=== PATIENT | male | born 1960 | race Caucasian/White ===

== ENCOUNTER 2023-04-21 07:00 | Day surgery (SDC) | payer BC, OTHER ==
[~2023-04-21 07:00] MED LIST: ALPRAZolam 0.25 MG TAB PO PRN; ALPRAZolam 0.5 MG TAB PO PRN; ASPIRIN 325 MG TAB PO ONE; ATORVASTATIN 80 MG TAB PO ONE; HEPARIN SODIUM,PORCINE (1 ML) 2,500 UNIT in SODIUM CHLORIDE 0.9% 250 ML IRRIGATION PRN; HEPARIN SODIUM,PORCINE 10,000 UNIT in SODIUM CHLORIDE 0.9% 1,000 ML IRRIGATION PRN; NITROGLYCERIN SL TABS 0.4 MG TAB SUBLINGUAL PRN; SODIUM CHLORIDE 0.9% 1,000 ML in EMPTY BAG 1 BAG IV SCH
[2023-04-21 07:20] VITALS: RESP 18
[2023-04-21 07:31] LABS: Anisocytosis Slight; Basophils # (A) 0.1 k/uL (0-0.2); Basophils % (A) 1 %; Eosinophils # (A) 0.3 k/uL (0-0.7); Eosinophils % (A) 3 %; HCT 40.3 % (39.0-53.0); HGB 13.5 gm/dL (13.0-17.5); Lymphocytes % (A) 11 %; MCH 26.8 pg (25.0-35.0); MCHC 33.5 g/dL (31.0-37.0); MCV 79.8 fL (80.0-100.0); Mean Platelet Volume 8.8; Microcytosis Slight; Monocytes # (A) 0.6 k/uL (0-1.0); Monocytes % (A) 6 %; Neutrophils # (A) 6.9 k/uL (1.3-7.7); Neutrophils % (A) 78 %; Platelet Count 224 k/uL (150-450); RBC 5.05 m/uL (4.30-5.90); RDW 16.5 % (11.5-15.5); WBC 8.9 k/uL (3.8-10.6)
[2023-04-21 07:43] LABS: African American GFR (CKD) 47 (>60 ml/min/1.73 sqM); Anion Gap 5 mmol/L; Blood Urea Nitrogen 22 mg/dL (9-20); Calcium 8.3 mg/dL (8.4-10.2); Carbon Dioxide 27 mmol/L (22-30); Chloride 105 mmol/L (98-107); Glucose 146 mg/dL (74-99); Non-African American GFR(CKD) 40 (>60 ml/min/1.73 sqM); Potassium 3.6 mmol/L (3.5-5.1); Sodium 137 mmol/L (137-145)
[2023-04-21 07:46] LABS: INR 1.1 (<1.2); Prothrombin Time 11.3 sec (9.0-12.0)
[2023-04-21] MEDS ORDERED: LIDOCAINE 1% INJ 10MG/ML (20 ML MDV) ONE (10:12)
[2023-04-21] MEDS ORDERED: fentaNYL (PF) 50 MCG/ML 2 ML AMP ONE (10:13)
[2023-04-21] MEDS ORDERED: VERAPAMIL 2.5 MG/ML 2 ML AMP ONE (10:13)
[2023-04-21] MEDS ORDERED: HEPARIN SODIUM 1,000 UN/ML (10ML VL) ONE (10:13)
[2023-04-21] MEDS ORDERED: MIDAZOLAM 2 MG/2 ML VIAL IVP ONE (10:19)
[2023-04-21] MEDS: fentaNYL (PF) 50 MCG/ML 2 ML AMP IVP ONE ×2 (10:19→10:24)
[2023-04-21] MEDS ORDERED: LIDOCAINE 1% INJ 10MG/ML (20 ML MDV) SQ ONE (10:21)
[2023-04-21] MEDS ORDERED: VERAPAMIL SYRINGE (5 MG/10 ML) INTRAARTER ONE (10:27)
[2023-04-21] MEDS ORDERED: HEPARIN SODIUM 1,000 UN/ML (10ML VL) IV ONE (10:30)
[2023-04-21] MEDS ORDERED: IOPAMIDOL-370 100ML BTL INJ ONE (10:40)
[2023-04-21] MEDS ORDERED: RX INFO: IV CONTRAST WAS GIVEN 1 EACH MISC MISCELLANE PRN (10:56)
--- NOTE | 2023-04-21 11:16 | CC ---
CARDIAC CATHETERIZATION REPORT INDICATION: Unstable angina in a patient with known aortic valve replacement, who presented to us with symptoms of progressively worsening shortness of breath, and a nuclear scan showed a fixed inferior wall defect and LV systolic dysfunction with an ejection fraction of 40%. The patient's Coumadin was stopped and he had taken Lovenox. PROCEDURE NOTE: After obtaining informed consent, left heart catheterization and coronary angiogram were performed via the right radial artery using standard Maya catheters. The patient's creatinine is elevated. He was hydrated and will be hydrated rest of today. We tried to use little dye as we can and certainly use less than the contrast threshold. The patient tolerated the procedure well without any obvious immediate complications. A TR band will be used for hemostasis. Total sedation time was 20 minutes. Right radial artery access was obtained using Seldinger technique. A 6-Yemeni sheath was placed. Catheters and wires were floated into the ascending aorta under fluoroscopic guidance. The patient tolerated the procedure well without any obvious immediate complications. FINDINGS: 1. Hemodynamics: Left ventricular end-diastolic pressure is 28 mm. There is no significant gradient across the aortic valve. 2. Left ventriculogram: Left ventriculogram was not performed. 3. Angiographic data: a.Right coronary artery: The right coronary artery appears small, nondominant vessel, and is free of significant stenosis. b.Left main coronary artery is a normal-sized vessel and is free of stenosis, appears mildly calcified. LAD and its branches and a nondominant circumflex coronary artery are free of significant stenosis. CONCLUSIONS: Mild nonobstructive disease involving right coronary artery. PLAN: The patient's symptoms does not relate to ischemic heart disease. We will treat the patient with diuretics, adequate control of blood pressure, and risk factor modification. He will continue Coumadin and will be transitioned with Lovenox. MMODL / IJN: [id number] /
[2023-04-21] MEDS ORDERED: SODIUM CHLORIDE 0.9% 500 ML 500 ML IV ONE (13:00)
[2023-04-21 14:15] VITALS: BP 126/65; PULSE 62
== END 2023-04-21 14:55 | disposition home or self-care (01) ==
LOC: CATHCVL 07:00
PROVIDERS: ATTEND Internal Medicine Cardiovascular Disease
DX: I25.10 Atherosclerotic heart disease of native coronary artery without angina pectoris (principal); I10 Essential (primary) hypertension; E78.5 Hyperlipidemia, unspecified; F17.210 Nicotine dependence, cigarettes, uncomplicated; Z79.899 Other long term (current) drug therapy
CPT/HCPCS: 93458; 80048; 85025; 85610; C1769; J2250; J2001; J3010; J1644; Q9967

== ENCOUNTER 2023-06-17 12:08 | Observation (INO) | payer BC, OTHER ==
[2023-06-17 14:20] LABS: INR 0.9 (<1.2); Partial Thromboplastin Time 24.9 sec (22.0-30.0); Prothrombin Time 9.7 sec (9.0-12.0)
[2023-06-17 14:24] LABS: Anisocytosis Slight; Basophils # (A) 0.1 k/uL (0-0.2); Basophils % (A) 1 %; Eosinophils # (A) 0.3 k/uL (0-0.7); Eosinophils % (A) 2 %; HCT 43.6 % (39.0-53.0); HGB 14.3 gm/dL (13.0-17.5); Lymphocytes # (A) 0.9 k/uL (1.0-4.8); Lymphocytes % (A) 8 %; MCHC 32.8 g/dL (31.0-37.0); MCV 82.2 fL (80.0-100.0); Mean Platelet Volume 9.5; Monocytes # (A) 0.5 k/uL (0-1.0); Monocytes % (A) 4 %; Neutrophils # (A) 9.6 k/uL (1.3-7.7); Neutrophils % (A) 85 %; Platelet Count 199 k/uL (150-450); RBC 5.31 m/uL (4.30-5.90); RDW 16.5 % (11.5-15.5); WBC 11.3 k/uL (3.8-10.6)
--- NOTE | 2023-06-17 14:42 | XR ---
EXAMINATION TYPE: XR chest 2V DATE OF EXAM: 06/17/2023 COMPARISON: None HISTORY: 62-year-old male with chest pain and dizziness TECHNIQUE: AP and lateral views FINDINGS: Median sternotomy wires are present. Prosthetic aortic valve. Heart upper limits of normal in size. M ild tortuosity/ectasia of the thoracic aorta. Hazy density is likely related to patient body habitus. No josefina consolidation or pleural effusion. IMPRESSION: Borderline heart size. No definite acute process.
[2023-06-17 14:44] LABS: ALT 15 U/L (4-49); AST 26 U/L (17-59); African American GFR (CKD) 37 (>60 ml/min/1.73 sqM); Albumin 4.2 g/dL (3.5-5.0); Alkaline Phosphatase 85 U/L (38-126); Anion Gap 7 mmol/L; Blood Urea Nitrogen 38 mg/dL (9-20); Carbon Dioxide 32 mmol/L (22-30); Chloride 99 mmol/L (98-107); Glucose 179 mg/dL (74-99); Magnesium 2.2 mg/dL (1.6-2.3); Non-African American GFR(CKD) 32 (>60 ml/min/1.73 sqM); Potassium 3.7 mmol/L (3.5-5.1); Sodium 138 mmol/L (137-145); Total Protein 7.5 g/dL (6.3-8.2)
[2023-06-17] MEDS ORDERED: HEPARIN SODIUM 1,000 UN/ML (10ML VL) IV ONE (15:20)
[2023-06-17] MEDS ORDERED: NALOXONE 0.4 MG/ML 1 ML VIAL IV PRN (15:21)
--- NOTE | 2023-06-17 15:21 | ED ---
General Adult HPI - General Chief complaint: Syncope Stated complaint: dizziness Time Seen by Provider: 06/17/23 12:20 Source: patient Mode of arrival: ambulatory Limitations: no limitations - History of Present Illness Initial comments: 62-year-old male with past medical history of aortic valve replacement who presents to the emergency department from his primary care office. States that for the past month he has had episodes of near-syncope upon standing. Patient took himself off of all of his medications because he is out of his medication induced. He was on Coumadin for his mechanical valve. States that the valve was put in in 2003 and this is the first time he has ever not taking his medications. His symptoms continued and therefore he saw his primary care today. They sent him over to the cardiology office who recommended that he come into the hospital as he would require heparinization. Patient denies any chest pain or shortness of breath. No headaches or visual changes. No nausea or vomiting. Denies fevers. No other alleviating, precipitating or modifying factors - Related Data Home Medications Medication Instructions Recorded Confirmed Esomeprazole Magnesium 40 mg PO DIRECTED 06/17/23 06/17/23 Furosemide [Lasix] 40 mg PO DIRECTED 06/17/23 06/17/23 Potassium Chloride [Klor-Con M10] 10 meq PO DIRECTED 06/17/23 06/17/23 Warfarin [Coumadin] 2 mg PO DIRECTED 06/17/23 06/17/23 hydrALAZINE HCL [Apresoline] 50 mg PO DIRECTED 06/17/23 06/17/23 lisinopriL [Prinivil] 20 mg PO DIRECTED 06/17/23 06/17/23 tadalafiL [Cialis] 10 mg PO DIRECTED 06/17/23 06/17/23 Allergies Allergy/AdvReac Type Severity Reaction Status Date / Time No Known Allergies Allergy Verified 06/17/23 15:40 Review of Systems ROS Statement: Those systems with pertinent positive or pertinent negative responses have been documented in the HPI. ROS Other: All systems not noted in ROS Statement are negative. Past Medical History Past Medical History: CVA/TIA, GERD/Reflux, Hyperlipidemia, Hypertension, Sleep Apnea/CPAP/BIPAP Additional Past Medical History / Comment(s): stress test abnormal, cva 2 yrs ago lft arm tires quickly, questioning possible DC,no cpap used See Dr Ibarra's H & P History of Any Multi-Drug Resistant Organisms: None Reported Past Surgical History: Cardiac Valve Replacement Additional Past Surgical History / Comment(s): 2003 aortic valve replaced, cerebral aneurysm repaired 2021 Additional Past Anesthesia/Blood Transfusion Reaction / Comment(s): no blood tx fx known Past Psychological History: No Psychological Hx Reported Smoking Status: Current every day smoker General Exam Limitations: no limitations General appearance: alert, in no apparent distress Head exam: Present: atraumatic, normocephalic, normal inspection Eye exam: Present: normal appearance, PERRL, EOMI. Absent: scleral icterus, conjunctival injection, periorbital swelling ENT exam: Present: normal exam, mucous membranes moist Neck exam: Present: normal inspection. Absent: tenderness, meningismus, lymphadenopathy Respiratory exam: Present: normal lung sounds bilaterally. Absent: respiratory distress, wheezes, rales, rhonchi, stridor Cardiovascular Exam: Present: regular rate, normal rhythm, normal heart sounds, clicks (Audible click). Absent: systolic murmur, diastolic murmur, rubs, gallop GI/Abdominal exam: Present: soft, normal bowel sounds. Absent: distended, tenderness, guarding, rebound, rigid Extremities exam: Present: normal inspection, full ROM, normal capillary refill. Absent: tenderness, pedal edema, joint swelling, calf tenderness Back exam: Present: normal inspection Neurological exam: Present: alert, oriented X3, CN II-XII intact Psychiatric exam: Present: normal affect, normal mood Skin exam: Present: warm, dry, intact, normal color. Absent: rash Course Vital Signs 06/17/23 06/17/23 06/17/23 12:19 14:43 16:28 Temperature 98.3 F Pulse Rate 93 Pulse Rate [ Bilateral Radial] Pulse Rate [ Ladle Builder ] Pulse Rate [ 85 72 Sitting] Pulse Rate [ 88 Standing] Pulse Rate [ 80 Supine] Respiratory 16 16 Rate Blood Pressure 159/98 Blood Pressure 137/88 171/91 [Sitting] Blood Pressure 154/100 [Standing] Blood Pressure 152/91 [Supine] O2 Sat by Pulse 99 Oximetry 06/17/23 06/18/23 06/18/23 20:00 00:00 04:00 Temperature 98.2 F 97.9 F 97.7 F Pulse Rate Pulse Rate [ 89 76 78 Bilateral Radial] Pulse Rate [ Ladle Builder ] Pulse Rate [ Sitting] Pulse Rate [ Standing] Pulse Rate [ Supine] Respiratory 19 16 Rate Blood Pressure Blood Pressure 162/90 149/97 155/92 [Sitting] Blood Pressure [Standing] Blood Pressure [Supine] O2 Sat by Pulse 97 97 Oximetry 06/18/23 06/18/23 06/18/23 09:00 11:32 11:55 Temperature 98 F Pulse Rate Pulse Rate [ Bilateral Radial] Pulse Rate [ 72 75 Ladle Builder ] Pulse Rate [ 87 Sitting] Pulse Rate [ 78 Standing] Pulse Rate [ 75 Supine] Respiratory 18 16 Rate Blood Pressure Blood Pressure 162/94 150/97 [Sitting] Blood Pressure 157/96 159/100 [Standing] Blood Pressure 157/96 [Supine] O2 Sat by Pulse 98 97 Oximetry 06/18/23 06/18/23 06/18/23 15:24 16:34 20:00 Temperature 97.7 F Pulse Rate Pulse Rate [ Bilateral Radial] Pulse Rate [ 78 79 Ladle Builder ] Pulse Rate [ Sitting] Pulse Rate [ Standing] Pulse Rate [ Supine] Respiratory 16 14 Rate Blood Pressure Blood Pressure 160/90 175/116 [Sitting] Blood Pressure [Standing] Blood Pressure [Supine] O2 Sat by Pulse 99 97 Oximetry 06/18/23 21:00 Temperature Pulse Rate Pulse Rate [ Bilateral Radial] Pulse Rate [ Ladle Builder ] Pulse Rate [ Sitting] Pulse Rate [ Standing] Pulse Rate [ Supine] Respiratory Rate Blood Pressure Blood Pressure [Sitting] Blood Pressure [Standing] Blood Pressure 148/87 [Supine] O2 Sat by Pulse Oximetry Medical Decision Making - Medical Decision Making Was pt. sent in by a medical professional or institution (, PA, RESTAURANT ASSISTANT MANAGER, urgent care, hospital, or group home...) When possible be specific @ -Patient was sent in by PCP and cardiology office Did you speak to anyone other than the patient for history (EMS, parent, family, police, friend...)? What history was obtained from this source @ -No Did you review nursing and triage notes (agree or disagree)? Why? @ -I reviewed and agree with nursing and triage notes Were old charts reviewed (outside hosp., previous admission, EMS record, old EKG, old radiological studies, urgent care reports/EKG's, group home records)? Report findings @ -No old charts were reviewed Differential Diagnosis (chest pain, altered mental status, abdominal pain women, abdominal pain men, vaginal bleeding, weakness, fever, dyspnea, syncope, headache, dizziness, GI bleed, back pain, seizure, CVA, palpatations, mental health, musculoskeletal)? @ -Differential Chest Pain: Stable Angina, Unstable Angina, STEMI, NSTEMI Aortic Dissection, Pneumothorax, Musculoskeletal, Esophageal Spasm GERD, Cholecystitis, Pancreatitis, Zoster, this is not meant to be an all-inclusive list. EKG interpreted by me (3pts min.). @ -Yes and demonstrates sinus rhythm with a rate of 90. IL interval 156. QRS 106. QTC of 451. No acute ST segment elevations. ST depression V4 through V6 X-rays interpreted by me (1pt min.). @ -Yes and demonstrates no acute process CT interpreted by me (1pt min.). @ -None done U/S interpreted by me (1pt. min.). @ -None done What testing was considered but not performed or refused? (CT, X-rays, U/S, labs)? Why? @ -None What meds were considered but not given or refused? Why? @ -None Did you discuss the management of the patient with other professionals (professionals i.e. , PA, RESTAURANT ASSISTANT MANAGER, lab, RT, psych nurse, social research assistant, business data analyst, teacher, disabilities services officer, case planner)? Give summary @ I spoke with Dr. Roth who will admit the patient Was smoking cessation discussed for >3mins.? @ -No Was critical care preformed (if so, how long)? @ -yes, 35 minutes Were there social determinants of health that impacted care today? How? (Homelessness, low income, unemployed, alcoholism, drug addiction, transportation, low edu. Level, literacy, decrease access to med. care, usp, rehab)? @ -No Was there de-escalation of care discussed even if they declined (Discuss DNR or withdrawal of care, Hospice)? DNR status @ -No What co-morbidities impacted this encounter? (DM, HTN, Smoking, COPD, CAD, Cancer, CVA, ARF, Chemo, Hep., AIDS, mental health diagnosis, sleep apnea, morbid obesity)? @ -mechanical heart valve Was patient admitted / discharged? Hospital course, mention meds given and route, prescriptions, significant lab abnormalities, going to OR and other pertinent info. @ -Upon arrival patient was placed into the hallway. Thorough history and physical exam was performed. Laboratory studies are conducted. Troponin is elevated. Patient will require heparin with transition to Coumadin. Patient agreeable to admission. Spoke with Dr. Roth Undiagnosed new problem with uncertain prognosis? @ -Yes Drug Therapy requiring intensive monitoring for toxicity (Heparin, Nitro, Insulin, Cardizem)? @ -Heparin Were any procedures done? @ -No Diagnosis/symptom? @ -Acute respiratory insufficiency, subtherapeutic INR, medical noncompliance, history of mechanical aortic valve Acute, or Chronic, or Acute on Chronic? @ -acute Uncomplicated (without systemic symptoms) or Complicated (systemic symptoms)? @ -complicated Side effects of treatment? @ -No Exacerbation, Progression, or Severe Exacerbation? @ -No Poses a threat to life or bodily function? How? (Chest pain, USA, DC, pneumonia, PE, COPD, DKA, ARF, appy, cholecystitis, CVA, Diverticulitis, Homicidal, Suicidal, threat to staff... and all critical care pts) @ -yes patient has not been anticoagulated with his valve - Lab Data Result diagrams: 06/18/23 04:59 06/18/23 04:59 Lab Results 06/17/23 06/17/23 06/17/23 Range/Units 13:18 13:18 13:18 WBC 11.3 H (3.8-10.6) k/uL RBC 5.31 (4.30-5.90) m/uL Hgb 14.3 (13.0-17.5) gm/dL Hct 43.6 (39.0-53.0) % MCV 82.2 (80.0-100.0) fL MCH 27.0 (25.0-35.0) pg MCHC 32.8 (31.0-37.0) g/dL RDW 16.5 H (11.5-15.5) % Plt Count 199 (150-450) k/uL MPV 9.5 Neutrophils % 85 % Lymphocytes % 8 % Monocytes % 4 % Eosinophils % 2 % Basophils % 1 % Neutrophils # 9.6 H (1.3-7.7) k/uL Lymphocytes # 0.9 L (1.0-4.8) k/uL Monocytes # 0.5 (0-1.0) k/uL Eosinophils # 0.3 (0-0.7) k/uL Basophils # 0.1 (0-0.2) k/uL Anisocytosis Slight PT 9.7 (9.0-12.0) sec INR 0.9 (<1.2) APTT 24.9 (22.0-30.0) sec Sodium 138 (137-145) mmol/L Potassium 3.7 (3.5-5.1) mmol/L Chloride 99 (98-107) mmol/L Carbon Dioxide 32 H (22-30) mmol/L Anion Gap 7 mmol/L BUN 38 H (9-20) mg/dL Creatinine 2.16 H (0.66-1.25) mg/dL Est GFR (CKD-EPI)AfAm 37 (>60 ml/min/1.73 sqM) Est GFR (CKD-EPI)NonAf 32 (>60 ml/min/1.73 sqM) Glucose 179 H (74-99) mg/dL Calcium 9.0 (8.4-10.2) mg/dL Magnesium 2.2 (1.6-2.3) mg/dL Total Bilirubin 1.0 (0.2-1.3) mg/dL AST 26 (17-59) U/L ALT 15 (4-49) U/L Alkaline Phosphatase 85 (38-126) U/L Troponin I (0.000-0.034) ng/mL Total Protein 7.5 (6.3-8.2) g/dL Albumin 4.2 (3.5-5.0) g/dL 06/17/23 Range/Units 13:18 WBC (3.8-10.6) k/uL RBC (4.30-5.90) m/uL Hgb (13.0-17.5) gm/dL Hct (39.0-53.0) % MCV (80.0-100.0) fL MCH (25.0-35.0) pg MCHC (31.0-37.0) g/dL RDW (11.5-15.5) % Plt Count (150-450) k/uL MPV Neutrophils % % Lymphocytes % % Monocytes % % Eosinophils % % Basophils % % Neutrophils # (1.3-7.7) k/uL Lymphocytes # (1.0-4.8) k/uL Monocytes # (0-1.0) k/uL Eosinophils # (0-0.7) k/uL Basophils # (0-0.2) k/uL Anisocytosis PT (9.0-12.0) sec INR (<1.2) APTT (22.0-30.0) sec Sodium (137-145) mmol/L Potassium (3.5-5.1) mmol/L Chloride (98-107) mmol/L Carbon Dioxide (22-30) mmol/L Anion Gap mmol/L BUN (9-20) mg/dL Creatinine (0.66-1.25) mg/dL Est GFR (CKD-EPI)AfAm (>60 ml/min/1.73 sqM) Est GFR (CKD-EPI)NonAf (>60 ml/min/1.73 sqM) Glucose (74-99) mg/dL Calcium (8.4-10.2) mg/dL Magnesium (1.6-2.3) mg/dL Total Bilirubin (0.2-1.3) mg/dL AST (17-59) U/L ALT (4-49) U/L Alkaline Phosphatase (38-126) U/L Troponin I 0.068 H* (0.000-0.034) ng/mL Total Protein (6.3-8.2) g/dL Albumin (3.5-5.0) g/dL Disposition Clinical Impression: Mechanical heart valve present, Medical non-compliance, Pre-syncope Disposition: ADMITTED IP TO THIS HOSP Condition: Stable Is patient prescribed a controlled substance at d/c from ED?: No Time of Disposition: 15:21 Decision to Admit Reason: Admit from EC Decision Date: 06/17/23 Decision Time: 15:21
[2023-06-17] MEDS: HEPARIN SOD,PORK IN 0.45% NACL 25,000 UNIT in 0.45% NACL 1 250ML.BAG IV SCH (15:53)
[2023-06-17] MEDS: HEPARIN SODIUM 1,000 UN/ML (10ML VL) IV PRN (22:11)
[2023-06-18 05:32] LABS: Anisocytosis Slight; Basophils # (A) 0.1 k/uL (0-0.2); Basophils % (A) 1 %; Eosinophils # (A) 0.4 k/uL (0-0.7); Eosinophils % (A) 4 %; HCT 40.6 % (39.0-53.0); HGB 13.1 gm/dL (13.0-17.5); Lymphocytes # (A) 1.4 k/uL (1.0-4.8); Lymphocytes % (A) 13 %; MCH 26.7 pg (25.0-35.0); MCHC 32.2 g/dL (31.0-37.0); MCV 82.8 fL (80.0-100.0); Mean Platelet Volume 8.8; Monocytes # (A) 0.6 k/uL (0-1.0); Monocytes % (A) 6 %; Neutrophils # (A) 7.9 k/uL (1.3-7.7); Neutrophils % (A) 75 %; Platelet Count 181 k/uL (150-450); RDW 16.5 % (11.5-15.5); WBC 10.4 k/uL (3.8-10.6)
[2023-06-18 05:34] LABS: INR 0.9 (<1.2); Partial Thromboplastin Time 32.8 sec (22.0-30.0); Prothrombin Time 9.9 sec (9.0-12.0)
[2023-06-18 05:48] LABS: African American GFR (CKD) 29 (>60 ml/min/1.73 sqM); Anion Gap 5 mmol/L; Blood Urea Nitrogen 35 mg/dL (9-20); Calcium 8.6 mg/dL (8.4-10.2); Carbon Dioxide 31 mmol/L (22-30); Chloride 102 mmol/L (98-107); Glucose 111 mg/dL (74-99); Non-African American GFR(CKD) 25 (>60 ml/min/1.73 sqM); Potassium 3.8 mmol/L (3.5-5.1); Sodium 138 mmol/L (137-145)
[2023-06-18] MEDS: HEPARIN SODIUM 1,000 UN/ML (10ML VL) IV PRN (06:08)
--- NOTE | 2023-06-18 08:28 | P.CRDCN ---
History of Present Illness Consult date: 06/18/23 Reason for Consult (text): Presyncope, mechanical valve with noncompliance, non-ST elevated myocardial infarction History of present illness: History of present illness: This is a 62 year old male patient of Dr. Joan Ibarra with past medical history of mechanical aortic valve, hypertension, dyslipidemia, tobacco use. Patient states that he had a syncopal episode related to lisinopril 80 mg daily but had stopped all his medications for 1 month trying to figure out which medication caused his problem. He was seen by his primary care and sent to cardiology. He was at the office with Dr. Joan Ibarra yesterday and sent directly into [facility] to s adriánt him on Coumadin and heparin drip as bridge. Patient denies having any chest pain. No orthopnea, PND, dyspnea on exertion or edema. He has had no further episodes of syncope or vertigo. Patient is seen today in the emergency center waiting for a bed on the cardiac unit. EKG sinus rhythmh left ventricular hypertrophy Chest x-ray: Chest x-ray borderline heart size. No definite acute process. WBC and initial 11.3-10.4, hemoglobin 13.1, platelet count 181. INR 0.9. Sodium 138, potassium 3.8, BUN 35 creatinine 2.65. Troponin 0.068, 0.058, 0.064. Glucose initially 179 now 111. Liver function tests are normal. Magnesium 2.2 Home cardiac medications: Carvedilol 25 mg twice daily, hydralazine 50 mg 3 times daily, Lasix 40 mg daily, lisinopril 20 mg daily, potassium chloride 10 mEq daily, warfarin 2 mg daily Echocardiogram 03/25/0602/23/2023 revealed normal LV size EF 50%, grade 2 diastolic dysfunction, moderate left nuclear hypertrophy. Mechanical AV prosthesis. Descending aorta is enlarged. Mild to moderate mitral regurgitation, mild mitral stenosis, mild tricuspid regurgitation. PAS P 50 mmHg. Review Of Systems: At the time of my evaluation: Constitutional: No fever, no chills. No weakness, fatigue or lethargy. EENT: No headache. No dizziness. Lungs: No shortness of breath, cough, no sputum production. No wheezing. Cardiovascular: No chest pain, no lower extremity edema. No palpitations. No paroxysmal nocturnal dyspnea. No orthopnea. No lightheadedness or dizziness. No syncopal episodes. Abdominal: No abdominal pain. No nausea, vomiting. No diarrhea. No constipation. No bloody or tarry stools. Genitourinary: No dysuria.. No urinary retention. Musculoskeletal: No myalgias. No muscle weakness, no frequent falls. No back pain. No neck pain. Integumentary: No wounds. No rash. No unusual bruising. Neurologic: No aphasia. No facial droop. No change in mentation. No head injury. No headache. Physical examination: Gen: This is a 62-year-old male. He is sitting on the edge of the stretcher and appears to be comfortable and in no acute distress. VS: reviewed 155/92, heart rate in the 70s, pulse ox 97% on room air, afebrile HEENT: Head is atraumatic, normocephalic. Pupils equal, round. Sclerae is anicteric. NECK: Supple. No JVD. . LUNGS: Clear to auscultation. No wheezes or rhonchi. No intercostal retractions. HEART: Regular rate and rhythm. Prosthetic valve sounds crisp. ABDOMEN: Soft No tenderness. EXTREMITIES: No pedal edema. No calf tenderness. NEUROLOGICAL: Patient is awake, alert and oriented x3. Assessment: Noncompliance with medications Mechanical aortic valve Troponin elevation flat, acute cardiac syndrome ruled out, no non-ST elevated [place] Acute kidney injury Hypertension with hypertensive cardiovascular disease Dyslipidemia Tobacco use Plan: Patient started on the following medications: Amlodipine 5 mg daily, Coreg 3.125 mg twice daily Continue heparin drip until INR is therapeutic Patient started on Coumadin 2.5 mg daily. PHARMACY NOT TO DOSE COUMADIN. Obtain orthostatic vital signs Obtain 2-D echocardiogram and Doppler study to assess mitral valve Monitor BNP daily Patient may require further workup to determine cause of vertigo/syncope. Further recommendations to follow based upon clinical course Thank you kindly for this consultation. Nurse practitioner note has been reviewed, I agree with documented findings and plan of care. Patient was seen and examined. Past Medical History Past Medical History: CVA/TIA, GERD/Reflux, Hyperlipidemia, Hypertension, Sleep Apnea/CPAP/BIPAP Additional Past Medical History / Comment(s): stress test abnormal, cva 2 yrs ago lft arm tires quickly, questioning possible [place],no cpap used See Dr Ibarra's H & P History of Any Multi-Drug Resistant Organisms: None Reported Past Surgical History: Cardiac Valve Replacement Additional Past Surgical History / Comment(s): 2003 aortic valve replaced, cerebral aneurysm repaired 2021 Additional Past Anesthesia/Blood Transfusion Reaction / Comment(s): no blood tx fx known Past Psychological History: No Psychological Hx Reported Smoking Status: Current every day smoker Medications and Allergies Home Medications Medication Instructions Recorded Confirmed Type Esomeprazole Magnesium 40 mg PO DIRECTED 06/17/23 06/17/23 History Furosemide [Lasix] 40 mg PO DIRECTED 06/17/23 06/17/23 History Potassium Chloride [Klor-Con M10] 10 meq PO DIRECTED 06/17/23 06/17/23 History Warfarin [Coumadin] 2 mg PO DIRECTED 06/17/23 06/17/23 History hydrALAZINE HCL [Apresoline] 50 mg PO DIRECTED 06/17/23 06/17/23 History lisinopriL [Prinivil] 20 mg PO DIRECTED 06/17/23 06/17/23 History tadalafiL [Cialis] 10 mg PO DIRECTED 06/17/23 06/17/23 History Allergies Allergy/AdvReac Type Severity Reaction Status Date / Time No Known Allergies Allergy Verified 06/17/23 15:40 Physical Exam Vitals: Vital Signs Temp Pulse Pulse Pulse Pulse Pulse Resp 06/18/23 04:00 97.7 F 78 06/18/23 00:00 97.9 F 76 16 06/17/23 20:00 98.2 F 89 19 06/17/23 16:28 72 16 06/17/23 14:43 85 88 80 06/17/23 12:19 98.3 F 93 16 BP BP BP BP Pulse Ox 06/18/23 04:00 155/92 06/18/23 00:00 149/97 97 06/17/23 20:00 162/90 97 06/17/23 16:28 171/91 06/17/23 14:43 137/88 154/100 152/91 06/17/23 12:19 159/98 99 Intake and Output 06/17/23 06/18/23 06/18/23 22:59 06:59 14:59 Intake Total 62.833 102.054 Balance 62.833 102.054 Intake: Intake, IV Titration 62.833 102.054 Amount Heparin Sod,Pork in 0.45% 62.833 102.054 NaCl 25,000 unit In 0.45 % NaCl 1 250ml.bag @ 10. 021 UNITS/KG/HR 10 mls/hr IV .Q24H [facility] Rx#: [id number] Other: Voiding Method Toilet Toilet Results 06/18/23 04:59 06/18/23 04:59 Cardiac Enzymes 06/17/23 06/17/23 06/17/23 Range/Units 13:18 13:18 17:30 AST 26 (17-59) U/L Troponin I 0.068 H* 0.058 H* (0.000-0.034) ng/mL 06/17/23 Range/Units 20:42 AST (17-59) U/L Troponin I 0.064 H* (0.000-0.034) ng/mL Coagulation 06/17/23 06/17/23 06/18/23 Range/Units 13:18 20:42 04:59 PT 9.7 9.9 (9.0-12.0) sec APTT 24.9 25.7 32.8 H (22.0-30.0) sec CBC 06/17/23 06/18/23 Range/Units 13:18 04:59 WBC 11.3 H 10.4 (3.8-10.6) k/uL RBC 5.31 4.90 (4.30-5.90) m/uL Hgb 14.3 13.1 (13.0-17.5) gm/dL Hct 43.6 40.6 (39.0-53.0) % Plt Count 199 181 (150-450) k/uL Comprehensive Metabolic Panel 06/17/23 06/18/23 Range/Units 13:18 04:59 Sodium 138 138 (137-145) mmol/L Potassium 3.7 3.8 (3.5-5.1) mmol/L Chloride 99 102 (98-107) mmol/L Carbon Dioxide 32 H 31 H (22-30) mmol/L BUN 38 H 35 H (9-20) mg/dL Creatinine 2.16 H 2.65 H (0.66-1.25) mg/dL Glucose 179 H 111 H (74-99) mg/dL Calcium 9.0 8.6 (8.4-10.2) mg/dL AST 26 (17-59) U/L ALT 15 (4-49) U/L Alkaline Phosphatase 85 (38-126) U/L Total Protein 7.5 (6.3-8.2) g/dL Albumin 4.2 (3.5-5.0) g/dL Current Medications Generic Name Dose Route Start Last Admin Trade Name Freq PRN Reason Stop Dose Admin Amlodipine Besylate 5 mg 06/18/23 09:00 Amlodipine 5 Mg Tab PO DAILY [facility] Carvedilol 3.125 mg 06/18/23 08:00 Carvedilol 3.125 Mg Tab PO BID-W/MEALS [facility] Heparin Sodium (Porcine) 0 unit 06/17/23 15:20 06/18/23 06:08 Heparin Sodium 1,000 Un/Ml (10ml Vl) IV 4,000 unit PER PROTOCOL PRN Administration Low PTT Protocol Heparin Sodium/Sodium Chloride 250 mls @ 10 mls/hr 06/17/23 15:30 06/18/23 06:02 25,000 unit/ Sodium Chloride IV 16 units/kg/hr .Q24H [facility] 15.966 mls/hr Titration Protocol 10.021 UNITS/KG/HR Naloxone HCl 0.2 mg 06/17/23 15:21 Naloxone 0.4 Mg/Ml 1 Ml Vial IV Q2M PRN Opioid Reversal Warfarin Sodium 2.5 mg 06/18/23 18:00 Warfarin 2.5 Mg Tab PO DAILY@1800 [facility] Protocol Intake and Output 06/17/23 06/18/23 06/18/23 22:59 06:59 14:59 Intake Total 62.833 102.054 Balance 62.833 102.054 Intake: Intake, IV Titration 62.833 102.054 Amount Heparin Sod,Pork in 0.45% 62.833 102.054 NaCl 25,000 unit In 0.45 % NaCl 1 250ml.bag @ 10. 021 UNITS/KG/HR 10 mls/hr IV .Q24H [facility] Rx#: [id number] Other: Voiding Method Toilet Toilet 06/18/23 04:59 06/18/23 04:59
[2023-06-18] MEDS: carvediloL 3.125 MG TAB PO SCH ×2 (08:35→17:02)
[2023-06-18] MEDS: HEPARIN SOD,PORK IN 0.45% NACL 25,000 UNIT in 0.45% NACL 1 250ML.BAG IV SCH (08:35)
[2023-06-18] MEDS ORDERED: amLODIPine 5 MG TAB PO SCH (09:00)
[2023-06-18] MEDS ORDERED: hydrALAZINE HCL 50 MG TAB PO SCH ×2 (09:30)
[2023-06-18] MEDS: PANTOPRAZOLE 40 MG/10 ML VIAL IVP SCH (11:24)
--- NOTE | 2023-06-18 11:25 | P.HPIM ---
History of Present Illness H&P Date: 06/18/23 Chief Complaint: Dizziness, hypertension This is 62-year-old gentleman who recently relocated to [place] in December [address] Ibarra, Cardiology, past medical history significant for AVR-2003 with a prosthetic valve, recent cardiac catheterization 04/2023 re porting mild nonobstructive disease involving RCA ,hypertension, hyperlipidemia, CKD III, obstructive sleep apnea-does not use CPAP and BiPAP, morbid obesity, CVA 2 years ago, current nicotine dependence and multiple other medical issues, reporting worsening dizziness and took himself off of all his medications including his antihypertensives and his Coumadin. Reports his last dose of Coumadin was 30 days ago. Symptoms persisted, and proceeded to his primary care physician, reporting his blood pressures significantly elevated greater than 200s. Patient was directed to cardiology's office who sent him to the ER for heparinization. Patient currently maintained on heparin drip, INR remains at 0.9.Troponin 0.068, 0.053, 0.064. EKG reporting sinus rhythm, left ventricular hypertrophy, ST-T changes. Denies chest pain, palpitations or shortness of breath. Chest x-ray reported borderline heart size, no definite acute process. Afebrile, WBC 10.4, hemoglobin 13.1, platelets 181, INR 0.9, s odium 3.8 bicarb 31 BUN 35, creatinine 2.65 magnesium 2.2. Glucose 179. Review of Systems ROS Statement: Those systems with pertinent positive or pertinent negative responses have been documented in the HPI. ROS Other: All systems not noted in ROS Statement are negative. Past Medical History Past Medical History: CVA/TIA, GERD/Reflux, Hyperlipidemia, Hypertension, Sleep Apnea/CPAP/BIPAP Additional Past Medical History / Comment(s): stress test abnormal, cva 2 yrs ago lft arm tires quickly, questioning possible [place],no cpap used See Dr Ibarra's H & P History of Any Multi-Drug Resistant Organisms: None Reported Past Surgical History: Cardiac Valve Replacement Additional Past Surgical History / Comment(s): 2003 aortic valve replaced, cerebral aneurysm repaired 2021 Additional Past Anesthesia/Blood Transfusion Reaction / Comment(s): no blood tx fx known Past Psychological History: No Psychological Hx Reported Smoking Status: Current every day smoker Medications and Allergies Home Medications Medication Instructions Recorded Confirmed Type Esomeprazole Magnesium 40 mg PO DIRECTED 06/17/23 06/17/23 History Furosemide [Lasix] 40 mg PO DIRECTED 06/17/23 06/17/23 History Potassium Chloride [Klor-Con M10] 10 meq PO DIRECTED 06/17/23 06/17/23 History Warfarin [Coumadin] 2 mg PO DIRECTED 06/17/23 06/17/23 History hydrALAZINE HCL [Apresoline] 50 mg PO DIRECTED 06/17/23 06/17/23 History lisinopriL [Prinivil] 20 mg PO DIRECTED 06/17/23 06/17/23 History tadalafiL [Cialis] 10 mg PO DIRECTED 06/17/23 06/17/23 History Allergies Allergy/AdvReac Type Severity Reaction Status Date / Time No Known Allergies Allergy Verified 06/17/23 15:40 Physical Exam Vitals: Vital Signs Temp Pulse Pulse Pulse Pulse Pulse Resp 06/18/23 04:00 97.7 F 78 06/18/23 00:00 97.9 F 76 16 06/17/23 20:00 98.2 F 89 19 06/17/23 16:28 72 16 06/17/23 14:43 85 88 80 06/17/23 12:19 98.3 F 93 16 BP BP BP BP Pulse Ox 06/18/23 04:00 155/92 06/18/23 00:00 149/97 97 06/17/23 20:00 162/90 97 06/17/23 16:28 171/91 06/17/23 14:43 137/88 154/100 152/91 06/17/23 12:19 159/98 99 Intake and Output 06/17/23 06/18/23 06/18/23 22:59 06:59 14:59 Intake Total 62.833 102.054 40.713 Balance 62.833 102.054 40.713 Intake: Intake, IV Titration 62.833 102.054 40.713 Amount Heparin Sod,Pork in 0.45% 62.833 102.054 40.713 NaCl 25,000 unit In 0.45 % NaCl 1 250ml.bag @ 10. 021 UNITS/KG/HR 10 mls/hr IV .Q24H [facility] Rx#: [id number] Other: Voiding Method Toilet Toilet PHYSICAL EXAM: VITAL SIGNS: [As above] GENERAL: Well-nourished, Sitting up on edge a stretcher, no acute distress HEENT: Normocephalic, Conjunctivae normal. eyes normal. NECK: Supple, No JVD. No thyroid enlargement. No LNs CARDIOVASCULAR: S1, S2 regular. No murmur, prosthetic valve click RESPIRATION: Unlabored, equal air entry, Breath sounds diminished in the bases. No rhonchi or crackles. No bronchial breathing. ABDOMEN: Soft, nondistended, nontender . No guarding. no masses palpable. No ascites, No hepatosplenomegaly.Bowel sounds heard. LEGS: No edema. no swelling PSYCHIATRY: Alert and oriented X3, mood and affect normal. NERVOUS SYSTEM: Cranial N 2-12 grossly normal. No focal deficits. Strength and sensation grossly intact. Skin: Warm and dry, no rash Results CBC & Chem 7: 06/18/23 04:59 06/18/23 04:59 Labs: Abnormal Lab Results - Last 24 Hours (Table) 06/17/23 06/17/23 06/17/23 Range/Units 13:18 13:18 13:18 WBC 11.3 H (3.8-10.6) k/uL RDW 16.5 H (11.5-15.5) % Neutrophils # 9.6 H (1.3-7.7) k/uL Lymphocytes # 0.9 L (1.0-4.8) k/uL APTT (22.0-30.0) sec Carbon Dioxide 32 H (22-30) mmol/L BUN 38 H (9-20) mg/dL Creatinine 2.16 H (0.66-1.25) mg/dL Glucose 179 H (74-99) mg/dL Troponin I 0.068 H* (0.000-0.034) ng/mL 06/17/23 06/17/23 06/18/23 Range/Units 17:30 20:42 04:59 WBC (3.8-10.6) k/uL RDW (11.5-15.5) % Neutrophils # (1.3-7.7) k/uL Lymphocytes # (1.0-4.8) k/uL APTT (22.0-30.0) sec Carbon Dioxide 31 H (22-30) mmol/L BUN 35 H (9-20) mg/dL Creatinine 2.65 H (0.66-1.25) mg/dL Glucose 111 H (74-99) mg/dL Troponin I 0.058 H* 0.064 H* (0.000-0.034) ng/mL 06/18/23 06/18/23 Range/Units 04:59 04:59 WBC (3.8-10.6) k/uL RDW 16.5 H (11.5-15.5) % Neutrophils # 7.9 H (1.3-7.7) k/uL Lymphocytes # (1.0-4.8) k/uL APTT 32.8 H (22.0-30.0) sec Carbon Dioxide (22-30) mmol/L BUN (9-20) mg/dL Creatinine (0.66-1.25) mg/dL Glucose (74-99) mg/dL Troponin I (0.000-0.034) ng/mL Assessment and Plan Assessment: Dizziness, near syncope in a patient with Mechanical aortic valve, medication noncompliance including anticoagulation AVR 2003 History of CVA 2 years ago Hypertension Hyperlipidemia CKD, stage III, baseline creatinine 1.4 Gastroesophageal reflux disease Obstructive sleep apnea and does not use BiPAP or CPAP Morbid obesity, BMI 38 Ongoing nicotine dependence Plan: Continue on current medication regime ,monitoring and symptomatic t reatment. Maintained on heparin drip, Coumadin initiated. Evaluated by cardiology with recommendations noted and appreciated. Orthostatic vital signs/Echo pending. Medical compliance reinforced. The impression and plan of care has been dictated as directed. : I performed a history and examination of this patient, discussed the same with the dictator. I agree with the dictator's note ,documented as a scribe. Any additional findings or plans will be noted.
--- NOTE | 2023-06-18 12:05 | CA ---
Transthoracic Echo Report Name: Catalino Vasquez Age: 62 Gender: M : 1960 Exam Date: 06/18/2023 10:35 Exam Location: [facility] [place] [facility] Ht (in): 64 Wt (lb): 220 Ordering Physician: Violet Miranda Attending/Referring Phys: [id number], Ruben [employer] Gene Blank Procedure CPT: Indications: eval mechanical valve, LVF Cardiac Hx: Technical Quality: Fair Contrast 1: Total Dose (mL): Contrast 2: Total Dose (mL): MEASUREMENTS (Male / Female) Normal Values 2D ECHO LV Diastolic Diameter PLAX 4.8 cm 4.2 - 5.9 / 3.9 - 5.3 cm LV Systolic Diameter PLAX 3.5 cm IVS Diastolic Thickness 2.1 cm 0.6 - 1.0 / 0.6 - 0.9 cm LVPW Diastolic Thickness 1.8 cm 0.6 - 1.0 / 0.6 - 0.9 cm LV Relative Wall Thickness 0.8 RV Internal Dim ED PLAX 2.4 cm LVOT Diameter 2.4 cm Aortic Root Diameter 3.3 cm LA Systolic Diameter LX 2.5 cm 3.0 - 4.0 / 2.7 - 3.8 cm LV Diastolic Volume MOD BP 88.2 cm??? 67 - 155 / 56 - 104 cm??? LV Systolic Volume MOD BP 50.1 cm??? 22 - 58 / 19 - 49 cm??? LV Ejection Fraction MOD BP 43.2 % >= 55 % LV Cardiac Index MOD BP 1210.3 cm???/min???m??? LV Diastolic Volume MOD 4C 89.2 cm??? LV Systolic Volume MOD 4C 48.3 cm??? LV Ejection Fraction MOD 4C 45.8 % LV Cardiac Index MOD 4C 1298.1 cm???/min???m??? LV Diastolic Length 4C 8.5 cm LV Systolic Length 4C 7.6 cm LV Diastolic Volume MOD 2C 84.8 cm??? LV Systolic Volume MOD 2C 51.0 cm??? LV Ejection Fraction MOD 2C 39.9 % LV Cardiac Index MOD 2C 1076.3 cm???/min???m??? LV Diastolic Length 2C 8.2 cm LV Systolic Length 2C 7.5 cm LA Volume 62.8 cm??? 18 - 58 / 22 - 52 cm??? DOPPLER AV Peak Velocity 275.8 cm/s AV Peak Gradient 30.4 mmHg AV Mean Velocity 197.7 cm/s AV Mean Gradient 17.9 mmHg AV Velocity Time Integral 56.8 cm LVOT Peak Velocity 98.0 cm/s LVOT Peak Gradient 3.8 mmHg LVOT Velocity Time Integral 18.2 cm LVOT Stroke Volume 84.1 cm??? LVOT Stroke Volume Index 41.3 ml/m??? LVOT Cardiac Index 2674.9 cm???/min???m??? AV Area Cont Eq vti 1.5 cm??? AV Area Cont Eq pk 1.6 cm??? MV Peak Velocity 141.7 cm/s MV Peak Gradient 8.0 mmHg MV Mean Velocity 65.0 cm/s MV Mean Gradient 2.2 mmHg MV Velocity Time Integral 39.8 cm MR Peak Velocity 238.2 cm/s MR Peak Gradient 22.7 mmHg Mitral E Point Velocity 118.7 cm/s Mitral A Point Velocity 92.2 cm/s Mitral E to A Ratio 1.3 MV Deceleration Time 233.3 ms TR Peak Velocity 246.3 cm/s TR Peak Gradient 24.3 mmHg Right Ventricular Systolic Press 29.3 mmHg PV Peak Velocity 108.5 cm/s PV Peak Gradient 4.7 mmHg FINDINGS Left Ventricle Normal LV sixe. Mild to moderate concentric LVH. Left ventricular ejection fraction is estimated at 40%. Right Ventricle Normal right ventricular size. RVSP= 29mmHg. Right Atrium Normal right atrial size. Left Atrium Mild left atrial dilatation. LA volume index= 31ml/m2. Mitral Valve Structurally normal mitral valve. Trace MR. Aortic Valve Mechanical AV prosthesis. Aortic valve not well visualized. Trace AI. Increased velocity noted of nearly 2.7 m send a peak gradient of 30 mmHg Tricuspid Valve Structurally normal tricuspid valve. Mild TR. Pulmonic Valve Pulmonic valve not well visualized. No pulmonic regurgitation. Pericardium Normal pericardium. Aorta Normal size aortic root. CONCLUSIONS Global decrease in contractility estimated ejection fraction of 40%. Mechanical aortic valve seen but not well visualized. Increased velocity noted no significant regurgitation no pericardial effusion. No pulmonary hypertension Previewed by: Dr. Ana Harvey MD (Electronically Signed) Final Date: 18 June 2023 12:04
[2023-06-18] MEDS: NICOTINE 21MG/24HR PATCH TRANSDERM SCH (15:31)
[2023-06-18] MEDS ORDERED: WARFARIN 2.5 MG TAB PO SCH (18:00)
[2023-06-18] MEDS: amLODIPine 5 MG TAB PO SCH (23:32)
[2023-06-19] MEDS: carvediloL 3.125 MG TAB PO SCH (06:10)
[2023-06-19 07:16] LABS: INR 0.9 (<1.2)
[2023-06-19 07:24] LABS: African American GFR (CKD) 35 (>60 ml/min/1.73 sqM); Anion Gap 4 mmol/L; Blood Urea Nitrogen 34 mg/dL (9-20); Calcium 8.5 mg/dL (8.4-10.2); Carbon Dioxide 31 mmol/L (22-30); Chloride 103 mmol/L (98-107); Glucose 113 mg/dL (74-99); Non-African American GFR(CKD) 30 (>60 ml/min/1.73 sqM); Potassium 3.6 mmol/L (3.5-5.1); Sodium 138 mmol/L (137-145)
[2023-06-19] MEDS: NICOTINE 21MG/24HR PATCH TRANSDERM SCH (08:38)
[2023-06-19] MEDS: PANTOPRAZOLE 40 MG/10 ML VIAL IVP SCH (08:38)
[2023-06-19] MEDS: amLODIPine 5 MG TAB PO SCH ×2 (08:38→20:09)
[2023-06-19] MEDS ORDERED: carvediloL 3.125 MG TAB PO STA (11:13)
[2023-06-19] MEDS: WARFARIN 5 MG TAB PO SCH (12:24)
--- NOTE | 2023-06-19 13:22 | P.PN ---
Subjective Progress Note Date: 06/19/23 This is 62-year-old gentleman who recently relocated to [place] in December [address] Ibarra, Cardiology, past medical history significant for AVR-2003 with a prosthetic valve, recent cardiac catheterization 04/2023 reporting mild nonobstructive disease involving RCA ,hypertension, hyperlip idemia, CKD III, obstructive sleep apnea-does not use CPAP and BiPAP, morbid obesity, CVA 2 years ago, current nicotine dependence and multiple other medical issues, reporting worsening dizziness and took himself off of all his medications including his antihypertensives and his Coumadin. Reports his last dose of Coumadin was 30 days ago. Symptoms persisted, and proceeded to his primary care physician, reporting his blood pressures significantly elevated greater than 200s. Patient was directed to cardiology's office who sent him to the ER for heparinization. Patient currently maintained on heparin drip, INR remains at 0.9.Troponin 0.068, 0.053, 0.064. EKG reporting sinus rhythm, left ventricular hypertrophy, ST-T changes. Denies chest pain, palpitations or shortness of breath. Chest x-ray reported borderline heart size, no definite acute process. Afebrile, WBC 10.4, hemoglobin 13.1, platelets 181, INR 0.9, sodium 3.8 bicarb 31 BUN 35, creatinine 2.65 magnesium 2.2. Glucose 179. 9/30. Patient seen and examined. Denies any chest pain this time. Denies any dizziness. Vital signs stable INR is still subtherapeutic REVIEW OF SYSTEMS: CONSTITUTIONAL: No fever, no malaise,. CARDIOVASCULAR: No chest pain, no palpitations, no syncope. PULMONARY: No shortness of breath, no cough, GASTROINTESTINAL: No diarrhea, no nausea, no vomiting, no abdominal pain. NEUROLOGICAL: No headaches, no weakness, PHYSICAL EXAMINATION: GENERAL: The patient is alert and oriented x3, not in any acute distress. Well developed, well nourished. HEENT: Pupils are round and equally reacting to light. EOMI. No scleral icterus. No conjunctival pallor. Normocephalic, atraumatic. No pharyngeal erythema. No thyromegaly. CARDIOVASCULAR: S1 and S2 present. No murmurs, rubs, or gallops. PULMONARY: Chest is clear to auscultation, no wheezing or crackles. ABDOMEN: Soft, nontender, nondistended, normoactive bowel sounds. No palpable organomegaly. MUSCULOSKELETAL: No joint swelling or deformity. EXTREMITIES: No cyanosis, clubbing, or pedal edema. NEUROLOGICAL: Gross neurological examination did not reveal any focal deficits. SKIN: No rashes. Assessment and plan Dizziness, near syncope in a patient with Mechanical aortic valve, medication noncompliance including anticoagulation AVR 2004 History of CVA 2 years ago Hypertension Hyperlipidemia CKD, stage III, baseline creatinine 1.4 Gastroesophageal reflux disease Obstructive sleep apnea and does not use BiPAP or CPAP Morbid obesity, BMI 38 Ongoing nicotine dependence Monitor vital signs Monitor CBC Monitor CMP Continue telemetry monitoring Continue pharmacy dose heparin Continue Coumadin Continue Norvasc and Coreg Cardiology following Labs and medication were reviewed.. Continue same treatment. Continue with symptomatic treatment. Resume home medication. Monitor labs and vitals. DVT and GI prophylaxis. Further recommendations as per clinical course of the pa simon Dictation was produced using [employer] dictation software. please excuse any grammatical, word or spelling errors. Objective - Vital Signs Vital signs: Vital Signs Temp 97.9 F 06/19/23 11:56 Pulse 68 06/19/23 11:56 Resp 20 06/19/23 11:56 BP 168/96 06/19/23 11:56 Pulse Ox 99 06/19/23 11:56 FiO2 Intake & Output 06/18/23 06/19/23 06/19/23 18:59 06:59 18:59 Intake Total 720.713 570 Output Total 600 Balance 120.713 570 Weight 99.79 kg Intake: Intake, IV Titration 40.713 250 Amount Heparin Sod,Pork in 0.45% 40.713 250 NaCl 25,000 unit In 0.45 % NaCl 1 250ml.bag @ 10. 021 UNITS/KG/HR 10 mls/hr IV .Q24H [facility] Rx#: [id number] Oral 680 320 Output: Urine 600 Other: Voiding Method Toilet Toilet # Voids 1 1 # Bowel Movements 2 - Labs CBC & Chem 7: 06/18/23 04:59 06/19/23 06:41 Labs: Abnormal Lab Results - Last 24 Hours (Table) 06/19/23 06/19/23 Range/Units 06:41 06:41 APTT 43.4 H (22.0-30.0) sec Carbon Dioxide 31 H (22-30) mmol/L BUN 34 H (9-20) mg/dL Creatinine 2.25 H (0.66-1.25) mg/dL Glucose 113 H (74-99) mg/dL
--- NOTE | 2023-06-19 13:24 | P.PN ---
Subjective Progress Note Date: 06/19/23 The patient is a 60-year-old male with follows in the office with Dr. Urbano. He has a history of mechanical aortic valve and cardiomyopathy. His INR was checked in the office and was found to be significantly low, therefore he was sent to the hospital for heparin drip. The patient has a history of medication noncompliance. Echocardiogram reveals reduced LV function of 40% with mechanical aortic valve. Patient was interviewed and examined resting comfortably in bed. He states he overall feels well. He has been able to ambulate around the room with no complaints. GENERAL: Well-appearing, well-nourished and in no acute distress. NECK: Supple without JVD or thyromegaly. LUNGS: Breath sounds clear to auscultation bilaterally. Respiration equal and unlabored. No wheezes, rales or rhonchi. HEART: Regular rate and rhythm without murmurs, rubs or gallops. S1 and S2 heard. Prosthetic sounds crisp EXTREMITIES: Normal range of motion, no edema. No clubbing or cyanosis. Peripheral pulses intact and strong. TELEMETRY: Sinus rhythm LABS: INR 0.9 IMPRESSION: Noncompliance with medications Mechanical aortic valve Troponin elevation flat, acute cardiac syndrome ruled out, no non-ST elevated LA Acute kidney injury Hypertension with hypertensive cardiovascular disease Dyslipidemia Tobacco use PLAN: Increase warfarin to 5 mg daily (patient was taking 4 mg at home) Increase carvedilol for blood pressure control Further recommendations to be based on clinical course I am dictating on behalf of Dr Matthias Miller's history/physical and assessment/plan. Objective - Vital Signs Vital signs: Vital Signs Temp 97.9 F 06/19/23 11:56 Pulse 68 06/19/23 11:56 Resp 20 06/19/23 11:56 BP 168/96 06/19/23 11:56 Pulse Ox 99 06/19/23 11:56 FiO2 Intake & Output 06/18/23 06/19/23 06/19/23 18:59 06:59 18:59 Intake Total 720.713 570 Output Total 600 Balance 120.713 570 Weight 99.79 kg Intake: Intake, IV Titration 40.713 250 Amount Heparin Sod,Pork in 0.45% 40.713 250 NaCl 25,000 unit In 0.45 % NaCl 1 250ml.bag @ 10. 021 UNITS/KG/HR 10 mls/hr IV .Q24H [facility] Rx#: [id number] Oral 680 320 Output: Urine 600 Other: Voiding Method Toilet Toilet # Voids 1 1 # Bowel Movements 2 - Labs CBC & Chem 7: 06/18/23 04:59 06/19/23 06:41 Labs: Abnormal Lab Results - Last 24 Hours (Table) 06/19/23 06/19/23 Range/Units 06:41 06:41 APTT 43.4 H (22.0-30.0) sec Carbon Dioxide 31 H (22-30) mmol/L BUN 34 H (9-20) mg/dL Creatinine 2.25 H (0.66-1.25) mg/dL Glucose 113 H (74-99) mg/dL
[2023-06-19] MEDS: HEPARIN SOD,PORK IN 0.45% NACL 25,000 UNIT in 0.45% NACL 1 250ML.BAG IV SCH (14:12)
[2023-06-19] MEDS: carvediloL 6.25 MG TAB PO SCH (17:08)
[2023-06-19] MEDS: HEPARIN SODIUM 1,000 UN/ML (10ML VL) IV PRN (17:12)
[2023-06-19] MEDS ORDERED: WARFARIN 2.5 MG TAB PO SCH (18:00)
[2023-06-20] MEDS: carvediloL 6.25 MG TAB PO SCH ×2 (06:38→17:11)
[2023-06-20] MEDS: amLODIPine 5 MG TAB PO SCH ×2 (08:41→20:37)
[2023-06-20] MEDS: PANTOPRAZOLE 40 MG/10 ML VIAL IVP SCH (08:41)
[2023-06-20] MEDS: NICOTINE 21MG/24HR PATCH TRANSDERM SCH (08:41)
[2023-06-20 08:53] LABS: Anisocytosis Slight; HCT 42.2 % (39.0-53.0); HGB 13.4 gm/dL (13.0-17.5); MCH 26.2 pg (25.0-35.0); MCHC 31.7 g/dL (31.0-37.0); MCV 82.6 fL (80.0-100.0); Mean Platelet Volume 9.2; Platelet Count 192 k/uL (150-450); RBC 5.11 m/uL (4.30-5.90); RDW 16.5 % (11.5-15.5)
[2023-06-20 09:04] LABS: INR 1.1 (<1.2); Partial Thromboplastin Time 52.1 sec (22.0-30.0); Prothrombin Time 11.3 sec (9.0-12.0)
[2023-06-20 09:44] LABS: ALT 14 U/L (4-49); AST 17 U/L (17-59); African American GFR (CKD) 35 (>60 ml/min/1.73 sqM); Albumin 3.7 g/dL (3.5-5.0); Alkaline Phosphatase 84 U/L (38-126); Anion Gap 9 mmol/L; Blood Urea Nitrogen 31 mg/dL (9-20); Calcium 8.9 mg/dL (8.4-10.2); Carbon Dioxide 25 mmol/L (22-30); Chloride 103 mmol/L (98-107); Glucose 162 mg/dL (74-99); Non-African American GFR(CKD) 30 (>60 ml/min/1.73 sqM); Potassium 4.3 mmol/L (3.5-5.1); Sodium 137 mmol/L (137-145); Total Bilirubin 0.8 mg/dL (0.2-1.3); Total Protein 6.7 g/dL (6.3-8.2)
[2023-06-20] MEDS ORDERED: carvediloL 6.25 MG TAB PO STA (11:09)
--- NOTE | 2023-06-20 12:12 | P.PN ---
Subjective Progress Note Date: 06/20/23 This is 62-year-old gentleman who recently relocated to [place] in December [address] Ibarra, Cardiology, past medical history significant for AVR-2003 with a prosthetic valve, recent cardiac catheterization 04/2023 reporting mild nonobstructive disease involving RCA ,hypertension, hyperlip idemia, CKD III, obstructive sleep apnea-does not use CPAP and BiPAP, morbid obesity, CVA 2 years ago, current nicotine dependence and multiple other medical issues, reporting worsening dizziness and took himself off of all his medications including his antihypertensives and his Coumadin. Reports his last dose of Coumadin was 30 days ago. Symptoms persisted, and proceeded to his primary care physician, reporting his blood pressures significantly elevated greater than 200s. Patient was directed to cardiology's office who sent him to the ER for heparinization. Patient currently maintained on heparin drip, INR remains at 0.9.Troponin 0.068, 0.053, 0.064. EKG reporting sinus rhythm, left ventricular hypertrophy, ST-T changes. Denies chest pain, palpitations or shortness of breath. Chest x-ray reported borderline heart size, no definite acute process. Afebrile, WBC 10.4, hemoglobin 13.1, platelets 181, INR 0.9, sodium 3.8 bicarb 31 BUN 35, creatinine 2.65 magnesium 2.2. Glucose 179. 9/30. Patient seen and examined. Denies any chest pain this time. Denies any dizziness. Vital signs stable INR is still subtherapeutic 06/20. Patient seen and examined. Labs done this morning showed WBC 9, hemoglobin 13.4, INR is 1.1, sodium is 137, potassium was 4.3, BUN is 31, creatinine is 2.25 REVIEW OF SYSTEMS: CONSTITUTIONAL: No fever, no malaise,. CARDIOVASCULAR: No chest pain, no palpitations, no syncope. PULMONARY: No shortness of breath, no cough, GASTROINTESTINAL: No diarrhea, no nausea, no vomiting, no abdominal pain. NEUROLOGICAL: No headaches, no weakness, PHYSICAL EXAMINATION: GENERAL: The patient is alert and oriented x3, not in any acute distress. Well developed, well nourished. HEENT: Pupils are round and equally reacting to light. EOMI. No scleral icterus. No conjunctival pallor. Normocephalic, atraumatic. No pharyngeal erythema. No thyromegaly. CARDIOVASCULAR: S1 and S2 present. No murmurs, rubs, or gallops. PULMONARY: Chest is clear to auscultation, no wheezing or crackles. ABDOMEN: Soft, nontender, nondistended, normoactive bowel sounds. No palpable organomegaly. MUSCULOSKELETAL: No joint swelling or deformity. EXTREMITIES: No cyanosis, clubbing, or pedal edema. NEUROLOGICAL: Gross neurological examination did not reveal any focal deficits. SKIN: No rashes. Assessment and plan Dizziness, near syncope in a patient with Mechanical aortic valve, medication noncompliance including anticoagulation AVR 2004 History of CVA 2 years ago Hypertension Hyperlipidemia CKD, stage III, baseline creatinine 1.4 Gastroesophageal reflux disease Obstructive sleep apnea and does not use BiPAP or CPAP Morbid obesity, BMI 38 Ongoing nicotine dependence Monitor vital signs Monitor CBC Monitor CMP Continue telemetry monitoring Continue pharmacy dose heparin Continue Coumadin Continue Norvasc and Coreg Cardiology following Labs and medication were reviewed.. Continue same treatment. Continue with symptomatic treatment. Resume home medication. Monitor labs and vitals. DVT and GI prophylaxis. Further recommendations as per clinical course of the patient Dictation was produced using [employer] dictation software. please excuse any grammatical, word or spelling errors. Objective - Vital Signs Vital signs: Vital Signs Temp 97.8 F 06/20/23 07:50 Pulse 74 06/20/23 08:00 Resp 17 06/20/23 08:00 BP 149/98 06/20/23 07:50 Pulse Ox 98 06/20/23 07:50 FiO2 Intake & Output 06/19/23 06/20/23 06/20/23 18:59 06:59 18:59 Intake Total 1566.468 Balance 1566.468 Intake: IV 223.48 Heparin Sod,Pork in 0.45% 223.48 NaCl 25,000 unit In 0.45 % NaCl 1 250ml.bag @ 10. 021 UNITS/KG/HR 10 mls/hr IV .Q24H [facility] Rx#: [id number] Intake, IV Titration 302.988 Amount Heparin Sod,Pork in 0.45% 302.988 NaCl 25,000 unit In 0.45 % NaCl 1 250ml.bag @ 10. 021 UNITS/KG/HR 10 mls/hr IV .Q24H [facility] Rx#: [id number] Oral 1040 Other: Voiding Method Toilet Toilet # Voids 2 - Labs CBC & Chem 7: 06/20/23 08:15 06/20/23 08:15 Labs: Abnormal Lab Results - Last 24 Hours (Table) 06/19/23 06/19/23 06/20/23 Range/Units 15:38 23:22 08:15 RDW (11.5-15.5) % APTT 38.3 H 54.9 H 52.1 H (22.0-30.0) sec BUN (9-20) mg/dL Creatinine (0.66-1.25) mg/dL Glucose (74-99) mg/dL 06/20/23 06/20/23 Range/Units 08:15 08:15 RDW 16.5 H (11.5-15.5) % APTT (22.0-30.0) sec BUN 31 H (9-20) mg/dL Creatinine 2.25 H (0.66-1.25) mg/dL Glucose 162 H (74-99) mg/dL
--- NOTE | 2023-06-20 14:58 | P.PN ---
Subjective Progress Note Date: 06/20/23 The patient is a 60-year-old male with follows in the office with Dr. Urbano. He has a history of mechanical aortic valve and cardiomyopathy. His INR was checked in the office and was found to be significantly low, therefore he was sent to the hospital for heparin drip. The patient has a history of medication noncompliance. Echocardiogram reveals reduced LV function of 40% with mechanical aortic valve. The patient remains on heparin drip until he becomes therapeutic as he was noncompliant with his medication regimen and unknown amount of time that he was subtherapeutic with his INR. Patient was interviewed and examined resting comfortably in bed. He states he overall feels well. He has been able to ambulate around the room with no complaints. GENERAL: Well-appearing, well-nourished and in no acute distress. NECK: Supple without JVD or thyromegaly. LUNGS: Breath sounds clear to auscultation bilaterally. Respiration equal and unlabored. No wheezes, rales or rhonchi. HEART: Regular rate and rhythm without murmurs, rubs or gallops. S1 and S2 heard. Prosthetic sounds crisp EXTREMITIES: Normal range of motion, no edema. No clubbing or cyanosis. Peripheral pulses intact and strong. TELEMETRY: Sinus rhythm LABS: WBC 9.0, hemoglobin 13.4, hematocrit 42.2, platelet 192, INR 1.1, sodium 137, potassium 4.3, BUN 31, creatinine 2.25, AST 17, ALT 14 IMPRESSION: Noncompliance with medications Mechanical aortic valve Troponin elevation flat, acute cardiac syndrome ruled out, no non-ST elevated VT Acute kidney injury Hypertension with hypertensive cardiovascular disease Dyslipidemia Tobacco use PLAN: Continue current dose of warfarin Increase carvedilol for blood pressure control Continue IV heparin until therapeutic Further recommendations to be based on clinical course I am dictating on behalf of Dr Matthias Miller's history/physical and assessment/plan. Objective - Vital Signs Vital signs: Vital Signs Temp 98.4 F 06/20/23 11:31 Pulse 70 06/20/23 13:55 Resp 17 06/20/23 13:55 BP 167/101 06/20/23 11:31 Pulse Ox 98 06/20/23 11:31 FiO2 Intake & Output 06/19/23 06/20/23 06/20/23 18:59 06:59 18:59 Intake Total 1566.468 Balance 1566.468 Intake: IV 223.48 Heparin Sod,Pork in 0.45% 223.48 NaCl 25,000 unit In 0.45 % NaCl 1 250ml.bag @ 10. 021 UNITS/KG/HR 10 mls/hr IV .Q24H [facility] Rx#: [id number] Intake, IV Titration 302.988 Amount Heparin Sod,Pork in 0.45% 302.988 NaCl 25,000 unit In 0.45 % NaCl 1 250ml.bag @ 10. 021 UNITS/KG/HR 10 mls/hr IV .Q24H [facility] Rx#: [id number] Oral 1040 Other: Voiding Method Toilet Toilet # Voids 2 - Labs CBC & Chem 7: 06/20/23 08:15 06/20/23 08:15 Labs: Abnormal Lab Results - Last 24 Hours (Table) 06/19/23 06/19/23 06/20/23 Range/Units 15:38 23:22 08:15 RDW (11.5-15.5) % APTT 38.3 H 54.9 H 52.1 H (22.0-30.0) sec BUN (9-20) mg/dL Creatinine (0.66-1.25) mg/dL Glucose (74-99) mg/dL 06/20/23 06/20/23 Range/Units 08:15 08:15 RDW 16.5 H (11.5-15.5) % APTT (22.0-30.0) sec BUN 31 H (9-20) mg/dL Creatinine 2.25 H (0.66-1.25) mg/dL Glucose 162 H (74-99) mg/dL
[2023-06-20] MEDS: HEPARIN SOD,PORK IN 0.45% NACL 25,000 UNIT in 0.45% NACL 1 250ML.BAG IV SCH (15:50)
[2023-06-20] MEDS: WARFARIN 5 MG TAB PO SCH (17:11)
[2023-06-21] MEDS: HEPARIN SOD,PORK IN 0.45% NACL 25,000 UNIT in 0.45% NACL 1 250ML.BAG IV SCH (04:58)
[2023-06-21] MEDS: carvediloL 6.25 MG TAB PO SCH (06:49)
[2023-06-21] MEDS: PANTOPRAZOLE 40 MG/10 ML VIAL IVP SCH (08:34)
[2023-06-21] MEDS: amLODIPine 5 MG TAB PO SCH (08:34)
[2023-06-21] MEDS: NICOTINE 21MG/24HR PATCH TRANSDERM SCH (08:35)
[2023-06-21 09:09] LABS: Anisocytosis Slight; HCT 41.6 % (39.0-53.0); HGB 13.3 gm/dL (13.0-17.5); MCH 26.8 pg (25.0-35.0); MCHC 32.1 g/dL (31.0-37.0); MCV 83.6 fL (80.0-100.0); Mean Platelet Volume 8.3; Platelet Count 165 k/uL (150-450); RBC 4.98 m/uL (4.30-5.90); RDW 16.5 % (11.5-15.5); WBC 8.3 k/uL (3.8-10.6)
[2023-06-21 09:51] LABS: INR 1.5 (<1.2); Prothrombin Time 14.8 sec (9.0-12.0)
[2023-06-21 10:05] LABS: ALT 15 U/L (4-49); AST 18 U/L (17-59); African American GFR (CKD) 35 (>60 ml/min/1.73 sqM); Albumin 3.4 g/dL (3.5-5.0); Alkaline Phosphatase 78 U/L (38-126); Anion Gap 8 mmol/L; Blood Urea Nitrogen 35 mg/dL (9-20); Calcium 8.7 mg/dL (8.4-10.2); Carbon Dioxide 23 mmol/L (22-30); Chloride 105 mmol/L (98-107); Glucose 189 mg/dL (74-99); Non-African American GFR(CKD) 31 (>60 ml/min/1.73 sqM); Sodium 136 mmol/L (137-145); Total Bilirubin 0.7 mg/dL (0.2-1.3); Total Protein 6.3 g/dL (6.3-8.2)
[2023-06-21 11:22] VITALS: BP 159/93; PULSE 62; RESP 18; TEMP 98
--- NOTE | 2023-06-21 12:20 | P.PN ---
Subjective HISTORY OF PRESENT ILLNESS: 06/20/23 The patient is a 60-year-old male with follows in the office with Dr. Urbano. He has a history of mechanical aortic valve and cardiomyopathy. His INR was checked in the office and was found to be significantly low, therefore he was sent to the hospital for heparin drip. The patient has a history of medication noncompliance. Echocardiogram reveals reduced LV function of 40% with m echanical aortic valve. The patient remains on heparin drip until he becomes therapeutic as he was noncompliant with his medication regimen and unknown amount of time that he was subtherapeutic with his INR. Patient was interviewed and examined resting comfortably in bed. He states he overall feels well. He has been able to ambulate around the room with no complaints. 06/21/2023 Patient examined this morning at the bedside. Patient denies chest pain or pressure. He denies shortness of breath. He remains on IV heparin. INR today 1.5. Vital signs are stable. PHYSICAL EXAM: VITAL SIGNS: Reviewed. GENERAL: Well-developed in no acute distress. NECK: Supple. No JVD or thyromegaly LUNGS: Respirations even and unlabored. Lungs essentially clear to auscultation bilaterally. HEART: Regular rate and rhythm. S1 and S2 heard. EXTREMITIES: Normal range of motion. No clubbing or cyanosis. Peripheral pulses intact. No lower extremity edema ASSESSMENT: Noncompliance with medications Subtherapeutic INR Mechanical aortic valve, [address] in [place], [facility] valve Troponin elevation, flat, acute cardiac syndrome ruled out Acute kidney injury Hypertension with hypertensive cardiovascular disease Dyslipidemia Tobacco use PLAN: Continue current cardiac medications Continue warfarin. Monitor INR. Continue heparin drip until INR is therapeutic. Patient very anxious to be discharged home. Dr. Marino cleared patient for discharge ONLY if he is prescribed Lovenox outpatient and is agreeable to taking it. Will defer discharge planning to internal medicine. Further recommendations pending patient course Nurse practitioner note has been reviewed by physician. Signing provider agrees with the documented findings, assessment, and plan of care. Objective - Vital Signs Vital signs: Vital Signs Temp 98.0 F 06/21/23 11:15 Pulse 62 06/21/23 11:15 Resp 18 06/21/23 11:15 BP 159/93 06/21/23 11:15 Pulse Ox 97 10/02/23 11:15 FiO2 Intake & Output 06/20/23 06/21/23 06/21/23 18:59 06:59 18:59 Intake Total 598 250 180 Balance 598 250 180 Intake: Intake, IV Titration 250 Amount Heparin Sod,Pork in 0.45% 250 NaCl 25,000 unit In 0.45 % NaCl 1 250ml.bag @ 10. 021 UNITS/KG/HR 10 mls/hr IV .Q24H [facility] Rx#: [id number] Oral 598 180 Other: Voiding Method Toilet Toilet Toilet # Voids 3 1 - Labs CBC & Chem 7: 06/21/23 08:24 06/21/23 08:24 Labs: Abnormal Lab Results - Last 24 Hours (Table) 06/21/23 06/21/23 06/21/23 Range/Units 08:24 08:24 08:58 RDW 16.5 H (11.5-15.5) % PT 14.8 H (9.0-12.0) sec INR 1.5 H (<1.2) APTT (22.0-30.0) sec Sodium 136 L (137-145) mmol/L BUN 35 H (9-20) mg/dL Creatinine 2.23 H (0.66-1.25) mg/dL Glucose 189 H (74-99) mg/dL Albumin 3.4 L (3.5-5.0) g/dL 06/21/23 Range/Units 10:59 RDW (11.5-15.5) % PT (9.0-12.0) sec INR (<1.2) APTT 88.0 H (22.0-30.0) sec Sodium (137-145) mmol/L BUN (9-20) mg/dL Creatinine (0.66-1.25) mg/dL Glucose (74-99) mg/dL Albumin (3.5-5.0) g/dL
--- NOTE | 2023-06-21 14:32 | P.DS ---
Providers Date of admission: 06/21/23 09:16 Expected date of discharge: 06/22/23 Attending physician: Terence Sutton MD Consults: 06/17/23 15:21 Consult Physician Urgent Consulting Provider: [facility] Consult Reason/Comments: Near syncope, mechanical valve with noncompliance, NSTEMI Do you want consulting provider notified?: Yes Primary care physician: Emma Mobley Hospital Course: Final Diagnoses: Dizziness, near syncope in a patient with Mechanical aortic valve-[facility], medication noncompliance including anticoagulation. Subtherapeutic INR. AVR 2003 History of CVA 2 years ago Hypertension Hyperlipidemia CKD, stage III, baseline creatinine 1.4 Gastroesophageal reflux disease Obstructive sleep apnea and does not use BiPAP or CPAP Morbid obesity, BMI 38 Ongoing nicotine dependence Hospital course: This is 62-year-old gentleman who recently relocated to [place] in December [address] Ibarra, Cardiology, past medical history significant for AVR-2003 with a prosthetic valve, recent cardiac catheterization 04/2023 reporting mild nonobstructive disease involving RCA ,hypertension, hyperlipidemia, CKD III, obstructive sleep apnea-does not use CPAP and BiPAP, morbid obesity, CVA 2 years ago, current nicotine dependence and multiple other medical issues, reporting worsening dizziness and took himself off of all his medications including his antihypertensives and his Coumadin. Reports his last dose of Coumadin was 30 days ago. Symptoms persisted, and proceeded to his primary care physician, reporting his blood pressures significantly elevated greater than 200s. Patient was directed to cardiology's office who sent him to the ER for heparinization. Patient currently maintained on heparin drip, INR remains at 0.9.Troponin 0.068, 0.053, 0.064. EKG reporting sinus rhythm, left ventricular hypertrophy, ST-T changes. Denies chest pain, palpitations or shortness of breath. Chest x-ray reported borderline heart size, no definite acute process. Afebrile, WBC 10.4, hemoglobin 13.1, platelets 181, INR 0.9, sodium 3.8 bicarb 31 BUN 35, creatinine 2.65 magnesium 2.2. Glucose 179. Evaluated by cardiology. Maintained on Coumadin and heparin drip. INR increased to 1.5. Hemoglobin 13.3, platelets 165. BUN 35, creatinine 2.23, Lotrel is within normal limits. Ambulating, tolerated exertion well.denies chest pain, palpitations or shortness of breath. Maintaining O2 sats in the high 90s on room air. Patient is anxious/eager and nearly insistent on discharge. Recommendations of maintaining on heparin drip until he becomes therapeutic re- discussed. Patient is willing to take Lovenox subcu and promises compliancy with his med regime including close monitoring of his INR and follow ups with PCP and cardiology this week. Cleared by cardiology for discharge as patient agreeable to taking Lovenox along with his Coumadin. Lovenox dosing discussed with cardiology in PE, 1 mg/kg subcu bid. Patient will be discharged home today in a stable condition with guarded prognosis. Medical compliance and Smoking cessation enforced. The impression and plan of care has been dictated as directed. : I performed a history and examination of this patient, discussed the same with the dictator. I agree with the dictator's note ,documented as a scribe. Any additional findings or plans will be noted. Patient Condition at Discharge: Stable Plan - Discharge Summary Discharge Rx Participant: Yes New Discharge Prescriptions: New carvediloL [Coreg] 12.5 mg PO BID-W/MEALS #60 tab Nicotine 21Mg/24Hr Patch [Habitrol] 1 patch TRANSDERM DAILY #30 patch Enoxaparin [Lovenox] 100 mg SQ BID #10 each Warfarin [Coumadin] 5 mg PO DAILY@1800 #5 tab amLODIPine [Norvasc] 5 mg PO BID #60 tab Continue Esomeprazole Magnesium 40 mg PO DIRECTED Discontinued Warfarin [Coumadin] 2 mg PO DIRECTED lisinopriL [Prinivil] 20 mg PO DIRECTED hydrALAZINE HCL [Apresoline] 50 mg PO DIRECTED Potassium Chloride [Klor-Con M10] 10 meq PO DIRECTED Furosemide [Lasix] 40 mg PO DIRECTED No Action tadalafiL [Cialis] 10 mg PO DIRECTED Discharge Medication List Esomeprazole Magnesium 40 mg PO DIRECTED 06/17/23 [History] tadalafiL [Cialis] 10 mg PO DIRECTED 06/17/23 [History] Enoxaparin [Lovenox] 100 mg SQ BID #10 each 06/21/23 [Rx] Nicotine 21Mg/24Hr Patch [Habitrol] 1 patch TRANSDERM DAILY #30 patch 06/21/23 [Rx] Warfarin [Coumadin] 5 mg PO DAILY@1800 #5 tab 06/21/23 [Rx] amLODIPine [Norvasc] 5 mg PO BID #60 tab 06/21/23 [Rx] carvediloL [Coreg] 12.5 mg PO BID-W/MEALS #60 tab 06/21/23 [Rx] Follow up Appointment(s)/Referral(s): Terence Sutton MD [STAFF PHYSICIAN] - 06/23/23 Nathaniel Ibarra MD [STAFF PHYSICIAN] - 1 Week Ambulatory/Diagnostic Orders: Basic Metabolic Panel [LAB.AMB] Time Frame: 06/23/23, Location: None Selected
== END 2023-06-21 15:03 | disposition home or self-care (01) ==
LOC: EC 12:08 → OBSVTOIN 15:21 → INTOOBSV 15:21 → 3SCARD 15:21 → OBSVTOIN 06-21 09:16 → INTOOBSV 06-21 09:16
PROVIDERS: ADMIT Family Medicine; ATTEND Family Medicine
DX: R55 Syncope and collapse (principal); R42 Dizziness and giddiness; R77.8 Other specified abnormalities of plasma proteins; N17.9 Acute kidney failure, unspecified; K21.9 Gastro-esophageal reflux disease without esophagitis; E78.5 Hyperlipidemia, unspecified; G47.30 Sleep apnea, unspecified; I13.10 Hypertensive heart and chronic kidney disease without heart failure, with stage 1 through stage 4 chronic kidney disease, or unspecified chronic kidney disease; N18.30 Chronic kidney disease, stage 3 unspecified; G47.33 Obstructive sleep apnea (adult) (pediatric); E66.01 Morbid (severe) obesity due to excess calories; F17.200 Nicotine dependence, unspecified, uncomplicated; Z68.38 Body mass index [BMI] 38.0-38.9, adult; Z91.199 Patient's noncompliance with other medical treatment and regimen due to unspecified reason; Z86.73 Personal history of transient ischemic attack (TIA), and cerebral infarction without residual deficits; Z95.2 Presence of prosthetic heart valve; Z79.01 Long term (current) use of anticoagulants; Z79.899 Other long term (current) drug therapy
CPT/HCPCS: 96376 ×5; 96366 ×4; 96365; 96375; 99285; 36415; 93005; 93306; 80053 ×3; 80048 ×2; 83735; 84484; 85025 ×2; 85027 ×2; 85610 ×5; 85730 ×5; 83036; 71046; G0378 ×5; S4990 ×4; J1644 ×8; C9113 ×4; 99291

== ENCOUNTER 2023-07-04 18:43 | Inpatient (IN) | payer BC, OTHER ==
--- NOTE | 2023-07-04 19:02 | ED ---
General Adult HPI - General Chief complaint: Chest Pain Stated complaint: Chest Pain Time Seen by Provider: 07/04/23 18:47 Source: patient, EMS Mode of arrival: EMS Limitations: no limitations - History of Present Illness Initial comments: Patient brought to the ED by ambulance for evaluation. Patient states that he has had constant substernal chest heaviness with associated dyspnea and dizziness since about 8:30 AM this morning. Patient states that his symptoms were relieved by the 2 sublingual nitroglycerins and IV morphine that he was given by EMS. He states that his pain is currently 23/10 in severity. He denies radiation of his pain, trauma or injury, fever or chills, headache, focal numbness/weakness/neuro deficit, neck/arm/jaw/back pain, pleuritic pain, cough or cold symptoms, palpitations, syncope, nausea/vomiting/diaphoresis, abdominal pain, diarrhea, bloody or melanotic stool, dysuria or urinary symptoms, decreased urine output, leg or calf swelling or pain, or any other symptoms or complaints. Patient was given 4 baby aspirin, 2 sublingual nitroglycerin and IV morphine by EMS. - Related Data Home Medications Medication Instructions Recorded Confirmed Esomeprazole Magnesium 40 mg PO DAILY@1800 06/17/23 07/04/23 Ipratropium/Albuter 20-100Mcg 2 puff INHALATION DIRECTED 07/04/23 07/04/23 [Combivent Respimat 20-100Mcg Inhaler] Tiotropium Br/Olodaterol HCl 2 puff INHALATION DIRECTED 07/04/23 07/04/23 [Stiolto Respimat Inhal [place]] Previous Rx's Medication Instructions Recorded Warfarin [Coumadin] 5 mg PO DAILY@1800 #5 tab 06/21/23 amLODIPine [Norvasc] 5 mg PO BID #60 tab 06/21/23 carvediloL [Coreg] 12.5 mg PO BID-W/MEALS #60 tab 06/21/23 Allergies Allergy/AdvReac Type Severity Reaction Status Date / Time No Known Allergies Allergy Verified 07/04/23 20:11 Review of Systems ROS Statement: Those systems with pertinent positive or pertinent negative responses have been documented in the HPI. ROS Other: All systems not noted in ROS Statement are negative. Past Medical History Past Medical History: CVA/TIA, GERD/Reflux, Hyperlipidemia, Hypertension, Sleep Apnea/CPAP/BIPAP Additional Past Medical History / Comment(s): stress test abnormal, cva 2 yrs ago lft arm tires quickly, questioning possible NV,no cpap used See Dr Ibarra's H & P History of Any Multi-Drug Resistant Organisms: None Reported Past Surgical History: Cardiac Valve Replacement Additional Past Surgical History / Comment(s): 2003 aortic valve replaced, cerebral aneurysm repaired 2021 Additional Past Anesthesia/Blood Transfusion Reaction / Comment(s): no blood tx fx known Past Psychological History: No Psychological Hx Reported Smoking Status: Current every day smoker Past Alcohol Use History: Occasional Past Drug Use History: None Reported General Exam Limitations: no limitations General appearance: alert, in no apparent distress Head exam: Present: normocephalic Eye exam: Present: normal appearance ENT exam: Present: mucous membranes moist Neck exam: Present: other (Trachea is in midline) Respiratory exam: Present: normal lung sounds bilaterally. Absent: respiratory distress, wheezes, rales, rhonchi, stridor, chest wall tenderness Cardiovascular Exam: Present: regular rate, normal rhythm, normal heart sounds, other (Normal radial pulses bilaterally) GI/Abdominal exam: Present: soft. Absent: distended, tenderness, guarding Extremities exam: Present: other (Negative Homans sign bilaterally). Absent: tenderness, pedal edema, calf tenderness Neurological exam: Present: alert, oriented X3 Psychiatric exam: Present: normal affect Skin exam: Present: warm, dry, intact, normal color Course Vital Signs 07/04/23 07/04/23 18:47 20:06 Temperature 98.7 F Pulse Rate 98 79 Respiratory 18 17 Rate Blood Pressure 161/107 169/102 O2 Sat by Pulse 96 96 Oximetry - Reevaluation(s) Reevaluation #1: 07/04/23 21:08 Case, H&P, test results and ED management thus far were discussed with Dr. Grover. She accepts hospital admission. She agrees with cardiology consultation. She has no further recommendations at this time. 07/04/23 21:20 Patient states that his chest pain has improved even more now, and he denies development of any new symptoms while in the ED. Patient remains alert and breathing comfortably with a normal room air oxygen saturation. Patient is aware of his test results, and he agrees with hospital admission at this time. EKG Findings - EKG Comments: EKG Findings:: ED physician interpretation (interpreted by me): Normal sinus rhythm, ventricular rate of 91 bpm, no ectopy, normal NV and QRS intervals, normal QT interval, lateral ST and T-wave abnormality, normal axis, no significant change when compared to 06/17/2023 EKG Medical Decision Making - Medical Decision Making Was pt. sent in by a medical professional or institution (, [facility], [facility], urgent care, hospital, or fdc...) When possible be specific @ -No Did you speak to anyone other than the patient for history (EMS, parent, family, police, friend...)? What history was obtained from this source @ -No Did you review nursing and triage notes (agree or disagree)? Why? @ -I reviewed and agree with nursing and triage notes Were old charts reviewed (outside hosp., previous admission, EMS record, old EKG, old radiological studies, urgent care reports/EKG's, fdc records)? Report findings @ -No old charts were reviewed Differential Diagnosis (chest pain, altered mental status, abdominal pain women, abdominal pain men, vaginal bleeding, weakness, fever, dyspnea, syncope, headache, dizziness, GI bleed, back pain, seizure, CVA, palpatations, mental health, musculoskeletal)? @ -Differential Chest Pain: Stable Angina, Unstable Angina, STEMI, NSTEMI, Pneumothorax, Musculoskeletal, Esophageal Spasm, GERD, pleural effusion, pulmonary edema, dysrhythmia, this is not meant to be an all-inclusive list. EKG interpreted by me (3pts min.). @ -As above X-rays interpreted by me (1pt min.). @ -Chest x-ray shows no acute abnormality. I agree with the radiologist's interpretation as above. CT interpreted by me (1pt min.). @ -None done U/S interpreted by me (1pt. min.). @ -None done What testing was considered but not performed or refused? (CT, X-rays, U/S, labs)? Why? @ -None What meds were considered but not given or refused? Why? @ -None Did you discuss the management of the patient with other professionals (professionals i.e. , [facility], [facility] GR[facility]ER, lab, RT, psych nurse, marriage and family social worker, conveyor tender, teacher, community service officer coordinator, case worker)? Give summary @ -As above. Was smoking cessation discussed for >3mins.? @ -No Was critical care preformed (if so, how long)? @ -Yes, for 30 minutes. Were there social determinants of health that impacted care today? How? (Homelessness, low income, unemployed, alcoholism, drug addiction, transportation, low edu. Level, literacy, decrease access to med. care, assisted, rehab)? @ -No Was there de-escalation of care discussed even if they declined (Discuss DNR or withdrawal of care, Hospice)? DNR status @ -No What co-morbidities impacted this encounter? (DM, HTN, Smoking, COPD, CAD, Cancer, CVA, ARF, Chemo, Hep., AIDS, mental health diagnosis, sleep apnea, morbid obesity)? @ -Hypertension, hyperlipidemia Was patient admitted / discharged? Hospital course, mention meds given and route, prescriptions, significant lab abnormalities, going to OR and other pertinent info. @ -Patient reports improvement in his chest pain with the sublingual nitroglycerin and IV morphine that he was given by EMS. Patient's EKG shows no ST elevations. Patient's initial troponin is slightly elevated at 0.054. Patient has chronic renal disease. Patient was given aspirin by EMS. Patient is on warfarin anticoagulation therapy and his INR is supratherapeutic (coags were repeated for confirmation). Will admit the patient to the hospital for cardiac monitoring, serial troponins and cardiology consultation. Dr. Grover has accepted hospital admission. Undiagnosed new problem with uncertain prognosis? @ -No Drug Therapy requiring intensive monitoring for toxicity (Heparin, Nitro, Insulin, Cardizem)? @ -No Were any procedures done? @ -No Diagnosis/symptom? @ -Chest pain with elevated troponin Acute, or Chronic, or Acute on Chronic? @ -Acute Uncomplicated (without systemic symptoms) or Complicated (systemic symptoms)? @ -default Side effects of treatment? @ -No Exacerbation, Progression, or Severe Exacerbation? @ -No Poses a threat to life or bodily function? How? (Chest pain, USA, NV, pneumonia, PE, COPD, DKA, ARF, appy, cholecystitis, CVA, Diverticulitis, Homicidal, Suicidal, threat to staff... and all critical care pts) @ -Yes. Progressive myocardial infarction could pose a threat to life due to myocardial injury and potential for dysrhythmia. Diagnosis/symptom? @ -Warfarin coagulopathy with supratherapeutic INR Acute, or Chronic, or Acute on Chronic? @ -default Uncomplicated (without systemic symptoms) or Complicated (systemic symptoms)? @ -default Side effects of treatment? @ -none Exacerbation, Progression, or Severe Exacerbation] @ -no Poses a threat to life or bodily function? @ -no - Lab Data Result diagrams: 07/04/23 19:16 07/04/23 19:16 Lab Results 07/04/23 07/04/23 07/04/23 Range/Units 19:16 19:16 19:16 WBC 16.7 H (3.8-10.6) k/uL RBC 5.45 (4.30-5.90) m/uL Hgb 14.2 (13.0-17.5) gm/dL Hct 43.6 (39.0-53.0) % MCV 80.0 (80.0-100.0) fL MCH 26.1 (25.0-35.0) pg MCHC 32.6 (31.0-37.0) g/dL RDW 16.0 H (11.5-15.5) % Plt Count 273 (150-450) k/uL MPV 8.3 Neutrophils % 85 % Lymphocytes % 7 % Monocytes % 5 % Eosinophils % 2 % Basophils % 1 % Neutrophils # 14.2 H (1.3-7.7) k/uL Lymphocytes # 1.2 (1.0-4.8) k/uL Monocytes # 0.8 (0-1.0) k/uL Eosinophils # 0.3 (0-0.7) k/uL Basophils # 0.1 (0-0.2) k/uL PT >130.0 H (10.0-12.5) sec INR >10.0 H* (<1.2) APTT 117.6 H* (22.0-30.0) sec Sodium 138 (137-145) mmol/L Potassium 3.2 L (3.5-5.1) mmol/L Chloride 101 (98-107) mmol/L Carbon Dioxide 23 (22-30) mmol/L Anion Gap 14 mmol/L BUN 31 H (9-20) mg/dL Creatinine 2.21 H (0.66-1.25) mg/dL Est GFR (CKD-EPI)AfAm 36 (>60 ml/min/1.73 sqM) Est GFR (CKD-EPI)NonAf 31 (>60 ml/min/1.73 sqM) Glucose 103 H (74-99) mg/dL Calcium 8.6 (8.4-10.2) mg/dL Magnesium 2.0 (1.6-2.3) mg/dL Total Bilirubin 0.8 (0.2-1.3) mg/dL AST 21 (17-59) U/L ALT 14 (4-49) U/L Alkaline Phosphatase 91 (38-126) U/L Troponin I (0.000-0.034) ng/mL NT-Pro-B Natriuret Pep 4940 pg/mL Total Protein 7.4 (6.3-8.2) g/dL Albumin 4.1 (3.5-5.0) g/dL 07/04/23 Range/Units 19:16 WBC (3.8-10.6) k/uL RBC (4.30-5.90) m/uL Hgb (13.0-17.5) gm/dL Hct (39.0-53.0) % MCV (80.0-100.0) fL MCH (25.0-35.0) pg MCHC (31.0-37.0) g/dL RDW (11.5-15.5) % Plt Count (150-450) k/uL MPV Neutrophils % % Lymphocytes % % Monocytes % % Eosinophils % % Basophils % % Neutrophils # (1.3-7.7) k/uL Lymphocytes # (1.0-4.8) k/uL Monocytes # (0-1.0) k/uL Eosinophils # (0-0.7) k/uL Basophils # (0-0.2) k/uL PT (10.0-12.5) sec INR (<1.2) APTT (22.0-30.0) sec Sodium (137-145) mmol/L Potassium (3.5-5.1) mmol/L Chloride (98-107) mmol/L Carbon Dioxide (22-30) mmol/L Anion Gap mmol/L BUN (9-20) mg/dL Creatinine (0.66-1.25) mg/dL Est GFR (CKD-EPI)AfAm (>60 ml/min/1.73 sqM) Est GFR (CKD-EPI)NonAf (>60 ml/min/1.73 sqM) Glucose (74-99) mg/dL Calcium (8.4-10.2) mg/dL Magnesium (1.6-2.3) mg/dL Total Bilirubin (0.2-1.3) mg/dL AST (17-59) U/L ALT (4-49) U/L Alkaline Phosphatase (38-126) U/L Troponin I 0.054 H* (0.000-0.034) ng/mL NT-Pro-B Natriuret Pep pg/mL Total Protein (6.3-8.2) g/dL Albumin (3.5-5.0) g/dL - Radiology Data Chest x-ray: No acute cardiopulmonary disease/process. Critical Care Time Critical Care Time: Yes Total Critical Care Time: 30 Disposition Clinical Impression: Chest pain, Elevated troponin, Chronic renal insufficiency, Warfarin-induced coagulopathy, Supratherapeutic INR Disposition: ADMITTED IP TO THIS [facility] Condition: Stable Is patient prescribed a controlled substance at d/c from ED?: No Time of Disposition: 21:08
[2023-07-04] MEDS ORDERED: NITROGLYCERIN OINT 1 INCH/GM PACKET TOPICAL STA (19:12)
--- NOTE | 2023-07-04 19:34 | XR ---
EXAMINATION TYPE: XR chest 2V DATE OF EXAM: 07/04/2023 7:27 PM CLINICAL INDICATION:Male, 62 years old with history of Chest Pain; [facility] COMPARISON: Chest radiographs from 06/09/2023 TECHNIQUE: XR chest 2V Frontal and lateral views of the chest. FINDINGS: Lungs/Pleura: There is no evidence of pleural effusion, focal consolidation, or pneumothorax. Pulmonary vascularity: Unremarkable. Heart/mediastinum: Cardiomediastinal silhouette is unremarkable. Post valve repair changes. Musculoskeletal: Degenerative changes of the shoulder joints. Midline sternotomy wires are noted. Other findings: None IMPRESSION: No acute cardiopulmonary disease/process.
[2023-07-04 20:00] LABS: Basophils # (A) 0.1 k/uL (0-0.2); Basophils % (A) 1 %; Eosinophils # (A) 0.3 k/uL (0-0.7); Eosinophils % (A) 2 %; HCT 43.6 % (39.0-53.0); HGB 14.2 gm/dL (13.0-17.5); Lymphocytes # (A) 1.2 k/uL (1.0-4.8); Lymphocytes % (A) 7 %; MCH 26.1 pg (25.0-35.0); MCHC 32.6 g/dL (31.0-37.0); Mean Platelet Volume 8.3; Monocytes # (A) 0.8 k/uL (0-1.0); Monocytes % (A) 5 %; Neutrophils # (A) 14.2 k/uL (1.3-7.7); Neutrophils % (A) 85 %; Platelet Count 273 k/uL (150-450); RBC 5.45 m/uL (4.30-5.90); WBC 16.7 k/uL (3.8-10.6)
[2023-07-04 20:31] LABS: INR >10.0 (<1.2); Prothrombin Time >130.0 sec (10.0-12.5)
[2023-07-04 20:32] LABS: Partial Thromboplastin Time 117.6 sec (22.0-30.0)
[2023-07-04 20:33] LABS: ALT 14 U/L (4-49); AST 21 U/L (17-59); African American GFR (CKD) 36 (>60 ml/min/1.73 sqM); Albumin 4.1 g/dL (3.5-5.0); Alkaline Phosphatase 91 U/L (38-126); Anion Gap 14 mmol/L; Blood Urea Nitrogen 31 mg/dL (9-20); Calcium 8.6 mg/dL (8.4-10.2); Carbon Dioxide 23 mmol/L (22-30); Chloride 101 mmol/L (98-107); Glucose 103 mg/dL (74-99); Non-African American GFR(CKD) 31 (>60 ml/min/1.73 sqM); Potassium 3.2 mmol/L (3.5-5.1); Sodium 138 mmol/L (137-145); Total Bilirubin 0.8 mg/dL (0.2-1.3); Total Protein 7.4 g/dL (6.3-8.2)
[2023-07-04 20:42] LABS: NT-Pro-B-Type Natriuretic Pept 4940 pg/mL
[2023-07-04] MEDS ORDERED: NALOXONE 0.4 MG/ML 1 ML VIAL IV PRN (21:09)
[2023-07-04 21:23] LABS: INR >10.0 (<1.2); Prothrombin Time >130.0 sec (10.0-12.5)
[2023-07-04 21:24] LABS: Partial Thromboplastin Time 123.9 sec (22.0-30.0)
[2023-07-04] MEDS: amLODIPine 5 MG TAB PO SCH (22:52)
[2023-07-04] MEDS: carvediloL 6.25 MG TAB PO SCH (22:52)
[2023-07-05 03:54] LABS: Basophils # (A) 0.1 k/uL (0-0.2); Basophils % (A) 1 %; Eosinophils # (A) 0.3 k/uL (0-0.7); Eosinophils % (A) 3 %; HCT 41.4 % (39.0-53.0); HGB 13.6 gm/dL (13.0-17.5); Lymphocytes % (A) 9 %; MCH 26.4 pg (25.0-35.0); MCHC 32.8 g/dL (31.0-37.0); MCV 80.3 fL (80.0-100.0); Mean Platelet Volume 8.1; Monocytes # (A) 0.6 k/uL (0-1.0); Monocytes % (A) 6 %; Neutrophils # (A) 9.2 k/uL (1.3-7.7); Neutrophils % (A) 82 %; Platelet Count 227 k/uL (150-450); RBC 5.15 m/uL (4.30-5.90); RDW 15.9 % (11.5-15.5); WBC 11.3 k/uL (3.8-10.6)
[2023-07-05 04:22] LABS: Prothrombin Time >130.0 sec (10.0-12.5)
[2023-07-05 04:23] LABS: INR >10.0 (<1.2); Partial Thromboplastin Time 128.8 sec (22.0-30.0)
[2023-07-05 04:33] LABS: ALT 13 U/L (4-49); AST 19 U/L (17-59); African American GFR (CKD) 36 (>60 ml/min/1.73 sqM); Albumin 3.5 g/dL (3.5-5.0); Alkaline Phosphatase 83 U/L (38-126); Anion Gap 9 mmol/L; Blood Urea Nitrogen 31 mg/dL (9-20); Calcium 8.6 mg/dL (8.4-10.2); Carbon Dioxide 26 mmol/L (22-30); Chloride 102 mmol/L (98-107); Glucose 101 mg/dL (74-99); Non-African American GFR(CKD) 31 (>60 ml/min/1.73 sqM); Potassium 3.1 mmol/L (3.5-5.1); Sodium 137 mmol/L (137-145); Total Bilirubin 0.6 mg/dL (0.2-1.3); Total Protein 6.4 g/dL (6.3-8.2)
[2023-07-05] MEDS: carvediloL 6.25 MG TAB PO SCH ×2 (08:24→17:06)
[2023-07-05] MEDS: amLODIPine 5 MG TAB PO SCH (08:24)
[2023-07-05] MEDS ORDERED: PHYTONADIONE ORAL 5 MG/5 ML ORAL.SYRG PO STA (08:27)
[2023-07-05] MEDS ORDERED: hydrALAZINE HCL 20 MG/ML 1 ML VIAL IVP PRN (08:51)
[2023-07-05] MEDS ORDERED: POTASSIUM CHLORIDE ER 20 MEQ TAB.ER PO STA (09:07)
[2023-07-05] MEDS ORDERED: FUROSEMIDE 40 MG TAB PO SCH (09:15)
[2023-07-05] MEDS: hydrALAZINE HCL 50 MG TAB PO SCH ×3 (09:32→22:12)
[2023-07-05] MEDS: lisinopriL 20 MG TAB PO SCH (09:32)
--- NOTE | 2023-07-05 10:08 | P.CRDCN ---
History of Present Illness History of present illness: HISTORY OF PRESENT ILLNESS: This is a 62-year-old male with a past medical history significant for mechanical aortic valve, nonischemic cardiomyopathy, and hypertension. Patient follows in the office with Dr. Ibarra. We have been asked to see the patient in consultation for chest pain with elevated troponin. Patient examined at the bedside. Patient states yesterday he was in his bathroom when he began to feel dizzy. He states his sister helped him get back into the living room and he sat down. He denies having any syncopal episodes. He also reports having some chest pain yesterday which he describes as a stabbing sensation. He denied any shortness of breath. He denied any radiation of the pain. At the time of examination this morning, he denies chest pain or pressure. Patient's blood pressure is elevated this morning with a blood pressure 170/109. Patient's INR was also found to be greater than 10. It is noted that the patient was recently hospitalized earlier this month as he had stopped taking all of his medications including his Coumadin. * EKG reveals sinus mechanism with T-wave inversions in V5 to V6 * Chest xray negative for acute process * Laboratory data: WC 11.3. Hemoglobin 13.6. Platelet count 227. INR greater than 10. Sodium 137. Potassium 3.1. BUN 31. Creatinine 2.18. Troponin 0.054. 0.051. 0.053. ProBNP 4940. * Current home cardiac medications include warfarin 5 mg daily, Norvasc 5 mg twice a day, carvedilol 12.5 mm times twice a * Most recent echocardiogram obtained in May 2023 revealed ejection fraction 40%, mechanical aortic valve noted, mild TR, trace MR * Cardiac catheterization history: April 2023 revealing mild nonobstructive disease involving the right coronary artery REVIEW OF SYSTEMS: At the time of my exam: CONSTITUTIONAL: Denies fever or chills. HEENT: Denies blurred vision, vision changes, or eye pain. Denies hemoptysis CARDIOVASCULAR: Denies chest pain. Denies orthopnea. Denies PND. Denies palpitations RESPIRATORY: Denies shortness of breath. GASTROINTESTINAL: Denies abdominal pain. Denies nausea or vomiting. HEMATOLOGIC: Denies bleeding disorders. GENITOURINARY: Denies any blood in urine. SKIN: Denies pruitis. Denies rash. PHYSICAL EXAM: VITAL SIGNS: Reviewed. GENERAL: Well-developed in no acute distress. HEENT: Head is normocephalic. Pupils are equal, round. Sclerae anicteric. Mucous membranes of the mouth are moist. Neck supple. No JVD or thyromegaly LUNGS: Respirations even and unlabored. Lungs essentially clear to auscultation bilaterally. HEART: Regular rate and rhythm. S1 and S2 heard. Mechanical click noted. ABDOMEN: Soft. Nondistended. Nontender. EXTREMITIES: Normal range of motion. No clubbing or cyanosis. Peripheral pulses intact. No lower extremity edema. NEUROLOGIC: Awake and alert. Oriented x 3. ASSESSMENT: Dizziness Hypertension, uncontrolled Supratherapeutic INR, INR greater than 10 on admission Hypokalemia Chest pain, atypical, acute coronary syndrome ruled out Chronic kidney disease Abnormal troponins, flat, likely secondary to above History of mechanical aortic valve replacement, 2003, in [place] Nonischemic cardiomyopathy, ejection fraction 40% Mild nonobstructive CAD, per catheterization in April 2023 History of medication noncompliance PLAN: No need to repeat echocardiogram as this was performed in May 2023 Continue home dose of carvedilol Add lisinopril 20 mg daily and hydralazine 50 mg 3 times a day for optimal blood pressure control Discontinue home dose of amlodipine secondary to cardiomyopathy Continue to monitor blood pressure Coumadin currently on hold secondary to INR greater than 10. Continue to mon itor INR. Replace potassium Further recommendations pending patient's course Nurse practitioner note has been reviewed by physician. Signing provider agrees with the documented findings, assessment, and plan of care. Past Medical History Past Medical History: CVA/TIA, GERD/Reflux, Hyperlipidemia, Hypertension, Sleep Apnea/CPAP/BIPAP Additional Past Medical History / Comment(s): stress test abnormal, cva 2 yrs ago lft arm tires quickly, questioning possible [place],no cpap used See Dr Ibarra's H & P History of Any Multi-Drug Resistant Organisms: None Reported Past Surgical History: Cardiac Valve Replacement Additional Past Surgical History / Comment(s): 2003 aortic valve replaced, cerebral aneurysm repaired 2021 Additional Past Anesthesia/Blood Transfusion Reaction / Comment(s): no blood tx fx known Past Psychological History: No Psychological Hx Reported Smoking Status: Current every day smoker Past Alcohol Use History: Occasional Past Drug Use History: None Reported Medications and Allergies Home Medications Medication Instructions Recorded Confirmed Type Esomeprazole Magnesium 40 mg PO DAILY@1800 06/17/23 07/04/23 History Warfarin [Coumadin] 5 mg PO DAILY@1800 #5 tab 06/21/23 07/04/23 Rx amLODIPine [Norvasc] 5 mg PO BID #60 tab 06/21/23 07/04/23 Rx carvediloL [Coreg] 12.5 mg PO BID-W/MEALS #60 tab 06/21/23 07/04/23 Rx Ipratropium/Albuter 20-100Mcg 2 puff INHALATION DIRECTED 07/04/23 07/04/23 History [Combivent Respimat 20-100Mcg Inhaler] Tiotropium Br/Olodaterol HCl 2 puff INHALATION DIRECTED 07/04/23 07/04/23 History [Stiolto Respimat Inhal [place]] Allergies Allergy/AdvReac Type Severity Reaction Status Date / Time No Known Allergies Allergy Verified 07/04/23 20:11 Physical Exam Vitals: Vital Signs Temp Pulse Resp BP Pulse Ox 07/05/23 08:56 72 20 154/99 95 07/05/23 08:26 98.4 F 76 20 170/109 96 07/05/23 07:42 98.0 F 86 18 158/99 97 07/05/23 06:18 81 13 139/97 96 07/05/23 04:34 75 17 96 07/05/23 03:20 75 16 151/91 96 07/05/23 01:34 78 16 133/82 95 07/05/23 00:17 69 14 137/80 95 07/04/23 22:13 83 17 162/106 94 L 07/04/23 21:43 76 16 159/106 95 07/04/23 20:06 79 17 169/102 96 07/04/23 18:47 98.7 F 98 18 161/107 96 Intake and Output 07/04/23 07/05/23 07/05/23 22:59 06:59 14:59 Other: Weight 102.512 kg Results 07/05/23 03:32 07/05/23 03:32 Cardiac Enzymes 07/04/23 07/04/23 07/04/23 Range/Units 19:16 19:16 23:54 AST 21 (17-59) U/L Troponin I 0.054 H* 0.051 H* (0.000-0.034) ng/mL 07/05/23 07/05/23 Range/Units 03:32 03:32 AST 19 (17-59) U/L Troponin I 0.053 H* (0.000-0.034) ng/mL Coagulation 07/04/23 07/04/23 07/05/23 Range/Units 19:16 20:39 03:32 PT >130.0 H >130.0 H >130.0 H (10.0-12.5) sec APTT 117.6 H* 123.9 H* 128.8 H* (22.0-30.0) sec CBC 07/04/23 07/05/23 Range/Units 19:16 03:32 WBC 16.7 H 11.3 H (3.8-10.6) k/uL RBC 5.45 5.15 (4.30-5.90) m/uL Hgb 14.2 13.6 (13.0-17.5) gm/dL Hct 43.6 41.4 (39.0-53.0) % Plt Count 273 227 (150-450) k/uL Comprehensive Metabolic Panel 07/04/23 07/05/23 Range/Units 19:16 03:32 Sodium 138 137 (137-145) mmol/L Potassium 3.2 L 3.1 L (3.5-5.1) mmol/L Chloride 101 102 (98-107) mmol/L Carbon Dioxide 23 26 (22-30) mmol/L BUN 31 H 31 H (9-20) mg/dL Creatinine 2.21 H 2.18 H (0.66-1.25) mg/dL Glucose 103 H 101 H (74-99) mg/dL Calcium 8.6 8.6 (8.4-10.2) mg/dL AST 21 19 (17-59) U/L ALT 14 13 (4-49) U/L Alkaline Phosphatase 91 83 (38-126) U/L Total Protein 7.4 6.4 (6.3-8.2) g/dL Albumin 4.1 3.5 (3.5-5.0) g/dL Current Medications Generic Name Dose Route Start Last Admin Trade Name Freq PRN Reason Stop Dose Admin Carvedilol 12.5 mg 07/04/23 22:45 07/05/23 08:24 Carvedilol 6.25 Mg Tab PO 12.5 mg BID-W/MEALS PETER Administration Hydralazine HCl 50 mg 07/05/23 09:30 07/05/23 09:32 Hydralazine Hcl 50 Mg Tab PO 50 mg TID PETER Administration Lisinopril 20 mg 07/05/23 09:00 07/05/23 09:32 Lisinopril 20 Mg Tab PO 20 mg DAILY PETER Administration Naloxone HCl 0.2 mg 07/04/23 21:09 Naloxone 0.4 Mg/Ml 1 Ml Vial IV Q2M PRN Opioid Reversal Intake and Output 07/04/23 07/05/23 07/05/23 22:59 06:59 14:59 Other: Weight 102.512 kg 07/05/23 03:32 07/05/23 03:32
[2023-07-05 13:02] LABS: INR >10.0 (<1.2)
[2023-07-05 13:03] LABS: Prothrombin Time >130.0 sec (10.0-12.5)
[2023-07-05] MEDS ORDERED: WARFARIN 5 MG TAB PO SCH (18:00)
--- NOTE | 2023-07-05 21:58 | P.HPIM ---
History of Present Illness H&P Date: 07/05/23 Chief Complaint: Dizziness Catalino Vasquez is a 62 yo M with PMH or mechanical aortic valve, cardiomyopathy, hypertension who presented to the ED complaining of chest pain and dizzness yesterday. He states he was in the bathroom and became dizzy and subsequently noticed chest pains. He describes this pain and sharp and stabbing, no radiation. He denies shortness of breath. On presentation pt hypertensive 160/110, WBC 17k, INR >10, BNP 4000, trop 0.056. CXR no acute process. 5 Review of Systems All systems: negative Constitutional: Reports weakness, Denies chills, Denies fever Eyes: denies blurred vision, denies pain Ears, nose, mouth and throat: Denies headache, Denies sore throat Cardiovascular: Reports chest pain, Reports syncope, Denies shortness of breath Respiratory: Denies cough Gastrointestinal: Denies abdominal pain, Denies diarrhea, Denies nausea, Denies vomiting Musculoskeletal: Denies myalgias Integumentary: Denies pruritus, Denies rash Neurological: Denies numbness, Denies weakness Psychiatric: Denies anxiety, Denies depression Endocrine: Denies fatigue, Denies weight change Past Medical History Past Medical History: CVA/TIA, GERD/Reflux, Hyperlipidemia, Hypertension, Sleep Apnea/CPAP/BIPAP Additional Past Medical History / Comment(s): stress test abnormal, cva 2 yrs ago lft arm tires quickly, questioning possible [place],no cpap used See Dr Ibarra's H & P History of Any Multi-Drug Resistant Organisms: None Reported Past Surgical History: Cardiac Valve Replacement Additional Past Surgical History / Comment(s): 2003 aortic valve replaced, cerebral aneurysm repaired 2021 Additional Past Anesthesia/Blood Transfusion Reaction / Comment(s): no blood tx fx known Past Psychological History: No Psychological Hx Reported Smoking Status: Current every day smoker Past Alcohol Use History: Occasional Past Drug Use History: None Reported Medications and Allergies Home Medications Medication Instructions Recorded Confirmed Type Esomeprazole Magnesium 40 mg PO DAILY@1800 06/17/23 07/04/23 History Warfarin [Coumadin] 5 mg PO DAILY@1800 #5 tab 06/21/23 07/04/23 Rx amLODIPine [Norvasc] 5 mg PO BID #60 tab 06/21/23 07/04/23 Rx carvediloL [Coreg] 12.5 mg PO BID-W/MEALS #60 tab 06/21/23 07/04/23 Rx Ipratropium/Albuter 20-100Mcg 2 puff INHALATION DIRECTED 07/04/23 07/04/23 History [Combivent Respimat 20-100Mcg Inhaler] Tiotropium Br/Olodaterol HCl 2 puff INHALATION DIRECTED 07/04/23 07/04/23 History [Stiolto Respimat Inhal [place]] Allergies Allergy/AdvReac Type Severity Reaction Status Date / Time No Known Allergies Allergy Verified 07/04/23 20:11 Physical Exam Vitals: Vital Signs Temp Pulse Pulse Resp BP BP Pulse Ox 07/05/23 20:00 98.2 F 72 16 137/70 97 07/05/23 18:28 98.3 F 69 18 116/68 96 07/05/23 17:05 81 20 124/81 95 07/05/23 14:24 77 22 144/84 97 07/05/23 11:10 97.5 F L 70 18 121/91 95 07/05/23 08:56 72 20 154/99 95 07/05/23 08:26 98.4 F 76 20 170/109 96 07/05/23 07:42 98.0 F 86 18 158/99 97 07/05/23 06:18 81 13 139/97 96 07/05/23 04:34 75 17 96 07/05/23 03:20 75 16 151/91 96 07/05/23 01:34 78 16 133/82 95 07/05/23 00:17 69 14 137/80 95 07/04/23 22:13 83 17 162/106 94 L Vitals reviewed General: well developed, well nourished NAD HEENT: Normocephalic, atraumatic, mucus membranes moist Neck: supple, no JVD, no thyromegaly CV: Regular rate and rhythm, pulses 2+ Lungs: Normal effort. No wheezes or rales Abd: soft, nontender, bowel sounds present Neuro: Alert and oriented x3, no focal deficit Skin: warm and dry Results CBC & Chem 7: 07/05/23 03:32 07/05/23 03:32 Labs: Abnormal Lab Results - Last 24 Hours (Table) 07/04/23 07/05/23 07/05/23 Range/Units 23:54 03:32 03:32 WBC 11.3 H (3.8-10.6) k/uL RDW 15.9 H (11.5-15.5) % Neutrophils # 9.2 H (1.3-7.7) k/uL PT (10.0-12.5) sec INR (<1.2) APTT (22.0-30.0) sec Potassium (3.5-5.1) mmol/L BUN (9-20) mg/dL Creatinine (0.66-1.25) mg/dL Glucose (74-99) mg/dL Troponin I 0.051 H* 0.053 H* (0.000-0.034) ng/mL 07/05/23 07/05/23 07/05/23 Range/Units 03:32 03:32 12:06 WBC (3.8-10.6) k/uL RDW (11.5-15.5) % Neutrophils # (1.3-7.7) k/uL PT >130.0 H >130.0 H (10.0-12.5) sec INR >10.0 H* >10.0 H* (<1.2) APTT 128.8 H* (22.0-30.0) sec Potassium 3.1 L (3.5-5.1) mmol/L BUN 31 H (9-20) mg/dL Creatinine 2.18 H (0.66-1.25) mg/dL Glucose 101 H (74-99) mg/dL Troponin I (0.000-0.034) ng/mL Assessment and Plan Plan: 1. Chest pain. ACS ruled out. Cardiology consulted for further evaluation 2. Supratherapeutic INR. Vit K. Hold coumadin. Check INR 3. Accelerated hypertension. Add hydralazine and lisinopril per Cardiology 4. Hx mechanical aortic valve 5. Nonischemic cardiomyopathy
[2023-07-05] MEDS ORDERED: NITROGLYCERIN OINT 1 INCH/GM PACKET TOPICAL PRN (23:40)
[2023-07-06] MEDS: HYDROcodone/APAP 5-325MG 1 EACH TAB PO PRN ×3 (02:31→23:37)
[2023-07-06] MEDS: carvediloL 6.25 MG TAB PO SCH ×2 (06:34→17:05)
[2023-07-06 08:10] LABS: Prothrombin Time 76.5 sec (10.0-12.5)
[2023-07-06 08:23] LABS: African American GFR (CKD) 36 (>60 ml/min/1.73 sqM); Anion Gap 9 mmol/L; Blood Urea Nitrogen 32 mg/dL (9-20); Calcium 8.6 mg/dL (8.4-10.2); Carbon Dioxide 24 mmol/L (22-30); Chloride 104 mmol/L (98-107); Glucose 108 mg/dL (74-99); Non-African American GFR(CKD) 31 (>60 ml/min/1.73 sqM); Potassium 3.4 mmol/L (3.5-5.1); Sodium 137 mmol/L (137-145)
[2023-07-06 08:36] LABS: INR 7.8 (<1.2)
[2023-07-06] MEDS: hydrALAZINE HCL 50 MG TAB PO SCH ×3 (08:59→21:00)
[2023-07-06] MEDS: lisinopriL 20 MG TAB PO SCH (08:59)
--- NOTE | 2023-07-06 11:37 | CDI ---
Documentation Clarification Form Date: 07/06/2023 11:10:21 AM From: Lupe Kennedy RN, CCDS Admit Date: 07/04/2023 09:09:00 PM Patient Name: Catalino Vasquez Visit Number: [id number] Discharge Date: ATTENTION: The Clinical Documentation Specialists (CDI) and [facility] Coding Staff appreciate your assistance in clarifying documentation. Please respond to the clarification below the line at the bottom and electronically sign. The CDI & [facility] Coding staff will review the response and follow-up if needed. Please note: Queries are made part of the Legal Health Record. If you have any questions, please contact the author of this message via ITS. Dr. Terence Sutton Your patient has accelerated hypertension documented in the H/P. Based on this information and the findings below, is there an additional diagnosis that is clinically appropriate for this patient? Patient history/risk factors: CVA/TIA, GERD/Reflux, Hyperlipidemia, Hypertension, Sleep Apnea/CPAP/BIPAP Clinical Indicators: 62 year-old male with PMH or mechanical aortic valve, cardiomyopathy, hypertension who presented to the ED complaining of chest pain and dizziness. 07/04 VS: 161/107 98 18 96% RA, 169/102 79 17, 159/106 76 16, 162/106 83 17 Lab: WC 11.3. Hemoglobin 13.6. Platelet count 227. INR greater than 10. Sodium 137. Potassium 3.1. BUN 31. Creatinine 2.18. Troponin 0.054. 0.051. 0.053. ProBNP 4940. 07/05 Cardiology consult: Most recent echocardiogram obtained in May 2023 revealed ejection fraction 40%, mechanical aortic valve noted, mild TR, trace MR EKG reveals sinus mechanism with T-wave inversions in V5 to V6 Hypertension, uncontrolled, Chest pain, atypical, acute coronary syndrome ruled out Abnormal troponins, flat, likely secondary Chronic kidney disease Treatment: Cardiac/Telemetry monitoring Norvasc 5 MG PO BID, Coreg 12.5 MG PO BID, Apresoline 10MG IVP Q 4 HRS PRN 07/05 DC Apresoline 50 MG PO TID 07/05-07/06 Nitro-BID Oint 1 inch topical once 07/04 Is there an additional diagnosis that is clinically appropriate for this patient? [X ] Hypertensive Emergency [ ] Hypertensive Urgency [ ] No additional diagnosis/Not clinically significant [ ] Unable to determine [ ] Other, please specify (Template Last Reviewed: October 2022) MTD
--- NOTE | 2023-07-06 14:29 | P.PN ---
Subjective HISTORY OF PRESENT ILLNESS: This is a 62-year-old male with a past medical history significant for mechanical aortic valve, nonischemic cardiomyopathy, and hypertension. Patient follows in the office with Dr. Ibarra. We have been asked to see the patient in consultation for chest pain with elevated troponin. Patient examined at the bedside. Patient states yesterday he was in his bathroom when he began to feel dizzy. He states his sister helped him get back into the living room and he sat down. He denies having any syncopal episodes. He also reports having some chest pain yesterday which he describes as a stabbing sensation. He denied any shortness of breath. He denied any radiation of the pain. At the time of examination this morning, he denies chest pain or pressure. Patient's blood pressure is elevated this morning with a blood pressure 170/109. Patient's INR was also found to be greater than 10. It is noted that the patient was recently hospitalized earlier this month as he had stopped taking all of his medications including his Coumadin. * EKG reveals sinus mechanism with T-wave inversions in V5 to V6 * Chest xray negative for acute process * Laboratory data: WC 11.3. Hemoglobin 13.6. Platelet count 227. INR greater than 10. Sodium 137. Potassium 3.1. BUN 31. Creatinine 2.18. Troponin 0.054. 0.051. 0.053. ProBNP 4940. * Current home cardiac medications include warfarin 5 mg daily, Norvasc 5 mg twice a day, carvedilol 12.5 mm times twice a * Most recent echocardiogram obtained in May 2023 revealed ejection fraction 40%, mechanical aortic valve noted, mild TR, trace MR * Cardiac catheterization history: April 2023 revealing mild nonobstructive disease involving the right coronary artery 07/06/2023 Patient examined this morning at the bedside. Patient reports having an episode of right-sided chest pain overnight. At the time of examination he denies chest pain or pressure. He denies shortness of breath. Blood pressure stable with a recent reading of 149/96. Patient's INR today is 7.8. PHYSICAL EXAM: VITAL SIGNS: Reviewed. GENERAL: Well-developed in no acute distress. HEENT: Head is normocephalic. Pupils are equal, round. Sclerae anicteric. Mucous membranes of the mouth are moist. Neck supple. No JVD or thyromegaly LUNGS: Respirations even and unlabored. Lungs essentially clear to auscultation bilaterally. HEART: Regular rate and rhythm. S1 and S2 heard. Mechanical click noted. ABDOMEN: Soft. Nondistended. Nontender. EXTREMITIES: Normal range of motion. No clubbing or cyanosis. Peripheral pulses intact. No lower extremity edema. NEUROLOGIC: Awake and alert. Oriented x 3. ASSESSMENT: Dizziness Hypertension, uncontrolled Supratherapeutic INR, INR greater than 10 on admission Hypokalemia Chest pain, atypical, acute coronary syndrome ruled out Chronic kidney disease Abnormal troponins, flat, likely secondary to above History of mechanical aortic valve replacement, 2003, in [place] Nonischemic cardiomyopathy, ejection fraction 40% Mild nonobstructive CAD, per catheterization in April 2023 History of medication noncompliance PLAN: No need to repeat echocardiogram as this was performed in May 2023 Continue current cardiac medications Amlodipine discontinued yesterday secondary to cardiomyopathy Coumadin remains on hold. Monitor INR. No further vitamin K to be given unless patient develops bleeding Continue to monitor blood pressure Further recommendations pending patient's course Nurse practitioner note has been reviewed by physician. Signing provider agrees with the documented findings, assessment, and plan of care. Objective - Vital Signs Vital signs: Vital Signs Temp 98.2 F 07/06/23 12:04 Pulse 72 07/06/23 12:04 Resp 18 07/06/23 12:04 BP 149/96 07/06/23 12:04 Pulse Ox 96 07/06/23 12:04 FiO2 21 07/06/23 08:53 Intake & Output 07/05/23 07/06/23 07/06/23 18:59 06:59 18:59 Intake Total 480 356 Balance 480 356 Intake: Oral 480 356 Other: Voiding Method Toilet Toilet # Voids 1 1 # Bowel Movements 0 - Labs CBC & Chem 7: 07/05/23 03:32 07/06/23 06:26 Labs: Abnormal Lab Results - Last 24 Hours (Table) 07/06/23 07/06/23 Range/Units 06:26 06:26 PT 76.5 H (10.0-12.5) sec INR 7.8 H* (<1.2) Potassium 3.4 L (3.5-5.1) mmol/L BUN 32 H (9-20) mg/dL Creatinine 2.21 H (0.66-1.25) mg/dL Glucose 108 H (74-99) mg/dL
--- NOTE | 2023-07-06 22:30 | P.PN ---
Subjective Progress Note Date: 07/06/23 His INR is down to 7.8 today, he denies chest pain, shortness of breath, bleeding. Objective - Vital Signs Vital signs: Vital Signs Temp 98.1 F 07/06/23 20:00 Pulse 67 07/06/23 20:00 Resp 18 07/06/23 20:00 BP 113/61 07/06/23 20:00 Pulse Ox 97 07/06/23 20:00 FiO2 21 07/06/23 08:53 Intake & Output 07/06/23 07/06/23 07/07/23 06:59 18:59 06:59 Intake Total 480 606 Balance 480 606 Intake: IV 10 Invasive Line 3 10 Oral 480 596 Other: Voiding Method Toilet Toilet # Voids 1 2 # Bowel Movements 0 - Exam Gen: well developed, well nourished, NAD CV: RRR Lungs: CTAB - Labs CBC & Chem 7: 07/05/23 03:32 07/06/23 06:26 Labs: Abnormal Lab Results - Last 24 Hours (Table) 07/06/23 07/06/23 Range/Units 06:26 06:26 PT 76.5 H (10.0-12.5) sec INR 7.8 H* (<1.2) Potassium 3.4 L (3.5-5.1) mmol/L BUN 32 H (9-20) mg/dL Creatinine 2.21 H (0.66-1.25) mg/dL Glucose 108 H (74-99) mg/dL Assessment and Plan Plan: Hold coumadin. Repeat INR tomorrow. Continue lisinopril, coreg, hydralazine per Cardiology
[2023-07-07] MEDS: carvediloL 6.25 MG TAB PO SCH ×2 (05:11→17:36)
[2023-07-07 08:57] LABS: Basophils # (A) 0.1 k/uL (0-0.2); Basophils % (A) 1 %; Eosinophils # (A) 0.3 k/uL (0-0.7); Eosinophils % (A) 3 %; HCT 38.2 % (39.0-53.0); HGB 12.1 gm/dL (13.0-17.5); Lymphocytes # (A) 0.9 k/uL (1.0-4.8); Lymphocytes % (A) 9 %; MCH 26.1 pg (25.0-35.0); MCHC 31.7 g/dL (31.0-37.0); MCV 82.3 fL (80.0-100.0); Mean Platelet Volume 8.5; Monocytes # (A) 0.5 k/uL (0-1.0); Monocytes % (A) 5 %; Neutrophils # (A) 8.7 k/uL (1.3-7.7); Neutrophils % (A) 82 %; Platelet Count 226 k/uL (150-450); RBC 4.64 m/uL (4.30-5.90); RDW 15.9 % (11.5-15.5); WBC 10.6 k/uL (3.8-10.6)
[2023-07-07 09:06] LABS: African American GFR (CKD) 33 (>60 ml/min/1.73 sqM); Anion Gap 8 mmol/L; Blood Urea Nitrogen 35 mg/dL (9-20); Calcium 8.4 mg/dL (8.4-10.2); Carbon Dioxide 23 mmol/L (22-30); Chloride 103 mmol/L (98-107); Glucose 195 mg/dL (74-99); Non-African American GFR(CKD) 28 (>60 ml/min/1.73 sqM); Potassium 3.4 mmol/L (3.5-5.1); Sodium 134 mmol/L (137-145)
[2023-07-07 09:38] LABS: Prothrombin Time 126.6 sec (10.0-12.5)
[2023-07-07 09:48] LABS: INR >10.0 (<1.2)
[2023-07-07] MEDS: PANTOPRAZOLE 40 MG TABLET PO SCH (10:10)
[2023-07-07] MEDS: hydrALAZINE HCL 50 MG TAB PO SCH ×3 (10:10→21:23)
[2023-07-07] MEDS ORDERED: PHYTONADIONE ORAL 5 MG/5 ML ORAL.SYRG PO ONE (12:00)
[2023-07-07] MEDS: DICLOFENAC SODIUM GEL 100 GM TUBE TOPICAL SCH ×3 (12:13→21:23)
[2023-07-07] MEDS: lisinopriL 20 MG TAB PO SCH (12:13)
--- NOTE | 2023-07-07 13:40 | P.PN ---
Subjective HISTORY OF PRESENT ILLNESS: This is a 62-year-old male with a past medical history significant for mechanical aortic valve, nonischemic cardiomyopathy, and hypertension. Patient follows in the office with Dr. Ibarra. We have been asked to see the patient in consultation for chest pain with elevated troponin. Patient examined at the bedside. Patient states yesterday he was in his bathroom when he began to feel dizzy. He states his sister helped him get back into the living room and he sat down. He denies having any syncopal episodes. He also reports having some chest pain yesterday which he describes as a stabbing sensation. He denied any shortness of breath. He denied any radiation of the pain. At the time of examination this morning, he denies chest pain or pressure. Patient's blood pressure is elevated this morning with a blood pressure 170/109. Patient's INR was also found to be greater than 10. It is noted that the patient was recently hospitalized earlier this month as he had stopped taking all of his medications including his Coumadin. * EKG reveals sinus mechanism with T-wave inversions in V5 to V6 * Chest xray negative for acute process * Laboratory data: WC 11.3. Hemoglobin 13.6. Platelet count 227. INR greater than 10. Sodium 137. Potassium 3.1. BUN 31. Creatinine 2.18. Troponin 0.054. 0.051. 0.053. ProBNP 4940. * Current home cardiac medications include warfarin 5 mg daily, Norvasc 5 mg twice a day, carvedilol 12.5 mm times twice a * Most recent echocardiogram obtained in May 2023 revealed ejection fraction 40%, mechanical aortic valve noted, mild TR, trace MR * Cardiac catheterization history: April 2023 revealing mild nonobstructive disease involving the right coronary artery 07/06/2023 Patient examined this morning at the bedside. Patient reports having an episode of right-sided chest pain overnight. At the time of examination he denies chest pain or pressure. He denies shortness of breath. Blood pressure stable with a recent reading of 149/96. Patient's INR today is 7.8. 07/07/2023 Patient examined this morning at the bedside. Patient denies chest pain or pressure. He denies shortness of breath. Patient's Coumadin remains on hold. INR today greater than 10. Vital signs are stable. PHYSICAL EXAM: VITAL SIGNS: Reviewed. GENERAL: Well-developed in no acute distress. HEENT: Head is normocephalic. Pupils are equal, round. Sclerae anicteric. Mucous membranes of the mouth are moist. Neck supple. No JVD or thyromegaly LUNGS: Respirations even and unlabored. Lungs essentially clear to auscultation bilaterally. HEART: Regular rate and rhythm. S1 and S2 heard. Mechanical click noted. ABDOMEN: Soft. Nondistended. Nontender. EXTREMITIES: Normal range of motion. No clubbing or cyanosis. Peripheral pulses intact. No lower extremity edema. NEUROLOGIC: Awake and alert. Oriented x 3. ASSESSMENT: Dizziness Hypertension, uncontrolled Supratherapeutic INR, INR greater than 10 on admission Hypokalemia Chest pain, atypical, acute coronary syndrome ruled out Chronic kidney disease Abnormal troponins, flat, likely secondary to above History of mechanical aortic valve replacement, 2003, in [place] Nonischemic cardiomyopathy, ejection fraction 40% Mild nonobstructive CAD, per catheterization in April 2023 History of medication noncompliance PLAN: Continue current cardiac medications Amlodipine has been discontinued secondary to cardiomyopathy Coumadin remains on hold. Monitor INR. Will give 2.5 mg of vitamin K today as patient's INR increased today compared to yesterday Repeat INR in a.m. Continue to monitor blood pressure Further recommendations pending patient's course Nurse practitioner note has been reviewed by physician. Signing provider agrees with the documented findings, assessment, and plan of care. Objective - Vital Signs Vital signs: Vital Signs Temp 98.1 F 07/07/23 12:00 Pulse 65 07/07/23 12:00 Resp 18 07/07/23 12:00 BP 112/74 07/07/23 12:00 Pulse Ox 98 07/07/23 12:00 FiO2 21 07/06/23 08:53 Intake & Output 07/06/23 07/07/23 07/07/23 18:59 06:59 18:59 Intake Total 606 Balance 606 Intake: IV 10 Invasive Line 3 10 Oral 596 Other: Voiding Method Toilet Toilet Toilet # Voids 2 1 1 # Bowel Movements 0 - Labs CBC & Chem 7: 07/07/23 08:41 07/07/23 08:27 Labs: Abnormal Lab Results - Last 24 Hours (Table) 07/07/23 07/07/23 07/07/23 Range/Units 08:27 08:41 08:41 Hgb 12.1 L (13.0-17.5) gm/dL Hct 38.2 L (39.0-53.0) % RDW 15.9 H (11.5-15.5) % Neutrophils # 8.7 H (1.3-7.7) k/uL Lymphocytes # 0.9 L (1.0-4.8) k/uL PT 126.6 H (10.0-12.5) sec INR >10.0 H* (<1.2) Sodium 134 L (137-145) mmol/L Potassium 3.4 L (3.5-5.1) mmol/L BUN 35 H (9-20) mg/dL Creatinine 2.37 H (0.66-1.25) mg/dL Glucose 195 H (74-99) mg/dL
[2023-07-07] MEDS: HYDROcodone/APAP 5-325MG 1 EACH TAB PO PRN (21:24)
--- NOTE | 2023-07-07 22:46 | P.PN ---
Subjective Progress Note Date: 07/07/23 His INR is increased today to >10 from 7 yesterday. He does note some R sided chest wall pain last night while. No shortness of breath, bleeding. Objective - Vital Signs Vital signs: Vital Signs Temp 98.1 F 07/07/23 19:35 Pulse 74 07/07/23 21:33 Resp 16 07/07/23 19:35 BP 127/78 07/07/23 19:35 Pulse Ox 97 07/07/23 19:35 FiO2 21 07/06/23 08:53 Intake & Output 07/07/23 07/07/23 07/08/23 06:59 18:59 06:59 Other: Voiding Method Toilet Toilet Toilet # Voids 1 4 # Bowel Movements 1 - Exam Gen: well developed, well nourished, NAD CV: RRR Lungs: CTAB - Labs CBC & Chem 7: 07/07/23 08:41 07/07/23 08:27 Labs: Abnormal Lab Results - Last 24 Hours (Table) 07/07/23 07/07/23 07/07/23 Range/Units 08:27 08:41 08:41 Hgb 12.1 L (13.0-17.5) gm/dL Hct 38.2 L (39.0-53.0) % RDW 15.9 H (11.5-15.5) % Neutrophils # 8.7 H (1.3-7.7) k/uL Lymphocytes # 0.9 L (1.0-4.8) k/uL PT 126.6 H (10.0-12.5) sec INR >10.0 H* (<1.2) Sodium 134 L (137-145) mmol/L Potassium 3.4 L (3.5-5.1) mmol/L BUN 35 H (9-20) mg/dL Creatinine 2.37 H (0.66-1.25) mg/dL Glucose 195 H (74-99) mg/dL Assessment and Plan Plan: Hold coumadin. Vit K per Cardiology. Repeat INR tomorrow. Continue lisinopril, coreg, hydralazine per Cardiology
[2023-07-08] MEDS: PANTOPRAZOLE 40 MG TABLET PO SCH (07:07)
[2023-07-08] MEDS: carvediloL 6.25 MG TAB PO SCH (07:07)
[2023-07-08] MEDS ORDERED: ALPRAZolam 0.25 MG TAB PO PRN (07:48)
[2023-07-08] MEDS: lisinopriL 20 MG TAB PO SCH (08:13)
[2023-07-08] MEDS: DICLOFENAC SODIUM GEL 100 GM TUBE TOPICAL SCH ×2 (08:13→11:41)
[2023-07-08] MEDS: hydrALAZINE HCL 50 MG TAB PO SCH (08:13)
[2023-07-08 08:43] LABS: African American GFR (CKD) 31 (>60 ml/min/1.73 sqM); Anion Gap 9 mmol/L; Blood Urea Nitrogen 34 mg/dL (9-20); Calcium 8.4 mg/dL (8.4-10.2); Carbon Dioxide 26 mmol/L (22-30); Chloride 102 mmol/L (98-107); Glucose 110 mg/dL (74-99); Non-African American GFR(CKD) 27 (>60 ml/min/1.73 sqM); Potassium 3.4 mmol/L (3.5-5.1); Sodium 137 mmol/L (137-145)
[2023-07-08] MEDS ORDERED: NICOTINE 7MG/24HR PATCH TRANSDERM SCH (09:00)
[2023-07-08 09:07] LABS: Prothrombin Time 61.6 sec (10.0-12.5)
[2023-07-08 09:11] LABS: INR 6.3 (<1.2)
[2023-07-08 12:00] VITALS: PULSE 61
--- NOTE | 2023-07-08 12:04 | P.PN ---
Subjective HISTORY OF PRESENT ILLNESS: This is a 62-year-old male with a past medical history significant for mechanical aortic valve, nonischemic cardiomyopathy, and hypertension. Patient follows in the office with Dr. Ibarra. We have been asked to see the patient in consultation for chest pain with elevated troponin. Patient examined at the bedside. Patient states yesterday he was in his bathroom when he began to feel dizzy. He states his sister helped him get back into the living room and he sat down. He denies having any syncopal episodes. He also reports having some chest pain yesterday which he describes as a stabbing sensation. He denied any shortness of breath. He denied any radiation of the pain. At the time of examination this morning, he denies chest pain or pressure. Patient's blood pressure is elevated this morning with a blood pressure 170/109. Patient's INR was also found to be greater than 10. It is noted that the patient was recently hospitalized earlier this month as he had stopped taking all of his medications including his Coumadin. * EKG reveals sinus mechanism with T-wave inversions in V5 to V6 * Chest xray negative for acute process * Laboratory data: WC 11.3. Hemoglobin 13.6. Platelet count 227. INR greater than 10. Sodium 137. Potassium 3.1. BUN 31. Creatinine 2.18. Troponin 0.054. 0.051. 0.053. ProBNP 4940. * Current home cardiac medications include warfarin 5 mg daily, Norvasc 5 mg twice a day, carvedilol 12.5 mm times twice a * Most recent echocardiogram obtained in May 2023 revealed ejection fraction 40%, mechanical aortic valve noted, mild TR, trace MR * Cardiac catheterization history: April 2023 revealing mild nonobstructive disease involving the right coronary artery 07/06/2023 Patient examined this morning at the bedside. Patient reports having an episode of right-sided chest pain overnight. At the time of examination he denies chest pain or pressure. He denies shortness of breath. Blood pressure stable with a recent reading of 149/96. Patient's INR today is 7.8. 07/07/2023 Patient examined this morning at the bedside. Patient denies chest pain or pressure. He denies shortness of breath. Patient's Coumadin remains on hold. INR today greater than 10. Vital signs are stable. 07/08/2023 Patient examined this morning at the bedside. Patient denies chest pain or pressure. He denies shortness of breath. Patient's INR today is 6.3. Patient is very adamant about being discharged home today. PHYSICAL EXAM: VITAL SIGNS: Reviewed. GENERAL: Well-developed in no acute distress. HEENT: Head is normocephalic. Pupils are equal, round. Sclerae anicteric. Mucous membranes of the mouth are moist. Neck supple. No JVD or thyromegaly LUNGS: Respirations even and unlabored. Lungs essentially clear to auscultation bilaterally. HEART: Regular rate and rhythm. S1 and S2 heard. Mechanical click noted. ABDOMEN: Soft. Nondistended. Nontender. EXTREMITIES: Normal range of motion. No clubbing or cyanosis. Peripheral pulses intact. No lower extremity edema. NEUROLOGIC: Awake and alert. Oriented x 3. ASSESSMENT: Dizziness Hypertension, uncontrolled Supratherapeutic INR, INR greater than 10 on admission Hypokalemia Chest pain, atypical, acute coronary syndrome ruled out Chronic kidney disease Abnormal troponins, flat, likely secondary to above History of mechanical aortic valve replacement, 2003, in [place] Nonischemic cardiomyopathy, ejection fraction 40% Mild nonobstructive CAD, per catheterization in April 2023 History of medication noncompliance PLAN: Continue current cardiac medications Amlodipine has been discontinued secondary to cardiomyopathy Patient to continue to hold Coumadin Patient may be discharged home today from a cardiac standpoint Patient was instructed to follow up at [facility] tomorrow to have hi s INR checked. Patient verbalized understanding. Nurse practitioner note has been reviewed by physician. Signing provider agrees with the documented findings, assessment, and plan of care. Objective - Vital Signs Vital signs: Vital Signs Temp 98.2 F 07/08/23 11:52 Pulse 61 07/08/23 11:52 Resp 16 07/08/23 11:52 BP 126/78 07/08/23 11:52 Pulse Ox 98 07/08/23 11:52 FiO2 21 07/06/23 08:53 Intake & Output 07/07/23 07/08/23 07/08/23 18:59 06:59 18:59 Intake Total 300 240 Balance 300 240 Intake: Oral 300 240 Other: Voiding Method Toilet Toilet # Voids 4 1 1 # Bowel Movements 1 - Labs CBC & Chem 7: 07/07/23 08:41 07/08/23 07:35 Labs: Abnormal Lab Results - Last 24 Hours (Table) 07/08/23 07/08/23 Range/Units 07:35 07:35 PT 61.6 H (10.0-12.5) sec INR 6.3 H* (<1.2) Potassium 3.4 L (3.5-5.1) mmol/L BUN 34 H (9-20) mg/dL Creatinine 2.49 H (0.66-1.25) mg/dL Glucose 110 H (74-99) mg/dL
[2023-07-08 12:41] VITALS: BP 125/70; RESP 18; TEMP 98
== END 2023-07-08 13:05 | disposition home or self-care (01) | DRG 305 ==
LOC: EC 18:43 → 3SCARD 21:09
PROVIDERS: ADMIT Family Medicine; ATTEND Family Medicine
DX: I16.1 Hypertensive emergency (principal); I42.8 Other cardiomyopathies; Z59.00 Homelessness unspecified; D68.9 Coagulation defect, unspecified; R07.89 Other chest pain; I08.1 Rheumatic disorders of both mitral and tricuspid valves; I25.10 Atherosclerotic heart disease of native coronary artery without angina pectoris; R79.89 Other specified abnormal findings of blood chemistry; I12.9 Hypertensive chronic kidney disease with stage 1 through stage 4 chronic kidney disease, or unspecified chronic kidney disease; E78.5 Hyperlipidemia, unspecified; K21.9 Gastro-esophageal reflux disease without esophagitis; Z86.73 Personal history of transient ischemic attack (TIA), and cerebral infarction without residual deficits; T45.515A Adverse effect of anticoagulants, initial encounter; E87.6 Hypokalemia; N18.9 Chronic kidney disease, unspecified; R79.1 Abnormal coagulation profile; Z79.01 Long term (current) use of anticoagulants; F17.210 Nicotine dependence, cigarettes, uncomplicated; Z91.148 Patient's other noncompliance with medication regimen for other reason; Z91.128 Patient's intentional underdosing of medication regimen for other reason; Z95.2 Presence of prosthetic heart valve; Z79.899 Other long term (current) drug therapy; X58.XXXA Exposure to other specified factors, initial encounter
CPT/HCPCS: 36415; 71046; 80048; 80053; 83735; 83880; 84484; 85025; 85610; 85730; 93005; 94760; 99291

== ENCOUNTER 2023-07-09 12:02 | Observation (INO) | payer BC, OTHER ==
--- NOTE | 2023-07-09 12:14 | ED ---
General Adult HPI - General Source: patient Mode of arrival: ambulatory Limitations: no limitations <Mis Schofield - Last Filed: 07/09/23 12:13> - General Source: patient, RN notes reviewed Mode of arrival: ambulatory Limitations: no limitations <Jennifer Walters - Last Filed: 07/09/23 18:24> - General Chief complaint: Recheck/Abnormal Lab/Rx Stated complaint: High INR-sent by cadiology Time Seen by Provider: 07/09/23 12:11 - History of Present Illness Initial comments: Patient is a 62-year-old male who presents the emergency department for high INR. Sent in by cardiology. Patient on Coumadin for mechanical aortic valve. Denies any bleeding (Mis Schofield) 62-year-old male presents emergency department chief complaint of elevated INR. He states that he was recently hospitalized for this and at that time his INR was greater than 10. He has not been taking his Coumadin since. He was treated with vitamin K. He was discharged home. At time of discharge his INR was 6.3. He went to his elementary instructional coach today for an INR recheck and states it was 8. Patient in to the emergency department for further evaluation and treatment. He denies any bleeding at this time. (Jennifer Walters) - Related Data Home Medications Medication Instructions Recorded Confirmed Esomeprazole Magnesium 40 mg PO DAILY@1800 06/17/23 07/04/23 Ipratropium/Albuter 20-100Mcg 2 puff INHALATION DIRECTED 07/04/23 07/04/23 [Combivent Respimat 20-100Mcg Inhaler] Tiotropium Br/Olodaterol HCl 2 puff INHALATION DIRECTED 07/04/23 07/04/23 [Stiolto Respimat Inhal [place]] Previous Rx's Medication Instructions Recorded carvediloL [Coreg] 12.5 mg PO BID-W/MEALS #60 tab 06/21/23 hydrALAZINE HCL [Apresoline] 50 mg PO TID #90 tab 07/08/23 lisinopriL [Zestril] 20 mg PO DAILY #30 tab 07/08/23 Allergies Allergy/AdvReac Type Severity Reaction Status Date / Time No Known Allergies Allergy Verified 07/09/23 12:10 Review of Systems ROS Other: All systems not noted in ROS Statement are negative. <Papo Schofieldna - Last Filed: 07/09/23 12:13> ROS Other: All systems not noted in ROS Statement are negative. <Jennifer Walters - Last Filed: 07/09/23 18:24> ROS Statement: Those systems with pertinent positive or pertinent negative responses have been documented in the HPI. Past Medical History Past Medical History: CVA/TIA, GERD/Reflux, Hyperlipidemia, Hypertension, Sleep Apnea/CPAP/BIPAP Additional Past Medical History / Comment(s): stress test abnormal, cva 2 yrs ago lft arm tires quickly, questioning possible [place],no cpap used See Dr Ibarra's H & P History of Any Multi-Drug Resistant Organisms: None Reported Past Surgical History: Cardiac Valve Replacement Additional Past Surgical History / Comment(s): 2003 aortic valve replaced, cerebral aneurysm repaired 2021 Additional Past Anesthesia/Blood Transfusion Reaction / Comment(s): no blood tx fx known Past Psychological History: No Psychological Hx Reported Smoking Status: Current every day smoker Past Alcohol Use History: Occasional Past Drug Use History: None Reported <KanwalMis - Last Filed: 07/09/23 12:13> General Exam Limitations: no limitations <Mis Schofield - Last Filed: 07/09/23 12:13> Limitations: no limitations General appearance: alert, in no apparent distress Head exam: Present: atraumatic, normocephalic, normal inspection Eye exam: Present: normal appearance ENT exam: Present: normal exam, mucous membranes moist Respiratory exam: Present: normal lung sounds bilaterally. Absent: respiratory distress, wheezes, rales, rhonchi, stridor Cardiovascular Exam: Present: regular rate, normal rhythm, normal heart sounds. Absent: systolic murmur, diastolic murmur, rubs, gallop, clicks GI/Abdominal exam: Present: soft, normal bowel sounds. Absent: distended, tenderness, guarding, rebound, rigid Extremities exam: Present: normal inspection, full ROM, normal capillary refill. Absent: tenderness, pedal edema, joint swelling, calf tenderness Neurological exam: Present: alert, oriented X3 Psychiatric exam: Present: normal affect, normal mood Skin exam: Present: warm, dry, intact, normal color. Absent: rash <Jennifer Walters - Last Filed: 07/09/23 18:24> - General Exam Comments Initial Comments: Visual Physical Exam Vital signs reviewed General: Well-appearing, nontoxic, no acute distress. Head: Normocephalic, atraumatic Eyes: PERRLA, EOMI ENT: Airway patent Chest: Nonlabored breathing Skin: No visual rash, normal skin tone Neuro: Alert and oriented 3 Musculoskeletal: No gross abnormalities (Mis Schofield) Course Vital Signs 07/09/23 12:08 Temperature 97.6 F Pulse Rate 68 Respiratory 18 Rate Blood Pressure 159/104 O2 Sat by Pulse 99 Oximetry Medical Decision Making <Mis Schofield - Last Filed: 07/09/23 12:13> - Lab Data Result diagrams: 07/09/23 13:01 07/09/23 13:01 <Jennifer Walters - Last Filed: 07/09/23 18:24> - Medical Decision Making I performed the QuickNote portion of this chart - Mis Schofield PA-C (Mis Schofield) Was pt. sent in by a medical professional or institution ([facility]ANA Nielson, [employer], urgent care, hospital, or long term...) When possible be specific @ -No Did you speak to anyone other than the patient for history (EMS, parent, family, police, friend...)? What history was obtained from this source @ -No Did you review nursing and triage notes (agree or disagree)? Why? @ -I reviewed and agree with nursing and triage notes Were old charts reviewed (outside hosp., previous admission, EMS record, old EKG, old radiological studies, urgent care reports/EKG's, long term records)? Report findings @ -Records from recent hospital admission reviewed Differential Diagnosis (chest pain, altered mental status, abdominal pain women, abdominal pain men, vaginal bleeding, weakness, fever, dyspnea, syncope, headache, dizziness, GI bleed, back pain, seizure, CVA, palpatations, mental health, musculoskeletal)? @ -not applicable EKG interpreted by me (3pts min.). @ -none X-rays interpreted by me (1pt min.). @ -None done CT interpreted by me (1pt min.). @ -None done U/S interpreted by me (1pt. min.). @ -None done What testing was considered but not performed or refused? (CT, X-rays, U/S, labs)? Why? @ -None What meds were considered but not given or refused? Why? @ -None Did you discuss the management of the patient with other professionals (professionals i.e. , PA, EXPLOSIVES WORKER, lab, RT, psych nurse, rn social services, business lawyer, teacher, chief lending officer, caseworker protective services)? Give summary @ -Management discussed with Mauro Nascimento with [facility] who is accepting of the admission Was smoking cessation discussed for >3mins.? @ -No Was critical care preformed (if so, how long)? @ -No Were there social determinants of health that impacted care today? How? (Homelessness, low income, unemployed, alcoholism, drug addiction, transportation, low edu. Level, literacy, decrease access to med. care, penitentiary, rehab)? @ -No Was there de-escalation of care discussed even if they declined (Discuss DNR or withdrawal of care, Hospice)? DNR status @ -No What co-morbidities impacted this encounter? (DM, HTN, Smoking, COPD, CAD, Cancer, CVA, ARF, Chemo, Hep., AIDS, mental health diagnosis, sleep apnea, morbid obesity)? @ -None Was patient admitted / discharged? Hospital course, mention meds given and route, prescriptions, significant lab abnormalities, going to OR and other pertinent info. @ -Admitted. Patient presented to emergency department with chief complaint of elevated INR. He is sent in by his elementary instructional coach office for an INR of 8. He was just discharged from the hospital yesterday in which he was here for chest pain and was found to have an elevated INR at that time. He went into his elementary instructional coach office today for repeat PT/INR which was elevated again. He is not taking his Coumadin. He denies any active bleeding. CBC non actionable. PT 98, INR 9.9, APTT 93.4; creatinine 2.43 compared to labs from yesterday of creatinine 2.49. Patient was evaluated by myself and Dr. Sims. Patient given by mouth vitamin K and will be admitted with recheck labs in the a.m. Case discussed with Mauro Nascimento with [facility] who is accepting of the admission. Undiagnosed new problem with uncertain prognosis? @ -No Drug Therapy requiring intensive monitoring for toxicity (Heparin, Nitro, Insulin, Cardizem)? @ -No Were any procedures done? @ -No Diagnosis/symptom? @ -INR of 9.9 Acute, or Chronic, or Acute on Chronic? @ -Acute Uncomplicated (without systemic symptoms) or Complicated (systemic symptoms)? @ -default Side effects of treatment? @ -No Exacerbation, Progression, or Severe Exacerbation? @ -No Poses a threat to life or bodily function? How? (Chest pain, [place], [place], pneumonia, PE, COPD, DKA, ARF, appy, cholecystitis, CVA, Diverticulitis, Homicidal, Suicidal, threat to staff... and all critical care pts) @ -Bleeding risk (Jennifer Walters) - Lab Data Lab Results 07/09/23 07/09/23 07/09/23 Range/Units 13:01 13:01 13:01 WBC 8.7 (3.8-10.6) k/uL RBC 4.98 (4.30-5.90) m/uL Hgb 13.2 (13.0-17.5) gm/dL Hct 40.5 (39.0-53.0) % MCV 81.3 (80.0-100.0) fL MCH 26.4 (25.0-35.0) pg MCHC 32.5 (31.0-37.0) g/dL RDW 15.9 H (11.5-15.5) % Plt Count 265 (150-450) k/uL MPV 8.5 Neutrophils % 79 % Lymphocytes % 9 % Monocytes % 6 % Eosinophils % 4 % Basophils % 1 % Neutrophils # 6.9 (1.3-7.7) k/uL Lymphocytes # 0.8 L (1.0-4.8) k/uL Monocytes # 0.5 (0-1.0) k/uL Eosinophils # 0.3 (0-0.7) k/uL Basophils # 0.1 (0-0.2) k/uL PT 98.0 H (10.0-12.5) sec INR 9.9 H* (<1.2) APTT 93.4 H (22.0-30.0) sec Sodium 141 (137-145) mmol/L Potassium 4.1 (3.5-5.1) mmol/L Chloride 106 (98-107) mmol/L Carbon Dioxide 23 (22-30) mmol/L Anion Gap 12 mmol/L BUN 40 H (9-20) mg/dL Creatinine 2.43 H (0.66-1.25) mg/dL Est GFR (CKD-EPI)AfAm 32 (>60 ml/min/1.73 sqM) Est GFR (CKD-EPI)NonAf 27 (>60 ml/min/1.73 sqM) Glucose 89 (74-99) mg/dL Calcium 9.0 (8.4-10.2) mg/dL Magnesium 2.4 H (1.6-2.3) mg/dL Total Bilirubin 0.8 (0.2-1.3) mg/dL AST 37 (17-59) U/L ALT 14 (4-49) U/L Alkaline Phosphatase 84 (38-126) U/L Total Protein 7.0 (6.3-8.2) g/dL Albumin 3.8 (3.5-5.0) g/dL Disposition <Mis Schofield - Last Filed: 07/09/23 12:13> Is patient prescribed a controlled substance at d/c from ED?: No <Jennifer Walters - Last Filed: 07/09/23 18:24> Clinical Impression: Elevated INR Disposition: ADMITTED IP TO THIS HOSP Condition: Stable Referrals: Emma Mobley DO [Primary Care Provider] - 1-2 days
[2023-07-09 13:43] LABS: Basophils # (A) 0.1 k/uL (0-0.2); Basophils % (A) 1 %; Eosinophils # (A) 0.3 k/uL (0-0.7); Eosinophils % (A) 4 %; HCT 40.5 % (39.0-53.0); HGB 13.2 gm/dL (13.0-17.5); Lymphocytes # (A) 0.8 k/uL (1.0-4.8); Lymphocytes % (A) 9 %; MCH 26.4 pg (25.0-35.0); MCHC 32.5 g/dL (31.0-37.0); MCV 81.3 fL (80.0-100.0); Mean Platelet Volume 8.5; Monocytes # (A) 0.5 k/uL (0-1.0); Monocytes % (A) 6 %; Neutrophils # (A) 6.9 k/uL (1.3-7.7); Neutrophils % (A) 79 %; Platelet Count 265 k/uL (150-450); RBC 4.98 m/uL (4.30-5.90); RDW 15.9 % (11.5-15.5); WBC 8.7 k/uL (3.8-10.6)
[2023-07-09 14:07] LABS: INR 9.9 (<1.2); Partial Thromboplastin Time 93.4 sec (22.0-30.0)
[2023-07-09 14:40] LABS: ALT 14 U/L (4-49); AST 37 U/L (17-59); African American GFR (CKD) 32 (>60 ml/min/1.73 sqM); Albumin 3.8 g/dL (3.5-5.0); Alkaline Phosphatase 84 U/L (38-126); Anion Gap 12 mmol/L; Blood Urea Nitrogen 40 mg/dL (9-20); Carbon Dioxide 23 mmol/L (22-30); Chloride 106 mmol/L (98-107); Glucose 89 mg/dL (74-99); Magnesium 2.4 mg/dL (1.6-2.3); Non-African American GFR(CKD) 27 (>60 ml/min/1.73 sqM); Potassium 4.1 mmol/L (3.5-5.1); Sodium 141 mmol/L (137-145); Total Bilirubin 0.8 mg/dL (0.2-1.3)
[2023-07-09] MEDS ORDERED: NALOXONE 0.4 MG/ML 1 ML VIAL IV PRN (17:59)
[2023-07-09] MEDS ORDERED: SODIUM CHLORIDE 0.9% 1,000 ML IV SCH (18:00)
[2023-07-09] MEDS ORDERED: PHYTONADIONE ORAL 5 MG/5 ML ORAL.SYRG PO STA (18:03)
[2023-07-09] MEDS ORDERED: ACETAMINOPHEN TAB 325 MG TAB PO PRN (20:13)
[2023-07-09] MEDS ORDERED: ONDANSETRON 4 MG/2 ML VIAL IVP PRN (20:13)
[2023-07-09] MEDS: IPRATROPIUM-ALBUTEROL 3 ML NEB INHALATION SCH (21:11)
[2023-07-09] MEDS: carvediloL 12.5 MG TAB PO SCH (22:15)
[2023-07-09] MEDS: hydrALAZINE HCL 50 MG TAB PO SCH (22:15)
[2023-07-09] MEDS: NICOTINE 14MG/24HR PATCH TRANSDERM SCH (22:15)
[2023-07-09] MEDS: HYDROcodone/APAP 5-325MG 1 EACH TAB PO PRN (22:15)
[2023-07-09] MEDS: SODIUM CHLORIDE 0.9% 1,000 ML IV SCH (22:16)
[2023-07-10] MEDS: IPRATROPIUM-ALBUTEROL 3 ML NEB INHALATION SCH ×4 (03:03→20:54)
[2023-07-10] MEDS: HYDROcodone/APAP 5-325MG 1 EACH TAB PO PRN ×2 (06:55→20:28)
[2023-07-10] MEDS: carvediloL 12.5 MG TAB PO SCH ×2 (06:56→16:43)
[2023-07-10] MEDS ORDERED: IPRATROPIUM 0.5 MG/2.5 ML NEBU INHALATION SCH (08:00)
[2023-07-10] MEDS: FORMOTEROL FUMARATE 20 MCG/2 ML NEBU INHALATION SCH ×2 (08:41→20:54)
[2023-07-10] MEDS: NICOTINE 14MG/24HR PATCH TRANSDERM SCH (09:08)
[2023-07-10] MEDS: hydrALAZINE HCL 50 MG TAB PO SCH ×3 (09:08→20:28)
[2023-07-10] MEDS: lisinopriL 20 MG TAB PO SCH (09:08)
[2023-07-10 10:06] LABS: Anisocytosis Slight; Basophils # (A) 0.1 k/uL (0-0.2); Basophils % (A) 1 %; Eosinophils # (A) 0.3 k/uL (0-0.7); Eosinophils % (A) 5 %; HGB 11.6 gm/dL (13.0-17.5); Lymphocytes # (A) 0.8 k/uL (1.0-4.8); Lymphocytes % (A) 10 %; MCH 26.7 pg (25.0-35.0); MCHC 32.1 g/dL (31.0-37.0); Mean Platelet Volume 8.6; Monocytes # (A) 0.3 k/uL (0-1.0); Monocytes % (A) 4 %; Neutrophils # (A) 5.9 k/uL (1.3-7.7); Neutrophils % (A) 79 %; Platelet Count 206 k/uL (150-450); RBC 4.33 m/uL (4.30-5.90); RDW 16.1 % (11.5-15.5); WBC 7.4 k/uL (3.8-10.6)
[2023-07-10 10:20] LABS: ALT 13 U/L (4-49); AST 19 U/L (17-59); African American GFR (CKD) 38 (>60 ml/min/1.73 sqM); Albumin 2.8 g/dL (3.5-5.0); Alkaline Phosphatase 55 U/L (38-126); Anion Gap 8 mmol/L; Blood Urea Nitrogen 36 mg/dL (9-20); Calcium 8.1 mg/dL (8.4-10.2); Carbon Dioxide 22 mmol/L (22-30); Chloride 106 mmol/L (98-107); Glucose 213 mg/dL (74-99); Magnesium 2.1 mg/dL (1.6-2.3); Non-African American GFR(CKD) 33 (>60 ml/min/1.73 sqM); Sodium 136 mmol/L (137-145); Total Bilirubin 0.6 mg/dL (0.2-1.3); Total Protein 5.6 g/dL (6.3-8.2)
[2023-07-10 10:21] LABS: INR 3.9 (<1.2); Prothrombin Time 38.3 sec (10.0-12.5)
[2023-07-10 10:22] LABS: Potassium 3.7 mmol/L (3.5-5.1)
--- NOTE | 2023-07-10 11:37 | P.HPIM ---
History of Present Illness H&P Date: 07/10/23 Chief Complaint: Abnormal lab * 62-year-old gentleman with past medical history significant for CVA, history of hyperlipidemia, hypertension gastroesophageal reflux disease, mechanical aortic valve, nonischemic cardiomyopathy. Ejection fraction 40%, presented to the emergency department with complaints of abnormal blood work. Patient was noted to have supratherapeutic INR. Patient was recently hospitalized with similar problem and INR was noted to be 10. Patient was treated with vitamin K and was discharged home. He went to his cardiology office today and was noted to have an INR around 9 and was sent to the emergency department for evaluation patient denied any other symptoms * Review of blood work in emergency showed CBC with WBC count within normal limits M 1113.2 platelet count 265, patient had an INR of 9.9. Serum chemistry shows sodium 141 potassium 4.1, Lasix 20 BUS 40 2.43 magnesium of 2.4 * Patient said he has not done anything different dietary vice however his Coumadin levels continue to remain erratic REVIEW OF SYSTEMS: CONSTITUTIONAL: No fever, no malaise, no fatigue. HEENT: No recent visual problems or hearing problems. Denied any sore throat. CARDIOVASCULAR: No chest pain, orthopnea, PND, no palpitations, no syncope. PULMONARY: No shortness of breath, no cough, no hemoptysis. GASTROINTESTINAL: No diarrhea, no nausea, no vomiting, no abdominal pain. NEUROLOGICAL: No headaches, no weakness, no numbness. HEMATOLOGICAL: Denies any bleeding or petechiae. GENITOURINARY: Denies any burning micturition, frequency, or urgency. MUSCULOSKELETAL/RHEUMATOLOGICAL: Denies any joint pain, swelling, or any muscle pain. ENDOCRINE: Denies any polyuria or polydipsia. PHYSICAL EXAMINATION: GENERAL: The patient is alert and oriented x3, not in any acute distress. Well developed, well nourished. HEENT: Pupils are round and equally reacting to light. EOMI. CARDIOVASCULAR: S1 and S2 present. No murmurs, rubs, or gallops. PULMONARY: Chest is clear to auscultation, no wheezing or crackles. ABDOMEN: Soft, nontender, nondistended, normoactive bowel sounds. No palpable organomegaly. MUSCULOSKELETAL: No joint swelling or deformity. EXTREMITIES: No cyanosis, clubbing, or pedal edema. NEUROLOGICAL: Gross neurological examination did not reveal any focal deficits. SKIN: No rashes. Past Medical History Past Medical History: CVA/TIA, GERD/Reflux, Hyperlipidemia, Hypertension, Sleep Apnea/CPAP/BIPAP Additional Past Medical History / Comment(s): stress test abnormal, cva 2 yrs ago lft arm tires quickly, questioning possible [place],no cpap used See Dr Ibarra's H & P History of Any Multi-Drug Resistant Organisms: None Reported Past Surgical History: Cardiac Valve Replacement Additional Past Surgical History / Comment(s): 2003 aortic valve replaced, cerebral aneurysm repaired 2021 Additional Past Anesthesia/Blood Transfusion Reaction / Comment(s): no blood tx fx known Smoking Status: Current every day smoker Medications and Allergies Home Medications Medication Instructions Recorded Confirmed Type Esomeprazole Magnesium 40 mg PO DAILY@1800 06/17/23 07/09/23 History carvediloL [Coreg] 12.5 mg PO BID-W/MEALS #60 tab 06/21/23 07/09/23 Rx Ipratropium/Albuter 20-100Mcg 2 puff INHALATION DIRECTED 07/04/23 07/09/23 History [Combivent Respimat 20-100Mcg Inhaler] Tiotropium Br/Olodaterol HCl 2 puff INHALATION DIRECTED 07/04/23 07/09/23 History [Stiolto Respimat Inhal [place]] hydrALAZINE HCL [Apresoline] 50 mg PO TID #90 tab 07/08/23 07/09/23 Rx lisinopriL [Zestril] 20 mg PO DAILY #30 tab 07/08/23 07/09/23 Rx Allergies Allergy/AdvReac Type Severity Reaction Status Date / Time No Known Allergies Allergy Verified 07/09/23 18:47 Physical Exam Vitals: Vital Signs Temp Pulse Pulse Resp BP BP Pulse Ox 07/10/23 09:00 68 07/10/23 08:44 97 07/10/23 08:43 60 07/10/23 04:00 97.9 F 68 18 161/93 99 07/10/23 03:10 98.2 F 69 18 145/80 99 07/10/23 00:00 98 F 72 15 118/72 96 07/09/23 21:19 78 07/09/23 21:14 75 07/09/23 20:55 80 16 148/82 99 07/09/23 17:00 78 18 143/87 97 07/09/23 12:08 97.6 F 68 18 159/104 99 Intake and Output 07/09/23 07/10/23 07/10/23 22:59 06:59 14:59 Intake Total 750 180 Balance 750 180 Intake: Intake, IV Titration 100 Amount Sodium Chloride 0.9% 1, 100 000 ml @ 20 mls/hr IV . Q24H PETER Rx#:[id number] Oral 650 180 Other: Voiding Method Toilet # Voids 1 Weight 102.512 kg Results CBC & Chem 7: 07/10/23 09:03 07/10/23 09:03 Labs: Abnormal Lab Results - Last 24 Hours (Table) 07/09/23 07/09/23 07/09/23 Range/Units 13:01 13:01 13:01 RDW 15.9 H (11.5-15.5) % Lymphocytes # 0.8 L (1.0-4.8) k/uL PT 98.0 H (10.0-12.5) sec INR 9.9 H* (<1.2) APTT 93.4 H (22.0-30.0) sec BUN 40 H (9-20) mg/dL Creatinine 2.43 H (0.66-1.25) mg/dL Magnesium 2.4 H (1.6-2.3) mg/dL Thrombosis Risk Factor Assmnt - Choose All That Apply Any of the Below Risk Factors Present?: Yes Each Factor Represents 1 point: Obesity (BMI >25) Other Risk Factors: Yes Each Risk Factor Represents 2 Points: Age 61-74 years Other congenital or acquired thrombophilia - If yes, enter type in comment: No Thrombosis Risk Factor Assessment Total Risk Factor Score: 3 Thrombosis Risk Factor Assessment Level: Moderate Risk Assessment and Plan Assessment: Assessment and plan Mechanical aortic valve on Coumadin Supratherapeutic INR Nonischemic cardiomyopathy Hypertension Chronic kidney disease stage IV * Patient given vitamin K in the emergency, follow-up PT/INR levels ordered , Coumadin pharmacy to dose ordered * Home medications reviewed and reconciled continue Coreg, hydralazine, lisinopril * Continue to monitor vitals, follow-up on renal profile * Once INR levels within normal range plan to discharge patient home with Coumadin * CODE STATUS is full code
[2023-07-10] MEDS ORDERED: PANTOPRAZOLE 40 MG TABLET PO SCH (18:00)
[2023-07-10] MEDS ORDERED: WARFARIN 0.5 MG TAB PO ONE (18:00)
[2023-07-10] MEDS: SODIUM CHLORIDE 0.9% 1,000 ML IV SCH (21:32)
[2023-07-11] MEDS: IPRATROPIUM-ALBUTEROL 3 ML NEB INHALATION SCH ×2 (01:58→08:38)
[2023-07-11 02:35] VITALS: RESP 19
[2023-07-11 07:07] LABS: HCT 34.4 % (39.0-53.0); HGB 11.2 gm/dL (13.0-17.5); MCH 26.7 pg (25.0-35.0); MCHC 32.6 g/dL (31.0-37.0); MCV 81.9 fL (80.0-100.0); Mean Platelet Volume 8.4; Platelet Count 239 k/uL (150-450)
[2023-07-11 07:10] LABS: African American GFR (CKD) 36 (>60 ml/min/1.73 sqM); Anion Gap 6 mmol/L; Blood Urea Nitrogen 35 mg/dL (9-20); Calcium 8.3 mg/dL (8.4-10.2); Carbon Dioxide 26 mmol/L (22-30); Chloride 106 mmol/L (98-107); Glucose 103 mg/dL (74-99); Non-African American GFR(CKD) 31 (>60 ml/min/1.73 sqM); Potassium 3.7 mmol/L (3.5-5.1); Sodium 138 mmol/L (137-145)
[2023-07-11 07:14] LABS: INR 3.8 (<1.2); Prothrombin Time 37.6 sec (10.0-12.5)
[2023-07-11 07:35] VITALS: BP 166/73; TEMP 98
[2023-07-11] MEDS: FORMOTEROL FUMARATE 20 MCG/2 ML NEBU INHALATION SCH (08:38)
[2023-07-11] MEDS: lisinopriL 20 MG TAB PO SCH (09:51)
[2023-07-11] MEDS: NICOTINE 14MG/24HR PATCH TRANSDERM SCH (09:51)
[2023-07-11] MEDS: hydrALAZINE HCL 50 MG TAB PO SCH (09:51)
[2023-07-11] MEDS: carvediloL 12.5 MG TAB PO SCH (09:51)
[2023-07-11 11:11] VITALS: PULSE 71
--- NOTE | 2023-07-11 12:34 | P.DS ---
Providers Date of admission: 07/09/23 17:25 Expected date of discharge: 07/11/23 Attending physician: Danya Reid Primary care physician: Emma Mobley [facility] Course: * 62-year-old gentleman with past medical history significant for CVA, history of hyperlipidemia, hypertension gastroesophageal reflux disease, mechanical aortic valve, nonischemic cardiomyopathy. Ejection fraction 40%, presented to the emergency department with complaints of abnormal blood work. Patient was noted to have supratherapeutic INR. Patient was recently hospitalized with similar problem and INR was noted to be 10. Patient was treated with vitamin K and was discharged home. He went to his cardiology office today and was noted to have an INR around 9 and was sent to the emergency department for evaluation patient denied any other symptoms * Review of blood work in emergency showed CBC with WBC count within normal limits M 1113.2 platelet count 265, patient had an INR of 9.9. Serum chemistry shows sodium 141 potassium 4.1, Lasix 20 BUS 40 2.43 magnesium of 2.4 * Patient said he has not done anything different dietary vice however his Coumadin levels continue to remain erratic * Patient was monitored off Coumadin and INR remained stable around 3.8 and trending down * He will follow-up as an outpatient with PCP, patient will go back on Coumadin. For reference 1 mg Coumadin tablets placed in med rec however patient will follow-up with PCP and make further changes * Patient was notified not to take Coumadin tonight on 07/11/23 and follow-up on INR levels 07/12/23 PHYSICAL EXAMINATION: GENERAL: The patient is alert and oriented x3, not in any acute distress. Well developed, well nourished. HEENT: Pupils are round and equally reacting to light. EOMI. No scleral icterus. No conjunctival pallor. Normocephalic, atraumatic. No pharyngeal erythema. No thyromegaly. CARDIOVASCULAR: S1 and S2 present. No murmurs, rubs, or gallops. PULMONARY: Chest is clear to auscultation, no wheezing or crackles. ABDOMEN: Soft, nontender, nondistended, normoactive bowel sounds. No palpable organomegaly. MUSCULOSKELETAL: No joint swelling or deformity. EXTREMITIES: No cyanosis, clubbing, or pedal edema. NEUROLOGICAL: Gross neurological examination did not reveal any focal deficits. SKIN: No rashes. Assessment: Assessment and plan Mechanical aortic valve on Coumadin Supratherapeutic INR Nonischemic cardiomyopathy Hypertension Chronic kidney disease stage IV * Patient given vitamin K in the emergency, follow-up PT/INR levels ordered and trending down, discharge with outpatient follow-up with PCP * Home medications reviewed and reconciled continue Coreg, hydralazine, lisinopril * Patient recommended to hold Coumadin, INR trending down * Follow-up with PCP post discharge for adjustment of Coumadin levels Patient Condition at Discharge: Stable Plan - Discharge Summary Discharge Rx Participant: Yes New Discharge Prescriptions: New Warfarin [Coumadin] 1 mg PO DAILY 30 Days #30 tablet Continue carvediloL [Coreg] 12.5 mg PO BID-W/MEALS #60 tab Ipratropium/Albuter 20-100Mcg [Combivent Respimat 20-100Mcg Inhaler] 2 puff INHALATION DIRECTED lisinopriL [Zestril] 20 mg PO DAILY #30 tab Esomeprazole Magnesium 40 mg PO DAILY@1800 Tiotropium Br/Olodaterol HCl [Stiolto Respimat Inhal [place]] 2 puff INHALATION DIRECTED hydrALAZINE HCL [Apresoline] 50 mg PO TID #90 tab Discharge Medication List Esomeprazole Magnesium 40 mg PO DAILY@1800 06/17/23 [History] carvediloL [Coreg] 12.5 mg PO BID-W/MEALS #60 tab 06/21/23 [Rx] Ipratropium/Albuter 20-100Mcg [Combivent Respimat 20-100Mcg Inhaler] 2 puff INHALATION DIRECTED 07/04/23 [History] Tiotropium Br/Olodaterol HCl [Stiolto Respimat Inhal [place]] 2 puff INHALATION DIRECTED 07/04/23 [History] hydrALAZINE HCL [Apresoline] 50 mg PO TID #90 tab 07/08/23 [Rx] lisinopriL [Zestril] 20 mg PO DAILY #30 tab 07/08/23 [Rx] Warfarin [Coumadin] 1 mg PO DAILY 30 Days #30 tablet 07/11/23 [Rx] Follow up Appointment(s)/Referral(s): Terence Sutton MD [STAFF PHYSICIAN] - 1-2 Days (Follow-up with his office for adjustment of Coumadin levels PT/INR checked in 24 hours) Discharge Disposition: HOME SELF-CARE
[2023-07-11] MEDS ORDERED: WARFARIN 0.5 MG TAB PO ONE (18:00)
== END 2023-07-11 13:15 | disposition home or self-care (01) ==
LOC: EC 12:02 → 3SCARD 17:25 → 4SSUR 07-10 23:53
PROVIDERS: ADMIT Hospitalist; ATTEND Hospitalist
DX: R79.1 Abnormal coagulation profile (principal); Z95.2 Presence of prosthetic heart valve; I12.9 Hypertensive chronic kidney disease with stage 1 through stage 4 chronic kidney disease, or unspecified chronic kidney disease; N18.4 Chronic kidney disease, stage 4 (severe); I42.8 Other cardiomyopathies; E78.5 Hyperlipidemia, unspecified; K21.9 Gastro-esophageal reflux disease without esophagitis; G47.30 Sleep apnea, unspecified; F17.200 Nicotine dependence, unspecified, uncomplicated; E66.9 Obesity, unspecified; Z68.34 Body mass index [BMI] 34.0-34.9, adult; Z79.01 Long term (current) use of anticoagulants; Z79.899 Other long term (current) drug therapy; Z86.73 Personal history of transient ischemic attack (TIA), and cerebral infarction without residual deficits; Z86.79 Personal history of other diseases of the circulatory system; Z98.890 Other specified postprocedural states
CPT/HCPCS: 99285; 36415; 94640 ×5; 94760 ×2; 93005; 80053 ×2; 80048; 83735 ×2; 85025 ×2; 85027; 85610 ×3; 85730; G0378 ×3; S4990 ×3

== ENCOUNTER 2023-07-13 14:10 | Observation (INO) | payer BC, OTHER ==
[2023-07-13 14:53] LABS: Basophils # (A) 0.1 k/uL (0-0.2); Basophils % (A) 0 %; Eosinophils # (A) 0.3 k/uL (0-0.7); Eosinophils % (A) 2 %; HCT 38.9 % (39.0-53.0); HGB 12.7 gm/dL (13.0-17.5); Lymphocytes # (A) 1.1 k/uL (1.0-4.8); Lymphocytes % (A) 8 %; MCH 26.6 pg (25.0-35.0); MCHC 32.8 g/dL (31.0-37.0); MCV 81.2 fL (80.0-100.0); Mean Platelet Volume 8.5; Monocytes # (A) 0.6 k/uL (0-1.0); Monocytes % (A) 5 %; Neutrophils # (A) 11.2 k/uL (1.3-7.7); Neutrophils % (A) 83 %; Platelet Count 325 k/uL (150-450); RBC 4.79 m/uL (4.30-5.90); RDW 15.5 % (11.5-15.5); WBC 13.4 k/uL (3.8-10.6)
[2023-07-13 15:05] LABS: ALT 13 U/L (4-49); AST 21 U/L (17-59); African American GFR (CKD) 37 (>60 ml/min/1.73 sqM); Albumin 3.7 g/dL (3.5-5.0); Alkaline Phosphatase 82 U/L (38-126); Anion Gap 8 mmol/L; Blood Urea Nitrogen 30 mg/dL (9-20); Calcium 8.9 mg/dL (8.4-10.2); Carbon Dioxide 25 mmol/L (22-30); Chloride 106 mmol/L (98-107); Glucose 112 mg/dL (74-99); Non-African American GFR(CKD) 32 (>60 ml/min/1.73 sqM); Potassium 3.9 mmol/L (3.5-5.1); Sodium 139 mmol/L (137-145); Total Bilirubin 0.6 mg/dL (0.2-1.3); Total Protein 6.9 g/dL (6.3-8.2)
[2023-07-13 15:12] LABS: INR 9.9 (<1.2)
--- NOTE | 2023-07-13 15:17 | ED ---
General Adult HPI - General Chief complaint: Recheck/Abnormal Lab/Rx Stated complaint: high INR Time Seen by Provider: 07/13/23 14:58 Source: patient, RN notes reviewed Mode of arrival: ambulatory Limitations: no limitations - History of Present Illness Initial comments: Patient is a pleasant 62-year-old male presenting to the emergency department with concern for coagulopathy. Patient does have aortic mechanical valve. She was in the hospital recently secondary to retinopathy. Patient was just discharged. Patient followed up today with cardiology. Patient's INR has increased again up to 8. Patient states he has not taken his Coumadin today. Patient has not eaten today. Patient has no complaints. No bleeding. No black or tarry stools. - Related Data Home Medications Medication Instructions Recorded Confirmed Esomeprazole Magnesium 40 mg PO DAILY@1800 06/17/23 07/09/23 Ipratropium/Albuter 20-100Mcg 2 puff INHALATION DIRECTED 07/04/23 07/09/23 [Combivent Respimat 20-100Mcg Inhaler] Tiotropium Br/Olodaterol HCl 2 puff INHALATION DIRECTED 07/04/23 07/09/23 [Stiolto Respimat Inhal [place]] Previous Rx's Medication Instructions Recorded carvediloL [Coreg] 12.5 mg PO BID-W/MEALS #60 tab 06/21/23 hydrALAZINE HCL [Apresoline] 50 mg PO TID #90 tab 07/08/23 lisinopriL [Zestril] 20 mg PO DAILY #30 tab 07/08/23 Warfarin [Coumadin] 1 mg PO DAILY 30 Days #30 tablet 07/11/23 Allergies Allergy/AdvReac Type Severity Reaction Status Date / Time No Known Allergies Allergy Verified 07/13/23 14:17 Review of Systems ROS Statement: Those systems with pertinent positive or pertinent negative responses have been documented in the HPI. ROS Other: All systems not noted in ROS Statement are negative. Constitutional: Denies: fever Eyes: Denies: eye pain ENT: Denies: ear pain Respiratory: Denies: cough, dyspnea Cardiovascular: Denies: chest pain Endocrine: Denies: fatigue Gastrointestinal: Denies: abdominal pain, hematemesis, melena, hematochezia Musculoskeletal: Denies: back pain Skin: Denies: rash Past Medical History Past Medical History: CVA/TIA, GERD/Reflux, Hyperlipidemia, Hypertension, Sleep Apnea/CPAP/BIPAP Additional Past Medical History / Comment(s): stress test abnormal, cva 2 yrs ago lft arm tires quickly, questioning possible [place],no cpap used See Dr Ibarra's H & P History of Any Multi-Drug Resistant Organisms: None Reported Past Surgical History: Cardiac Valve Replacement Additional Past Surgical History / Comment(s): 2003 aortic valve replaced, cerebral aneurysm repaired 2021 Additional Past Anesthesia/Blood Transfusion Reaction / Comment(s): no blood tx fx known Past Psychological History: No Psychological Hx Reported Smoking Status: Current every day smoker Past Alcohol Use History: Occasional Past Drug Use History: None Reported General Exam Limitations: no limitations General appearance: alert, in no apparent distress Head exam: Present: normocephalic Eye exam: Present: normal appearance Neck exam: Present: normal inspection Respiratory exam: Present: normal lung sounds bilaterally Cardiovascular Exam: Present: regular rate, normal rhythm, systolic murmur GI/Abdominal exam: Present: soft. Absent: tenderness Extremities exam: Present: normal inspection Neurological exam: Present: alert Psychiatric exam: Present: normal affect, normal mood Skin exam: Present: normal color Course Vital Signs 07/13/23 14:14 Temperature 98.2 F Pulse Rate 92 Respiratory 18 Rate Blood Pressure 162/100 O2 Sat by Pulse 99 Oximetry Medical Decision Making - Medical Decision Making Was pt. sent in by a medical professional or institution (, [facility], [employer]ER, urgent care, hospital, or snf...) When possible be specific @ -Patient was sent in by Dr. Bynum, cardiology Did you speak to anyone other than the patient for history (EMS, parent, family, police, friend...)? What history was obtained from this source @ -No Did you review nursing and triage notes (agree or disagree)? Why? @ -I reviewed and agree with nursing and triage notes Were old charts reviewed (outside hosp., previous admission, EMS record, old EKG, old radiological studies, urgent care reports/EKG's, snf records)? Report findings @ -Previous 2 admissions reviewed Differential Diagnosis (chest pain, altered mental status, abdominal pain women, abdominal pain men, vaginal bleeding, weakness, fever, dyspnea, syncope, headache, dizziness, GI bleed, back pain, seizure, CVA, palpatations, mental health, musculoskeletal)? @ -Differential Weakness: Hypoglycemia, shock, sepsis, hyponatremia, anemia, infection, IN, ETOH, adverse medicine reaction, overdose, stroke, this is not meant to be an all-inclusive list. EKG interpreted by me (3pts min.). @ -As above X-rays interpreted by me (1pt min.). @ -None done CT interpreted by me (1pt min.). @ -None done U/S interpreted by me (1pt. min.). @ -None done What testing was considered but not performed or refused? (CT, X-rays, U/S, labs)? Why? @ -None What meds were considered but not given or refused? Why? @ -None Did you discuss the management of the patient with other professionals (professionals i.e. , PA, [employer]ALL [employer]SEMBLER, lab, RT, psych nurse, school social worker, animal eviscerator, teacher, correction officer city or county jail, medical case worker)? Give summary @ -Case was discussed with Dr. Nina. Patient will be admitted. Was smoking cessation discussed for >3mins.? @ -No Was critical care preformed (if so, how long)? @ -No Were there social determinants of health that impacted care today? How? (Homelessness, low income, unemployed, alcoholism, drug addiction, transportation, low edu. Level, literacy, decrease access to med. care, long-term, rehab)? @ -No Was there de-escalation of care discussed even if they declined (Discuss DNR or withdrawal of care, Hospice)? DNR status @ -No What co-morbidities impacted this encounter? (DM, HTN, Smoking, COPD, CAD, Cancer, CVA, ARF, Chemo, Hep., AIDS, mental health diagnosis, sleep apnea, morbid obesity)? @ -None Was patient admitted / discharged? Hospital course, mention meds given and route, prescriptions, significant lab abnormalities, going to OR and other pertinent info. @ -Patient reevaluated and updated. Secondary to recurrent coagulopathy patient will begin admitted. Dr. Nina does request consults with cardiology as well as oncology and these will be placed. Admission orders place. Undiagnosed new problem with uncertain prognosis? @ -No Drug Therapy requiring intensive monitoring for toxicity (Heparin, Nitro, Insulin, Cardizem)? @ -No Were any procedures done? @ -No Diagnosis/symptom? @ -Coagulopathy Acute, or Chronic, or Acute on Chronic? @ -Acute Uncomplicated (without systemic symptoms) or Complicated (systemic symptoms)? @ -default Side effects of treatment? @ -No Exacerbation, Progression, or Severe Exacerbation? @ -No Poses a threat to life or bodily function? How? (Chest pain, [place], [place], pneumonia, PE, COPD, DKA, ARF, appy, cholecystitis, CVA, Diverticulitis, Homicidal, Suicidal, threat to staff... and all critical care pts) @ -No - Lab Data Result diagrams: 07/13/23 14:25 07/13/23 14:25 Lab Results 07/13/23 07/13/23 07/13/23 Range/Units 14:25 14:25 14:25 WBC 13.4 H (3.8-10.6) k/uL RBC 4.79 (4.30-5.90) m/uL Hgb 12.7 L (13.0-17.5) gm/dL Hct 38.9 L (39.0-53.0) % MCV 81.2 (80.0-100.0) fL MCH 26.6 (25.0-35.0) pg MCHC 32.8 (31.0-37.0) g/dL RDW 15.5 (11.5-15.5) % Plt Count 325 (150-450) k/uL MPV 8.5 Neutrophils % 83 % Lymphocytes % 8 % Monocytes % 5 % Eosinophils % 2 % Basophils % 0 % Neutrophils # 11.2 H (1.3-7.7) k/uL Lymphocytes # 1.1 (1.0-4.8) k/uL Monocytes # 0.6 (0-1.0) k/uL Eosinophils # 0.3 (0-0.7) k/uL Basophils # 0.1 (0-0.2) k/uL PT 98.0 H (10.0-12.5) sec INR 9.9 H* (<1.2) Sodium 139 (137-145) mmol/L Potassium 3.9 (3.5-5.1) mmol/L Chloride 106 (98-107) mmol/L Carbon Dioxide 25 (22-30) mmol/L Anion Gap 8 mmol/L BUN 30 H (9-20) mg/dL Creatinine 2.16 H (0.66-1.25) mg/dL Est GFR (CKD-EPI)AfAm 37 (>60 ml/min/1.73 sqM) Est GFR (CKD-EPI)NonAf 32 (>60 ml/min/1.73 sqM) Glucose 112 H (74-99) mg/dL Calcium 8.9 (8.4-10.2) mg/dL Total Bilirubin 0.6 (0.2-1.3) mg/dL AST 21 (17-59) U/L ALT 13 (4-49) U/L Alkaline Phosphatase 82 (38-126) U/L Total Protein 6.9 (6.3-8.2) g/dL Albumin 3.7 (3.5-5.0) g/dL Disposition Clinical Impression: Coagulopathy Disposition: ADMITTED IP TO THIS HOSP Is patient prescribed a controlled substance at d/c from ED?: No Referrals: Terence Sutton MD [Primary Care Provider] - 1-2 days Time of Disposition: 15:43
[2023-07-13] MEDS ORDERED: NALOXONE 0.4 MG/ML 1 ML VIAL IV PRN (15:43)
[2023-07-13] MEDS ORDERED: ACETAMINOPHEN TAB 325 MG TAB PO PRN (15:43)
[2023-07-13] MEDS ORDERED: PHYTONADIONE ORAL 5 MG/5 ML ORAL.SYRG PO STA (15:43)
[2023-07-13] MEDS: NICOTINE 21MG/24HR PATCH TRANSDERM SCH (19:50)
[2023-07-13] MEDS: hydrALAZINE HCL 50 MG TAB PO SCH (19:50)
[2023-07-13] MEDS: IPRATROPIUM-ALBUTEROL 3 ML NEB INHALATION PRN (20:59)
[2023-07-13] MEDS: IPRATROPIUM 0.5 MG/2.5 ML NEBU INHALATION SCH (20:59)
[2023-07-14] MEDS: carvediloL 6.25 MG TAB PO SCH ×2 (06:28→16:48)
[2023-07-14] MEDS: IPRATROPIUM-ALBUTEROL 3 ML NEB INHALATION PRN ×3 (07:38→21:40)
[2023-07-14] MEDS: FORMOTEROL FUMARATE 20 MCG/2 ML NEBU INHALATION SCH ×2 (07:38→21:39)
--- NOTE | 2023-07-14 08:14 | P.HPIM ---
History of Present Illness H&P Date: 07/14/23 This is a 62-year-old gentleman with past medical history significant for mechanical aortic valve, nonischemic cardiomyopathy,hypertension, CVA, presented to the ED as directed by cardiology for supratherapeutic INR, greater than 8 reported in ER report. On admission INR 9.9, received vitamin K and currently down to 3. Patient has a history of medication noncompliance, prior subtherapeutic INR on inpatient admission 06/18/2023, supratherapeutic INR on inpatient admission 07/04/23 and 07/10/2023. Reports compliance with medication regimen/anticoagulation. Denies bleeding, tarry stools or bruising. Denies chest pain, palpitations or shortness of breath. Reports he feels "off today accompanied by fatigue" but denies headache, dizziness, blurred vision. Denies syncope. Denies recent illness. LFTs within normal limits. Discussed possible depleted vitamin K levels but patient states he eats green vegetables on a regular basis. Afebrile, hemoglobin 11, platelets 279. Renal function at baseline. Hematology and cardiology consulted. Review of Systems Review of Systems All systems: negative Constitutional: Denies weakness, Denies chills, Denies fever Eyes: denies blurred vision, denies pain Ears, nose, mouth and throat: Denies headache, Denies sore throat Cardiovascular: Denies chest pain, denies syncope, Denies shortness of breath Respiratory: Denies cough Gastrointestinal: Denies abdominal pain, Denies diarrhea, Denies nausea, Denies vomiting Musculoskeletal: Denies myalgias Integumentary: Denies pruritus, Denies rash Neurological: Denies numbness, Denies weakness Psychiatric: Denies anxiety, Denies depression Endocrine: Denies weight change. Reports fatigue. Past Medical History Past Medical History: CVA/TIA, GERD/Reflux, Hyperlipidemia, Hypertension, Sleep Apnea/CPAP/BIPAP Additional Past Medical History / Comment(s): stress test abnormal, cva 2 yrs ag o lft arm tires quickly, questioning possible HI,no cpap used See Dr Ibarra's H & P History of Any Multi-Drug Resistant Organisms: None Reported Past Surgical History: Cardiac Valve Replacement Additional Past Surgical History / Comment(s): 2003 aortic valve replaced, cerebral aneurysm repaired 2021 Past Anesthesia/Blood Transfusion Reactions: No Reported Reaction Additional Past Anesthesia/Blood Transfusion Reaction / Comment(s): no hx of blood tx Past Psychological History: No Psychological Hx Reported Smoking Status: Current every day smoker Past Alcohol Use History: Occasional Additional Past Alcohol Use History / Comment(s): 6-10 per /day/ Past Drug Use History: None Reported - Past Family History Father History Unknown: Yes Medications and Allergies Home Medications Medication Instructions Recorded Confirmed Type Esomeprazole Magnesium 40 mg PO DAILY 06/17/23 07/13/23 History carvediloL [Coreg] 12.5 mg PO BID-W/MEALS #60 tab 06/21/23 07/13/23 Rx Ipratropium/Albuter 20-100Mcg 2 puff INHALATION RT-Q4H PRN 07/04/23 07/13/23 History [Combivent Respimat 20-100Mcg Inhaler] Tiotropium Br/Olodaterol HCl 2 puff INHALATION RT-DAILY 07/04/23 07/13/23 History [Stiolto Respimat Inhal [place]] hydrALAZINE HCL [Apresoline] 50 mg PO TID #90 tab 07/08/23 07/13/23 Rx lisinopriL [Zestril] 20 mg PO DAILY #30 tab 07/08/23 07/13/23 Rx Warfarin [Coumadin] 1 mg PO DAILY 30 Days #30 tablet 07/11/23 07/13/23 Rx Allergies Allergy/AdvReac Type Severity Reaction Status Date / Time No Known Allergies Allergy Verified 07/13/23 16:01 Physical Exam Vitals: Vital Signs Temp Pulse Pulse Resp BP BP BP 07/14/23 08:01 69 16 117/80 07/14/23 08:00 70 07/14/23 07:49 72 07/14/23 07:48 70 07/14/23 07:39 70 07/14/23 04:00 67 16 156/83 07/14/23 01:51 81 16 07/14/23 00:00 81 16 152/78 07/13/23 21:13 72 07/13/23 20:59 73 07/13/23 20:00 75 18 07/13/23 19:50 97.6 F 75 18 173/86 07/13/23 18:17 98.5 F 86 16 162/93 07/13/23 17:58 62 17 126/69 07/13/23 17:00 69 17 129/69 07/13/23 14:14 98.2 F 92 18 162/100 BP BP Pulse Ox 07/14/23 08:01 145/91 133/81 98 07/14/23 08:00 07/14/23 07:49 07/14/23 07:48 07/14/23 07:39 07/14/23 04:00 98 07/14/23 01:51 07/14/23 00:00 96 07/13/23 21:13 07/13/23 20:59 07/13/23 20:00 07/13/23 19:50 96 07/13/23 18:17 100 07/13/23 17:58 99 07/13/23 17:00 99 07/13/23 14:14 99 Intake and Output 07/13/23 07/14/23 07/14/23 22:59 06:59 14:59 Other: Voiding Method Toilet Toilet # Voids 2 Weight 102.512 kg PHYSICAL EXAM: VITAL SIGNS: [As above] GENERAL: Well-nourished, Sitting up in bed, no acute distress HEENT: Normocephalic, Conjunctivae normal. eyes normal. NECK: Supple, No JVD. No thyroid enlargement. No LNs CARDIOVASCULAR: S1, S2 regular. No murmur, prosthetic valve click RESPIRATION: Unlabored, equal air entry, Breath sounds diminished in the bases. No rhonchi or crackles. No bronchial breathing. ABDOMEN: Soft, nondistended, nontender . No guarding. no masses palpable. No ascites, No hepatosplenomegaly.Bowel sounds heard. LEGS: No edema. no swelling PSYCHIATRY: Alert and oriented X3, mood and affect normal. NERVOUS SYSTEM: Cranial N 2-12 grossly normal. No focal deficits. Strength and sensation grossly intact. Skin: Warm and dry, no rash Results CBC & Chem 7: 07/14/23 08:14 07/13/23 14:25 Labs: Abnormal Lab Results - Last 24 Hours (Table) 07/13/23 07/13/23 07/13/23 Range/Units 14:25 14:25 14:25 WBC 13.4 H (3.8-10.6) k/uL Hgb 12.7 L (13.0-17.5) gm/dL Hct 38.9 L (39.0-53.0) % Neutrophils # 11.2 H (1.3-7.7) k/uL PT 98.0 H (10.0-12.5) sec INR 9.9 H* (<1.2) BUN 30 H (9-20) mg/dL Creatinine 2.16 H (0.66-1.25) mg/dL Glucose 112 H (74-99) mg/dL Thrombosis Risk Factor Assmnt - Choose All That Apply Any of the Below Risk Factors Present?: Yes Each Factor Represents 1 point: Obesity (BMI >25) Other Risk Factors: Yes Each Risk Factor Represents 2 Points: Age 61-74 years Thrombosis Risk Factor Assessment Total Risk Factor Score: 3 Thrombosis Risk Factor Assessment Level: Moderate Risk Assessment and Plan Assessment: Supratherapeutic INR, status post vitamin K, Mechanical aortic valve-[facility], history of medication noncompliance, prior subtherapeutic INR on inpatient admission 06/18/2023. Supra therapeutic INR on inpatient admission 07/04/23 and 07/10/2023. AVR 2003 Nonischemic cardiomyopathy, EF 40% Hypertension CAD History of CVA 2 years ago Hypertension Hyperlipidemia CKD, stage III, GFR 32, baseline creatinine 2.16 Gastroesophageal reflux disease Obstructive sleep apnea and does not use BiPAP or CPAP Morbid obesity, BMI 35 Ongoing nicotine dependence Plan: Continue on current medication regime ,monitoring and symptomatic treatment. Brain CT ordered. Continue to hold Coumadin with close monitoring of INR. GI prophylaxis with PPI ordered. Hematology and cardiology consult in place with recommendations pending. The impression and plan of care has been dictated as directed. : I performed a history and examination of this patient, discussed the same with the dictator. I agree with the dictator's note ,documented as a scribe. Any additional findings or plans will be noted.
[2023-07-14] MEDS: NICOTINE 21MG/24HR PATCH TRANSDERM SCH (08:17)
[2023-07-14] MEDS: PANTOPRAZOLE 40 MG TABLET PO SCH (08:17)
[2023-07-14] MEDS: IPRATROPIUM 0.5 MG/2.5 ML NEBU INHALATION SCH ×4 (08:19→21:39)
[2023-07-14 08:59] LABS: Basophils # (A) 0.1 k/uL (0-0.2); Basophils % (A) 1 %; Eosinophils # (A) 0.3 k/uL (0-0.7); Eosinophils % (A) 3 %; HCT 34.2 % (39.0-53.0); Lymphocytes % (A) 9 %; MCH 26.6 pg (25.0-35.0); MCHC 32.3 g/dL (31.0-37.0); MCV 82.4 fL (80.0-100.0); Mean Platelet Volume 8.2; Monocytes # (A) 0.5 k/uL (0-1.0); Monocytes % (A) 5 %; Neutrophils # (A) 8.2 k/uL (1.3-7.7); Neutrophils % (A) 81 %; Platelet Count 279 k/uL (150-450); RBC 4.15 m/uL (4.30-5.90); RDW 15.9 % (11.5-15.5); WBC 10.1 k/uL (3.8-10.6)
[2023-07-14 09:13] LABS: Prothrombin Time 29.2 sec (10.0-12.5)
[2023-07-14] MEDS: lisinopriL 20 MG TAB PO SCH (09:40)
[2023-07-14] MEDS: hydrALAZINE HCL 50 MG TAB PO SCH ×3 (09:40→20:03)
--- NOTE | 2023-07-14 12:01 | CT ---
EXAMINATION TYPE: CT brain wo con DATE OF EXAM: 07/14/2023 COMPARISON: None HISTORY: Hypercoagulopathy, fatigue,PATTERSON, history of brain aneurysm CT DLP: 1100.[address] of the brain was performed. The ventricles, basal cisterns and sulci overlying the cerebral convexities demonstrate mild enlargem ent. There is no evidence for intracranial hemorrhage or sulcal effacement. There is decreased attenuation about the periventricular white matter and deep white matter of both c erebral hemispheres, compatible with chronic small vessel ischemia. Differential diagnosis does inclu de demyelination. No mass effects are seen.No midline shift. Left parietal craniotomy noted. If symptoms persist consider MRI. IMPRESSION: 1. Age related atrophic and chronic small vessel ischemic change without acute intracranial process s een at this time.
--- NOTE | 2023-07-14 12:10 | P.CRDCN ---
History of Present Illness Consult date: 07/14/23 Reason for Consult (text): Coagulopathy History of present illness: HISTORY OF PRESENT ILLNESS: This is a 62-year-old male patient of Dr. Ibarra with a past medical history significant for mechanical aortic valve, nonischemic cardiomyopathy, and hypertension. We have been asked to see the patient in consultation for coagulopathy. Patient states that he is taking 1 mg tablets as directed. He sometimes has increased to 2 mg depending on his INR. He denies any recent bleeding. He states he has a history of a brain aneurysm and a CVA in the past. Patient denies any new medications, no recent antibiotic use no sick contacts and no recent illness. He states he was feeling okay yesterday when he was instructed to come into the hospital because of the high INR. He states today he is feeling quite fatigued. His INR goal is 2.5-3. Patient did receive 1 dose of vitamin K 5 mg yesterday. Initial INR 9.9 and repeat 3. CAT scan of the brain revealed age-related atrophic and chronic small vessel ischemic changes. WBC 13.4 now 10.1, hemoglobin 11, platelet count 279. INR initially 9.9 and repeat 3.0. BUN 30 creatinine 2.17. Elective lites are normal. Glucose 112. Liver function tests are normal. Current home cardiac medications include warfarin 1 mg daily, alternating carvedilol 12.5 mm times twice, hydralazine 50 mg 3 times daily, lisinopril 20 mg daily Most recent echocardiogram obtained in May 2023 revealed ejection fraction 40%, mechanical aortic valve noted, mild TR, trace MR Cardiac catheterization history: April 2023 revealing mild nonobstructive disease involving the right coronary artery REVIEW OF SYSTEMS: At the time of my exam: CONSTITUTIONAL: Denies fever or chills. Reports fatigue. Reports dizziness HEENT: Denies blurred vision, vision changes, or eye pain. Denies hemoptysis CARDIOVASCULAR: Denies chest pain. Denies orthopnea. Denies PND. Denies palpitations RESPIRATORY: Denies shortness of breath. GASTROINTESTINAL: Denies abdominal pain. Denies nausea or vomiting. HEMATOLOGIC: Denies bleeding disorders. GENITOURINARY: Denies any blood in urine. SKIN: Denies pruitis. Denies rash. PHYSICAL EXAM: VITAL SIGNS: Reviewed. GENERAL: Well-developed in no acute distress. HEENT: Head is normocephalic. Pupils are equal, round. Sclerae anicteric. Mucous membranes of the mouth are moist. Neck supple. No JVD or thyromegaly LUNGS: Respirations even and unlabored. Lungs essentially clear to auscultation bilaterally. HEART: Regular rate and rhythm. S1 and S2 heard. Mechanical click noted. ABDOMEN: Soft. Nondistended. Nontender. EXTREMITIES: Normal range of motion. No clubbing or cyanosis. Peripheral pulses intact. No lower extremity edema. NEUROLOGIC: Awake and alert. Oriented x 3. ASSESSMENT: Hypercoagulopathy Hypertension, uncontrolled Chronic kidney disease History of mechanical aortic valve replacement, 2003, in [place] Nonischemic cardiomyopathy, ejection fraction 40% Mild nonobstructive CAD, per catheterization in April 2023 History of medication noncompliance PLAN: No need to repeat echocardiogram as this was performed in May 2023 Continue home cardiac medications Repeat INR at noon. If this is within normal range, patient is cleared for di isaragustina from cardiology may follow-up in the office in one week with Dr. Joan Ibarra. Nurse practitioner note has been reviewed by physician. Signing provider agrees with the documented findings, assessment, and plan of care. Past Medical History Past Medical History: CVA/TIA, GERD/Reflux, Hyperlipidemia, Hypertension, Sleep Apnea/CPAP/BIPAP Additional Past Medical History / Comment(s): stress test abnormal, cva 2 yrs ago lft arm tires quickly, questioning possible MD,no cpap used See Dr Ibarra's H & P History of Any Multi-Drug Resistant Organisms: None Reported Past Surgical History: Cardiac Valve Replacement Additional Past Surgical History / Comment(s): 2003 aortic valve replaced, cerebral aneurysm repaired 2021 Past Anesthesia/Blood Transfusion Reactions: No Reported Reaction Additional Past Anesthesia/Blood Transfusion Reaction / Comment(s): no hx of blood tx Past Psychological History: No Psychological Hx Reported Smoking Status: Current every day smoker Past Alcohol Use History: Occasional Additional Past Alcohol Use History / Comment(s): 6-10 per /day/ Past Drug Use History: None Reported - Past Family History Father History Unknown: Yes Medications and Allergies Home Medications Medication Instructions Recorded Confirmed Type Esomeprazole Magnesium 40 mg PO DAILY 06/17/23 07/13/23 History carvediloL [Coreg] 12.5 mg PO BID-W/MEALS #60 tab 06/21/23 07/13/23 Rx Ipratropium/Albuter 20-100Mcg 2 puff INHALATION RT-Q4H PRN 07/04/23 07/13/23 History [Combivent Respimat 20-100Mcg Inhaler] Tiotropium Br/Olodaterol HCl 2 puff INHALATION RT-DAILY 07/04/23 07/13/23 History [Stiolto Respimat Inhal [place]] hydrALAZINE HCL [Apresoline] 50 mg PO TID #90 tab 07/08/23 07/13/23 Rx lisinopriL [Zestril] 20 mg PO DAILY #30 tab 07/08/23 07/13/23 Rx Warfarin [Coumadin] 1 mg PO DAILY 30 Days #30 tablet 07/11/23 07/13/23 Rx Allergies Allergy/AdvReac Type Severity Reaction Status Date / Time No Known Allergies Allergy Verified 07/13/23 16:01 Physical Exam Vitals: Vital Signs Temp Pulse Pulse Resp BP BP BP 07/14/23 08:02 69 07/14/23 08:01 69 16 117/80 07/14/23 08:00 70 07/14/23 07:49 72 07/14/23 07:48 70 07/14/23 07:39 70 07/14/23 04:00 67 16 156/83 07/14/23 01:51 81 16 07/14/23 00:00 81 16 152/78 07/13/23 21:13 72 07/13/23 20:59 73 07/13/23 20:00 75 18 07/13/23 19:50 97.6 F 75 18 173/86 07/13/23 18:17 98.5 F 86 16 162/93 07/13/23 17:58 62 17 126/69 07/13/23 17:00 69 17 129/69 07/13/23 14:14 98.2 F 92 18 162/100 BP BP Pulse Ox 07/14/23 08:02 07/14/23 08:01 145/91 133/81 98 07/14/23 08:00 07/14/23 07:49 07/14/23 07:48 07/14/23 07:39 07/14/23 04:00 98 07/14/23 01:51 07/14/23 00:00 96 07/13/23 21:13 07/13/23 20:59 07/13/23 20:00 07/13/23 19:50 96 07/13/23 18:17 100 07/13/23 17:58 99 07/13/23 17:00 99 07/13/23 14:14 99 Intake and Output 07/13/23 07/14/23 07/14/23 22:59 06:59 14:59 Intake Total 240 Balance 240 Intake: Oral 240 Other: Voiding Method Toilet Toilet Toilet # Voids 2 1 Weight 102.512 kg Results 07/14/23 08:14 07/13/23 14:25 Cardiac Enzymes 07/13/23 Range/Units 14:25 AST 21 (17-59) U/L Coagulation 07/13/23 07/14/23 Range/Units 14:25 08:14 PT 98.0 H 29.2 H (10.0-12.5) sec CBC 07/13/23 07/14/23 Range/Units 14:25 08:14 WBC 13.4 H 10.1 (3.8-10.6) k/uL RBC 4.79 4.15 L (4.30-5.90) m/uL Hgb 12.7 L 11.0 L (13.0-17.5) gm/dL Hct 38.9 L 34.2 L (39.0-53.0) % Plt Count 325 279 (150-450) k/uL Comprehensive Metabolic Panel 07/13/23 Range/Units 14:25 Sodium 139 (137-145) mmol/L Potassium 3.9 (3.5-5.1) mmol/L Chloride 106 (98-107) mmol/L Carbon Dioxide 25 (22-30) mmol/L BUN 30 H (9-20) mg/dL Creatinine 2.16 H (0.66-1.25) mg/dL Glucose 112 H (74-99) mg/dL Calcium 8.9 (8.4-10.2) mg/dL AST 21 (17-59) U/L ALT 13 (4-49) U/L Alkaline Phosphatase 82 (38-126) U/L Total Protein 6.9 (6.3-8.2) g/dL Albumin 3.7 (3.5-5.0) g/dL Current Medications Generic Name Dose Route Start Last Admin Trade Name Freq PRN Reason Stop Dose Admin Acetaminophen 650 mg 07/13/23 15:43 Acetaminophen Tab 325 Mg Tab PO Q6HR PRN Mild Pain or Fever > 100.5 Albuterol/Ipratropium 3 ml 07/13/23 18:50 07/14/23 07:38 Ipratropium-Albuterol 3 Ml Neb INHALATION 3 ml RT-Q4H PRN Administration Shortness Of Breath Carvedilol 12.5 mg 07/14/23 07:30 07/14/23 06:28 Carvedilol 6.25 Mg Tab PO 12.5 mg BID-W/MEALS PETER Administration Formoterol Fumarate 20 mcg 07/14/23 08:00 07/14/23 07:38 Formoterol Fumarate 20 Mcg/2 Ml Nebu INHALATION 20 mcg RT-BID PETER Administration Hydralazine HCl 50 mg 07/13/23 22:00 07/14/23 09:40 Hydralazine Hcl 50 Mg Tab PO 50 mg TID PETER Administration Ipratropium [place] 0.5 mg 07/13/23 20:00 07/14/23 08:19 Ipratropium 0.5 Mg/2.5 Ml Nebu INHALATION Not Given RT-QID PETER Lisinopril 20 mg 07/14/23 09:00 07/14/23 09:40 Lisinopril 20 Mg Tab PO 20 mg DAILY PETER Administration Naloxone HCl 0.2 mg 07/13/23 15:43 Naloxone 0.4 Mg/Ml 1 Ml Vial IV Q2M PRN Opioid Reversal Nicotine 1 patch 07/13/23 19:00 07/14/23 08:17 Nicotine 21mg/24hr Patch TRANSDERM 1 patch DAILY PETER Administration Pantoprazole Sodium 40 mg 07/14/23 09:00 07/14/23 08:17 Pantoprazole 40 Mg Tablet PO 40 mg DAILY PETER Administration Intake and Output 07/13/23 07/14/23 07/14/23 22:59 06:59 14:59 Intake Total 240 Balance 240 Intake: Oral 240 Other: Voiding Method Toilet Toilet Toilet # Voids 2 1 Weight 102.512 kg 07/14/23 08:14 07/13/23 14:25
[2023-07-14 12:48] LABS: INR 2.7 (<1.2); Prothrombin Time 26.2 sec (10.0-12.5)
--- NOTE | 2023-07-14 16:46 | P.CONS ---
History of Present Illness - Reason for Consult Consult date: 07/14/23 coagulopathy Requesting physician: Fito Merritt - Chief Complaint INR 9.9 - History of Present Illness Mister Ordoñez is a 62-year-old male we have been consulted on for coagulopathy. Patient is on Coumadin for mechanical heart valve. He recently moved to the area from [place]. On chart review he has been noted to have extremely high INR is (please see impression and plan for the summary). Patient is denying any bleeding. Reports he is on medications for hypertension, COPD and GERD. He thinks maybe he is taking medications that are altering his INR, he thinks it m ay also be from stress. He reports that he feels "like shit" today. No fevers, nausea, vomiting, hematic emesis, hemoptysis, hematochezia, melena, hematuria, new or unusual pain reported. Review of Systems 10 point review of systems is negative except as stated in HPI Past Medical History Past Medical History: CVA/TIA, GERD/Reflux, Hyperlipidemia, Hypertension, Sleep Apnea/CPAP/BIPAP Additional Past Medical History / Comment(s): stress test abnormal, cva 2 yrs ago lft arm tires quickly, questioning possible [place],no cpap used See Dr Ibarra's H & P History of Any Multi-Drug Resistant Organisms: None Reported Past Surgical History: Cardiac Valve Replacement Additional Past Surgical History / Comment(s): 2003 aortic valve replaced, cerebral aneurysm repaired 2021 Past Anesthesia/Blood Transfusion Reactions: No Reported Reaction Additional Past Anesthesia/Blood Transfusion Reaction / Comm: no hx of blood tx Past Psychological History: No Psychological Hx Reported Smoking Status: Current every day smoker Past Alcohol Use History: Occasional Additional Past Alcohol Use History / Comment(s): 6-10 per /day/ Past Drug Use History: None Reported - Past Family History Father History Unknown: Yes Medications and Allergies Home Medications Medication Instructions Recorded Confirmed Type Esomeprazole Magnesium 40 mg PO DAILY 06/17/23 07/13/23 History carvediloL [Coreg] 12.5 mg PO BID-W/MEALS #60 tab 06/21/23 07/13/23 Rx Ipratropium/Albuter 20-100Mcg 2 puff INHALATION RT-Q4H PRN 07/04/23 07/13/23 History [Combivent Respimat 20-100Mcg Inhaler] Tiotropium Br/Olodaterol HCl 2 puff INHALATION RT-DAILY 07/04/23 07/13/23 History [Stiolto Respimat Inhal [place]] hydrALAZINE HCL [Apresoline] 50 mg PO TID #90 tab 07/08/23 07/13/23 Rx lisinopriL [Zestril] 20 mg PO DAILY #30 tab 07/08/23 07/13/23 Rx Warfarin [Coumadin] 1 mg PO DAILY 30 Days #30 tablet 07/11/23 07/13/23 Rx Allergies Allergy/AdvReac Type Severity Reaction Status Date / Time No Known Allergies Allergy Verified 07/13/23 16:01 Physical Exam Vitals: Vital Signs Temp Pulse Pulse Resp BP BP BP 07/14/23 08:02 69 07/14/23 08:01 69 16 117/80 07/14/23 08:00 70 07/14/23 07:49 72 07/14/23 07:48 70 07/14/23 07:39 70 07/14/23 04:00 67 16 156/83 07/14/23 01:51 81 16 07/14/23 00:00 81 16 152/78 07/13/23 21:13 72 07/13/23 20:59 73 07/13/23 20:00 75 18 07/13/23 19:50 97.6 F 75 18 173/86 07/13/23 18:17 98.5 F 86 16 162/93 07/13/23 17:58 62 17 126/69 07/13/23 17:00 69 17 129/69 07/13/23 14:14 98.2 F 92 18 162/100 BP BP Pulse Ox 07/14/23 08:02 07/14/23 08:01 145/91 133/81 98 07/14/23 08:00 07/14/23 07:49 07/14/23 07:48 07/14/23 07:39 07/14/23 04:00 98 07/14/23 01:51 07/14/23 00:00 96 07/13/23 21:13 07/13/23 20:59 07/13/23 20:00 07/13/23 19:50 96 07/13/23 18:17 100 07/13/23 17:58 99 07/13/23 17:00 99 07/13/23 14:14 99 Intake and Output 07/13/23 07/14/23 07/14/23 22:59 06:59 14:59 Intake Total 240 Balance 240 Intake: Oral 240 Other: Voiding Method Toilet Toilet Toilet # Voids 2 1 Weight 102.512 kg - Constitutional General appearance: average body habitus, cooperative, no acute distress - EENT Eyes: anicteric sclerae, EOMI ENT: hearing grossly normal, normal oropharynx - Neck Neck: no lymphadenopathy - Respiratory Respiratory: bilateral: CTA - Cardiovascular Mechanical valve click leg Peripheral Edema: bilateral: None - Gastrointestinal General gastrointestinal: no absent bowel sounds, no decreased bowel sounds, no distended, no hepatomegaly, no hyperactive bowel sounds, normal bowel sounds, no organomegaly, no rigid, no scaphoid, soft, no splenomegaly, no tenderness, no umbilical hernia, no ventral hernia - Integumentary Integumentary: normal - Neurologic Neurologic: CNII-XII intact - Musculoskeletal Musculoskeletal: strength equal bilaterally - Psychiatric Psychiatric: A&O x's 3, appropriate affect, intact judgment & insight Results CBC & Chem 7: 07/14/23 08:14 07/13/23 14:25 Labs: Abnormal Lab Results - Last 24 Hours (Table) 07/13/23 07/13/23 07/13/23 Range/Units 14:25 14:25 14:25 WBC 13.4 H (3.8-10.6) k/uL Hgb 12.7 L (13.0-17.5) gm/dL Hct 38.9 L (39.0-53.0) % Neutrophils # 11.2 H (1.3-7.7) k/uL PT 98.0 H (10.0-12.5) sec INR 9.9 H* (<1.2) BUN 30 H (9-20) mg/dL Creatinine 2.16 H (0.66-1.25) mg/dL Glucose 112 H (74-99) mg/dL CT Scan - head: report reviewed Assessment and Plan (1) Coagulopathy Current Visit: Yes Status: Acute Priority: High Code(s): D68.9 - COAGULATION DEFECT, UNSPECIFIED SNOMED Code(s): 21372016 (2) Mechanical heart valve present Current Visit: Yes Status: Chronic Priority: Medium Code(s): Z95.2 - PRESENCE OF PROSTHETIC HEART VALVE SNOMED Code(s): 85111158874495 (3) Normocytic normochromic anemia Current Visit: Yes Status: Acute Priority: High Code(s): D64.9 - ANEMIA, UNSPECIFIED SNOMED Code(s): 41116071 (4) Chronic renal insufficiency Current Visit: Yes Status: Chronic Priority: Medium Code(s): N18.9 - CHRONIC KIDNEY DISEASE, UNSPECIFIED SNOMED Code(s): 875109033 Plan: Coagulopathy-On Coumadin for mechanical heart valve -INR was subtherapeutic 06/17, 06/18, 06/19, 06/20. On 06/21 patient's INR was 1.5. 07/04 patient INR >10, INR remained >10 until 07/06, INR was 7.8, 07/07 INR>10, 07/08 INR 6.3. 07/10 INR 3.9. INR 9.9 07/13. 1 dose 5 mg of vitamin K given 07/13 at 1544, warfarin held 07/13. INR was 3 At 8 AM 07/14 and 2.7 by 11:45 AM. -Recommend twice a week monitoring of INR and smaller coumadin adjustments to achieve therapeutic INR. May require alternating doses. Therapeutic INR to be determined by Cardiology for mechanical heart valve. -Patient not reporting any gross bleeding. Continue to monitor for bleeding. He has received 1 dose of vitamin K, no additional vitamin K at this time. Normocytic, normochromic Anemia -Hgb is noted to have decreased about 2 g over the last 6 weeks. Anemia workup/iron studies ordered -CKD noted on recent labs. Erythropoietin level ordered -If iron deficiency noted, would recommend endoscopy if patient has not had recently.
[2023-07-15 04:00] LABS: % Iron Saturation 11.65 (15.00-50.00)
[2023-07-15 05:06] VITALS: RESP 18
[2023-07-15] MEDS: carvediloL 6.25 MG TAB PO SCH (06:04)
[2023-07-15 07:51] LABS: Basophils % (A) 1 %; Eosinophils # (A) 0.3 k/uL (0-0.7); Eosinophils % (A) 3 %; HCT 35.4 % (39.0-53.0); HGB 11.5 gm/dL (13.0-17.5); Lymphocytes # (A) 0.9 k/uL (1.0-4.8); Lymphocytes % (A) 10 %; MCH 26.5 pg (25.0-35.0); MCHC 32.6 g/dL (31.0-37.0); MCV 81.1 fL (80.0-100.0); Mean Platelet Volume 8.3; Monocytes # (A) 0.5 k/uL (0-1.0); Monocytes % (A) 6 %; Neutrophils # (A) 7.6 k/uL (1.3-7.7); Neutrophils % (A) 80 %; Platelet Count 273 k/uL (150-450); RBC 4.36 m/uL (4.30-5.90); RDW 15.7 % (11.5-15.5); WBC 9.6 k/uL (3.8-10.6)
[2023-07-15 08:29] LABS: INR 2.8 (<1.2); Prothrombin Time 27.6 sec (10.0-12.5)
[2023-07-15] MEDS: PANTOPRAZOLE 40 MG TABLET PO SCH (08:35)
[2023-07-15] MEDS: NICOTINE 21MG/24HR PATCH TRANSDERM SCH (08:35)
[2023-07-15] MEDS: hydrALAZINE HCL 50 MG TAB PO SCH (08:35)
[2023-07-15] MEDS: lisinopriL 20 MG TAB PO SCH (08:35)
[2023-07-15 08:47] VITALS: BP 179/91; TEMP 96
[2023-07-15] MEDS: IPRATROPIUM-ALBUTEROL 3 ML NEB INHALATION PRN (08:49)
[2023-07-15] MEDS: FORMOTEROL FUMARATE 20 MCG/2 ML NEBU INHALATION SCH (08:49)
[2023-07-15] MEDS: IPRATROPIUM 0.5 MG/2.5 ML NEBU INHALATION SCH (08:50)
[2023-07-15 09:28] VITALS: PULSE 78
[2023-07-15] MEDS ORDERED: SODIUM FERRIC GLUCONAT-SUCROSE 125 MG in SODIUM CHLORIDE 0.9% 100 ML IVPB SCH (09:30)
--- NOTE | 2023-07-15 10:34 | P.DS ---
Providers Date of admission: 07/13/23 15:43 Expected date of discharge: 07/15/23 Attending physician: Terence Sutton MD Consults: 07/13/23 15:43 Consult Physician Routine Consulting Provider: Grover Lira Consult Reason/Comments: coagulopathy Do you want consulting provider notified?: Yes Consult Physician Urgent Consulting Provider: Etienne Rodriguez Consult Reason/Comments: Recurrent coagulopathy Do you want consulting provider notified?: Yes Primary care physician: Terence Sutton MD Hospital Course: Final Diagnoses: Supratherapeutic INR, status post vitamin K, Mechanical aortic valve-[facility]. Karthikeyan, history of medication noncompliance, prior subtherapeutic INR on inpatient admission 06/18/2023. Supra therapeutic INR on inpatient admission 07/04/23 and 07/10/2023. AVR 2003 Nonischemic cardiomyopathy, EF 40% Hypertension CAD History of CVA 2 years ago Hypertension Hyperlipidemia CKD, stage III, GFR 32, baseline creatinine 2.16 Anemia, anemia workup with iron studies pending. If iron deficiency,arrange for endoscopy outpatient in clinic. Gastroesophageal reflux disease Obstructive sleep apnea and does not use BiPAP or CPAP Morbid obesity, BMI 35 Ongoing nicotine dependence Hospital course:This is a 62-year-old gentleman with past medical history significant for mechanical aortic valve, nonischemic cardiomyopathy,hypertension, CVA, presented to the ED as directed by cardiology for supratherapeutic INR, greater than 8 reported in ER report. On admission INR 9.9, received vitamin K and currently down to 3. Patient has a history of medication noncompliance, prior subtherapeutic INR on inpatient admission 06/18/2023, supratherapeutic INR on inpatient admission 07/04/23 and 07/10/2023. Reports compliance with medication regimen/anticoagulation. Denies bleeding, tarry stools or bruising. Denies chest pain, palpitations or shortness of breath. Reports he feels "off today accompanied by fatigue" but denies headache, dizziness, blurred vision. Denies syncope. Denies recent illness. LFTs within normal limits. Discussed possible depleted vitamin K levels but patient states he eats green vegetables on a regular basis. Afebrile, hemoglobin 11, platelets 279. Renal function at baseline. Hematology and cardiology consulted. Brain CT reported without acute intracranial process. INR yesterday 3, yesterday afternoon and 2.7 and this morning 2.8. Denies chest pain, palpitations or shortness of breath. Denies lightheadedness dizziness or focal deficits. Denies headache. Denies nausea vomiting or diarrhea. Denies abdominal pain. Evaluated and cleared for discharge by both cardiology and hematology. Patient will be discharged home today in a stable condition with guarded prognosis. Patient has been instructed to proceed with low-dose 1 mg daily with close PT/INR checks twice weekly. Repeat PT/INR tomorrow. Recommending Coumadin dosing be done outpatient as per cardiology. The impression and plan of care has been dictated as directed. : I performed a history and examination of this patient, discussed the same with the dictator. I agree with the dictator's note ,documented as a scribe. Any additional findings or plans will be noted. Patient Condition at Discharge: Stable Plan - Discharge Summary Discharge Rx Participant: No New Discharge Prescriptions: New Nicotine 21Mg/24Hr Patch [Habitrol] 1 patch TRANSDERM DAILY patch Continue carvediloL [Coreg] 12.5 mg PO BID-W/MEALS #60 tab Ipratropium/Albuter 20-100Mcg [Combivent Respimat 20-100Mcg Inhaler] 2 puff INHALATION RT-Q4H PRN PRN Reason: Shortness Of Breath lisinopriL [Zestril] 20 mg PO DAILY #30 tab Esomeprazole Magnesium 40 mg PO DAILY Tiotropium Br/Olodaterol HCl [Stiolto Respimat Inhal [place]] 2 puff INHALATION RT-DAILY hydrALAZINE HCL [Apresoline] 50 mg PO TID #90 tab Warfarin [Coumadin] 1 mg PO DAILY 30 Days #30 tablet Discharge Medication List Esomeprazole Magnesium 40 mg PO DAILY 06/17/23 [History] carvediloL [Coreg] 12.5 mg PO BID-W/MEALS #60 tab 06/21/23 [Rx] Ipratropium/Albuter 20-100Mcg [Combivent Respimat 20-100Mcg Inhaler] 2 puff INHALATION RT-Q4H PRN 07/04/23 [History] Tiotropium Br/Olodaterol HCl [Stiolto Respimat Inhal [place]] 2 puff INHALATION RT-DAILY 07/04/23 [History] hydrALAZINE HCL [Apresoline] 50 mg PO TID #90 tab 07/08/23 [Rx] lisinopriL [Zestril] 20 mg PO DAILY #30 tab 07/08/23 [Rx] Warfarin [Coumadin] 1 mg PO DAILY 30 Days #30 tablet 07/11/23 [Rx] Nicotine 21Mg/24Hr Patch [Habitrol] 1 patch TRANSDERM DAILY patch 07/15/23 [Rx] Follow up Appointment(s)/Referral(s): Terence Sutton MD [Primary Care Provider] - 07/19/23 3:45 pm (at the [place] office) Nathaniel Ibarra MD [STAFF PHYSICIAN] - 07/22/23 10:15 am Ambulatory/Diagnostic Orders: Prothrombin Time INR [LAB.AMB] Time Frame: 07/16/23, Location: None Selected Patient Instructions/Handouts: Hypercoagulation (ED), Safe Use of Anticoagulants (DC) Activity/Diet/Wound Care/Special Instructions: Schedule follow-up with cardiology next week prior to discharge. Coumadin dosing outpatient as per cardiology. PT,INR to be checked Twice weekly
== END 2023-07-15 10:59 | disposition home health service (06) ==
LOC: EC 14:10 → 3SCARD 15:43
PROVIDERS: ADMIT Family Medicine; ATTEND Family Medicine
DX: R79.1 Abnormal coagulation profile (principal); I42.8 Other cardiomyopathies; K21.9 Gastro-esophageal reflux disease without esophagitis; E78.5 Hyperlipidemia, unspecified; I12.9 Hypertensive chronic kidney disease with stage 1 through stage 4 chronic kidney disease, or unspecified chronic kidney disease; N18.30 Chronic kidney disease, stage 3 unspecified; D63.1 Anemia in chronic kidney disease; I25.10 Atherosclerotic heart disease of native coronary artery without angina pectoris; J44.9 Chronic obstructive pulmonary disease, unspecified; F17.200 Nicotine dependence, unspecified, uncomplicated; G47.33 Obstructive sleep apnea (adult) (pediatric); E66.01 Morbid (severe) obesity due to excess calories; Z68.35 Body mass index [BMI] 35.0-35.9, adult; Z86.73 Personal history of transient ischemic attack (TIA), and cerebral infarction without residual deficits; Z91.148 Patient's other noncompliance with medication regimen for other reason; Z95.2 Presence of prosthetic heart valve; Z79.01 Long term (current) use of anticoagulants; Z79.899 Other long term (current) drug therapy
CPT/HCPCS: 99284; 36415; 94640 ×5; 83921; 80053; 82607; 82728; 82746; 83540; 83550; 85025 ×3; 85610 ×3; 82668; 70450; G0378 ×3; S4990 ×3

== ENCOUNTER → 2023-08-02 | Outpatient (CLI) | payer BC, OTHER ==
--- NOTE | 2023-08-02 15:11 | US ---
EXAMINATION TYPE: US venous doppler duplex LE RT DATE OF EXAM: 08/02/2023 2:37 PM COMPARISON: NONE CLINICAL INDICATION: Male, 62 years old with history of M79.661 PAIN R LEG R20 ANESTHESIA SKIN; Rig ht leg pain, patient on blood thinners SIDE PERFORMED: Right TECHNIQUE: The lower extremity deep venous system is examined utilizing real time linear array sonog radha with graded compression, doppler sonography and color-flow sonography. VESSELS IMAGED: Common Femoral Vein Deep Femoral Vein Greater Saphenous Vein * Femoral Vein Popliteal Vein Small Saphenous Vein * Proximal Calf Veins (* superficial vessels) Right Leg: Appears negative for DVT IMPRESSION: Grayscale, color doppler, spectral doppler imaging performed of the deep veins of the lo wer extremities. There is normal flow, compressibility, vascular waveforms.
== END | disposition home or self-care (01) ==
LOC: RADUSWWP 12:03
PROVIDERS: ATTEND Family Medicine
DX: M79.661 Pain in right lower leg (principal); R20.0 Anesthesia of skin; Z79.01 Long term (current) use of anticoagulants

== ENCOUNTER 2023-10-06 15:44 | Inpatient (IN) | payer BC, OTHER ==
[2023-10-06 16:12] LABS: Anisocytosis Slight; Basophils # (A) 0.1 k/uL (0-0.2); Basophils % (A) 1 %; Eosinophils # (A) 0.3 k/uL (0-0.7); Eosinophils % (A) 2 %; HCT 43.6 % (39.0-53.0); HGB 14.9 gm/dL (13.0-17.5); Lymphocytes # (A) 1.1 k/uL (1.0-4.8); Lymphocytes % (A) 8 %; MCH 28.5 pg (25.0-35.0); MCHC 34.1 g/dL (31.0-37.0); MCV 83.6 fL (80.0-100.0); Mean Platelet Volume 8.7; Monocytes # (A) 0.5 k/uL (0-1.0); Monocytes % (A) 4 %; Neutrophils # (A) 11.3 k/uL (1.3-7.7); Neutrophils % (A) 84 %; Platelet Count 162 k/uL (150-450); RBC 5.22 m/uL (4.30-5.90); RDW 16.6 % (11.5-15.5); WBC 13.5 k/uL (3.8-10.6)
[2023-10-06] MEDS ORDERED: hydrALAZINE HCL 20 MG/ML 1 ML VIAL IVP STA (16:20)
[2023-10-06 16:22] LABS: INR 0.9 (<1.2); Partial Thromboplastin Time 24.5 sec (22.0-30.0); Prothrombin Time 10.1 sec (10.0-12.5)
--- NOTE | 2023-10-06 16:23 | XR ---
EXAMINATION TYPE: XR chest 2V DATE OF EXAM: 10/06/2023 4:18 PM CLINICAL INDICATION:Male, 62 years old with history of Chest Pain; [facility] COMPARISON: Chest radiographs from 07/04/2023. TECHNIQUE: XR chest 2V Frontal and lateral views of the chest. FINDINGS: Lungs/Pleura: There is no evidence of pleural effusion, focal consolidation, or pneumothorax. Pulmonary vascularity: Unremarkable. Heart/mediastinum: Cardiomediastinal silhouette is unremarkable. Musculoskeletal: No acute osseous pathology. Midline sternotomy wires are noted. Other findings: None IMPRESSION: No acute cardiopulmonary disease/process.
[2023-10-06 16:29] LABS: ALT 11 U/L (4-49); AST 18 U/L (17-59); African American GFR (CKD) 21 (>60 ml/min/1.73 sqM); Albumin 4.1 g/dL (3.5-5.0); Alkaline Phosphatase 88 U/L (38-126); Anion Gap 6 mmol/L; Blood Urea Nitrogen 43 mg/dL (9-20); Carbon Dioxide 28 mmol/L (22-30); Chloride 103 mmol/L (98-107); Glucose 153 mg/dL (74-99); Magnesium 2.1 mg/dL (1.6-2.3); Non-African American GFR(CKD) 18 (>60 ml/min/1.73 sqM); Potassium 3.4 mmol/L (3.5-5.1); Sodium 137 mmol/L (137-145); Total Bilirubin 1.1 mg/dL (0.2-1.3); Total Protein 7.3 g/dL (6.3-8.2)
--- NOTE | 2023-10-06 18:05 | CT ---
EXAMINATION TYPE: CT brain wo con CT DLP: 1161.4 mGycm, Automated exposure control for dose reduction was used. DATE OF EXAM: 10/06/2023 5:53 PM COMPARISON: 07/14/2023. CLINICAL INDICATION:Male, 62 years old with history of accelerated htn, ataxia, hx aneurysm, Sent by PCP for high blood pressure (200+systole), Aneurysm 2022 TECHNIQUE: Brain: Axial CT images of the brain were obtained with coronal and sagittal reformats created and rev iewed. Contrast used: None. Oral contrast used: None. FINDINGS: Brain: Extra-axial spaces: No abnormal extra-axial fluid collections. Ventricular system: Dilatation in proportion to cerebral atrophy. Cerebral parenchyma: Hypodense area within the left henry is similar and left caudate nucleus/anterior limb of internal capsule is more prominent. Cerebral atrophy. No acute intraparenchymal hemorrhage o r mass effect. The dyer-white junction is well differentiated. Scattered hypoattenuating areas are s een within the white matter. Cerebellum: Unremarkable. Mass effect: No evidence of midline shift. Intracranial vasculature: unremarkable Soft tissues: Normal. Calvarium/osseous structures: No depressed skull fracture. Left craniotomy changes. Paranasal sinuses and mastoid air cells: Mild scattered paranasal sinus disease. Trace left mastoid a ir cell effusion. Visualized orbits: Orbital contents are intact. IMPRESSION: 1. No acute intracranial process. 2. Nonspecific white matter changes, likely secondary to chronic small vessel ischemic disease. 3. Postsurgical changes are stable.
[2023-10-06] MEDS: SODIUM CHLORIDE 0.9% 1,000 ML IV SCH (18:21)
--- NOTE | 2023-10-06 18:54 | ED ---
General Adult HPI - General Chief complaint: Dizziness Stated complaint: high bp referal Time Seen by Provider: 10/06/23 15:45 Source: patient Mode of arrival: wheelchair Limitations: no limitations - History of Present Illness Initial comments: 62-year-old male presents to the emergency department under direction of the racecourse barrier attendant. He states that he went to see Dr. Rodriguez today. He checked his blood pressure and found it to be markedly high. The patient was reporting that he was having some headaches and dizziness and therefore was sent immediately to Hospital. He states that he has been taking his high blood pressure medication as directed. He denies any lateralizing weakness. No speech deficits. No visual changes. Denies chest pain. Continues to have normal urinary output. No other alleviating, precipitating or modifying factors - Related Data Home Medications Medication Instructions Recorded Confirmed Esomeprazole Magnesium 40 mg PO DAILY 06/17/23 10/06/23 Ipratropium/Albuter 20-100Mcg 2 puff INHALATION RT-Q4H PRN 07/04/23 10/06/23 [Combivent Respimat 20-100Mcg Inhaler] Tiotropium Br/Olodaterol HCl 2 puff INHALATION RT-DAILY 07/04/23 10/06/23 [Stiolto Respimat Inhal [place]] Folic Acid 1 mg PO DAILY 10/06/23 10/06/23 Previous Rx's Medication Instructions Recorded Warfarin [Coumadin] 2 mg PO DAILY #90 tab 10/13/23 amLODIPine [Norvasc] 5 mg PO BID #180 tab 10/13/23 carvediloL [Coreg] 25 mg PO BID #180 tab 10/13/23 hydrALAZINE HCL [Apresoline] 100 mg PO TID #270 tablet 10/13/23 Allergies Allergy/AdvReac Type Severity Reaction Status Date / Time No Known Allergies Allergy Verified 10/06/23 16:49 Review of Systems ROS Statement: Those systems with pertinent positive or pertinent negative responses have been documented in the HPI. ROS Other: All systems not noted in ROS Statement are negative. Past Medical History Past Medical History: CVA/TIA, GERD/Reflux, Hyperlipidemia, Hypertension, Sleep Apnea/CPAP/BIPAP Additional Past Medical History / Comment(s): stress test abnormal, cva 2 yrs ago lft arm tires quickly, questioning possible PR,no cpap used See Dr Ibarra's H & P History of Any Multi-Drug Resistant Organisms: None Reported Past Surgical History: Cardiac Valve Replacement Additional Past Surgical History / Comment(s): 2003 aortic valve replaced, cerebral aneurysm repaired 2021 Past Anesthesia/Blood Transfusion Reactions: No Reported Reaction Additional Past Anesthesia/Blood Transfusion Reaction / Comment(s): no hx of blood tx Past Psychological History: No Psychological Hx Reported Smoking Status: Current every day smoker Past Alcohol Use History: Occasional Past Drug Use History: None Reported - Past Family History Father History Unknown: Yes General Exam Limitations: no limitations General appearance: alert, in no apparent distress Head exam: Present: atraumatic, normocephalic, normal inspection Eye exam: Present: normal appearance, PERRL, EOMI. Absent: scleral icterus, conjunctival injection, periorbital swelling ENT exam: Present: normal exam, mucous membranes moist Neck exam: Present: normal inspection. Absent: tenderness, meningismus, lymphadenopathy Respiratory exam: Present: normal lung sounds bilaterally. Absent: respiratory distress, wheezes, rales, rhonchi, stridor Cardiovascular Exam: Present: regular rate, normal rhythm, normal heart sounds. Absent: systolic murmur, diastolic murmur, rubs, gallop, clicks GI/Abdominal exam: Present: soft, normal bowel sounds. Absent: distended, tenderness, guarding, rebound, rigid Extremities exam: Present: normal inspection, full ROM, normal capillary refill. Absent: tenderness, pedal edema, joint swelling, calf tenderness Back exam: Present: normal inspection Neurological exam: Present: alert, oriented X3, CN II-XII intact Psychiatric exam: Present: normal affect, normal mood Skin exam: Present: warm, dry, intact, normal color. Absent: rash Course Vital Signs 10/06/23 10/06/23 10/06/23 15:45 16:26 18:22 Temperature 98.1 F Pulse Rate 111 H 100 105 H Respiratory 18 18 18 Rate Blood Pressure 240/135 219/140 204/127 O2 Sat by Pulse 97 96 98 Oximetry 10/06/23 10/06/23 10/06/23 20:05 21:53 22:56 Temperature Pulse Rate 94 92 98 Respiratory 14 18 16 Rate Blood Pressure 199/124 182/100 166/97 O2 Sat by Pulse 97 95 96 Oximetry Medical Decision Making - Medical Decision Making Was pt. sent in by a medical professional or institution (BREANA Nielson, NURSE SITTER, urgent care, hospital, or halfway...) When possible be specific @ -hematology office Did you speak to anyone other than the patient for history (EMS, parent, family, police, friend...)? What history was obtained from this source @ -No Did you review nursing and triage notes (agree or disagree)? Why? @ -I reviewed and agree with nursing and triage notes Were old charts reviewed (outside hosp., previous admission, EMS record, old EKG, old radiological studies, urgent care reports/EKG's, halfway records)? Report findings @ -No old charts were reviewed Differential Diagnosis (chest pain, altered mental status, abdominal pain women, abdominal pain men, vaginal bleeding, weakness, fever, dyspnea, syncope, headache, dizziness, GI bleed, back pain, seizure, CVA, palpatations, mental health, musculoskeletal)? @ -Differential Dizziness: Benign paroxysmal positional Vertigo, Menieres disease, otitis media, acoustic neuroma, vertebrobasilar insufficiency, cerebellar stroke, encephalitis, hypovolemic, arrhythmia, coronary artery syndrome, anemia, this is not meant to be an all-inclusive list EKG interpreted by me (3pts min.). @ -yes demonstrates sinus tachycardia with a rate of 103. OH interval 170. QRS 96. QTC of 41. ST depression 2, 3 aVF, V4 through V6 X-rays interpreted by me (1pt min.). @ -yes normal CT interpreted by me (1pt min.). @ -yes normal U/S interpreted by me (1pt. min.). @ -None done What testing was considered but not performed or refused? (CT, X-rays, U/S, labs)? Why? @ -None What meds were considered but not given or refused? Why? @ -None Did you discuss the management of the patient with other professionals (rasta gant iBREANA Raya, NURSE SITTER, lab, RT, psych nurse, transition social worker, passport application examiner, teacher, strike warfare/missile systems officer, housing case manager)? Give summary @ -dr lewis Was smoking cessation discussed for >3mins.? @ -No Was critical care preformed (if so, how long)? @ -No Were there social determinants of health that impacted care today? How? (Homelessness, low income, unemployed, alcoholism, drug addiction, trans portation, low edu. Level, literacy, decrease access to med. care, care home, rehab)? @ -No Was there de-escalation of care discussed even if they declined (Discuss DNR or withdrawal of care, Hospice)? DNR status @ -No What co-morbidities impacted this encounter? (DM, HTN, Smoking, COPD, CAD, Cancer, CVA, ARF, Chemo, Hep., AIDS, mental health diagnosis, sleep apnea, morbid obesity)? @ -htn Was patient admitted / discharged? Hospital course, mention meds given and route, prescriptions, significant lab abnormalities, going to OR and other pertinent info. @ -Upon arrival patient was placed into room 15. Thorough history and physical exam was performed. Patient's blood pressure is markedly high and therefore 20 of hydralazine is ordered. I would restudies were conducted. Patient does have a care with a creatinine of 3.3. CT of the brain is performed which de monstrates no acute process. Results are discussed with the patient. Blood pressure has only mildly improved. He is dosed his lisinopril and an additional dose of hydralazine. Patient's INR is subtherapeutic and therefore he is started on a heparin drip. Recommended admission. Spoke with Dr. Lewis who agreed to admit the patient Undiagnosed new problem with uncertain prognosis? @ -yes Drug Therapy requiring intensive monitoring for toxicity (Heparin, Nitro, Insulin, Cardizem)? @ -No Were any procedures done? @ -No Diagnosis/symptom? @ -hypertensive emergency, subtheraputic inr Acute, or Chronic, or Acute on Chronic? @ acute Uncomplicated (without systemic symptoms) or Complicated (systemic symptoms)? @ -complicated Side effects of treatment? @ -No Exacerbation, Progression, or Severe Exacerbation? @ -No Poses a threat to life or bodily function? How? (Chest pain, [place], PR, pneumonia, PE, COPD, DKA, ARF, appy, cholecystitis, CVA, Diverticulitis, Homicidal, Suicidal, threat to staff... and all critical care pts) @ -No - Lab Data Result diagrams: 10/11/23 07:17 10/13/23 07:50 Lab Results 10/06/23 10/06/23 10/06/23 Range/Units 15:53 15:53 15:53 WBC 13.5 H (3.8-10.6) k/uL RBC 5.22 (4.30-5.90) m/uL Hgb 14.9 (13.0-17.5) gm/dL Hct 43.6 (39.0-53.0) % MCV 83.6 (80.0-100.0) fL MCH 28.5 (25.0-35.0) pg MCHC 34.1 (31.0-37.0) g/dL RDW 16.6 H (11.5-15.5) % Plt Count 162 (150-450) k/uL MPV 8.7 Neutrophils % 84 % Lymphocytes % 8 % Monocytes % 4 % Eosinophils % 2 % Basophils % 1 % Neutrophils # 11.3 H (1.3-7.7) k/uL Lymphocytes # 1.1 (1.0-4.8) k/uL Monocytes # 0.5 (0-1.0) k/uL Eosinophils # 0.3 (0-0.7) k/uL Basophils # 0.1 (0-0.2) k/uL Anisocytosis Slight PT 10.1 (10.0-12.5) sec INR 0.9 (<1.2) APTT 24.5 (22.0-30.0) sec Sodium 137 (137-145) mmol/L Potassium 3.4 L (3.5-5.1) mmol/L Chloride 103 (98-107) mmol/L Carbon Dioxide 28 (22-30) mmol/L Anion Gap 6 mmol/L BUN 43 H (9-20) mg/dL Creatinine 3.38 H (0.66-1.25) mg/dL Est GFR (CKD-EPI)AfAm 21 (>60 ml/min/1.73 sqM) Est GFR (CKD-EPI)NonAf 18 (>60 ml/min/1.73 sqM) Glucose 153 H (74-99) mg/dL Calcium 9.0 (8.4-10.2) mg/dL Magnesium 2.1 (1.6-2.3) mg/dL Total Bilirubin 1.1 (0.2-1.3) mg/dL AST 18 (17-59) U/L ALT 11 (4-49) U/L Alkaline Phosphatase 88 (38-126) U/L Total Protein 7.3 (6.3-8.2) g/dL Albumin 4.1 (3.5-5.0) g/dL Disposition Clinical Impression: Mechanical heart valve present, AVA (acute kidney injury), CKD (chronic kidney disease), Subtherapeutic international normalized ratio (INR), Accelerated hypertension Disposition: ADMITTED IP TO THIS [facility] Condition: Stable Is patient prescribed a controlled substance at d/c from ED?: No Time of Disposition: 20:10 Decision to Admit Reason: Admit from EC Decision Date: 10/06/23 Decision Time: 20:10
[2023-10-06] MEDS ORDERED: NALOXONE 0.4 MG/ML 1 ML VIAL IV PRN (20:13)
[2023-10-06] MEDS ORDERED: hydrALAZINE HCL 20 MG/ML 1 ML VIAL IVP PRN (20:16)
[2023-10-06] MEDS ORDERED: HEPARIN SODIUM 1,000 UN/ML (10ML VL) IV PRN (20:16)
[2023-10-06] MEDS ORDERED: WARFARIN 2 MG TAB PO ONE (21:30)
[2023-10-06] MEDS: carvediloL 12.5 MG TAB PO SCH (21:47)
[2023-10-06] MEDS: HEPARIN SOD,PORK IN 0.45% NACL 25,000 UNIT in 0.45% NACL 1 250ML.BAG IV SCH (21:48)
[2023-10-06] MEDS ORDERED: lisinopriL 20 MG TAB PO STA (22:22)
[2023-10-07 01:39] LABS: Anisocytosis Slight; Basophils # (A) 0.1 k/uL (0-0.2); Basophils % (A) 1 %; Eosinophils # (A) 0.3 k/uL (0-0.7); Eosinophils % (A) 2 %; HCT 38.3 % (39.0-53.0); HGB 12.9 gm/dL (13.0-17.5); Lymphocytes % (A) 9 %; MCH 28.2 pg (25.0-35.0); MCHC 33.6 g/dL (31.0-37.0); Mean Platelet Volume 10.2; Monocytes # (A) 0.5 k/uL (0-1.0); Monocytes % (A) 5 %; Neutrophils # (A) 8.9 k/uL (1.3-7.7); Neutrophils % (A) 82 %; Platelet Count 148 k/uL (150-450); RBC 4.56 m/uL (4.30-5.90); RDW 16.7 % (11.5-15.5); WBC 10.9 k/uL (3.8-10.6)
[2023-10-07 02:02] LABS: INR 0.9 (<1.2); Partial Thromboplastin Time 30.8 sec (22.0-30.0); Prothrombin Time 10.3 sec (10.0-12.5)
[2023-10-07] MEDS: SODIUM CHLORIDE 0.9% 1,000 ML IV SCH ×3 (04:39→23:01)
[2023-10-07] MEDS: carvediloL 12.5 MG TAB PO SCH ×2 (06:30→17:03)
[2023-10-07] MEDS: PANTOPRAZOLE 40 MG TABLET PO SCH (06:30)
[2023-10-07] MEDS: IPRATROPIUM 0.5 MG/2.5 ML NEBU INHALATION SCH ×4 (08:00→20:42)
[2023-10-07 08:01] LABS: Anisocytosis Slight; Basophils # (A) 0.1 k/uL (0-0.2); Basophils % (A) 1 %; Eosinophils # (A) 0.3 k/uL (0-0.7); Eosinophils % (A) 3 %; HCT 39.6 % (39.0-53.0); HGB 13.1 gm/dL (13.0-17.5); Lymphocytes % (A) 10 %; MCH 28.1 pg (25.0-35.0); MCHC 33.1 g/dL (31.0-37.0); MCV 84.9 fL (80.0-100.0); Mean Platelet Volume 8.6; Monocytes # (A) 0.5 k/uL (0-1.0); Monocytes % (A) 4 %; Neutrophils # (A) 8.7 k/uL (1.3-7.7); Neutrophils % (A) 81 %; Platelet Count 170 k/uL (150-450); RBC 4.67 m/uL (4.30-5.90); RDW 16.7 % (11.5-15.5); WBC 10.7 k/uL (3.8-10.6)
[2023-10-07] MEDS: FORMOTEROL FUMARATE 20 MCG/2 ML NEBU INHALATION SCH ×2 (08:03→20:42)
[2023-10-07 08:24] LABS: African American GFR (CKD) 21 (>60 ml/min/1.73 sqM); Anion Gap 7 mmol/L; Blood Urea Nitrogen 45 mg/dL (9-20); Calcium 8.5 mg/dL (8.4-10.2); Carbon Dioxide 23 mmol/L (22-30); Chloride 107 mmol/L (98-107); Glucose 118 mg/dL (74-99); Non-African American GFR(CKD) 18 (>60 ml/min/1.73 sqM); Potassium 3.4 mmol/L (3.5-5.1); Sodium 137 mmol/L (137-145)
[2023-10-07] MEDS ORDERED: lisinopriL 20 MG TAB PO SCH (09:00)
[2023-10-07] MEDS ORDERED: Potassium Replacement Protocol 1 EACH MISC MISCELLANE PRN (10:23)
[2023-10-07] MEDS: FOLIC ACID 1 MG TAB PO SCH (10:25)
[2023-10-07] MEDS: POTASSIUM CHLORIDE ER 20 MEQ TAB.ER PO SCH ×2 (12:39→14:15)
--- NOTE | 2023-10-07 12:56 | P.NPCON ---
History of Present Illness - Reason for Consult acute renal failure, chronic renal failure - History of Present Illness Reason for consultation: Acute kidney injury on chronic kidney disease History of present illness: Patient is a 62-year-old male seen in renal consultation for acute kidney injury on chronic kidney disease. Patient states he has seen a fire extinguisher charger in the past in [place]. Patient moved to [place] in December 2022. Patient's creatinine in June 2023 was mostly in the range of 2.1-2.4. This admission was 3.38 and is 3.47 today. Patient states he was at his oncologist office yes terday and his blood pressure was elevated. He was also having a headache and dizziness any was subsequently sent to the hospital. He denies any gross hematuria or dysuria. Currently he feels better. No headaches now. No vision changes. No palpitations. He denies history of diabetes. Denies history of coronary artery disease. Denies family history of kidney disease. No nausea vomiting or diarrhea. No edema. Blood pressure is now better controlled. Most recent reading was 147/77. However his blood pressure was 240/135 on admission. Patient states he's been taking his antihypertensives at home and blood pressure at home is usually well controlled. Vital signs are stable. General: No acute distress. HEENT: Head exam is unremarkable. LUNGS: No audible rhonchi or wheezes. HEART: Rate and Rhythm are regular. ABDOMEN: Nontender. EXTREMITITES: No edema. Past Medical History Past Medical History: CVA/TIA, GERD/Reflux, Hyperlipidemia, Hypertension, Sleep Apnea/CPAP/BIPAP Additional Past Medical History / Comment(s): stress test abnormal, cva 2 yrs ago lft arm tires quickly, questioning possible [place],no cpap used See Dr Ibarra's H & P History of Any Multi-Drug Resistant Organisms: None Reported Past Surgical History: Cardiac Valve Replacement Additional Past Surgical History / Comment(s): 2003 aortic valve replaced, cerebral aneurysm repaired 2021 Past Anesthesia/Blood Transfusion Reactions: No Reported Reaction Additional Past Anesthesia/Blood Transfusion Reaction / Comment(s): no hx of blood tx Past Psychological History: No Psychological Hx Reported Smoking Status: Current every day smoker Past Alcohol Use History: Occasional Past Drug Use History: None Reported - Past Family History Father History Unknown: Yes Medications and Allergies Home Medications Medication Instructions Recorded Confirmed Type Esomeprazole Magnesium 40 mg PO DAILY 06/17/23 10/06/23 History Ipratropium/Albuter 20-100Mcg 2 puff INHALATION RT-Q4H PRN 07/04/23 10/06/23 History [Combivent Respimat 20-100Mcg Inhaler] Tiotropium Br/Olodaterol HCl 2 puff INHALATION RT-DAILY 07/04/23 10/06/23 History [Stiolto Respimat Inhal [place]] lisinopriL [Zestril] 20 mg PO DAILY #30 tab 07/08/23 10/06/23 Rx Warfarin [Coumadin] 1 mg PO DAILY 30 Days #30 tablet 07/11/23 10/06/23 Rx Folic Acid 1 mg PO DAILY 10/06/23 10/06/23 History carvediloL [Coreg] 12.5 mg PO BID 10/06/23 10/06/23 History Allergies Allergy/AdvReac Type Severity Reaction Status Date / Time No Known Allergies Allergy Verified 10/06/23 16:49 Physical Exam Vitals: Vital Signs Temp Pulse Pulse Resp BP BP Pulse Ox 10/07/23 08:26 67 10/07/23 08:17 72 10/07/23 08:16 72 10/07/23 08:10 97.8 F 63 18 147/77 96 10/07/23 08:03 69 16 10/07/23 08:00 63 18 10/07/23 04:00 77 16 146/90 97 10/07/23 02:00 84 16 10/06/23 23:56 98.1 F 84 16 180/100 96 10/06/23 22:56 98 16 166/97 96 10/06/23 21:53 92 18 182/100 95 10/06/23 20:05 94 14 199/124 97 10/06/23 18:22 105 H 18 204/127 98 10/06/23 16:26 100 18 219/140 96 10/06/23 15:45 98.1 F 111 H 18 240/135 97 Intake and Output 10/06/23 10/07/23 10/07/23 22:59 06:59 14:59 Intake Total 282.785 125 Balance 282.785 125 Intake: Intake, IV Titration 42.785 Amount Heparin Sod,Pork in 0.45% 42.785 NaCl 25,000 unit In 0.45 % NaCl 1 250ml.bag @ 12 UNITS/KG/HR 9.798 mls/hr IV .Q24H PETER Rx#: [id number] Oral 240 125 Other: # Voids 2 Weight 81.647 kg Results - Lab Results Most recent lab results Calcium 8.5 mg/dL (8.4-10.2) 10/07/23 07:45 Magnesium 2.1 mg/dL (1.6-2.3) 10/06/23 15:53 10/07/23 07:45 10/07/23 07:45 Assessment and Plan Plan: Assessment: 1. Acute kidney injury secondary to hemodynamic ATN. Creatinine 3.47 today. 2. Chronic kidney disease stage IV with baseline creatinine 2.1-2.4 in June 2023. Suspect nephrosclerosis. 3. Hypertensive urgency. Now better controlled. 4. Chronic systolic CHF with ejection fraction of 40%. 5. Hypokalemia, replaced. Plan: Maintain IV hydration. Decrease rate of normal saline to 75 mL an hour. Hold lisinopril for now. Add amlodipine 5 mg twice daily. Check urinalysis. Check renal ultrasound. Check secondary workup of hypertension. Avoid nephrotoxins. Thank you for the consultation. I will continue to follow the patient with you during his hospital stay.
--- NOTE | 2023-10-07 13:49 | P.CRDCN ---
History of Present Illness Consult date: 10/07/23 Reason for Consult (text): Valve replacement with subtherapeutic INR History of present illness: HISTORY OF PRESENT ILLNESS: This is a 62-year-old male patient of Dr. Ibarra with a past medical history significant for mechanical aortic valve, nonischemic cardiomyopathy, hypertension, CVA, obstructive sleep apnea, tobacco use and chronic kidney disease. We have been asked to see the patient in consultation for valve replacement and subtherapeutic INR. Patient states that he has his INR monitored every other week at Dr. Joan Ibarra's office and has been taking all of his medications as directed. He states he was at Dr. Rodriguez's office yesterday to be evaluated for a "blood problem" and his blood pressure was high with a systolic in the 200s. He denies any chest pain or shortness of breath, no lightheadedness or dizziness. The reason he presented to the emergency center was because his blood pressure was elevated. Patient has been started on a heparin drip as his INR was found to be subtherapeutic at 0.9. Blood pressure is currently 147/77. EKG: Sinus tachycardia Chest x-ray no acute process CAT scan of the brain revealed a no acute intracranial process. Chronic small vessel ischemic disease. Postsurgical changes are stable. WBC 10.7, hemoglobin 13.1, platelet count 170. INR 1. Sodium 137, potassium 3.4, BUN 45 creatinine 3.57. Glucose 118. Liver function test are normal. Current home cardiac medications include Coreg 12.5 mg twice daily, lisinopril 20 mg daily, Coumadin 1 mg daily. Most recent echocardiogram obtained in May 2023 revealed ejection fraction 40%, mechanical aortic valve noted, mild TR, trace MR Cardiac catheterization history: April 2023 revealing mild nonobstructive disease involving the right coronary artery REVIEW OF SYSTEMS: At the time of my exam: CONSTITUTIONAL: Denies fever or chills. Reports fatigue. Reports dizziness HEENT: Denies blurred vision, vision changes, or eye pain. Denies hemoptysis CARDIOVASCULAR: Denies chest pain. Denies orthopnea. Denies PND. Denies pal pitations RESPIRATORY: Denies shortness of breath. GASTROINTESTINAL: Denies abdominal pain. Denies nausea or vomiting. HEMATOLOGIC: Denies bleeding disorders. GENITOURINARY: Denies any blood in urine. SKIN: Denies pruitis. Denies rash. PHYSICAL EXAM: VITAL SIGNS: Reviewed. GENERAL: Well-developed in no acute distress. HEENT: Head is normocephalic. Pupils are equal, round. Sclerae anicteric. Mucous membranes of the mouth are moist. Neck supple. No JVD or thyromegaly LUNGS: Respirations even and unlabored. Lungs essentially clear to auscultation bilaterally. HEART: Regular rate and rhythm. S1 and S2 heard. Mechanical click noted. ABDOMEN: Soft. Nondistended. Nontender. EXTREMITIES: Normal range of motion. No clubbing or cyanosis. Peripheral pulses intact. No lower extremity edema. NEUROLOGIC: Awake and alert. Oriented x 3. ASSESSMENT: Subtherapeutic INR Hypertension, uncontrolled Acute kidney injury Chronic kidney disease History of mechanical aortic valve replacement, 2003, in [place] Nonischemic cardiomyopathy, ejection fraction 40% Mild nonobstructive CAD, per catheterization in April 2023 PLAN: Obtain limited echocardiogram to evaluate aortic valve gradients Continue home cardiac medications except for lisinopril which is on hold due to acute kidney injury Pharmacy is dosing Coumadin, monitor INR Continue heparin drip until INR is therapeutic Further recommendations as patient progresses Thank you kindly for this consultation Nurse practitioner note has been reviewed by physician. Signing provider agrees with the documented findings, assessment, and plan of care. Past Medical History Past Medical History: CVA/TIA, GERD/Reflux, Hyperlipidemia, Hypertension, Sleep Apnea/CPAP/BIPAP Additional Past Medical History / Comment(s): stress test abnormal, cva 2 yrs ago lft arm tires quickly, questioning possible [place],no cpap used See Dr Ibarra's H & P History of Any Multi-Drug Resistant Organisms: None Reported Past Surgical History: Cardiac Valve Replacement Additional Past Surgical History / Comment(s): 2003 aortic valve replaced, cerebral aneurysm repaired 2021 Past Anesthesia/Blood Transfusion Reactions: No Reported Reaction Additional Past Anesthesia/Blood Transfusion Reaction / Comment(s): no hx of blood tx Past Psychological History: No Psychological Hx Reported Smoking Status: Current every day smoker Past Alcohol Use History: Occasional Past Drug Use History: None Reported - Past Family History Father History Unknown: Yes Medications and Allergies Home Medications Medication Instructions Recorded Confirmed Type Esomeprazole Magnesium 40 mg PO DAILY 06/17/23 10/06/23 History Ipratropium/Albuter 20-100Mcg 2 puff INHALATION RT-Q4H PRN 07/04/23 10/06/23 History [Combivent Respimat 20-100Mcg Inhaler] Tiotropium Br/Olodaterol HCl 2 puff INHALATION RT-DAILY 07/04/23 10/06/23 History [Stiolto Respimat Inhal [place]] lisinopriL [Zestril] 20 mg PO DAILY #30 tab 07/08/23 10/06/23 Rx Warfarin [Coumadin] 1 mg PO DAILY 30 Days #30 tablet 07/11/23 10/06/23 Rx Folic Acid 1 mg PO DAILY 10/06/23 10/06/23 History carvediloL [Coreg] 12.5 mg PO BID 10/06/23 10/06/23 History Allergies Allergy/AdvReac Type Severity Reaction Status Date / Time No Known Allergies Allergy Verified 10/06/23 16:49 Physical Exam Vitals: Vital Signs Temp Pulse Pulse Resp BP BP Pulse Ox 10/07/23 08:26 67 10/07/23 08:17 72 10/07/23 08:16 72 10/07/23 08:03 69 16 10/07/23 04:00 77 16 146/90 97 10/07/23 02:00 84 16 10/06/23 23:56 98.1 F 84 16 180/100 96 10/06/23 22:56 98 16 166/97 96 10/06/23 21:53 92 18 182/100 95 10/06/23 20:05 94 14 199/124 97 10/06/23 18:22 105 H 18 204/127 98 10/06/23 16:26 100 18 219/140 96 10/06/23 15:45 98.1 F 111 H 18 240/135 97 Intake and Output 10/06/23 10/07/23 10/07/23 22:59 06:59 14:59 Intake Total 282.785 Balance 282.785 Intake: Intake, IV Titration 42.785 Amount Heparin Sod,Pork in 0.45% 42.785 NaCl 25,000 unit In 0.45 % NaCl 1 250ml.bag @ 12 UNITS/KG/HR 9.798 mls/hr IV .Q24H [facility] Rx#: [id number] Oral 240 Other: # Voids 2 Weight 81.647 kg Results 10/07/23 07:45 10/07/23 07:45 Cardiac Enzymes 10/06/23 Range/Units 15:53 AST 18 (17-59) U/L Coagulation 10/06/23 10/07/23 10/07/23 Range/Units 15:53 01:31 07:45 PT 10.1 10.3 11.0 (10.0-12.5) sec APTT 24.5 30.8 H (22.0-30.0) sec CBC 10/06/23 10/07/23 10/07/23 Range/Units 15:53 01:31 07:45 WBC 13.5 H 10.9 H 10.7 H (3.8-10.6) k/uL RBC 5.22 4.56 4.67 (4.30-5.90) m/uL Hgb 14.9 12.9 L 13.1 (13.0-17.5) gm/dL Hct 43.6 38.3 L 39.6 (39.0-53.0) % Plt Count 162 148 L 170 (150-450) k/uL Comprehensive Metabolic Panel 10/06/23 10/07/23 Range/Units 15:53 07:45 Sodium 137 137 (137-145) mmol/L Potassium 3.4 L 3.4 L (3.5-5.1) mmol/L Chloride 103 107 (98-107) mmol/L Carbon Dioxide 28 23 (22-30) mmol/L BUN 43 H 45 H (9-20) mg/dL Creatinine 3.38 H 3.47 H (0.66-1.25) mg/dL Glucose 153 H 118 H (74-99) mg/dL Calcium 9.0 8.5 (8.4-10.2) mg/dL AST 18 (17-59) U/L ALT 11 (4-49) U/L Alkaline Phosphatase 88 (38-126) U/L Total Protein 7.3 (6.3-8.2) g/dL Albumin 4.1 (3.5-5.0) g/dL Current Medications Generic Name Dose Route Start Last Admin Trade Name Freq PRN Reason Stop Dose Admin Acetaminophen 650 mg 10/07/23 01:28 Acetaminophen Tab 325 Mg Tab PO Q6HR PRN Fever and/ or Pain Albuterol/Ipratropium 3 ml 10/06/23 20:15 Ipratropium-Albuterol 3 Ml Neb INHALATION RT-Q4H PRN Shortness Of Breath Carvedilol 12.5 mg 10/06/23 21:00 10/07/23 06:30 Carvedilol 12.5 Mg Tab PO 12.5 mg BID-W/MEALS [facility] Administration Folic Acid 1 mg 10/07/23 09:00 Folic Acid 1 Mg Tab PO DAILY [facility] Formoterol Fumarate 20 mcg 10/07/23 08:00 10/07/23 08:03 Formoterol Fumarate 20 Mcg/2 Ml Nebu INHALATION 20 mcg RT-BID [facility] Administration Heparin Sodium (Porcine) 0 unit 10/06/23 20:16 Heparin Sodium 1,000 Un/Ml (10ml Vl) IV PER PROTOCOL PRN Low PTT Protocol Hydralazine HCl 20 mg 10/06/23 20:16 Hydralazine Hcl 20 Mg/Ml 1 Ml Vial IVP Q6HR PRN Hypertension Sodium Chloride 1,000 mls @ 130 mls/hr 10/06/23 17:30 10/07/23 04:39 Saline 0.9% IV Not Given .Q7H42M [facility] Heparin Sodium/Sodium Chloride 250 mls @ 9.798 mls/hr 10/06/23 20:30 10/07/23 02:10 25,000 unit/ Sodium Chloride IV 15 units/kg/hr .Q24H [facility] 12.247 mls/hr Titration Protocol 12 UNITS/KG/HR Ipratropium [place] 0.5 mg 10/07/23 08:00 10/07/23 08:00 Ipratropium 0.5 Mg/2.5 Ml Nebu INHALATION 0.5 mg RT-QID [facility] Administration Lisinopril 20 mg 10/07/23 09:00 Lisinopril 20 Mg Tab PO DAILY [facility] Miscellaneous Information 1 each 10/06/23 20:15 Warfarin Per Pharmacy MISCELLANE DIRECTED PRN Per Protocol Protocol Naloxone HCl 0.2 mg 10/06/23 20:13 Naloxone 0.4 Mg/Ml 1 Ml Vial IV Q2M PRN Opioid Reversal Pantoprazole Sodium 40 mg 10/07/23 07:30 10/07/23 06:30 Pantoprazole 40 Mg Tablet PO 40 mg [id number]-[id number] [facility] Administration Warfarin Sodium 2 mg 10/07/23 18:00 Warfarin 2 Mg Tab PO 10/07/23 18:01 ONCE ONE Intake and Output 10/06/23 10/07/23 10/07/23 22:59 06:59 14:59 Intake Total 282.785 Balance 282.785 Intake: Intake, IV Titration 42.785 Amount Heparin Sod,Pork in 0.45% 42.785 NaCl 25,000 unit In 0.45 % NaCl 1 250ml.bag @ 12 UNITS/KG/HR 9.798 mls/hr IV .Q24H [facility] Rx#: [id number] Oral 240 Other: # Voids 2 Weight 81.647 kg 10/07/23 07:45 10/07/23 07:45
--- NOTE | 2023-10-07 15:37 | P.HPIM ---
History of Present Illness H&P Date: 10/07/23 This is a 62-year-old gentleman with past medical history significant for mechanical aortic valve, nonischemic cardiomyopathy,hypertension, CVA, supratherapeutic INR, chronic kidney disease and multiple other medical issues presented to the ER with complaints of uncontrolled blood pressure in the 200's and his INR being too low, detected yesterday at Dr. Rodriguez's office. Reports compliance with medication regimen/anticoagulation/antihypertensives. Denies bleeding, tarry stools or bruising. Denies chest pain, palpitations or shortness of breath. Denies lightheadedness dizziness or focal deficits. On admission INR 0.9, 240/135, heart rate 111, respiratory rate within normal limits maintaining O2 sats of 97% on room air .heparin drip initiated in the ER .Denies syncope. EKG reported sinus tachycardia, chest x-ray reported nonacute. Brain CT reported no acute intracranial process. Afebrile, normal WBC, hemoglobin 13.1, platelets 170, INR 1 sodium 137, potassium 3.4, BUN 45, creatinine 3.57, glucose 118, LFTs within normal limits .Nephrology and cardiology consults in place. Review of Systems Review of Systems All systems: negative Constitutional: Denies weakness, Denies chills, Denies fever Eyes: denies blurred vision, denies pain Ears, nose, mouth and throat: Denies headache, Denies sore throat Cardiovascular: Denies chest pain, denies syncope, Denies shortness of breath Respiratory: Denies cough Gastrointestinal: Denies abdominal pain, Denies diarrhea, Denies nausea, Denies vomiting Musculoskeletal: Denies myalgias Integumentary: Denies pruritus, Denies rash Neurological: Denies numbness, Denies weakness Psychiatric: Denies anxiety, Denies depression Endocrine: Denies weight change. Reports fatigue. Past Medical History Past Medical History: CVA/TIA, GERD/Reflux, Hyperlipidemia, Hypertension, Sleep Apnea/CPAP/BIPAP Additional Past Medical History / Comment(s): stress test abnormal, cva 2 yrs ago lft arm tires quickly, questioning possible [place],no cpap used See Dr Ibarra's H & P History of Any Multi-Drug Resistant Organisms: None Reported Past Surgical History: Cardiac Valve Replacement Additional Past Surgical History / Comment(s): 2003 aortic valve replaced, cerebral aneurysm repaired 2021 Past Anesthesia/Blood Transfusion Reactions: No Reported Reaction Additional Past Anesthesia/Blood Transfusion Reaction / Comment(s): no hx of blood tx Past Psychological History: No Psychological Hx Reported Smoking Status: Current every day smoker Past Alcohol Use History: Occasional Past Drug Use History: None Reported - Past Family History Father History Unknown: Yes Medications and Allergies Home Medications Medication Instructions Recorded Confirmed Type Esomeprazole Magnesium 40 mg PO DAILY 06/17/23 10/06/23 History Ipratropium/Albuter 20-100Mcg 2 puff INHALATION RT-Q4H PRN 07/04/23 10/06/23 History [Combivent Respimat 20-100Mcg Inhaler] Tiotropium Br/Olodaterol HCl 2 puff INHALATION RT-DAILY 07/04/23 10/06/23 History [Stiolto Respimat Inhal [place]] lisinopriL [Zestril] 20 mg PO DAILY #30 tab 07/08/23 10/06/23 Rx Warfarin [Coumadin] 1 mg PO DAILY 30 Days #30 tablet 07/11/23 10/06/23 Rx Folic Acid 1 mg PO DAILY 10/06/23 10/06/23 History carvediloL [Coreg] 12.5 mg PO BID 10/06/23 10/06/23 History Allergies Allergy/AdvReac Type Severity Reaction Status Date / Time No Known Allergies Allergy Verified 10/06/23 16:49 Physical Exam Vitals: Vital Signs Temp Pulse Pulse Resp BP BP Pulse Ox 10/07/23 08:26 67 10/07/23 08:17 72 10/07/23 08:16 72 10/07/23 08:03 69 16 10/07/23 04:00 77 16 146/90 97 10/07/23 02:00 84 16 10/06/23 23:56 98.1 F 84 16 180/100 96 10/06/23 22:56 98 16 166/97 96 10/06/23 21:53 92 18 182/100 95 10/06/23 20:05 94 14 199/124 97 10/06/23 18:22 105 H 18 204/127 98 10/06/23 16:26 100 18 219/140 96 10/06/23 15:45 98.1 F 111 H 18 240/135 97 Intake and Output 01/10/07/23 10/07/23 22:59 06:59 14:59 Intake Total 282.785 Balance 282.785 Intake: Intake, IV Titration 42.785 Amount Heparin Sod,Pork in 0.45% 42.785 NaCl 25,000 unit In 0.45 % NaCl 1 250ml.bag @ 12 UNITS/KG/HR 9.798 mls/hr IV .Q24H [facility] Rx#: [id number] Oral 240 Other: # Voids 2 Weight 81.647 kg PHYSICAL EXAM: VITAL SIGNS: [As above] GENERAL: Well-nourished, Sitting up in bed, no acute distress HEENT: Normocephalic, Conjunctivae normal. eyes normal. NECK: Supple, No JVD. No thyroid enlargement. No LNs CARDIOVASCULAR: S1, S2 regular. No murmur, prosthetic valve click RESPIRATION: Unlabored, equal air entry, Breath sounds diminished in the bases. No rhonchi or crackles. No bronchial breathing. ABDOMEN: Soft, nondistended, nontender . No guarding. no masses palpable. No ascites, No hepatosplenomegaly.Bowel sounds heard. LEGS: No edema. no swelling PSYCHIATRY: Alert and oriented X3, mood and affect normal. NERVOUS SYSTEM: Cranial N 2-12 grossly normal. No focal deficits. Strength and sensation grossly intact. Skin: Warm and dry, no rash Results CBC & Chem 7: 10/07/23 07:45 10/07/23 07:45 Labs: Abnormal Lab Results - Last 24 Hours (Table) 10/06/23 10/06/23 10/07/23 Range/Units 15:53 15:53 01:31 WBC 13.5 H (3.8-10.6) k/uL Hgb (13.0-17.5) gm/dL Hct (39.0-53.0) % RDW 16.6 H (11.5-15.5) % Plt Count (150-450) k/uL Neutrophils # 11.3 H (1.3-7.7) k/uL APTT 30.8 H (22.0-30.0) sec Potassium 3.4 L (3.5-5.1) mmol/L BUN 43 H (9-20) mg/dL Creatinine 3.38 H (0.66-1.25) mg/dL Glucose 153 H (74-99) mg/dL 10/07/23 10/07/23 10/07/23 Range/Units 01:31 07:45 07:45 WBC 10.9 H 10.7 H (3.8-10.6) k/uL Hgb 12.9 L (13.0-17.5) gm/dL Hct 38.3 L (39.0-53.0) % RDW 16.7 H 16.7 H (11.5-15.5) % Plt Count 148 L (150-450) k/uL Neutrophils # 8.9 H 8.7 H (1.3-7.7) k/uL APTT (22.0-30.0) sec Potassium 3.4 L (3.5-5.1) mmol/L BUN 45 H (9-20) mg/dL Creatinine 3.47 H (0.66-1.25) mg/dL Glucose 118 H (74-99) mg/dL Thrombosis Risk Factor Assmnt - Choose All That Apply Other Risk Factors: Yes Each Risk Factor Represents 2 Points: Age 61-74 years Each Risk Factor Represents 3 Points: History of DVT/PE Other congenital or acquired thrombophilia - If yes, enter type in comment: No Thrombosis Risk Factor Assessment Total Risk Factor Score: 5 Thrombosis Risk Factor Assessment Level: High Risk Assessment and Plan Assessment: Subtherapeutic INR Hypertensive urgency, on admission, improving Acute on chronic CKD, stage III, GFR 32, baseline creatinine 2.16. Mechanical aortic valve-[facility], history of medication noncompliance, prior subtherapeutic INR on inpatient admission 06/18/2023. Supra therapeutic INR on inpatient admission 07/04/23 and 07/10/2023. AVR 2003 Nonischemic cardiomyopathy, EF 40% CAD History of CVA 2 years ago Hypertension Hyperlipidemia Gastroesophageal reflux disease Obstructive sleep apnea and does not use BiPAP or CPAP Morbid obesity, BMI 28 Ongoing nicotine dependence Plan: Continue on current medication regime ,monitoring and symptomatic tr eatment. IV fluid hydration. SANTANA inhibitor on hold. Heparin drip with Coumadin dosing per pharmacy. Echo pending .GI prophylaxis with PPI ordered. Cardiology and nephrology consult in place with recommendations pending. The impression and plan of care has been dictated as directed. : I performed a history and examination of this patient, discussed the same with the dictator. I agree with the dictator's note ,documented as a scribe. Any additional findings or plans will be noted.
[2023-10-07] MEDS ORDERED: WARFARIN 2 MG TAB PO ONE (18:00)
[2023-10-07] MEDS: amLODIPine 5 MG TAB PO SCH (21:32)
[2023-10-07] MEDS: NICOTINE 14MG/24HR PATCH TRANSDERM SCH (21:33)
[2023-10-07] MEDS: HEPARIN SOD,PORK IN 0.45% NACL 25,000 UNIT in 0.45% NACL 1 250ML.BAG IV SCH (22:39)
[2023-10-08 00:42] LABS: Appearance,Urine Clear (Clear); Bilirubin,Urine Negative (Negative); Blood,Urine Negative (Negative); Color,Urine Colorless; Glucose,Urine (UA) Negative (Negative); Ketones,Urine Negative (Negative); Leukocyte Esterase,Urine Negative (Negative); Mucus,Urine Rare /hpf; Nitrite,Urine Negative (Negative); Protein,Urine 1+ (Negative); RBC,Urine 1 /hpf (0-5); Specific Gravity,Urine 1.011 (1.001-1.035); Squamous Epithelial Cell,Urine <1 /hpf (0-4); Urobilinogen,Urine <2.0 mg/dL (<2.0); WBC,Urine 1 /hpf (0-5)
[2023-10-08] MEDS: ACETAMINOPHEN TAB 325 MG TAB PO PRN (00:59)
[2023-10-08] MEDS: SODIUM CHLORIDE 0.9% 1,000 ML IV SCH ×2 (02:50→20:38)
[2023-10-08 06:09] LABS: African American GFR (CKD) 20 (>60 ml/min/1.73 sqM); Anion Gap 1 mmol/L; Blood Urea Nitrogen 44 mg/dL (9-20); Calcium 8.5 mg/dL (8.4-10.2); Carbon Dioxide 27 mmol/L (22-30); Chloride 110 mmol/L (98-107); Glucose 99 mg/dL (74-99); Magnesium 2.2 mg/dL (1.6-2.3); Non-African American GFR(CKD) 18 (>60 ml/min/1.73 sqM); Potassium 3.6 mmol/L (3.5-5.1); Sodium 138 mmol/L (137-145)
[2023-10-08] MEDS: carvediloL 12.5 MG TAB PO SCH ×2 (06:19→17:09)
[2023-10-08] MEDS: PANTOPRAZOLE 40 MG TABLET PO SCH (06:19)
[2023-10-08 06:33] LABS: Prothrombin Time 10.7 sec (10.0-12.5)
[2023-10-08] MEDS: HEPARIN SOD,PORK IN 0.45% NACL 25,000 UNIT in 0.45% NACL 1 250ML.BAG IV SCH ×2 (06:57→20:38)
[2023-10-08] MEDS: IPRATROPIUM 0.5 MG/2.5 ML NEBU INHALATION SCH ×4 (08:01→20:31)
[2023-10-08] MEDS: FORMOTEROL FUMARATE 20 MCG/2 ML NEBU INHALATION SCH ×2 (08:01→20:31)
[2023-10-08] MEDS: FOLIC ACID 1 MG TAB PO SCH (08:36)
[2023-10-08] MEDS: NICOTINE 14MG/24HR PATCH TRANSDERM SCH (08:36)
[2023-10-08] MEDS: amLODIPine 5 MG TAB PO SCH ×2 (08:36→20:39)
--- NOTE | 2023-10-08 08:38 | US ---
EXAMINATION TYPE: US renal artery duplex complete DATE OF EXAM: 10/08/2023 COMPARISON: NONE CLINICAL INDICATION: Male, 62 years old with history of hypertension; Hypertension since 2001. MEASUREMENTS: Abdominal aorta: Proximally and distally ectatic at 2.9 cm and 2.8 cm, respectively. Peak systolic velocity 74.5 cm/s RENAL SIZE: Right Kidney: 12.0 x 5.2 x 5.5. No hydronephrosis or lesions seen Left Kidney: 11.4 x 4.4 x 4.5. Hypoechoic area in the midpole measuring 2.2 x 1.8 x 2.2 cm. Possible column of Hugo. Solid mass difficult to entirely exclude at this time. There is mild pelviectasis o r extrarenal pelvis. No calyceal dilatation to suggest hydronephrosis. ACCELERATION TIME: Right Kidney: 0.02 seconds Left Kidney: 0.03 seconds RESISTANCE INDEX Right: 0.78 Left: 0.77 RA/AO RATIO (< 3.5 ) Right: 2.0 Left: 2.1 RENAL ARTERY VELOCITY ( < 180 cm/s) Right: 150.9 Left: 153.2 Vault Custodian Notes: Exam is limited due to gas IMPRESSION: 1. No sonographic/Doppler evidence for renal artery stenosis on either side. 2. No hydronephrosis. 3. A 2.2 cm hypoechoic area at the left kidney midpole suspected to represent a column of Hugo rath er than a solid mass. Recommend 3-6 month follow-up renal ultrasound to reassess.
--- NOTE | 2023-10-08 09:50 | CA ---
Transthoracic Echo Report Name: Catalino Vasquez Age: 62 Gender: M : 1960 Exam Date: 10/07/2023 09:54 Exam Location: [facility] Ht (in): 67 Wt (lb): 180 Ordering Physician: Violet Miranda Attending/Referring Phys: [id number], Ruben Skoog Machine Operator Ledy Hdez RDCS Procedure CPT: Indications: aortic valve gradients Cardiac Hx: Technical Quality: Fair Contrast 1: Total Dose (mL): Contrast 2: Total Dose (mL): MEASUREMENTS (Male / Female) Normal Values 2D ECHO LV Diastolic Diameter PLAX 4.9 cm 4.2 - 5.9 / 3.9 - 5.3 cm LV Systolic Diameter PLAX 3.5 cm IVS Diastolic Thickness 2.5 cm 0.6 - 1.0 / 0.6 - 0.9 cm LVPW Diastolic Thickness 2.2 cm 0.6 - 1.0 / 0.6 - 0.9 cm LV Relative Wall Thickness 1.0 LVOT Diameter 2.2 cm DOPPLER AV Peak Velocity 287.4 cm/s AV Peak Gradient 33.0 mmHg AV Mean Velocity 203.1 cm/s AV Mean Gradient 18.6 mmHg AV Velocity Time Integral 56.2 cm LVOT Peak Velocity 213.6 cm/s LVOT Peak Gradient 18.3 mmHg LVOT Velocity Time Integral 41.9 cm LVOT Stroke Volume 155.7 cm??? LVOT Stroke Volume Index 80.5 ml/m??? LVOT Cardiac Index 5335.1 cm???/min???m??? AV Area Cont Eq vti 2.8 cm??? AV Area Cont Eq pk 2.8 cm??? FINDINGS Left Ventricle Severely increased septal wall thickness. Left ventricular cavity size normal. Normal left ventricular wall motion. Left ventricular ejection fraction is estimated at 55 %. Right Ventricle Right Atrium Left Atrium Mitral Valve Aortic Valve Mechanical prosthetic aortic valve. Otherwise prosthetic aortic valve appears to be functioning normally. LVOT gradient noted. Tricuspid Valve Pulmonic Valve Pericardium No pericardial effusion. Aorta CONCLUSIONS LVH with preserved systolic function Previewed by: Dr. Matthias Miller MD (Electronically Signed) Final Date: 08 October 2023 09:49
[2023-10-08] MEDS: IPRATROPIUM-ALBUTEROL 3 ML NEB INHALATION PRN ×2 (11:37→15:56)
[2023-10-08] MEDS ORDERED: POTASSIUM CHLORIDE ER 20 MEQ TAB.ER PO STA (11:47)
--- NOTE | 2023-10-08 11:47 | P.PN ---
Subjective Patient is seen in follow-up for acute kidney injury on chronic kidney disease. Renal function stable. Receiving IV fluids. Admits to good urine output. On heparin drip. Hemodynamically stable. Vital signs are stable. General: No acute distress. HEENT: Head exam is unremarkable. LUNGS: No audible rhonchi or wheezes. HEART: Rate and Rhythm are regular. ABDOMEN: Nontender. EXTREMITITES: No edema. Objective - Vital Signs Vital signs: Vital Signs Temp 97.4 F L 10/08/23 08:35 Pulse 60 10/08/23 11:38 Resp 18 10/08/23 08:35 BP 145/83 10/08/23 08:35 Pulse Ox 97 10/08/23 08:35 FiO2 Intake & Output 10/07/23 10/08/23 10/08/23 18:59 06:59 18:59 Intake Total 1373.724 32.491 10.083 Output Total 500 Balance 1373.724 -467.509 10.083 Intake: Intake, IV Titration 174.724 32.491 10.083 Amount Heparin Sod,Pork in 0.45% 174.724 32.491 10.083 NaCl 25,000 unit In 0.45 % NaCl 1 250ml.bag @ 12 UNITS/KG/HR 9.798 mls/hr IV .Q24H [facility] Rx#: [id number] Oral 1199 Output: Urine 500 Other: Voiding Method Toilet Toilet Toilet Urinal Urinal # Voids 3 2 - Labs CBC & Chem 7: 10/07/23 07:45 10/08/23 05:41 Labs: Abnormal Lab Results - Last 24 Hours (Table) 10/07/23 10/07/23 10/08/23 Range/Units 12:57 21:54 00:30 APTT 36.3 H 43.5 H (22.0-30.0) sec Chloride (98-107) mmol/L BUN (9-20) mg/dL Creatinine (0.66-1.25) mg/dL Urine Protein 1+ H (Negative) Urine Mucus Rare H (None) /hpf 10/08/23 10/08/23 Range/Units 05:41 05:41 APTT 61.5 H (22.0-30.0) sec Chloride 110 H (98-107) mmol/L BUN 44 H (9-20) mg/dL Creatinine 3.50 H (0.66-1.25) mg/dL Urine Protein (Negative) Urine Mucus (None) /hpf Assessment and Plan Plan: Assessment: 1. Acute kidney injury secondary to hemodynamic ATN. Creatinine stable at 3.5 today. 2. Chronic kidney disease stage IV with baseline creatinine 2.1-2.4 in June 2023. Suspect nephrosclerosis. 3. Hypertensive urgency. Now better controlled. No evidence of renal artery stenosis noted on renal duplex ultrasound. 4. Chronic systolic CHF with ejection fraction of 40%. 5. Hypokalemia, replaced. Better. ?high aldosterone state. 6. Mechanical aortic valve. 7. History of CVA. Plan: Maintain IV hydration. Continue to hold lisinopril for now. Add scheduled dose of hydralazine. Follow-up secondary workup of hypertension. Avoid nephrotoxins. Procedure ejection fraction noted on echocardiogram.
[2023-10-08] MEDS: hydrALAZINE HCL 50 MG TAB PO SCH ×3 (12:45→23:51)
--- NOTE | 2023-10-08 14:10 | P.PN ---
Subjective Progress Note Date: 10/08/23 Reason for Consult (text): Valve replacement with subtherapeutic INR History of present illness: HISTORY OF PRESENT ILLNESS: This is a 62-year-old male patient of Dr. Ibarra with a past medical history significant for mechanical aortic valve, nonischemic cardiomyopathy, hypertension, CVA, obstructive sleep apnea, tobacco use and chronic kidney dise ase. We have been asked to see the patient in consultation for valve replacement and subtherapeutic INR. Patient states that he has his INR monitored every other week at Dr. Joan Ibarra's office and has been taking all of his medications as directed. He states he was at Dr. Rodriguez's office yesterday to be evaluated for a "blood problem" and his blood pressure was high with a systolic in the 200s. He denies any chest pain or shortness of breath, no lightheadedness or dizziness. The reason he presented to the emergency center was because his blood pressure was elevated. Patient has been started on a heparin drip as his INR was found to be subtherapeutic at 0.9. Blood pressure is currently 147/77. EKG: Sinus tachycardia Chest x-ray no acute process CAT scan of the brain revealed a no acute intracranial process. Chronic small vessel ischemic disease. Postsurgical changes are stable. WBC 10.7, hemoglobin 13.1, platelet count 170. INR 1. Sodium 137, potassium 3.4, BUN 45 creatinine 3.57. Glucose 118. Liver function test are normal. Current home cardiac medications include Coreg 12.5 mg twice daily, lisinopril 20 mg daily, Coumadin 1 mg daily. Most recent echocardiogram obtained in May 2023 revealed ejection fraction 40%, mechanical aortic valve noted, mild TR, trace MR Cardiac catheterization history: April 2023 revealing mild nonobstructive disease involving the right coronary artery 10/08 Limited echocardiogram reveals EF 55%. Mechanical prosthetic aortic valve cathy ears to be functioning normally. LVOT gradient noted. Heart rate is in the 60s and 70s, blood pressure 148/88, pulse ox 97% on room air. Sodium 138, potassium 3.6, BUN 44 creatinine 3.5. INR is 1. Patient received 2 mg of Coumadin last night. Pharmacy is dosing Coumadin. PHYSICAL EXAM: VITAL SIGNS: Reviewed. GENERAL: Well-developed in no acute distress. HEENT: Head is normocephalic. Pupils are equal, round. Sclerae anicteric. Mucous membranes of the mouth are moist. Neck supple. No JVD or thyromegaly LUNGS: Respirations even and unlabored. Lungs essentially clear to auscultation bilaterally. HEART: Regular rate and rhythm. S1 and S2 heard. Mechanical click noted. ABDOMEN: Soft. Nondistended. Nontender. EXTREMITIES: Normal range of motion. No clubbing or cyanosis. Peripheral pul ses intact. No lower extremity edema. NEUROLOGIC: Awake and alert. Oriented x 3. ASSESSMENT: Subtherapeutic INR Hypertension, uncontrolled Acute kidney injury Chronic kidney disease History of mechanical aortic valve replacement, 2003, in [place] Nonischemic cardiomyopathy, ejection fraction 40% Mild nonobstructive CAD, per catheterization in April 2023 PLAN: Continue home cardiac medications except for lisinopril which is on hold due to acute kidney injury Pharmacy is dosing Coumadin, monitor INR Continue heparin drip until INR is therapeutic No medication changes today. Nurse practitioner note has been reviewed by physician. Signing provider agrees with the documented findings, assessment, and plan of care. Objective - Vital Signs Vital signs: Vital Signs Temp 97.4 F L 10/08/23 08:35 Pulse 64 10/08/23 08:35 Resp 18 10/08/23 08:35 BP 145/83 10/08/23 08:35 Pulse Ox 97 10/08/23 08:35 FiO2 Intake & Output 10/07/23 10/08/23 10/08/23 18:59 06:59 18:59 Intake Total 1373.724 32.491 10.083 Output Total 500 Balance 1373.724 -467.509 10.083 Intake: Intake, IV Titration 174.724 32.491 10.083 Amount Heparin Sod,Pork in 0.45% 174.724 32.491 10.083 NaCl 25,000 unit In 0.45 % NaCl 1 250ml.bag @ 12 UNITS/KG/HR 9.798 mls/hr IV .Q24H [facility] Rx#: [id number] Oral 1199 Output: Urine 500 Other: Voiding Method Toilet Toilet Toilet Urinal Urinal # Voids 3 2 - Labs CBC & Chem 7: 10/07/23 07:45 10/08/23 05:41 Labs: Abnormal Lab Results - Last 24 Hours (Table) 10/07/23 10/07/23 10/08/23 Range/Units 12:57 21:54 00:30 APTT 36.3 H 43.5 H (22.0-30.0) sec Chloride (98-107) mmol/L BUN (9-20) mg/dL Creatinine (0.66-1.25) mg/dL Urine Protein 1+ H (Negative) Urine Mucus Rare H (None) /hpf 10/08/23 10/08/23 Range/Units 05:41 05:41 APTT 61.5 H (22.0-30.0) sec Chloride 110 H (98-107) mmol/L BUN 44 H (9-20) mg/dL Creatinine 3.50 H (0.66-1.25) mg/dL Urine Protein (Negative) Urine Mucus (None) /hpf
--- NOTE | 2023-10-08 17:35 | P.PN ---
Subjective Progress Note Date: 10/08/23 H&P Date: 10/07/23 This is a 62-year-old gentleman with past medical history significant for mechanical aortic valve, nonischemic cardiomyopathy,hypertension, CVA, supratherapeutic INR, chronic kidney disease and multiple other medical issues presented to the ER with complaints of uncontrolled blood pressure in the 200's and his INR being too low, detected yesterday at Dr. Rodriguez's office. Reports compliance with medication regimen/anticoagulation/antihypertensives. Denies bleeding, tarry stools or bruising. Denies chest pain, palpitations or shortness of breath. Denies lightheadedness dizziness or focal deficits. On admission INR 0.9, 240/135, heart rate 111, respiratory rate within normal limits maintaining O2 sats of 97% on room air .heparin drip initiated in the ER .Denies syncope. EKG reported sinus tachycardia, chest x-ray reported nonacute. Brain CT reported no acute intracranial process. Afebrile, normal WBC, hemoglobin 13.1, platelets 170, INR 1 sodium 137, potassium 3.4, BUN 45, creatinine 3.57, glucose 118, LFTs within normal limits .Nephrology and cardiology consults in place. 10/08/2023 Blood pressure better controlled, heart rate in the 60s, maintaining O2 sats in the high 90s on room air. Maintain IV fluid hydration. Anticoagulated on heparin drip and Coumadin per pharmacy dosing, INR 1. echocardiogram with limited views reporting left ventricular hypertrophy with preserved systolic function,EF 55%, mechanical prosthetic aortic valve appears to be functioning normally. Potassium supplemented yesterday, 3.6 currently. BUN 44, creatinine 3.5. Renal ultrasound reported no evidence for renal artery stenosis on either side, no hydronephrosis on a 2.2 cm hypoechoic at the left kidney mid pole suspected to represent a column of Hugo rather than a solid mass with recommendations of follow-up renal ultrasound in 3-6 months .Magnesium 2.2 Objective - Vital Signs Vital signs: Vital Signs Temp 97.8 F 10/08/23 12:40 Pulse 72 10/08/23 16:09 Resp 16 10/08/23 12:40 BP 148/88 10/08/23 12:40 Pulse Ox 97 10/08/23 12:40 FiO2 Intake & Output 10/07/23 10/08/23 10/08/23 18:59 06:59 18:59 Intake Total 1373.724 32.491 490.083 Output Total 500 480 Balance 1373.724 -467.509 10.083 Intake: Intake, IV Titration 174.724 32.491 10.083 Amount Heparin Sod,Pork in 0.45% 174.724 32.491 10.083 NaCl 25,000 unit In 0.45 % NaCl 1 250ml.bag @ 12 UNITS/KG/HR 9.798 mls/hr IV .Q24H [facility] Rx#: [id number] Oral 1199 480 Output: Urine 500 480 Other: Voiding Method Toilet Toilet Toilet Urinal Urinal # Voids 3 2 2 - Exam PHYSICAL EXAM: VITAL SIGNS: [As above] GENERAL: Alert and oriented 3, Sitting up at bedside, no acute distress HEENT: Normocephalic, Conjunctivae normal. eyes normal. NECK: Supple, No JVD. No thyroid enlargement. No LNs CARDIOVASCULAR: S1, S2 regular. No murmur, prosthetic valve click RESPIRATION: Unlabored, equal air entry, Breath sounds diminished in the bases. ABDOMEN: Soft, nondistended, nontender . No guarding. No rigidity ,+BS LEGS: No edema. no swelling, no calf tenderness, no clubbing or cyanosis. NERVOUS SYSTEM: Cranial N 2-12 grossly normal. No focal deficits. Strength and sensation grossly intact. Skin: Warm and dry, no rash - Labs CBC & Chem 7: 10/07/23 07:45 10/08/23 05:41 Labs: Abnormal Lab Results - Last 24 Hours (Table) 10/07/23 10/08/23 10/08/23 Range/Units 21:54 00:30 05:41 APTT 43.5 H (22.0-30.0) sec Chloride 110 H (98-107) mmol/L BUN 44 H (9-20) mg/dL Creatinine 3.50 H (0.66-1.25) mg/dL Urine Protein 1+ H (Negative) Urine Mucus Rare H (None) /hpf 10/08/23 Range/Units 05:41 APTT 61.5 H (22.0-30.0) sec Chloride (98-107) mmol/L BUN (9-20) mg/dL Creatinine (0.66-1.25) mg/dL Urine Protein (Negative) Urine Mucus (None) /hpf Assessment and Plan Assessment: Subtherapeutic INR Hypertensive urgency, on admission, better controlled Acute on chronic CKD, stage III, GFR 32, baseline creatinine 2.16. Mechanical aortic valve-[facility], AVR 2003 Nonischemic cardiomyopathy, EF 40% CAD History of CVA 2 years ago Hypertension Hyperlipidemia Gastroesophageal reflux disease Obstructive sleep apnea and does not use BiPAP or CPAP Obesity, BMI 28 Ongoing nicotine dependence Hypokalemia 2.2 cm hypoechoic at the left kidney mid pole suspected to represent a column of Hugo rather than a solid mass with recommendations of follow-up renal ultrasound in 3-6 months, reported per renal ultrasound. Plan: Continue on current medication regime ,monitoring and symptomatic treatment. Continue holding SANTANA inhibitor with IV fluids as per nephrology. INR remains sub-therapeutic ,anticoagulation as per cardiology with both Heparin drip /Coumadin dosing per pharmacy. The impression and plan of care has been dictated as directed. : I performed a history and examination of this patient, discussed the same with the dictator. I agree with the dictator's note ,documented as a scribe. Any additional findings or plans will be noted.
[2023-10-08] MEDS ORDERED: WARFARIN 3 MG TAB PO ONE (18:00)
[2023-10-09] MEDS: PANTOPRAZOLE 40 MG TABLET PO SCH (06:50)
[2023-10-09] MEDS: carvediloL 12.5 MG TAB PO SCH ×2 (06:50→17:04)
[2023-10-09] MEDS: IPRATROPIUM 0.5 MG/2.5 ML NEBU INHALATION SCH ×4 (07:46→20:14)
[2023-10-09] MEDS: IPRATROPIUM-ALBUTEROL 3 ML NEB INHALATION PRN (07:46)
[2023-10-09] MEDS: FORMOTEROL FUMARATE 20 MCG/2 ML NEBU INHALATION SCH ×2 (07:47→20:14)
[2023-10-09] MEDS: NICOTINE 14MG/24HR PATCH TRANSDERM SCH (08:06)
[2023-10-09] MEDS: hydrALAZINE HCL 50 MG TAB PO SCH ×3 (08:06→20:40)
[2023-10-09] MEDS: FOLIC ACID 1 MG TAB PO SCH (08:06)
[2023-10-09] MEDS: amLODIPine 5 MG TAB PO SCH ×2 (08:06→20:40)
[2023-10-09 09:13] LABS: Partial Thromboplastin Time 52.8 sec (22.0-30.0); Prothrombin Time 11.2 sec (10.0-12.5)
[2023-10-09 09:45] LABS: African American GFR (CKD) 22 (>60 ml/min/1.73 sqM); Anion Gap 9 mmol/L; Blood Urea Nitrogen 42 mg/dL (9-20); Calcium 8.6 mg/dL (8.4-10.2); Carbon Dioxide 19 mmol/L (22-30); Chloride 112 mmol/L (98-107); Glucose 133 mg/dL (74-99); Non-African American GFR(CKD) 19 (>60 ml/min/1.73 sqM); Potassium 4.2 mmol/L (3.5-5.1); Sodium 140 mmol/L (137-145)
--- NOTE | 2023-10-09 10:59 | P.PN ---
Subjective Patient is seen in follow-up for acute kidney injury on chronic kidney disease. Renal function slightly better. Receiving IV fluids. Admits to good urine output. On heparin drip. Hemodynamically stable. Vital signs are stable. General: No acute distress. HEENT: Head exam is unremarkable. LUNGS: No audible rhonchi or wheezes. HEART: Rate and Rhythm are regular. ABDOMEN: Nontender. EXTREMITITES: No edema. Objective - Vital Signs Vital signs: Vital Signs Temp 98.3 F 10/09/23 08:01 Pulse 72 10/09/23 09:35 Resp 18 10/09/23 09:35 BP 161/99 10/09/23 08:01 Pulse Ox 99 10/09/23 08:01 FiO2 Intake & Output 10/08/23 10/09/23 10/09/23 18:59 06:59 18:59 Intake Total 970.083 442.186 355 Output Total 480 Balance 490.083 442.186 355 Intake: Intake, IV Titration 10.083 202.186 Amount Heparin Sod,Pork in 0.45% 10.083 202.186 NaCl 25,000 unit In 0.45 % NaCl 1 250ml.bag @ 12 UNITS/KG/HR 9.798 mls/hr IV .Q24H [facility] Rx#: [id number] Oral 960 240 355 Output: Urine 480 Other: Voiding Method Toilet Toilet Toilet Urinal Urinal Urinal # Voids 2 1 - Labs CBC & Chem 7: 10/07/23 07:45 10/09/23 08:24 Labs: Abnormal Lab Results - Last 24 Hours (Table) 10/09/23 10/09/23 Range/Units 08:24 08:24 APTT 52.8 H (22.0-30.0) sec Chloride 112 H (98-107) mmol/L Carbon Dioxide 19 L (22-30) mmol/L BUN 42 H (9-20) mg/dL Creatinine 3.26 H (0.66-1.25) mg/dL Glucose 133 H (74-99) mg/dL Assessment and Plan Plan: Assessment: 1. Acute kidney injury secondary to hemodynamic ATN. Creatinine slightly better at 3.26 today. 2. Chronic kidney disease stage IV with baseline creatinine 2.1-2.4 in June 2023. Suspect nephrosclerosis. 3. Hypertensive urgency. Now better controlled. No evidence of renal artery stenosis noted on renal duplex ultrasound. Cortisol level not elevated. 4. Chronic diastolic CHF. Preserved ejection fraction noted on echocardiogram done this admission. 5. Hypokalemia, replaced. Better. ?high aldosterone state. 6. Mechanical aortic valve. 7. History of CVA. 8. Metabolic acidosis secondary to acute kidney injury and IV fluids. Plan: Maintain IV hydration. Decrease rate to 50 mL an hour. Encouraged oral intake. Increase dose of hydralazine. Continue to hold lisinopril for now. Follow-up secondary workup of hypertension. Avoid nephrotoxins. Advised to follow up outpatient 1 week post discharge to establish CKD care.
--- NOTE | 2023-10-09 12:54 | P.PN ---
Subjective Progress Note Date: 10/09/23 62-year-old gentleman with past medical history significant for mechanical aortic valve, nonischemic cardiomyopathy,hypertension, CVA, supratherapeutic INR, chronic kidney disease and multiple other medical issues presented to the ER with complaints of uncontrolled blood pressure in the 200's and his INR being too low, detected yesterday at Dr. Rodriguez's office. Reports compliance with medication regimen/anticoagulation/antihypertensives. Denies bleeding, tarry stools or bruising. Denies chest pain, palpitations or shortness of breath. Denies lightheadedness dizziness or focal deficits. On admission INR 0.9, 240/135, heart rate 111, respiratory rate within normal limits maintaining O2 sats of 97% on room air .heparin drip initiated in the ER .Denies syncope. EKG reported sinus tachycardia, chest x-ray reported nonacute. Brain CT reported no acute intracranial process. Afebrile, normal WBC, hemoglobin 13.1, platelets 170, INR 1 sodium 137, potassium 3.4, BUN 45, creatinine 3.57, glucose 118, LFTs within normal limits .Nephrology and cardiology consults in place. 10/09/2023: DR LERNER Assuming care >> Patient seen and evaluated at bedside, blood work reviewed INR 1, creatinine 3.26, appreciate input from nephrology, continue Coumadin and pharmacy to dose, discharge planning discussed we'll consult dietitian regarding education on diet 3 restrictions while on Coumadin PHYSICAL EXAMINATION: GENERAL: The patient is alert and oriented x3, not in any acute distress. Well developed, well nourished. HEENT: Pupils are round and equally reacting to light. EOMI. No scleral icterus. No conjunctival pallor. Normocephalic, atraumatic. No pharyngeal erythema. No thyromegaly. CARDIOVASCULAR: S1 and S2 present. Murmur appreciated from mechanical valve PULMONARY: Chest is clear to auscultation, no wheezing or crackles. ABDOMEN: Soft, nontender, nondistended, normoactive bowel sounds. No palpable organomegaly. MUSCULOSKELETAL: No joint swelling or deformity. EXTREMITIES: No cyanosis, clubbing, or pedal edema. NEUROLOGICAL: Gross neurological examination did not reveal any focal deficits. SKIN: No rashes. Objective - Vital Signs Vital signs: Vital Signs Temp 98.3 F 10/09/23 08:01 Pulse 73 10/09/23 12:27 Resp 18 10/09/23 12:27 BP 171/97 10/09/23 12:27 Pulse Ox 97 10/09/23 12:27 FiO2 Intake & Output 10/08/23 10/09/23 10/09/23 18:59 06:59 18:59 Intake Total 970.083 442.186 355 Output Total 480 Balance 490.083 442.186 355 Intake: Intake, IV Titration 10.083 202.186 Amount Heparin Sod,Pork in 0.45% 10.083 202.186 NaCl 25,000 unit In 0.45 % NaCl 1 250ml.bag @ 12 UNITS/KG/HR 9.798 mls/hr IV .Q24H [facility] Rx#: [id number] Oral 960 240 355 Output: Urine 480 Other: Voiding Method Toilet Toilet Toilet Urinal Urinal Urinal # Voids 2 1 - Labs CBC & Chem 7: 10/07/23 07:45 10/09/23 08:24 Labs: Abnormal Lab Results - Last 24 Hours (Table) 10/09/23 10/09/23 Range/Units 08:24 08:24 APTT 52.8 H (22.0-30.0) sec Chloride 112 H (98-107) mmol/L Carbon Dioxide 19 L (22-30) mmol/L BUN 42 H (9-20) mg/dL Creatinine 3.26 H (0.66-1.25) mg/dL Glucose 133 H (74-99) mg/dL Assessment and Plan Assessment: Assessment and plan * Acute kidney injury on chronic kidney disease stage III * Hypertensive urgency on admission * History of mechanical aortic valve on anticoagulation with Coumadin * Subtherapeutic INR * Nonischemic cardio myopathy and 40% * Obstructive sleep apnea * Left renal lesion requiring outpatient follow-up * History of coronary artery disease * Hypertension * Hyperlipidemia * coronary artery disease * In regards to renal efficiency nephrology following patient receiving IV fluid and avoid nephrotoxic medications * In regards to history of mechanical aortic valve, continue Coumadin and pharmacy to dose INR goal 2.5-3.5, * In regards to history of hypertension continue patient on hydralazine, Coreg, amlodipine * appreciate input from nephrology, cardiology
[2023-10-09] MEDS: HEPARIN SOD,PORK IN 0.45% NACL 25,000 UNIT in 0.45% NACL 1 250ML.BAG IV SCH (13:51)
[2023-10-09] MEDS: SODIUM CHLORIDE 0.9% 1,000 ML IV SCH ×2 (14:38→20:40)
[2023-10-09] MEDS ORDERED: WARFARIN 3 MG TAB PO ONE (18:00)
--- NOTE | 2023-10-09 18:53 | P.PN ---
Subjective Progress Note Date: 10/09/23 This is a 62-year-old male patient of Dr. Ibarra with a past medical history significant for mechanical aortic valve, nonischemic cardiomyopathy, hypertension, CVA, obstructive sleep apnea, tobacco use and chronic kidney disease. We have been asked to see the patient in consultation for valve replacement and subtherapeutic INR. Patient states that he has his INR monitored every other week at Dr. Joan Ibarra's office and has been taking all of his medications as directed. He states he was at Dr. Rodriguez's office yesterday to be evaluated for a "blood problem" and his blood pressure was high with a systolic in the 200s. He denies any chest pain or shortness of breath, no lightheadedness or dizziness. The reason he presented to the emergency center was because his blood pressure was elevated. Patient has been started on a heparin drip as his INR was found to be subtherapeutic at 0.9. Blood pressure is currently 147/77. EKG: Sinus tachycardia Chest x-ray no acute process CAT scan of the brain revealed a no acute intracranial process. Chronic small vessel ischemic disease. Postsurgical changes are stable. WBC 10.7, hemoglobin 13.1, platelet count 170. INR 1. Sodium 137, potassium 3.4, BUN 45 creatinine 3.57. Glucose 118. Liver function test are normal. Current home cardiac medications include Coreg 12.5 mg twice daily, lisinopril 20 mg daily, Coumadin 1 mg daily. Most recent echocardiogram obtained in May 2023 revealed ejection fraction 40%, mechanical aortic valve noted, mild TR, trace MR Cardiac catheterization history: April 2023 revealing mild nonobstructive disease involving the right coronary artery 10/08 Limited echocardiogram reveals EF 55%. Mechanical prosthetic aortic valve appears to be functioning normally. LVOT gradient noted. Heart rate is in the 60s and 70s, blood pressure 148/88, pulse ox 97% on room air. Sodium 138, potassium 3.6, BUN 44 creatinine 3.5. INR is 1. Patient received 2 mg of Coumadin last night. Pharmacy is dosing Coumadin. 10/09/2023 INR is 1 today. Patient seems to be hypertensive. PHYSICAL EXAM: VITAL SIGNS: Reviewed. GENERAL: Well-developed in no acute distress. HEENT: Head is normocephalic. Pupils are equal, round. Sclerae anicteric. Mucous membranes of the mouth are moist. Neck supple. No JVD or thyromegaly LUNGS: Respirations even and unlabored. Lungs essentially clear to auscultation bilaterally. HEART: Regular rate and rhythm. S1 and S2 heard. Mechanical click noted. ABDOMEN: Soft. Nondistended. Nontender. EXTREMITIES: Normal range of motion. No clubbing or cyanosis. Peripheral pulses intact. No lower extremity edema. NEUROLOGIC: Awake and alert. Oriented x 3. ASSESSMENT: Subtherapeutic INR Hypertension, uncontrolled Acute kidney injury Chronic kidney disease History of mechanical aortic valve replacement, 2003, in [place] Nonischemic cardiomyopathy, ejection fraction 40% Mild nonobstructive CAD, per catheterization in April 2023 PLAN: Continue home cardiac medications except for lisinopril which is on hold due to acute kidney injury. Agree with hydralazine 100 mg 3 times a day amlodipine 5 mg twice a day, Coreg 12.5 g twice a day Pharmacy is dosing Coumadin, monitor INR Continue heparin drip until INR is therapeutic Objective - Vital Signs Vital signs: Vital Signs Temp 98.3 F 10/09/23 08:01 Pulse 77 10/09/23 17:00 Resp 18 10/09/23 17:00 BP 182/115 10/09/23 17:00 Pulse Ox 98 10/09/23 17:00 FiO2 Intake & Output 10/08/23 10/09/23 10/09/23 18:59 06:59 18:59 Intake Total 970.083 904.236 0835 Output Total 480 Balance 490.083 417.194 5242 Intake: Intake, IV Titration 10.083 202.186 850 Amount Heparin Sod,Pork in 0.45% 10.083 202.186 250 NaCl 25,000 unit In 0.45 % NaCl 1 250ml.bag @ 12 UNITS/KG/HR 9.798 mls/hr IV .Q24H [facility] Rx#: [id number] Sodium Chloride 0.9% 1, 600 000 ml @ 50 mls/hr IV . Q20H [facility] Rx#:[id number] Oral 960 240 591 Output: Urine 480 Other: Voiding Method Toilet Toilet Toilet Urinal Urinal Urinal # Voids 2 1 - Labs CBC & Chem 7: 10/07/23 07:45 10/09/23 08:24 Labs: Abnormal Lab Results - Last 24 Hours (Table) 10/09/23 10/09/23 Range/Units 08:24 08:24 APTT 52.8 H (22.0-30.0) sec Chloride 112 H (98-107) mmol/L Carbon Dioxide 19 L (22-30) mmol/L BUN 42 H (9-20) mg/dL Creatinine 3.26 H (0.66-1.25) mg/dL Glucose 133 H (74-99) mg/dL
[2023-10-09] MEDS ORDERED: ZOLPIDEM 5 MG TAB PO PRN (20:44)
[2023-10-10] MEDS: HEPARIN SOD,PORK IN 0.45% NACL 25,000 UNIT in 0.45% NACL 1 250ML.BAG IV SCH ×2 (04:34→20:55)
[2023-10-10] MEDS: PANTOPRAZOLE 40 MG TABLET PO SCH (06:27)
[2023-10-10] MEDS: carvediloL 12.5 MG TAB PO SCH ×2 (06:27→17:07)
[2023-10-10] MEDS: FOLIC ACID 1 MG TAB PO SCH (08:05)
[2023-10-10] MEDS: hydrALAZINE HCL 50 MG TAB PO SCH ×3 (08:05→20:55)
[2023-10-10] MEDS: amLODIPine 5 MG TAB PO SCH ×2 (08:05→20:55)
[2023-10-10] MEDS: NICOTINE 14MG/24HR PATCH TRANSDERM SCH (08:05)
[2023-10-10] MEDS: FORMOTEROL FUMARATE 20 MCG/2 ML NEBU INHALATION SCH ×2 (08:46→20:52)
[2023-10-10] MEDS: IPRATROPIUM-ALBUTEROL 3 ML NEB INHALATION PRN ×2 (08:46→20:52)
[2023-10-10] MEDS: IPRATROPIUM 0.5 MG/2.5 ML NEBU INHALATION SCH ×4 (08:47→20:52)
[2023-10-10 10:09] LABS: INR 1.3 (<1.2); Partial Thromboplastin Time 61.9 sec (22.0-30.0); Prothrombin Time 13.3 sec (10.0-12.5)
[2023-10-10 10:18] LABS: African American GFR (CKD) 21 (>60 ml/min/1.73 sqM); Anion Gap 5 mmol/L; Blood Urea Nitrogen 37 mg/dL (9-20); Calcium 8.6 mg/dL (8.4-10.2); Carbon Dioxide 23 mmol/L (22-30); Chloride 109 mmol/L (98-107); Glucose 157 mg/dL (74-99); Magnesium 1.8 mg/dL (1.6-2.3); Non-African American GFR(CKD) 18 (>60 ml/min/1.73 sqM); Potassium 4.1 mmol/L (3.5-5.1); Sodium 137 mmol/L (137-145)
--- NOTE | 2023-10-10 10:36 | P.PN ---
Subjective Patient is seen in follow-up for acute kidney injury on chronic kidney disease. Renal function stable. Receiving IV fluids. Admits to good urine output. On heparin drip. Blood pressure on the higher side. Vital signs are stable. General: No acute distress. HEENT: Head exam is unremarkable. LUNGS: No audible rhonchi or wheezes. HEART: Rate and Rhythm are regular. ABDOMEN: Nontender. EXTREMITITES: No edema. Objective - Vital Signs Vital signs: Vital Signs Temp 97.8 F 10/10/23 08:03 Pulse 68 10/10/23 08:54 Resp 18 10/10/23 08:03 BP 176/98 10/10/23 08:03 Pulse Ox 98 10/10/23 08:03 FiO2 Intake & Output 10/09/23 10/10/23 10/10/23 18:59 06:59 18:59 Intake Total 1441 228.3 480 Balance 1441 228.3 480 Intake: Intake, IV Titration 850 228.3 Amount Heparin Sod,Pork in 0.45% 250 228.3 NaCl 25,000 unit In 0.45 % NaCl 1 250ml.bag @ 12 UNITS/KG/HR 9.798 mls/hr IV .Q24H [facility] Rx#: [id number] Sodium Chloride 0.9% 1, 600 000 ml @ 50 mls/hr IV . Q20H [facility] Rx#:[id number] Oral 591 480 Other: Voiding Method Toilet Toilet Toilet Urinal Urinal Urinal # Voids 1 - Labs CBC & Chem 7: 10/07/23 07:45 10/10/23 08:32 Labs: Abnormal Lab Results - Last 24 Hours (Table) 10/10/23 10/10/23 Range/Units 08:32 08:32 PT 13.3 H (10.0-12.5) sec INR 1.3 H (<1.2) APTT 61.9 H (22.0-30.0) sec Chloride 109 H (98-107) mmol/L BUN 37 H (9-20) mg/dL Creatinine 3.46 H (0.66-1.25) mg/dL Glucose 157 H (74-99) mg/dL Assessment and Plan Plan: Assessment: 1. Acute kidney injury secondary to hemodynamic ATN. Renal function stable. Creatinine 3.46 today. UA with 1+ protein and no blood. No hydronephrosis noted on kidney ultrasound. 2. Chronic kidney disease stage IV with baseline creatinine 2.1-2.4 in June 2023. Suspect nephrosclerosis. 3. Hypertensive urgency. No evidence of renal artery stenosis noted on renal duplex ultrasound. Cortisol level not elevated. 4. Chronic diastolic CHF. Preserved ejection fraction noted on echocardiogram done this admission. 5. Hypokalemia, replaced. Better. ?high aldosterone state. 6. Mechanical aortic valve. 7. History of CVA. 8. Metabolic acidosis secondary to acute kidney injury and IV fluids. Better. Plan: Hep-Lock IV fluids. Encouraged oral intake. Increase dose of coreg - hold for heart rate less than 60. Continue to hold lisinopril for now - can resume tomorrow if blood pressure not controlled. Follow-up secondary workup of hypertension. Avoid nephrotoxins. Advised to follow up outpatient 1 week post discharge to establish CKD care.
--- NOTE | 2023-10-10 11:24 | P.PN ---
Subjective Progress Note Date: 10/10/23 62-year-old gentleman with past medical history significant for mechanical aortic valve, nonischemic cardiomyopathy,hypertension, CVA, supratherapeutic INR, chronic kidney disease and multiple other medical issues presented to the ER with complaints of uncontrolled blood pressure in the 200's and his INR being too low, detected yesterday at Dr. Rodriguez's office. Reports compliance with medication regimen/anticoagulation/antihypertensives. Denies bleeding, tarry stools or bruising. Denies chest pain, palpitations or shortness of breath. Denies lightheadedness dizziness or focal deficits. On admission INR 0.9, 240/135, heart rate 111, respiratory rate within normal limits maintaining O2 sats of 97% on room air .heparin drip initiated in the ER .Denies syncope. EKG reported sinus tachycardia, chest x-ray reported nonacute. Brain CT reported no acute intracranial process. Afebrile, normal WBC, hemoglobin 13.1, platelets 170, INR 1 sodium 137, potassium 3.4, BUN 45, creatinine 3.57, glucose 118, LFTs within normal limits .Nephrology and cardiology consults in place. 10/09/2023: DR LERNER Assuming care >> Patient seen and evaluated at bedside, blood work reviewed INR 1, creatinine 3.26, appreciate input from nephrology, continue Coumadin and pharmacy to dose, discharge planning discussed we'll consult dietitian regarding education on diet 3 restrictions while on Coumadin 10/10/2023: patient seen and evaluated at bedside, INR levels obtained 1.3 today, patient states he slept well no major concerns, waiting for INR to be therapeutic PHYSICAL EXAMINATION: GENERAL: The patient is alert and oriented x3, not in any acute distress. Well developed, well nourished. HEENT: Pupils are round and equally reacting to light. EOMI. No scleral icterus. No conjunctival pallor. Normocephalic, atraumatic. No pharyngeal erythema. No thyromegaly. CARDIOVASCULAR: S1 and S2 present. Murmur appreciated from mechanical valve PULMONARY: Chest is clear to auscultation, no wheezing or crackles. ABDOMEN: Soft, nontender, nondistended, normoactive bowel sounds. No palpable organomegaly. MUSCULOSKELETAL: No joint swelling or deformity. EXTREMITIES: No cyanosis, clubbing, or pedal edema. NEUROLOGICAL: Gross neurological examination did not reveal any focal deficits. SKIN: No rashes. Objective - Vital Signs Vital signs: Vital Signs Temp 98.3 F 10/09/23 08:01 Pulse 74 10/10/23 00:00 Resp 18 10/10/23 00:00 BP 145/78 10/10/23 00:00 Pulse Ox 97 10/10/23 00:00 FiO2 Intake & Output 10/09/23 10/09/23 10/10/23 06:59 18:59 06:59 Intake Total 093.625 4055 Balance 247.135 9426 Intake: Intake, IV Titration 202.186 850 Amount Heparin Sod,Pork in 0.45% 202.186 250 NaCl 25,000 unit In 0.45 % NaCl 1 250ml.bag @ 12 UNITS/KG/HR 9.798 mls/hr IV .Q24H [facility] Rx#: [id number] Sodium Chloride 0.9% 1, 600 000 ml @ 50 mls/hr IV . Q20H [facility] Rx#:[id number] Oral 240 591 Other: Voiding Method Toilet Toilet Toilet Urinal Urinal Urinal # Voids 1 1 - Labs CBC & Chem 7: 10/07/23 07:45 10/10/23 08:32 Labs: Abnormal Lab Results - Last 24 Hours (Table) 10/09/23 10/09/23 Range/Units 08:24 08:24 APTT 52.8 H (22.0-30.0) sec Chloride 112 H (98-107) mmol/L Carbon Dioxide 19 L (22-30) mmol/L BUN 42 H (9-20) mg/dL Creatinine 3.26 H (0.66-1.25) mg/dL Glucose 133 H (74-99) mg/dL Assessment and Plan Assessment: Assessment and plan * Acute kidney injury on chronic kidney disease stage III * Hypertensive urgency on admission * History of mechanical aortic valve on anticoagulation with Coumadin * Subtherapeutic INR * Nonischemic cardio myopathy and 40% * Obstructive sleep apnea * Left renal lesion requiring outpatient follow-up * History of coronary artery disease * Hypertension * Hyperlipidemia * coronary artery disease * In regards to renal efficiency nephrology following patient receiving IV fluid and avoid nephrotoxic medications * In regards to history of mechanical aortic valve, continue Coumadin and pharmacy to dose INR goal 2.5-3.5, * In regards to history of hypertension continue patient on hydralazine, Coreg, amlodipine * appreciate input from nephrology, cardiology Time with Patient: Greater than 30
[2023-10-10] MEDS: MAGNESIUM OXIDE 400 MG TAB PO SCH ×2 (11:54→20:55)
[2023-10-10] MEDS ORDERED: WARFARIN 2 MG TAB PO ONE (18:00)
[2023-10-11] MEDS: PANTOPRAZOLE 40 MG TABLET PO SCH (06:12)
[2023-10-11] MEDS: carvediloL 12.5 MG TAB PO SCH ×2 (06:12→17:31)
[2023-10-11] MEDS: FOLIC ACID 1 MG TAB PO SCH (07:44)
[2023-10-11] MEDS: NICOTINE 14MG/24HR PATCH TRANSDERM SCH (07:44)
[2023-10-11] MEDS: amLODIPine 5 MG TAB PO SCH ×2 (07:44→20:50)
[2023-10-11] MEDS: hydrALAZINE HCL 50 MG TAB PO SCH ×3 (07:44→20:50)
[2023-10-11] MEDS: MAGNESIUM OXIDE 400 MG TAB PO SCH ×2 (07:44→20:50)
[2023-10-11 08:32] LABS: Anisocytosis Slight; HCT 38.6 % (39.0-53.0); HGB 12.7 gm/dL (13.0-17.5); MCH 28.4 pg (25.0-35.0); MCHC 32.9 g/dL (31.0-37.0); MCV 86.5 fL (80.0-100.0); Mean Platelet Volume 9.1; Platelet Count 159 k/uL (150-450); RBC 4.47 m/uL (4.30-5.90); RDW 17.2 % (11.5-15.5)
[2023-10-11 08:44] LABS: INR 1.5 (<1.2); Prothrombin Time 15.3 sec (10.0-12.5)
[2023-10-11 09:12] LABS: African American GFR (CKD) 19 (>60 ml/min/1.73 sqM); Anion Gap 8 mmol/L; Blood Urea Nitrogen 41 mg/dL (9-20); Carbon Dioxide 23 mmol/L (22-30); Chloride 108 mmol/L (98-107); Glucose 100 mg/dL (74-99); Magnesium 2.1 mg/dL (1.6-2.3); Non-African American GFR(CKD) 16 (>60 ml/min/1.73 sqM); Sodium 139 mmol/L (137-145)
[2023-10-11 09:13] LABS: Potassium 4.2 mmol/L (3.5-5.1)
[2023-10-11] MEDS: FORMOTEROL FUMARATE 20 MCG/2 ML NEBU INHALATION SCH ×2 (09:14→22:12)
[2023-10-11] MEDS: IPRATROPIUM 0.5 MG/2.5 ML NEBU INHALATION SCH ×4 (09:14→22:12)
[2023-10-11] MEDS: IPRATROPIUM-ALBUTEROL 3 ML NEB INHALATION PRN ×4 (09:14→22:11)
--- NOTE | 2023-10-11 11:24 | P.PN ---
Subjective Patient is seen for follow-up for acute kidney injury and chronic kidney disease. IV fluids discontinued yesterday due to elevated blood pressure. Serum creatinine increased to 3.7 today from 3.4 yesterday. Patient has been voiding. Objective - Vital Signs Vital signs: Vital Signs Temp 97.8 F 10/11/23 07:40 Pulse 68 10/11/23 09:37 Resp 16 10/11/23 07:40 BP 144/89 10/11/23 07:40 Pulse Ox 98 10/11/23 07:40 FiO2 Intake & Output 10/10/23 10/11/23 10/11/23 18:59 06:59 18:59 Intake Total 1116 250 625.03 Balance 1116 250 625.03 Intake: Intake, IV Titration 250 205.03 Amount Heparin Sod,Pork in 0.45% 250 205.03 NaCl 25,000 unit In 0.45 % NaCl 1 250ml.bag @ 12 UNITS/KG/HR 9.798 mls/hr IV .Q24H [facility] Rx#: [id number] Oral 1116 420 Other: Voiding Method Toilet Toilet Toilet Urinal Urinal Urinal # Voids 1 - Exam Patient is awake, comfortable, no acute distress examination of the heart S1 and S2 Examination of the lungs bilateral breath sounds are heard Abdomen is soft nontender Examination of lower extremity shows trace edema [employer] exam grossly intact - Labs CBC & Chem 7: 10/11/23 07:17 10/11/23 07:17 Labs: Abnormal Lab Results - Last 24 Hours (Table) 10/11/23 10/11/23 10/11/23 Range/Units 07:17 07:17 07:17 Hgb (13.0-17.5) gm/dL Hct (39.0-53.0) % RDW (11.5-15.5) % PT 15.3 H (10.0-12.5) sec INR 1.5 H (<1.2) APTT 79.4 H (22.0-30.0) sec Chloride 108 H (98-107) mmol/L BUN 41 H (9-20) mg/dL Creatinine 3.73 H (0.66-1.25) mg/dL Glucose 100 H (74-99) mg/dL 10/11/23 Range/Units 07:17 Hgb 12.7 L (13.0-17.5) gm/dL Hct 38.6 L (39.0-53.0) % RDW 17.2 H (11.5-15.5) % PT (10.0-12.5) sec INR (<1.2) APTT (22.0-30.0) sec Chloride (98-107) mmol/L BUN (9-20) mg/dL Creatinine (0.66-1.25) mg/dL Glucose (74-99) mg/dL Assessment and Plan Assessment: 1. Acute kidney injury secondary to hemodynamic ATN. Renal function stable. Creatinine 3.7 today. UA with 1+ protein and no blood. No hydronephrosis noted on kidney ultrasound. 2. Chronic kidney disease stage IV with baseline creatinine 2.1-2.4 in June 2023. Suspect nephrosclerosis. 3. Hypertensive urgency. No evidence of renal artery stenosis noted on renal duplex ultrasound. Cortisol level not elevated. 4. Chronic diastolic CHF. Preserved ejection fraction noted on echocardiogram done this admission. 5. Hypokalemia, replaced. Better. ?high aldosterone state. 6. Mechanical aortic valve. 7. History of CVA. 8. Metabolic acidosis secondary to acute kidney injury and IV fluids. Better. Plan: Restart IV fluids Continue to hold SANTANA inhibitor's Repeat labs in a.m. Check bladder scan postvoid.
[2023-10-11] MEDS: HEPARIN SOD,PORK IN 0.45% NACL 25,000 UNIT in 0.45% NACL 1 250ML.BAG IV SCH (12:48)
--- NOTE | 2023-10-11 13:22 | P.PN ---
Subjective HISTORY OF PRESENT ILLNESS: This is a 62-year-old male who follows in the office with Dr. Ibarra. Patient examined this morning at the bedside. Patient denies any chest pain or pressure. He denies shortness of breath. Patient's INR today is 1.5. He remains on IV heparin. Patient states he has been compliant with his me dications on an outpatient basis. He also denies any changes to his dietary intake. Vital signs are currently stable. PHYSICAL EXAM: VITAL SIGNS: Reviewed. GENERAL: Well-developed in no acute distress. NECK: Supple. No JVD or thyromegaly LUNGS: Respirations even and unlabored. Lungs essentially clear to auscultation bilaterally. HEART: Regular rate and rhythm. S1 and S2 heard. Mechanical click noted. EXTREMITIES: Normal range of motion. No clubbing or cyanosis. Peripheral pulses intact. No lower extremity edema ASSESSMENT: Subtherapeutic INR Hypertension, uncontrolled, now improved Acute kidney injury Chronic kidney disease History of mechanical aortic valve replacement, 2001, in [place] Nonischemic cardiomyopathy, ejection fraction 40% Mild nonobstructive CAD, per catheterization in April 2023 History of medication noncompliance PLAN: Lisinopril remains on hold secondary to acute kidney injury Continue current cardiac medications Continue Coumadin. Monitor INR. Continue IV heparin until INR is therapeutic Further recommendations pending patient's course Nurse practitioner note has been reviewed by physician. Signing provider agrees with the documented findings, assessment, and plan of care. Objective - Vital Signs Vital signs: Vital Signs Temp 97.7 F 10/11/23 11:30 Pulse 74 10/11/23 12:17 Resp 16 10/11/23 11:30 BP 144/92 10/11/23 11:30 Pulse Ox 97 10/11/23 11:30 FiO2 Intake & Output 10/10/23 10/11/23 10/11/23 18:59 06:59 18:59 Intake Total 1116 250 662.043 Balance 1116 250 662.043 Weight 81.647 kg Intake: Intake, IV Titration 250 242.043 Amount Heparin Sod,Pork in 0.45% 250 242.043 NaCl 25,000 unit In 0.45 % NaCl 1 250ml.bag @ 12 UNITS/KG/HR 9.798 mls/hr IV .Q24H [facility] Rx#: [id number] Oral 1116 420 Other: Voiding Method Toilet Toilet Toilet Urinal Urinal Urinal # Voids 1 3 # Bowel Movements 1 - Labs CBC & Chem 7: 10/11/23 07:17 10/11/23 07:17 Labs: Abnormal Lab Results - Last 24 Hours (Table) 10/11/23 10/11/23 10/11/23 Range/Units 07:17 07:17 07:17 Hgb (13.0-17.5) gm/dL Hct (39.0-53.0) % RDW (11.5-15.5) % PT 15.3 H (10.0-12.5) sec INR 1.5 H (<1.2) APTT 79.4 H (22.0-30.0) sec Chloride 108 H (98-107) mmol/L BUN 41 H (9-20) mg/dL Creatinine 3.73 H (0.66-1.25) mg/dL Glucose 100 H (74-99) mg/dL 10/11/23 Range/Units 07:17 Hgb 12.7 L (13.0-17.5) gm/dL Hct 38.6 L (39.0-53.0) % RDW 17.2 H (11.5-15.5) % PT (10.0-12.5) sec INR (<1.2) APTT (22.0-30.0) sec Chloride (98-107) mmol/L BUN (9-20) mg/dL Creatinine (0.66-1.25) mg/dL Glucose (74-99) mg/dL
[2023-10-11 13:26] VITALS: BMI 28.1
--- NOTE | 2023-10-11 14:44 | P.PN ---
Subjective Progress Note Date: 10/11/23 H&P Date: 10/07/23 This is a 62-year-old gentleman with past medical history significant for mechanical aortic valve, nonischemic cardiomyopathy,hypertension, CVA, supratherapeutic INR, chronic kidney disease and multiple other medical issues presented to the ER with complaints of uncontrolled blood pressure in the 200's and his INR being too low, detected yesterday at Dr. Rodriguez's office. Reports compliance with medication regimen/anticoagulation/antihypertensives. Denies bleeding, tarry stools or bruising. Denies chest pain, palpitations or shortness of breath. Denies lightheadedness dizziness or focal deficits. On admission INR 0.9, 240/135, heart rate 111, respiratory rate within normal limits maintaining O2 sats of 97% on room air .heparin drip initiated in the ER .Denies syncope. EKG reported sinus tachycardia, chest x-ray reported nonacute. Brain CT reported no acute intracranial process. Afebrile, normal WBC, hemoglobin 13.1, platelets 170, INR 1 sodium 137, potassium 3.4, BUN 45, creatinine 3.57, glucose 118, LFTs within normal limits .Nephrology and cardiology consults in place. 10/08/2023 Blood pressure better controlled, heart rate in the 60s, maintaining O2 sats in the high 90s on room air. Maintain IV fluid hydration. Anticoagulated on heparin drip and Coumadin per pharmacy dosing, INR 1. echocardiogram with limited views reporting left ventricular hypertrophy with preserved systolic function,EF 55%, mechanical prosthetic aortic valve appears to be functioning normally. Potassium supplemented yesterday, 3.6 currently. BUN 44, creatinine 3.5. Renal ultrasound reported no evidence for renal artery stenosis on either side, no hydronephrosis on a 2.2 cm hypoechoic at the left kidney mid pole suspected to represent a column of Hugo rather than a solid mass with recommendations of follow-up renal ultrasound in 3-6 months .Magnesium 2.2 10/11/2023 continues on heparin drip and Coumadin, current INR 1.5. Creatinine holding steady at 3.73. Hypertensive yesterday , IV fluids discontinued , Coreg dose increased yesterday with pressures improved today. Objective - Vital Signs Vital signs: Vital Signs Temp 97.7 F 10/11/23 11:30 Pulse 74 10/11/23 12:17 Resp 16 10/11/23 11:30 BP 144/92 10/11/23 11:30 Pulse Ox 97 10/11/23 11:30 FiO2 Intake & Output 10/10/23 10/11/23 10/11/23 18:59 06:59 18:59 Intake Total 1116 250 842.043 Balance 1116 250 842.043 Weight 81.647 kg Intake: Intake, IV Titration 250 242.043 Amount Heparin Sod,Pork in 0.45% 250 242.043 NaCl 25,000 unit In 0.45 % NaCl 1 250ml.bag @ 12 UNITS/KG/HR 9.798 mls/hr IV .Q24H [facility] Rx#: [id number] Oral 1116 600 Other: Voiding Method Toilet Toilet Toilet Urinal Urinal Urinal # Voids 1 3 # Bowel Movements 1 - Exam PHYSICAL EXAM: VITAL SIGNS: [As above] GENERAL: Alert and oriented 3, lying in bed, no acute distress HEENT: Normocephalic, Conjunctivae normal. eyes normal. NECK: Supple, No JVD. CARDIOVASCULAR: S1, S2 regular. No murmur, prosthetic valve click RESPIRATION: Unlabored, equal air entry, Breath sounds diminished in the bases. ABDOMEN: Soft, nondistended, nontender . No guarding. No rigidity ,+BS LEGS: trace edema. no calf tenderness, no clubbing or cyanosis. NERVOUS SYSTEM: Cranial N 2-12 grossly normal. No focal deficits. Strength and sensation grossly intact. Skin: Warm and dry, no rash - Labs CBC & Chem 7: 10/11/23 07:17 10/11/23 07:17 Labs: Abnormal Lab Results - Last 24 Hours (Table) 10/11/23 10/11/23 10/11/23 Range/Units 07:17 07:17 07:17 Hgb (13.0-17.5) gm/dL Hct (39.0-53.0) % RDW (11.5-15.5) % PT 15.3 H (10.0-12.5) sec INR 1.5 H (<1.2) APTT 79.4 H (22.0-30.0) sec Chloride 108 H (98-107) mmol/L BUN 41 H (9-20) mg/dL Creatinine 3.73 H (0.66-1.25) mg/dL Glucose 100 H (74-99) mg/dL 10/11/23 Range/Units 07:17 Hgb 12.7 L (13.0-17.5) gm/dL Hct 38.6 L (39.0-53.0) % RDW 17.2 H (11.5-15.5) % PT (10.0-12.5) sec INR (<1.2) APTT (22.0-30.0) sec Chloride (98-107) mmol/L BUN (9-20) mg/dL Creatinine (0.66-1.25) mg/dL Glucose (74-99) mg/dL Assessment and Plan Assessment: Subtherapeutic INR Hypertensive urgency, on admission, better controlled Acute on chronic CKD, stage IV, GFR 32, baseline creatinine 2.16 in 07/12. Mechanical aortic valve-[facility], AVR 2003 Nonischemic cardiomyopathy, EF 40% CAD History of CVA 2 years ago Hypertension Hyperlipidemia Gastroesophageal reflux disease Obstructive sleep apnea and does not use BiPAP or CPAP Obesity, BMI 28 Ongoing nicotine dependence Hypokalemia 2.2 cm hypoechoic at the left kidney mid pole suspected to represent a column of Hugo rather than a solid mass with recommendations of follow-up renal ultrasound in 3-6 months, reported per renal ultrasound. Plan: Continue on current medication regime ,monitoring and symptomatic treatment. Continue holding SANTANA inhibitor with IV fluids as per nephrology. INR remains sub-therapeutic ,anticoagulation as per cardiology with both Heparin drip /Coumadin dosing per pharmacy. The impression and plan of care has been dictated as directed. : I performed a history and examination of this patient, discussed the same with the dictator. I agree with the dictator's note ,documented as a scribe. Any additional findings or plans will be noted.
[2023-10-11] MEDS: SODIUM CHLORIDE 0.45% 1,000 ML IV SCH (17:30)
[2023-10-11] MEDS ORDERED: WARFARIN 2 MG TAB PO ONE (18:00)
[2023-10-12] MEDS: ACETAMINOPHEN TAB 325 MG TAB PO PRN ×2 (03:24→20:14)
[2023-10-12 04:18] VITALS: RESP 16
[2023-10-12] MEDS: PANTOPRAZOLE 40 MG TABLET PO SCH (06:20)
[2023-10-12] MEDS: carvediloL 12.5 MG TAB PO SCH ×2 (06:20→16:57)
[2023-10-12] MEDS: SODIUM CHLORIDE 0.45% 1,000 ML IV SCH (06:21)
[2023-10-12] MEDS: HEPARIN SOD,PORK IN 0.45% NACL 25,000 UNIT in 0.45% NACL 1 250ML.BAG IV SCH (06:26)
[2023-10-12 07:49] LABS: INR 1.9 (<1.2); Prothrombin Time 19.3 sec (10.0-12.5)
[2023-10-12] MEDS: FOLIC ACID 1 MG TAB PO SCH (08:27)
[2023-10-12] MEDS: MAGNESIUM OXIDE 400 MG TAB PO SCH ×2 (08:27→20:14)
[2023-10-12] MEDS: NICOTINE 14MG/24HR PATCH TRANSDERM SCH (08:27)
[2023-10-12] MEDS: amLODIPine 5 MG TAB PO SCH ×2 (08:27→20:14)
[2023-10-12] MEDS: hydrALAZINE HCL 50 MG TAB PO SCH ×3 (08:28→20:14)
[2023-10-12] MEDS: IPRATROPIUM-ALBUTEROL 3 ML NEB INHALATION PRN ×4 (09:00→21:14)
[2023-10-12] MEDS: FORMOTEROL FUMARATE 20 MCG/2 ML NEBU INHALATION SCH ×2 (09:00→21:14)
[2023-10-12] MEDS: IPRATROPIUM 0.5 MG/2.5 ML NEBU INHALATION SCH ×4 (09:00→21:14)
[2023-10-12] MEDS ORDERED: MAGNESIUM SULFATE-D5W PMX 1 GM in DEXTROSE/WATER 1 100ML.BAG IVPB ONE (09:24)
[2023-10-12] MEDS ORDERED: ACETAMINOPHEN IV (For NPO) 1,000 MG in EMPTY BAG 1 BAG IVPB STA (09:25)
[2023-10-12 10:19] LABS: African American GFR (CKD) 18 (>60 ml/min/1.73 sqM); Anion Gap 8 mmol/L; Blood Urea Nitrogen 42 mg/dL (9-20); Calcium 8.8 mg/dL (8.4-10.2); Carbon Dioxide 24 mmol/L (22-30); Chloride 107 mmol/L (98-107); Glucose 115 mg/dL (74-99); Non-African American GFR(CKD) 16 (>60 ml/min/1.73 sqM); Potassium 3.8 mmol/L (3.5-5.1); Sodium 139 mmol/L (137-145)
--- NOTE | 2023-10-12 11:14 | P.PN ---
Subjective HISTORY OF PRESENT ILLNESS: This is a 62-year-old male who follows in the office with Dr. Ibarra. Patient examined this morning at the bedside. Patient denies any chest pain or pressure. He denies shortness of breath. Patient's INR today is 1.5. He remains on IV heparin. Patient states he has been compliant with his me dications on an outpatient basis. He also denies any changes to his dietary intake. Vital signs are currently stable. October 12, 2023 Patient examined this morning at the bedside. Patient denies chest pain or pressure. He denies shortness of breath. He does report having a headache overnight and this morning. Vital signs are stable. Blood pressure 124/85. Patient's INR today is 1.9. He remains on IV heparin. Creatinine today 3.84. PHYSICAL EXAM: VITAL SIGNS: Reviewed. GENERAL: Well-developed in no acute distress. NECK: Supple. No JVD or thyromegaly LUNGS: Respirations even and unlabored. Lungs essentially clear to auscultation bilaterally. HEART: Regular rate and rhythm. S1 and S2 heard. Mechanical click noted. EXTREMITIES: Normal range of motion. No clubbing or cyanosis. Peripheral pulses intact. No lower extremity edema ASSESSMENT: Subtherapeutic INR Hypertension, uncontrolled, now improved Acute kidney injury Chronic kidney disease History of mechanical aortic valve replacement, 2001, in [place] Nonischemic cardiomyopathy, ejection fraction 40% Mild nonobstructive CAD, per catheterization in April 2023 History of medication noncompliance PLAN: Lisinopril remains on hold secondary to acute kidney injury Continue current cardiac medications Continue Coumadin. Monitor INR. Continue IV heparin until INR is therapeutic Further recommendations pending patient's course Nurse practitioner note has been reviewed by physician. Signing provider agrees with the documented findings, assessment, and plan of care. Objective - Vital Signs Vital signs: Vital Signs Temp 97.4 F L 10/12/23 08:21 Pulse 68 10/12/23 09:15 Resp 16 10/12/23 08:21 BP 124/85 10/12/23 08:21 Pulse Ox 98 10/12/23 08:21 FiO2 Intake & Output 10/11/23 10/12/23 10/12/23 18:59 06:59 18:59 Intake Total 1042.043 243.594 240 Balance 1042.043 243.594 240 Weight 81.647 kg Intake: Intake, IV Titration 242.043 243.594 Amount Heparin Sod,Pork in 0.45% 242.043 243.594 NaCl 25,000 unit In 0.45 % NaCl 1 250ml.bag @ 12 UNITS/KG/HR 9.798 mls/hr IV .Q24H [facility] Rx#: [id number] Oral 800 240 Other: Voiding Method Toilet Toilet Urinal # Voids 2 1 # Bowel Movements 1 - Labs CBC & Chem 7: 10/11/23 07:17 10/12/23 06:33 Labs: Abnormal Lab Results - Last 24 Hours (Table) 10/11/23 10/12/23 10/12/23 Range/Units 20:48 06:33 06:33 PT 19.3 H (10.0-12.5) sec INR 1.9 H (<1.2) APTT 57.0 H 68.9 H (22.0-30.0) sec BUN (9-20) mg/dL Creatinine (0.66-1.25) mg/dL Glucose (74-99) mg/dL 10/12/23 Range/Units 06:33 PT (10.0-12.5) sec INR (<1.2) APTT (22.0-30.0) sec BUN 42 H (9-20) mg/dL Creatinine 3.84 H (0.66-1.25) mg/dL Glucose 115 H (74-99) mg/dL
--- NOTE | 2023-10-12 14:54 | P.PN ---
Subjective Progress Note Date: 10/12/23 H&P Date: 10/07/23 This is a 62-year-old gentleman with past medical history significant for mechanical aortic valve, nonischemic cardiomyopathy,hypertension, CVA, supratherapeutic INR, chronic kidney disease and multiple other medical issues presented to the ER with complaints of uncontrolled blood pressure in the 200's and his INR being too low, detected yesterday at Dr. Rodriguez's office. Reports compliance with medication regimen/anticoagulation/antihypertensives. Denies bleeding, tarry stools or bruising. Denies chest pain, palpitations or shortness of breath. Denies lightheadedness dizziness or focal deficits. On admission INR 0.9, 240/135, heart rate 111, respiratory rate within normal limits maintaining O2 sats of 97% on room air .heparin drip initiated in the ER .Denies syncope. EKG reported sinus tachycardia, chest x-ray reported nonacute. Brain CT reported no acute intracranial process. Afebrile, normal WBC, hemoglobin 13.1, platelets 170, INR 1 sodium 137, potassium 3.4, BUN 45, creatinine 3.57, glucose 118, LFTs within normal limits .Nephrology and cardiology consults in place. 10/08/2023 Blood pressure better controlled, heart rate in the 60s, maintaining O2 sats in the high 90s on room air. Maintain IV fluid hydration. Anticoagulated on heparin drip and Coumadin per pharmacy dosing, INR 1. echocardiogram with limited views reporting left ventricular hypertrophy with preserved systolic function,EF 55%, mechanical prosthetic aortic valve appears to be functioning normally. Potassium supplemented yesterday, 3.6 currently. BUN 44, creatinine 3.5. Renal ultrasound reported no evidence for renal artery stenosis on either side, no hydronephrosis on a 2.2 cm hypoechoic at the left kidney mid pole suspected to represent a column of Hugo rather than a solid mass with recommendations of follow-up renal ultrasound in 3-6 months .Magnesium 2.2 10/11/2023 continues on heparin drip and Coumadin, current INR 1.5. Creatinine holding steady at 3.73. Hypertensive yesterday , IV fluids discontinued , Coreg dose increased yesterday with pressures improved today. 10/12/2023 maintained on heparin drip and Coumadin, INR currently 1.9, renal function already stable at 42/3.84. Denies chest pain, palpitations or shortness of breath. Maintaining O2 sats in the high 90s on room air. Complaining of stiff neck/migraine. Objective - Vital Signs Vital signs: Vital Signs Temp 97.4 F L 10/12/23 08:21 Pulse 72 10/12/23 12:26 Resp 16 10/12/23 12:26 BP 140/96 10/12/23 12:26 Pulse Ox 97 10/12/23 12:26 FiO2 Intake & Output 10/11/23 10/12/23 10/12/23 18:59 06:59 18:59 Intake Total 1042.043 243.594 579 Balance 1042.043 243.594 579 Weight 81.647 kg Intake: Intake, IV Titration 242.043 243.594 Amount Heparin Sod,Pork in 0.45% 242.043 243.594 NaCl 25,000 unit In 0.45 % NaCl 1 250ml.bag @ 12 UNITS/KG/HR 9.798 mls/hr IV .Q24H [facility] Rx#: [id number] Oral 800 579 Other: Voiding Method Toilet Toilet Urinal # Voids 2 1 # Bowel Movements 1 - Exam PHYSICAL EXAM: VITAL SIGNS: [As above] GENERAL: Alert and oriented 3, lying in bed, no acute distress HEENT: Normocephalic, Conjunctivae normal. eyes normal. NECK: Supple, No JVD. CARDIOVASCULAR: S1, S2 regular. No murmur, prosthetic valve click RESPIRATION: Unlabored, equal air entry, CTA, bilateral bases diminished ABDOMEN: Soft, nondistended, nontender . No guarding. No rigidity ,+BS LEGS: No edema. no calf tenderness, no clubbing or cyanosis. NERVOUS SYSTEM: Cranial N 2-12 grossly normal. No focal deficits. Strength and sensation grossly intact. Skin: Warm and dry, no rash - Labs CBC & Chem 7: 10/11/23 07:17 10/12/23 06:33 Labs: Abnormal Lab Results - Last 24 Hours (Table) 10/11/23 10/12/23 10/12/23 Range/Units 20:48 06:33 06:33 PT 19.3 H (10.0-12.5) sec INR 1.9 H (<1.2) APTT 57.0 H 68.9 H (22.0-30.0) sec BUN (9-20) mg/dL Creatinine (0.66-1.25) mg/dL Glucose (74-99) mg/dL 10/12/23 Range/Units 06:33 PT (10.0-12.5) sec INR (<1.2) APTT (22.0-30.0) sec BUN 42 H (9-20) mg/dL Creatinine 3.84 H (0.66-1.25) mg/dL Glucose 115 H (74-99) mg/dL Assessment and Plan Assessment: Subtherapeutic INR Hypertensive urgency, on admission, better controlled Acute on chronic CKD, stage IV, GFR 32, baseline creatinine 2.16 in 07/12. Mechanical aortic valve-[facility], AVR 2003 Nonischemic cardiomyopathy, EF 40% CAD History of CVA 2 years ago Hypertension Hyperlipidemia Gastroesophageal reflux disease Obstructive sleep apnea and does not use BiPAP or CPAP Obesity, BMI 28 Ongoing nicotine dependence Hypokalemia 2.2 cm hypoechoic at the left kidney mid pole suspected to represent a column of Hugo rather than a solid mass with recommendations of follow-up renal ultrasound in 3-6 months, reported per renal ultrasound. Plan: Continue on current medication regime ,monitoring and symptomatic treatment. INR remains sub-therapeutic ,anticoagulation as per cardiology with both Heparin drip /Coumadin dosing per pharmacy.Continue holding SANTANA inhibitor with IV fluids as per nephrology. The impression and plan of care has been dictated as directed. : I performed a history and examination of this patient, discussed the same with the dictator. I agree with the dictator's note ,documented as a scribe. Any additional findings or plans will be noted.
--- NOTE | 2023-10-12 16:45 | P.PN ---
Subjective Patient is seen for follow-up for acute kidney injury and chronic kidney disease. IV fluids restarted yesterday but renal function has not improved. Serum creatinine at 3.8 today. No significant complaints. Maintained on IV heparin for history of mechanical aortic valve replacement. INR 1.9 today. Maintained on Coumadin. Objective - Vital Signs Vital signs: Vital Signs Temp 97.4 F L 10/12/23 08:21 Pulse 66 10/12/23 16:26 Resp 16 10/12/23 16:26 BP 132/69 10/12/23 16:26 Pulse Ox 98 10/12/23 16:26 FiO2 Intake & Output 10/11/23 10/12/23 10/12/23 18:59 06:59 18:59 Intake Total 1042.043 243.594 579 Balance 1042.043 243.594 579 Weight 81.647 kg Intake: Intake, IV Titration 242.043 243.594 Amount Heparin Sod,Pork in 0.45% 242.043 243.594 NaCl 25,000 unit In 0.45 % NaCl 1 250ml.bag @ 12 UNITS/KG/HR 9.798 mls/hr IV .Q24H [facility] Rx#: [id number] Oral 800 579 Other: Voiding Method Toilet Toilet Urinal # Voids 2 1 # Bowel Movements 1 - Exam Patient is awake, comfortable, no acute distress examination of the heart S1 and S2 Examination of the lungs bilateral breath sounds are heard Abdomen is soft nontender Examination of lower extremity shows 1+ edema RAW SAMPLER exam grossly intact - Labs CBC & Chem 7: 10/11/23 07:17 10/12/23 06:33 Labs: Abnormal Lab Results - Last 24 Hours (Table) 10/11/23 10/12/23 10/12/23 Range/Units 20:48 06:33 06:33 PT 19.3 H (10.0-12.5) sec INR 1.9 H (<1.2) APTT 57.0 H 68.9 H (22.0-30.0) sec BUN (9-20) mg/dL Creatinine (0.66-1.25) mg/dL Glucose (74-99) mg/dL 10/12/23 Range/Units 06:33 PT (10.0-12.5) sec INR (<1.2) APTT (22.0-30.0) sec BUN 42 H (9-20) mg/dL Creatinine 3.84 H (0.66-1.25) mg/dL Glucose 115 H (74-99) mg/dL Assessment and Plan Assessment: 1. Acute kidney injury secondary to hemodynamic ATN. Serum creatinine increased to 3.8 today. No improvement with IV hydration. UA with 1+ protein and no blood. No hydronephrosis noted on kidney ultrasound. 2. Chronic kidney disease stage IV with baseline creatinine 2.1-2.4 in June 2023. Suspect nephrosclerosis. 3. Hypertensive urgency. No evidence of renal artery stenosis noted on renal duplex ultrasound. Cortisol level not elevated. 4. Chronic diastolic CHF. Preserved ejection fraction noted on echocardiogram done this admission. 5. Hypokalemia, replaced. Better. ?high aldosterone state. 6. Mechanical aortic valve. 7. History of CVA. 8. Metabolic acidosis secondary to acute kidney injury and IV fluids. Better. Plan: Discontinue IV fluids Continue to hold SANTANA inhibitor's Repeat labs in a.m. Check bladder scan postvoid. Close follow-up as outpatient.
[2023-10-12] MEDS ORDERED: WARFARIN 3 MG TAB PO ONE (18:00)
[2023-10-13] MEDS: carvediloL 12.5 MG TAB PO SCH (06:37)
[2023-10-13] MEDS: PANTOPRAZOLE 40 MG TABLET PO SCH (06:37)
[2023-10-13 08:12] VITALS: BP 146/91; TEMP 97.9
[2023-10-13 08:31] LABS: INR 2.7 (<1.2); Prothrombin Time 26.4 sec (10.0-12.5)
[2023-10-13 08:46] LABS: Sodium 138 mmol/L (137-145)
[2023-10-13 08:49] LABS: African American GFR (CKD) 17 (>60 ml/min/1.73 sqM); Anion Gap 8 mmol/L; Blood Urea Nitrogen 44 mg/dL (9-20); Calcium 9.2 mg/dL (8.4-10.2); Carbon Dioxide 22 mmol/L (22-30); Chloride 108 mmol/L (98-107); Glucose 103 mg/dL (74-99); Non-African American GFR(CKD) 15 (>60 ml/min/1.73 sqM); Potassium 4.5 mmol/L (3.5-5.1)
[2023-10-13] MEDS: FORMOTEROL FUMARATE 20 MCG/2 ML NEBU INHALATION SCH (08:53)
[2023-10-13] MEDS: IPRATROPIUM-ALBUTEROL 3 ML NEB INHALATION PRN (08:53)
[2023-10-13] MEDS: IPRATROPIUM 0.5 MG/2.5 ML NEBU INHALATION SCH (08:53)
[2023-10-13 09:30] VITALS: PULSE 75
[2023-10-13] MEDS: FOLIC ACID 1 MG TAB PO SCH (09:33)
[2023-10-13] MEDS: NICOTINE 14MG/24HR PATCH TRANSDERM SCH (09:34)
[2023-10-13] MEDS: MAGNESIUM OXIDE 400 MG TAB PO SCH (09:35)
[2023-10-13] MEDS: amLODIPine 5 MG TAB PO SCH (09:35)
[2023-10-13] MEDS: hydrALAZINE HCL 50 MG TAB PO SCH (09:35)
--- NOTE | 2023-10-13 10:59 | P.PN ---
Subjective Patient is seen for follow-up for acute kidney injury and chronic kidney disease. No improvement in renal function with IV fluids therefore discontinued yesterday. Serum creatinine at 4.0 today. No significant complaints. INR is therapeutic at 2.7. Objective - Vital Signs Vital signs: Vital Signs Temp 97.9 F 10/13/23 08:00 Pulse 75 10/13/23 09:07 Resp 16 10/13/23 09:13 BP 146/91 10/13/23 08:00 Pulse Ox 99 10/13/23 05:07 FiO2 Intake & Output 10/12/23 10/13/23 10/13/23 18:59 06:59 18:59 Intake Total 819 490 Output Total 134 Balance 819 356 Intake: Intake, IV Titration 250 Amount Heparin Sod,Pork in 0.45% 250 NaCl 25,000 unit In 0.45 % NaCl 1 250ml.bag @ 12 UNITS/KG/HR 9.798 mls/hr IV .Q24H [facility] Rx#: [id number] Oral 819 240 Output: Post Void Residual 134 Other: Voiding Method Toilet Toilet # Voids 2 2 - Exam Patient is awake, comfortable, no acute distress examination of the heart S1 and S2 Examination of the lungs bilateral breath sounds are heard Abdomen is soft nontender Examination of lower extremity shows trace edema [employer] exam grossly intact - Labs CBC & Chem 7: 10/11/23 07:17 10/13/23 07:50 Labs: Abnormal Lab Results - Last 24 Hours (Table) 10/13/23 10/13/23 10/13/23 Range/Units 07:50 07:50 07:50 PT 26.4 H (10.0-12.5) sec INR 2.7 H (<1.2) APTT 95.5 H (22.0-30.0) sec Chloride 108 H (98-107) mmol/L BUN 44 H (9-20) mg/dL Creatinine 4.04 H (0.66-1.25) mg/dL Glucose 103 H (74-99) mg/dL Assessment and Plan Assessment: 1. Acute kidney injury secondary to hemodynamic ATN. Serum creatinine at 4.0 today. No improvement with IV hydration. UA with 1+ protein and no blood. No hydronephrosis noted on kidney ultrasound. 2. Chronic kidney disease stage IV with baseline creatinine 2.1-2.4 in June 2023. Suspect nephrosclerosis. 3. Hypertensive urgency. No evidence of renal artery stenosis noted on renal duplex ultrasound. Cortisol level not elevated. 4. Chronic diastolic CHF. Preserved ejection fraction noted on echocardiogram done this admission. 5. Hypokalemia, replaced. Better. ?high aldosterone state. 6. Mechanical aortic valve. 7. History of CVA. 8. Metabolic acidosis secondary to acute kidney injury and IV fluids. Better. Plan: Okay to discharge from nephrology standpoint. Follow-up as outpatient in 1 week. Briefly discussed renal replacement therapy.
--- NOTE | 2023-10-13 11:31 | P.PN ---
Subjective HISTORY OF PRESENT ILLNESS: This is a 62-year-old male who follows in the office with Dr. Ibarra. Patient examined this morning at the bedside. Patient denies any chest pain or pressure. He denies shortness of breath. Patient's INR today is 1.5. He remains on IV heparin. Patient states he has been compliant with his me dications on an outpatient basis. He also denies any changes to his dietary intake. Vital signs are currently stable. October 12, 2023 Patient examined this morning at the bedside. Patient denies chest pain or pressure. He denies shortness of breath. He does report having a headache overnight and this morning. Vital signs are stable. Blood pressure 124/85. Patient's INR today is 1.9. He remains on IV heparin. Creatinine today 3.84. October 13, 2023 Patient examined this morning at the bedside. Patient denies chest pain or pressure. He denies shortness of breath. Patient's INR today is 2.7. He is anxious to be discharged home today. PHYSICAL EXAM: VITAL SIGNS: Reviewed. GENERAL: Well-developed in no acute distress. NECK: Supple. No JVD or thyromegaly LUNGS: Respirations even and unlabored. Lungs essentially clear to auscultation bilaterally. HEART: Regular rate and rhythm. S1 and S2 heard. Mechanical click noted. EXTREMITIES: Normal range of motion. No clubbing or cyanosis. Peripheral pulses intact. No lower extremity edema ASSESSMENT: Subtherapeutic INR Hypertension, uncontrolled, now improved Acute kidney injury Chronic kidney disease History of mechanical aortic valve replacement, 2001, in [place] Nonischemic cardiomyopathy, ejection fraction 40% Mild nonobstructive CAD, per catheterization in April 2023 History of medication noncompliance PLAN: Lisinopril remains on hold secondary to acute kidney injury Continue current cardiac medications Discontinue IV heparin Continue Coumadin. Patient will be discharged home on 2 mg of Coumadin daily. Patient instructed to follow-up in the cardiology office in 3 to 4 days to have his INR checked. Patient may be discharged home today from a cardiac standpoint Nurse practitioner note has been reviewed by physician. Signing provider agrees with the documented findings, assessment, and plan of care. Objective - Vital Signs Vital signs: Vital Signs Temp 97.9 F 10/13/23 08:00 Pulse 75 10/13/23 09:07 Resp 16 10/13/23 09:13 BP 146/91 10/13/23 08:00 Pulse Ox 99 10/13/23 05:07 FiO2 Intake & Output 10/12/23 10/13/23 10/13/23 18:59 06:59 18:59 Intake Total 819 490 Output Total 134 Balance 819 356 Intake: Intake, IV Titration 250 Amount Heparin Sod,Pork in 0.45% 250 NaCl 25,000 unit In 0.45 % NaCl 1 250ml.bag @ 12 UNITS/KG/HR 9.798 mls/hr IV .Q24H [facility] Rx#: [id number] Oral 819 240 Output: Post Void Residual 134 Other: Voiding Method Toilet Toilet # Voids 2 2 - Labs CBC & Chem 7: 10/11/23 07:17 10/13/23 07:50 Labs: Abnormal Lab Results - Last 24 Hours (Table) 10/13/23 10/13/23 10/13/23 Range/Units 07:50 07:50 07:50 PT 26.4 H (10.0-12.5) sec INR 2.7 H (<1.2) APTT 95.5 H (22.0-30.0) sec Chloride 108 H (98-107) mmol/L BUN 44 H (9-20) mg/dL Creatinine 4.04 H (0.66-1.25) mg/dL Glucose 103 H (74-99) mg/dL
--- NOTE | 2023-10-13 15:44 | P.DS ---
Providers Date of admission: 10/06/23 20:14 Expected date of discharge: 10/13/23 Attending physician: Terence Sutton MD Consults: 10/06/23 20:13 Consult Physician Urgent Consulting Provider: Daniel Montenegro Consult Reason/Comments: kirby/ckd, accelerated htn Do you want consulting provider notified?: Yes 10/07/23 01:29 Consult Physician Urgent Consulting Provider: [facility] Consult Reason/Comments: valve replacement, subtheraputic inr Do you want consulting provider notified?: Yes Primary care physician: Kari Sutton Hospital Course: Final Diagnoses: Subtherapeutic INR Hypertensive urgency, on admission, better controlled Acute on chronic CKD, stage IV, GFR 32, baseline creatinine 2.16 in 07/12. Mechanical aortic valve-[facility]. [facility]key[facility], AVR 2003 Nonischemic cardiomyopathy, EF 40% CAD History of CVA 2 years ago Hypertension Hyperlipidemia Gastroesophageal reflux disease Obstructive sleep apnea and does not use BiPAP or CPAP Obesity, BMI 28 Ongoing nicotine dependence Hypokalemia 2.2 cm hypoechoic at the left kidney mid pole suspected to represent a column of Hugo rather than a solid mass with recommendations of follow-up renal ultrasound in 3-6 months, reported per renal ultrasound. Hospital course:This is a 62-year-old gentleman with past medical history significant for mechanical aortic valve, nonischemic cardiomyopathy,hypertension, CVA, supratherapeutic INR, chronic kidney disease and multiple other medical issues presented to the ER with complaints of uncontrolled blood pressure in the 200's and his INR being too low, detected yesterday at Dr. Rodriguez's office. Reports compliance with medication regimen/anticoagulation/antihypertensives. Denies bleeding, tarry stools or bruising. Denies chest pain, palpitations or shortness of breath. Denies lightheadedness dizziness or focal deficits. On admission INR 0.9, 240/135, heart rate 111, respiratory rate within normal limits maintaining O2 sats of 97% on room air .heparin drip initiated in the ER .Denies syncope. EKG reported sinus tachycardia, chest x-ray reported nonacute. Brain CT reported no acute intracranial process. Afebrile, normal WBC, hemoglobin 13.1, platelets 170, INR 1 sodium 137, potassium 3.4, BUN 45, creatinine 3.57, glucose 118, LFTs within normal limits .Nephrology and cardiology consults in place. 10/08/2023 Blood pressure better controlled, heart rate in the 60s, maintaining O2 sats in the high 90s on room air. Maintain IV fluid hydration. Anticoagulated on heparin drip and Coumadin per pharmacy dosing, INR 1. echocardiogram with limited views reporting left ventricular hypertrophy with preserved systolic function,EF 55%, mechanical prosthetic aortic valve appears to be functioning normally. Potassium supplemented yesterday, 3.6 currently. BUN 44, creatinine 3.5. Renal ultrasound reported no evidence for renal artery stenosis on either side, no hydronephrosis on a 2.2 cm hypoechoic at the left kidney mid pole suspected to represent a column of Hugo rather than a solid mass with recommendations of follow-up renal ultrasound in 3-6 months .Magnesium 2.2 10/11/2023 continues on heparin drip and Coumadin, current INR 1.5. Creatinine holding steady at 3.73. Hypertensive yesterday , IV fluids discontinued , Coreg dose increased yesterday with pressures improved today. 10/12/2023 maintained on heparin drip and Coumadin, INR currently 1.9, renal function already stable at 42/3.84. Denies chest pain, palpitations or shortness of breath. Maintaining O2 sats in the high 90s on room air. Complaining of stiff neck/migraine. Significant clinical improvement. INR 2.7, creatinine 4. Denies chest pain, palpitations or shortness of breath. Denies lightheadedness dizziness or focal deficits. Denies headache. Cleared by both cardiology and nephrology for discharge. SANTANA inhibitor remains on hold secondary to acute renal failure .patient has been advised to follow-up outpatient with nephrology as advised .anticoagulation as per cardiology with Coumadin monitoring at cardiology's office. Patient will be discharged home today in a stable condition with guarded prognosis. The impression and plan of care has been dictated as directed. : I performed a history and examination of this patient, discussed the same with the dictator. I agree with the dictator's note ,documented as a scribe. Any additional findings or plans will be noted. Patient Condition at Discharge: Stable Plan - Discharge Summary Discharge Rx Participant: No New Discharge Prescriptions: New amLODIPine [Norvasc] 5 mg PO BID #180 tab Warfarin [Coumadin] 2 mg PO DAILY #90 tab hydrALAZINE HCL [Apresoline] 100 mg PO TID #270 tablet carvediloL [Coreg] 25 mg PO BID #180 tab Discontinued lisinopriL [Zestril] 20 mg PO DAILY #30 tab Warfarin [Coumadin] 1 mg PO DAILY 30 Days #30 tablet carvediloL [Coreg] 12.5 mg PO BID No Action Ipratropium/Albuter 20-100Mcg [Combivent Respimat 20-100Mcg Inhaler] 2 puff INHALATION RT-Q4H PRN PRN Reason: Shortness Of Breath Esomeprazole Magnesium 40 mg PO DAILY Tiotropium Br/Olodaterol HCl [Stiolto Respimat Inhal Calhoun] 2 puff INHALATION RT-DAILY Folic Acid 1 mg PO DAILY Discharge Medication List Esomeprazole Magnesium 40 mg PO DAILY 06/17/23 [History] Ipratropium/Albuter 20-100Mcg [Combivent Respimat 20-100Mcg Inhaler] 2 puff INHALATION RT-Q4H PRN 07/04/23 [History] Tiotropium Br/Olodaterol HCl [Stiolto Respimat Inhal Calhoun] 2 puff INHALATION RT-DAILY 07/04/23 [History] Folic Acid 1 mg PO DAILY 10/06/23 [History] Warfarin [Coumadin] 2 mg PO DAILY #90 tab 10/13/23 [Rx] amLODIPine [Norvasc] 5 mg PO BID #180 tab 10/13/23 [Rx] carvediloL [Coreg] 25 mg PO BID #180 tab 10/13/23 [Rx] hydrALAZINE HCL [Apresoline] 100 mg PO TID #270 tablet 10/13/23 [Rx] Follow up Appointment(s)/Referral(s): Jenny العراقي MD [STAFF PHYSICIAN] - 10/27/23 2:20 pm (May need referral from Dr. Sutton. Please get this at your follow up with Dr. Sutton.) Kari Sutton DO [Primary Care Provider] - 10/15/23 2:30 pm (In [place] office.) Nathaniel Ibarra MD [STAFF PHYSICIAN] - 10/28/23 11:15 am (Your previously scheduled appointment for october was moved up to this date.) Patient Instructions/Handouts: Warfarin (By mouth), Acute Kidney Injury (DC), Hypertension (DC) Activity/Diet/Wound Care/Special Instructions: Outpatient Coumadin monitoring with cardiology Discharge Disposition: HOME SELF-CARE
[2023-10-13] MEDS ORDERED: WARFARIN 1 MG TAB PO ONE (18:00)
[2023-10-14 19:41] LABS: Metanephrine, Free <25 pg/mL (< OR = 57); Normetanephrine, Free 186 pg/mL (< OR = 148); Total, Free (MN + NMN) 186 pg/mL (< OR = 205)
== END 2023-10-13 11:02 | disposition home or self-care (01) | DRG 304 ==
LOC: EC 15:44 → 3SCARD 20:14
PROVIDERS: ADMIT Family Medicine; ATTEND Family Medicine
DX: I16.0 Hypertensive urgency (principal); N17.0 Acute kidney failure with tubular necrosis; N18.4 Chronic kidney disease, stage 4 (severe); I42.8 Other cardiomyopathies; I50.42 Chronic combined systolic (congestive) and diastolic (congestive) heart failure; Z79.01 Long term (current) use of anticoagulants; R79.1 Abnormal coagulation profile; Z95.2 Presence of prosthetic heart valve; I13.0 Hypertensive heart and chronic kidney disease with heart failure and stage 1 through stage 4 chronic kidney disease, or unspecified chronic kidney disease; K21.9 Gastro-esophageal reflux disease without esophagitis; G47.33 Obstructive sleep apnea (adult) (pediatric); Z68.28 Body mass index [BMI] 28.0-28.9, adult; E78.5 Hyperlipidemia, unspecified; I25.10 Atherosclerotic heart disease of native coronary artery without angina pectoris; E66.01 Morbid (severe) obesity due to excess calories; E86.1 Hypovolemia; E11.22 Type 2 diabetes mellitus with diabetic chronic kidney disease; E87.6 Hypokalemia; G43.909 Migraine, unspecified, not intractable, without status migrainosus; R00.0 Tachycardia, unspecified; H66.90 Otitis media, unspecified, unspecified ear; I08.1 Rheumatic disorders of both mitral and tricuspid valves; Z79.899 Other long term (current) drug therapy; Z86.73 Personal history of transient ischemic attack (TIA), and cerebral infarction without residual deficits; Z91.148 Patient's other noncompliance with medication regimen for other reason; F17.210 Nicotine dependence, cigarettes, uncomplicated; Z87.19 Personal history of other diseases of the digestive system
CPT/HCPCS: 36415; 70450; 71046; 80048; 80053; 81001; 82088; 82533; 83735; 83835; 84244; 85025; 85027; 85610; 85730; 93005; 93308; 93975; 94640; 96361; 96374; 99285

== ENCOUNTER 2023-11-22 16:30 | Inpatient (IN) | payer BC, OTHER ==
--- NOTE | 2023-11-22 16:36 | ED ---
Dizziness HPI - General Source: patient, RN notes reviewed Mode of arrival: ambulatory Limitations: no limitations - History of Present Illness MD Complaint: dizziness <Cleopatra Jon - Last Filed: 11/22/23 16:34> - General Source: RN notes reviewed, old records reviewed Mode of arrival: ambulatory Limitations: no limitations - History of Present Illness MD Complaint: dizziness, lightheadedness, difficulty walking -: days(s) Timing: gradual onset Description: sense of movement, "room spinning", lightheadedness History of Same: Yes History of Trauma: Yes Severity: moderate Improves With: remaining still Worsens With: nothing Associated Symptoms: ataxia <Jey Sims - Last Filed: 12/01/23 23:55> - General Chief Complaint: Dizziness Stated Complaint: Dizziness Time Seen by Provider: 11/22/23 16:35 - History of Present Illness Initial Comments: Quick Note: This is a 63-year-old male who presents to the emergency department for dizziness. States that he was sitting down eating lunch with his sister, when he started to feel dizzy all of a sudden. He went to stand up, and proce eded to vomit. States that he still feels somewhat dizzy. He does have some shortness of breath. Denies any headaches or chest pain. Also denies any history of similar symptoms in the past. (Cleopatra Jon) This is a 63-year-old male to the ER for evaluation of some significant dizziness. Dizziness with ataxia especially with ambulation. Patient states he has felt this before but this is significantly worse (Jey Sims) - Related Data Home Medications Medication Instructions Recorded Confirmed Esomeprazole Magnesium 40 mg PO DAILY 06/17/23 11/22/23 Ipratropium/Albuter 20-100Mcg 2 puff INHALATION RT-Q4H PRN 07/04/23 11/22/23 [Combivent Respimat 20-100Mcg Inhaler] Tiotropium Br/Olodaterol HCl 2 puff INHALATION RT-DAILY 07/04/23 11/22/23 [Stiolto Respimat Inhal Nova] Folic Acid 1 mg PO DAILY 10/06/23 11/22/23 Warfarin [Coumadin] 2 mg PO DAILY@1500 11/22/23 11/22/23 Previous Rx's Medication Instructions Recorded amLODIPine [Norvasc] 5 mg PO BID #180 tab 10/13/23 carvediloL [Coreg] 25 mg PO BID #180 tab 10/13/23 hydrALAZINE HCL [Apresoline] 100 mg PO TID #270 tablet 10/13/23 Isosorbide Mononitrate ER [Imdur] 30 mg PO DAILY #30 tab 11/29/23 Nicotine 14Mg/24Hr Patch [Habitrol] 1 patch TRANSDERM DAILY #30 patch 11/29/23 Thiamine [Vitamin B-1] 100 mg PO DAILY tab 11/29/23 Torsemide [Demadex] 40 mg PO DAILY #60 tab 11/29/23 Warfarin [Coumadin] 3 mg PO DAILY@1800 #7 tab 11/29/23 Allergies Allergy/AdvReac Type Severity Reaction Status Date / Time No Known Allergies Allergy Verified 11/22/23 20:27 Review of Systems ROS Other: All systems not noted in ROS Statement are negative. <Cleopatra Jon - Last Filed: 11/22/23 16:34> ROS Other: All systems not noted in ROS Statement are negative. <Jey Sims - Last Filed: 12/01/23 23:55> ROS Statement: Those systems with pertinent positive or pertinent negative responses have been documented in the HPI. Past Medical History Past Medical History: CVA/TIA, GERD/Reflux, Hyperlipidemia, Hypertension, Sleep Apnea/CPAP/BIPAP Additional Past Medical History / Comment(s): stress test abnormal, cva 2 yrs ago lft arm tires quickly, questioning possible [place],no cpap used See Dr Ibarra's H & P History of Any Multi-Drug Resistant Organisms: None Reported Past Surgical History: Cardiac Valve Replacement Additional Past Surgical History / Comment(s): 2003 aortic valve replaced, cerebral aneurysm repaired 2021 Past Anesthesia/Blood Transfusion Reactions: No Reported Reaction Additional Past Anesthesia/Blood Transfusion Reaction / Comment(s): no hx of blood tx Past Psychological History: No Psychological Hx Reported Smoking Status: Current every day smoker Past Alcohol Use History: Occasional Past Drug Use History: None Reported - Past Family History Father History Unknown: Yes <Cleopatra Jon - Last Filed: 11/22/23 16:34> General Exam <Cleopatra Jon - Last Filed: 11/22/23 16:34> General appearance: alert, in no apparent distress, anxious, in distress Head exam: Present: atraumatic, normocephalic, normal inspection Eye exam: Present: normal appearance, PERRL, EOMI. Absent: scleral icterus, conjunctival injection, periorbital swelling ENT exam: Present: normal exam, mucous membranes moist Neck exam: Present: normal inspection. Absent: tenderness, meningismus, lymph adenopathy Respiratory exam: Present: normal lung sounds bilaterally. Absent: respiratory distress, wheezes, rales, rhonchi, stridor Cardiovascular Exam: Present: regular rate, normal rhythm, normal heart sounds. Absent: systolic murmur, diastolic murmur, rubs, gallop, clicks GI/Abdominal exam: Present: soft, normal bowel sounds. Absent: distended, tenderness, guarding, rebound, rigid Extremities exam: Present: normal inspection, full ROM, normal capillary refill. Absent: tenderness, pedal edema, joint swelling, calf tenderness Back exam: Present: normal inspection Neurological exam: Present: alert, oriented X3, CN II-XII intact Psychiatric exam: Present: normal affect, normal mood Skin exam: Present: warm, dry, intact, normal color. Absent: rash <Jey Sims - Last Filed: 12/01/23 23:55> - General Exam Comments Initial Comments: Visual Physical Exam Vital signs reviewed General: Well-appearing, nontoxic, no acute distress. Head: Normocephalic, atraumatic Eyes: PERRLA, EOMI ENT: Airway patent Chest: Nonlabored breathing Skin: No visual rash, normal skin tone Neuro: Alert and oriented 3 Musculoskeletal: No gross abnormalities (Vogley,Cleopatra) Course <Jey Sims - Last Filed: 12/01/23 23:55> Vital Signs 11/22/23 11/22/23 11/22/23 16:36 18:35 20:15 Temperature 98.1 F Pulse Rate 117 H 107 H 91 Pulse Rate [ Account Manager ] Respiratory 16 18 18 Rate Blood Pressure 245/168 211/143 204/122 Blood Pressure [Left Arm] Blood Pressure [Right Arm Supine] O2 Sat by Pulse 95 96 93 L Oximetry 11/22/23 11/22/23 11/23/23 22:00 22:40 00:00 Temperature Pulse Rate Pulse Rate [ 85 88 75 Account Manager ] Respiratory 20 16 16 Rate Blood Pressure Blood Pressure 222/143 207/131 [Left Arm] Blood Pressure 155/89 [Right Arm Supine] O2 Sat by Pulse 94 L 93 L 94 L Oximetry 11/23/23 11/23/23 11/23/23 00:59 01:13 01:21 Temperature Pulse Rate Pulse Rate [ 75 Account Manager ] Respiratory 16 Rate Blood Pressure Blood Pressure 164/108 148/96 [Left Arm] Blood Pressure [Right Arm Supine] O2 Sat by Pulse Oximetry 11/23/23 11/23/23 11/23/23 04:45 05:44 08:00 Temperature 97.7 F Pulse Rate Pulse Rate [ 80 79 Account Manager ] Respiratory 20 17 Rate Blood Pressure Blood Pressure 162/110 [Left Arm] Blood Pressure 151/95 160/106 [Right Arm Supine] O2 Sat by Pulse 99 96 Oximetry 11/23/23 11/23/23 11/23/23 14:00 16:00 16:23 Temperature Pulse Rate 63 Pulse Rate [ 79 77 Account Manager ] Respiratory 17 18 18 Rate Blood Pressure 135/91 Blood Pressure [Left Arm] Blood Pressure 135/88 [Right Arm Supine] O2 Sat by Pulse 96 96 Oximetry 11/23/23 11/23/23 11/23/23 17:33 20:00 21:20 Temperature 98.7 F Pulse Rate 75 76 68 Pulse Rate [ 70 Account Manager ] Respiratory 17 18 18 Rate Blood Pressure 148/97 146/85 138/83 Blood Pressure [Left Arm] Blood Pressure 150/87 [Right Arm Supine] O2 Sat by Pulse 98 96 98 Oximetry - Reevaluation(s) Reevaluation #1: 11/22/23 19:40 Medical records reviewed (Jey Sims) Reevaluation #2: 11/22/23 19:40 Patient symptoms unchanged (Jey Sims) Reevaluation #3: 11/22/23 19:40 Patient informed of results and questions answered (Jey Sims) Reevaluation #4: Was pt. sent in by a medical professional or institution (, PA, [employer], urgent care, hospital, or assisted...) When possible be specific @ -no Did you speak to anyone other than the patient for history (EMS, parent, family, police, friend...)? What history was obtained from this source @ -no Did you review nursing and triage notes (agree or disagree)? Why? @ -agree Are old charts reviewed (outside hosp., previous admission, EMS record, old EKG, old radiological studies, urgent care reports/EKG's, assisted records)? Report findings @ -yes Differential Diagnosis (chest pain, altered mental status, abdominal pain women, abdominal pain men, vaginal bleeding, weakness, fever, dyspnea, syncope, headache, dizziness, GI bleed, back pain, seizure, CVA, palpatations, mental health, musculoskeletal)? @ -prior EKG interpreted by me (3pts min.). @ -yes X-rays interpreted by me (1pt min.). @ -yes negative for acute disease CT interpreted by me (1pt min.). @ - yes negative for acute disease U/S interpreted by me (1pt. min.). @ -no What testing was considered but not performed or refused? (CT, X-rays, U/S, labs)? Why? @ -none What meds were considered but not given or refused? Why? @ -none Did you discuss the management of the patient with other professionals (professionals i.e. , PA, [employer], lab, RT, psych nurse, criminal justice social worker, plate cleaner, teacher, medical officer, correctional case manager)? Give summary @ -no Was smoking cessation discussed for >3mins.? @ -no Was critical care preformed (if so, how long)? @ -yes31 Were there social determinants of health that impacted care today? How? (Homelessness, low income, unemployed, alcoholism, drug addiction, transportation, low edu. Level, literacy, decrease access to med. care, [facility], rehab)? @ -none Was there de-escalation of care discussed even if they declined (Discuss DNR or withdrawal of care, Hospice)? DNR status @ -no What co-morbidities impacted this encounter? (DM, HTN, Smoking, COPD, CAD, Cancer, CVA, ARF, Chemo, Hep., AIDS, mental health diagnosis, sleep apnea, morbid obesity)? @ -none Was patient admitted / discharged? Hospital course, mention meds given and route, prescriptions, significant lab abnormalities, going to OR and other pertinent info. @ - 63 male will be admitted for significant dizziness persistent dizziness with severely elevated blood pressure hypertensive urgency Admitted Undiagnosed new problem with uncertain prognosis? @ -no Drug Therapy requiring intensive monitoring for toxicity (Heparin, Nitro, Insulin, Cardizem)? @ -no Were any procedures done? @ -no Diagnosis/symptom? @ -Hypertensive emergency and urgency Acute, or Chronic, or Acute on Chronic? @ -Acute Uncomplicated (without systemic symptoms) or Complicated (systemic symptoms)? @ -Complicated Side effects of treatment? @ -no Exacerbation, Progression, or Severe Exacerbation? @ -exacerbation Poses a threat to life or bodily function? How? (Chest pain, [place], [place], pneumonia, PE, COPD, DKA, ARF, appy, cholecystitis, CVA, Diverticulitis, Homicidal, Suicidal, threat to staff... and all critical care pts) @ -yes significant elevated blood pressure (Jey Sims) Reevaluation #5: Differential Dizziness: Benign paroxysmal positional Vertigo, Menieres disease, otitis media, acoustic neuroma, vertebrobasilar insufficiency, cerebellar stroke, encephalitis, hypovolemic, arrhythmia, coronary artery syndrome, anemia, this is not meant to be an all-inclusive list (Jey Sims) - Consultations Consultation #1: Spoke with Dr. Motta who agrees to admit this patient (Jey Sims) EKG Findings - EKG Comments: EKG Findings:: EKG is sinus tachycardia 114 [address] 148 QRS 98 QTc 411 - EKG Results: EKG: interpreted by ERMD <Jey Sims - Last Filed: 12/01/23 23:55> Medical Decision Making <Cleopatra Jon - Last Filed: 11/22/23 16:34> - Lab Data Result diagrams: 11/26/23 05:53 11/29/23 07:20 - Radiology Data Radiology results: report reviewed (Chest x-ray is negative for acute disease), image reviewed <Jey Sims - Last Filed: 12/01/23 23:55> - Medical Decision Making I performed the QuickNote portion of this chart. Signed Cleopatra Jon PA-C. (Cleopatra Jon) 63 male will be admitted for significant dizziness persistent dizziness with severely elevated blood pressure hypertensive urgency (Jey Sims) - Lab Data Lab Results 11/22/23 11/22/23 11/22/23 Range/Units 16:50 16:56 16:56 WBC 15.1 H (3.8-10.6) k/uL RBC 4.38 (4.30-5.90) m/uL Hgb 12.7 L (13.0-17.5) gm/dL Hct 36.9 L (39.0-53.0) % MCV 84.1 (80.0-100.0) fL MCH 29.0 (25.0-35.0) pg MCHC 34.5 (31.0-37.0) g/dL RDW 15.5 (11.5-15.5) % Plt Count 124 L (150-450) k/uL MPV 8.4 Neutrophils % 89 % Lymphocytes % 4 % Monocytes % 4 % Eosinophils % 2 % Basophils % 1 % Neutrophils # 13.5 H (1.3-7.7) k/uL Lymphocytes # 0.5 L (1.0-4.8) k/uL Monocytes # 0.6 (0-1.0) k/uL Eosinophils # 0.2 (0-0.7) k/uL Basophils # 0.1 (0-0.2) k/uL Sodium 134 L (137-145) mmol/L Potassium 3.4 L (3.5-5.1) mmol/L Chloride 100 (98-107) mmol/L Carbon Dioxide 23 (22-30) mmol/L Anion Gap 11 mmol/L BUN 78 H (9-20) mg/dL Creatinine 6.79 H (0.66-1.25) mg/dL Est GFR (CKD-EPI)AfAm 9 (>60 ml/min/1.73 sqM) Est GFR (CKD-EPI)NonAf 8 (>60 ml/min/1.73 sqM) Glucose 231 H (74-99) mg/dL Lactic Ac Sepsis Rflx Plasma Lactic Acid Lyle (0.7-2.0) mmol/L Calcium 8.3 L (8.4-10.2) mg/dL Total Bilirubin 2.0 H (0.2-1.3) mg/dL AST 25 (17-59) U/L ALT 13 (4-49) U/L Alkaline Phosphatase 77 (38-126) U/L Troponin I (0.000-0.034) ng/mL Total Protein 6.7 (6.3-8.2) g/dL Albumin 3.7 (3.5-5.0) g/dL Influenza Type A (PCR) Not Detected (Not Detectd) Influenza Type B (PCR) Not Detected (Not Detectd) RSV (PCR) Not Detected (Not Detectd) SARS-CoV-2 (PCR) Not Detected (Not Detectd) 11/22/23 11/22/23 11/22/23 Range/Units 16:56 16:56 17:29 WBC (3.8-10.6) k/uL RBC (4.30-5.90) m/uL Hgb (13.0-17.5) gm/dL Hct (39.0-53.0) % MCV (80.0-100.0) fL MCH (25.0-35.0) pg MCHC (31.0-37.0) g/dL RDW (11.5-15.5) % Plt Count (150-450) k/uL MPV Neutrophils % % Lymphocytes % % Monocytes % % Eosinophils % % Basophils % % Neutrophils # (1.3-7.7) k/uL Lymphocytes # (1.0-4.8) k/uL Monocytes # (0-1.0) k/uL Eosinophils # (0-0.7) k/uL Basophils # (0-0.2) k/uL Sodium (137-145) mmol/L Potassium (3.5-5.1) mmol/L Chloride (98-107) mmol/L Carbon Dioxide (22-30) mmol/L Anion Gap mmol/L BUN (9-20) mg/dL Creatinine (0.66-1.25) mg/dL Est GFR (CKD-EPI)AfAm (>60 ml/min/1.73 sqM) Est GFR (CKD-EPI)NonAf (>60 ml/min/1.73 sqM) Glucose (74-99) mg/dL Lactic Ac Sepsis Rflx Y Plasma Lactic Acid Lyle 2.1 H* (0.7-2.0) mmol/L Calcium (8.4-10.2) mg/dL Total Bilirubin (0.2-1.3) mg/dL AST (17-59) U/L ALT (4-49) U/L Alkaline Phosphatase (38-126) U/L Troponin I 0.223 H* (0.000-0.034) ng/mL Total Protein (6.3-8.2) g/dL Albumin (3.5-5.0) g/dL Influenza Type A (PCR) (Not Detectd) Influenza Type B (PCR) (Not Detectd) RSV (PCR) (Not Detectd) SARS-CoV-2 (PCR) (Not Detectd) Critical Care Time Critical Care Time: Yes Total Critical Care Time: 31 <Jey Sims - Last Filed: 12/01/23 23:55> Disposition <Cleopatra Jon - Last Filed: 11/22/23 16:34> Is patient prescribed a controlled substance at d/c from ED?: No Time of Disposition: 19:40 <Jey Sims - Last Filed: 12/01/23 23:55> Clinical Impression: Chest pain, Accelerated hypertension, Syncope, Hypertensive emergency, Dizziness, AVA (acute kidney injury), Medical non-compliance, Elevated troponin Disposition: ADMITTED IP TO THIS HOSP Condition: Stable
[2023-11-22 17:12] LABS: Basophils # (A) 0.1 k/uL (0-0.2); Basophils % (A) 1 %; Eosinophils # (A) 0.2 k/uL (0-0.7); Eosinophils % (A) 2 %; HCT 36.9 % (39.0-53.0); HGB 12.7 gm/dL (13.0-17.5); Lymphocytes # (A) 0.5 k/uL (1.0-4.8); Lymphocytes % (A) 4 %; MCHC 34.5 g/dL (31.0-37.0); MCV 84.1 fL (80.0-100.0); Mean Platelet Volume 8.4; Monocytes # (A) 0.6 k/uL (0-1.0); Monocytes % (A) 4 %; Neutrophils # (A) 13.5 k/uL (1.3-7.7); Neutrophils % (A) 89 %; Platelet Count 124 k/uL (150-450); RBC 4.38 m/uL (4.30-5.90); RDW 15.5 % (11.5-15.5); WBC 15.1 k/uL (3.8-10.6)
[2023-11-22 17:27] LABS: ALT 13 U/L (4-49); AST 25 U/L (17-59); African American GFR (CKD) 9 (>60 ml/min/1.73 sqM); Albumin 3.7 g/dL (3.5-5.0); Alkaline Phosphatase 77 U/L (38-126); Anion Gap 11 mmol/L; Blood Urea Nitrogen 78 mg/dL (9-20); Calcium 8.3 mg/dL (8.4-10.2); Carbon Dioxide 23 mmol/L (22-30); Chloride 100 mmol/L (98-107); Glucose 231 mg/dL (74-99); Non-African American GFR(CKD) 8 (>60 ml/min/1.73 sqM); Potassium 3.4 mmol/L (3.5-5.1); Sodium 134 mmol/L (137-145); Total Protein 6.7 g/dL (6.3-8.2)
--- NOTE | 2023-11-22 18:13 | XR ---
EXAMINATION TYPE: XR chest 2V DATE OF EXAM: 11/22/2023 6:05 PM CLINICAL INDICATION:Male, 63 years old with history of Dizziness, LOLA; COMPARISON: Chest radiographs from 10/06/2023 TECHNIQUE: XR chest 2V Frontal and lateral views of the chest. FINDINGS: Lungs/Pleura: There is no evidence of pleural effusion, focal consolidation, or pneumothorax. Pulmonary vascularity: Unremarkable. Heart/mediastinum: Cardiomediastinal silhouette is unremarkable. Post aortic valve repair changes. Musculoskeletal: Multiple level degenerative disc disease changes seen throughout the spine. Midline sternotomy wires are noted. IMPRESSION: No acute cardiopulmonary disease/process.
[2023-11-22] MEDS ORDERED: HYDROmorphone 1 MG/ML 1 ML SYRINGE IVP PRN (19:43)
[2023-11-22] MEDS ORDERED: NALOXONE 0.4 MG/ML 1 ML VIAL IV PRN (19:43)
[2023-11-22 20:10] LABS: Appearance,Urine Clear (Clear); Bilirubin,Urine Negative (Negative); Blood,Urine Moderate (Negative); Color,Urine Light Yellow; Glucose,Urine (UA) 2+ (Negative); Ketones,Urine Negative (Negative); Leukocyte Esterase,Urine Negative (Negative); Mucus,Urine Rare /hpf; Nitrite,Urine Negative (Negative); PH, Urine 6.5 (5.0-8.0); Protein,Urine 3+ (Negative); RBC,Urine 1 /hpf (0-5); Specific Gravity,Urine 1.014 (1.001-1.035); Squamous Epithelial Cell,Urine <1 /hpf (0-4); Urobilinogen,Urine <2.0 mg/dL (<2.0); WBC,Urine 3 /hpf (0-5)
[2023-11-22] MEDS: LABETALOL 5 MG/ML VIAL MDV IVP STA ×2 (20:11→22:31)
--- NOTE | 2023-11-22 20:16 | CT ---
EXAMINATION TYPE: CT brain wo con CT DLP: 1171.4 mGycm, Automated exposure control for dose reduction was used. DATE OF EXAM: 11/22/2023 8:01 PM COMPARISON: None. CLINICAL INDICATION:Male, 63 years old with history of pain, Hypertension TECHNIQUE: Brain: Axial CT images of the brain were obtained with coronal and sagittal reformats created and rev iewed. Contrast used: None. Oral contrast used: None. FINDINGS: Extra-axial spaces: No abnormal extra-axial fluid collections. Ventricular system: Ventricles appear dilated in proportion to the degree of cerebral atrophy. Cerebral parenchyma: No increased attenuation to suggest acute intraparenchymal hemorrhage. The gra y-white matter interface appears maintained. Moderate generalized brain atrophy. Scattered hypoatte nuating areas are seen within the cerebral white matter, nonspecific but most often seen with chronic microvascular ischemic changes; mild/moderate in degree. Hypodensity suggesting small remote lacuna r infarcts in the region of the left basal ganglia. Small rounded area of hypoattenuation in the righ t occipital lobe could represent anatomic variant, prominent perivascular space, remote lacunar infar ct. Cerebellum: No acute abnormality. Mass effect: No evidence of mass effect or midline shift. Intracranial vasculature: Unremarkable Soft tissues: No acute or concerning abnormality. Visualized orbits: Orbital contents appear grossly intact. Calvarium/osseous structures: No evidence of calvarial fracture. Remote post craniotomy changes in th e left frontoparietal region. Paranasal sinuses and mastoid air cells: Near complete opacification of the left maxillary sinus, cathy ears to represent mucosal disease without significant fluid seen. Mild mucosal thickening left spheno id sinus. Mild nasal septal deviation towards the right in its midportion with small osseous spur. M inimal fluid in the left inferior mastoid air cells. MRI is more sensitive for detecting acute processes such as infarct, and may be considered if clinica lly warranted. IMPRESSION: 1. No CT evidence of an acute intracranial abnormality. 2. Atrophy and chronic microvascular ischemic white matter changes. 3. Paranasal sinus mucosal disease, greatest in the left maxillary sinus. Minimal fluid in the left inferior mastoid air cells.
[2023-11-22] MEDS: SODIUM CHLORIDE 0.9% 1,000 ML IV SCH (20:58)
[2023-11-22] MEDS ORDERED: MORPHINE SULFATE 4 MG/ML SYRINGE IVP PRN (20:59)
--- NOTE | 2023-11-22 22:08 | CT ---
EXAMINATION TYPE: CT chest wo con CT DLP: Not reported by the medical technologist clinical. Automated exposure control for dose reduction was used. DATE OF EXAM: 11/22/2023 9:50 PM COMPARISON: Earlier same day chest x-ray. CLINICAL INDICATION:Male, 63 years old with history of cp; PHH, chest pain, poor kidney function TECHNIQUE: Multiple axial images were obtained through the chest. Sagittal and coronal reformats were created for review. Contrast used: mL of (None if empty) Oral contrast used: (None if empty) FINDINGS: Exam was originally ordered as contrast CTA, contrast could not be given due to poor renal function. Exam is limited by lack of contrast. LUNGS/ PLEURA: Mildly coarsened interstitium diffusely, likely chronic changes. Mild strandy dependen t opacities in both lungs suggestive of subsegmental atelectasis. Mild upper lobe predominant emphyse matous changes. No definite consolidation, sizable effusion, or evidence of pneumothorax. There are s everal scattered small pulmonary nodular densities bilaterally, one of the more conspicuous is 6.5 mm in the right middle lobe. AIRWAY: Central airways are patent. LOWER NECK: No significant findings. Unremarkable thyroid. MEDIASTINUM: No bulky adenopathy is identified. Nonenlarged and mildly enlarged mediastinal nodes are present, one of the largest is lower pretracheal measuring 1.6 cm. Mild hilar adenopathy would be di fficult to exclude. HEART: Heart size upper normal. Mild coronary artery calcification. No appreciable pericardial effusi on. VASCULATURE: Prosthetic aortic valve. Mild/moderate atherosclerotic calcifications of the aorta and branches. Ascending aorta is fusiform in shape with maximal diameter 4 CM, descending aorta is 3.3 CM . Aorta is considered ectatic. Pulmonary trunk measures 3 cm, considered borderline mildly enlarged. SOFT TISSUES/LYMPH NODES: Unremarkable soft tissues. No axillary adenopathy. UPPER ABDOMEN: Cholelithiasis without evidence of cholecystitis. There is a left upper quadrant supra renal mass which likely arises from the left adrenal. This measures 3.4 x 2.9 cm, with average attenu ation around 24 Hounsfield units. MUSCULOSKELETAL: No acute osseous abnormality. Sternotomy wires. Mild/moderate degenerative changes o f the thoracic spine. Small sclerotic density within the T8 vertebral body may relate to bone island. No destructive lesion is seen. IMPRESSION: 1. Limited unenhanced study. 2. No acute abnormality demonstrated in the chest. 3. Pulmonary trunk borderline mildly enlarged, this can be seen with early pulmonary hypertension. 4. Mild/moderate atherosclerosis of the thoracic aorta, with fusiform ectasia of its ascending porti on and mild ectasia of its descending portion. Prosthetic aortic valve in place. 5. Borderline mild cardiomegaly. Mild coronary artery calcifications. 6. Mild upper lobe predominant emphysematous changes. 7. Several scattered small pulmonary nodular densities bilaterally, one of the more conspicuous is 6. 5 mm in the right middle lobe. Recommend six-month follow-up CT chest. 8. Nonspecific nonenlarged and mildly enlarged mediastinal nodes. 9. Cholelithiasis. 10. Left upper quadrant 3.4 cm mass, likely arising from the adrenal gland. Attenuation is indetermin ate, consider nonemergent outpatient adrenal mass protocol CT or MRI for further characterization.
[2023-11-22] MEDS: MORPHINE SULFATE 4 MG/ML SYRINGE IVP STA (22:14)
[2023-11-22] MEDS: hydrALAZINE HCL 50 MG TAB PO SCH (22:31)
[2023-11-22] MEDS: carvediloL 12.5 MG TAB PO SCH (22:31)
[2023-11-22] MEDS: amLODIPine 5 MG TAB PO SCH (22:31)
[2023-11-23] MEDS: hydrALAZINE HCL 20 MG/ML 1 ML VIAL IVP PRN (01:00)
--- NOTE | 2023-11-23 01:43 | CT ---
EXAM: CT Head Without Intravenous Contrast CLINICAL HISTORY: ITS.REASON CT Reason: neuro changes TECHNIQUE: Axial computed tomography images of the head/brain without intravenous contrast. CTDI is 49.27 mGy and DLP is 1212.4 mGy-cm. This CT exam was performed using one or more of the following dose reduction techniques: automated exposure control, adjustment of the mA and/or kV according to patient size, and/or use of iterative reconstruction technique. COMPARISON: 11/22/2023 FINDINGS: Brain: No hemorrhage or mass effect. Prior ischemic changes in the left basal ganglia again seen Ventricles: No hydrocephalus. Bones/joints: Unremarkable. Soft tissues: Unremarkable. Sinuses: No air fluid level. Mastoid air cells: Clear. IMPRESSION: No acute hemorrhage, hydrocephalus, or mass effect.
[2023-11-23 02:54] LABS: INR 1.2 (<1.2); Prothrombin Time 12.6 sec (10.0-12.5)
[2023-11-23 03:28] LABS: Basophils # (A) 0.1 k/uL (0-0.2); Basophils % (A) 0 %; Eosinophils # (A) 0.3 k/uL (0-0.7); Eosinophils % (A) 2 %; HCT 33.5 % (39.0-53.0); HGB 11.5 gm/dL (13.0-17.5); Lymphocytes # (A) 0.6 k/uL (1.0-4.8); Lymphocytes % (A) 4 %; MCH 29.2 pg (25.0-35.0); MCHC 34.3 g/dL (31.0-37.0); MCV 85.2 fL (80.0-100.0); Mean Platelet Volume 8.9; Monocytes # (A) 0.7 k/uL (0-1.0); Monocytes % (A) 5 %; Neutrophils # (A) 11.8 k/uL (1.3-7.7); Neutrophils % (A) 86 %; Platelet Count 124 k/uL (150-450); RBC 3.93 m/uL (4.30-5.90); RDW 15.6 % (11.5-15.5); WBC 13.7 k/uL (3.8-10.6)
[2023-11-23 03:41] LABS: ALT 8 U/L (4-49); AST 20 U/L (17-59); African American GFR (CKD) 8 (>60 ml/min/1.73 sqM); Albumin 3.2 g/dL (3.5-5.0); Alkaline Phosphatase 68 U/L (38-126); Anion Gap 8 mmol/L; Blood Urea Nitrogen 79 mg/dL (9-20); Calcium 8.2 mg/dL (8.4-10.2); Carbon Dioxide 22 mmol/L (22-30); Chloride 104 mmol/L (98-107); Glucose 135 mg/dL (74-99); Magnesium 2.2 mg/dL (1.6-2.3); Non-African American GFR(CKD) 7 (>60 ml/min/1.73 sqM); Phosphorus 5.2 mg/dL (2.5-4.5); Potassium 3.2 mmol/L (3.5-5.1); Sodium 134 mmol/L (137-145); Total Bilirubin 1.5 mg/dL (0.2-1.3)
[2023-11-23] MEDS: ONDANSETRON 4 MG/2 ML VIAL IVP PRN (06:12)
[2023-11-23] MEDS: cloNIDine HCL 0.2 MG TAB PO SCH (06:13)
[2023-11-23] MEDS: FUROSEMIDE 10 MG/ML 4 ML VIAL IV ONE (06:21)
--- NOTE | 2023-11-23 08:11 | US ---
EXAMINATION TYPE: US kidneys/renal and bladder DATE OF EXAM: 11/23/2023 COMPARISON: NONE CLINICAL INDICATION: Male, 63 years old with history of decreased urine; decreased urine EXAM MEASUREMENTS: Right Kidney: 10.6 x 4.6 x 3.9 cm Left Kidney: 10.7 x 4.4 x 4.5 cm Right Kidney: No hydronephrosis or masses seen Left Kidney: Cystic area upper pole1.9 x 2.5 x 2.0 cm. Bladder: anechoic Bilateral Jets seen: no There is no evidence for hydronephrosis at this point in time. No nephrolithiasis is seen. No solid masses are identified. The urinary bladder is anechoic. Bilateral ureteral jets are seen. IMPRESSION: Simple cyst left kidney.
[2023-11-23 09:46] LABS: Basophils # (A) 0.1 k/uL (0-0.2); Basophils % (A) 1 %; Eosinophils # (A) 0.2 k/uL (0-0.7); Eosinophils % (A) 2 %; HCT 35.4 % (39.0-53.0); HGB 11.9 gm/dL (13.0-17.5); Lymphocytes # (A) 0.7 k/uL (1.0-4.8); Lymphocytes % (A) 5 %; MCH 28.6 pg (25.0-35.0); MCHC 33.6 g/dL (31.0-37.0); MCV 85.1 fL (80.0-100.0); Mean Platelet Volume 8.5; Monocytes # (A) 0.6 k/uL (0-1.0); Monocytes % (A) 4 %; Neutrophils # (A) 12.1 k/uL (1.3-7.7); Neutrophils % (A) 88 %; Platelet Count 147 k/uL (150-450); RBC 4.16 m/uL (4.30-5.90); RDW 15.6 % (11.5-15.5); WBC 13.8 k/uL (3.8-10.6)
[2023-11-23 09:58] LABS: Partial Thromboplastin Time 28.5 sec (22.0-30.0); Prothrombin Time 11.3 sec (10.0-12.5)
[2023-11-23] MEDS: HEPARIN SODIUM 1,000 UN/ML (10ML VL) IV ONE (11:06)
[2023-11-23] MEDS: HEPARIN SOD,PORK IN 0.45% NACL 25,000 UNIT in 0.45% NACL 1 250ML.BAG IV SCH (11:12)
--- NOTE | 2023-11-23 11:35 | P.CRDCN ---
History of Present Illness History of present illness: HISTORY OF PRESENT ILLNESS: This is a 63-year-old male with a past medical history significant for nonischemic cardiomyopathy, hypertension, CVA, obstructive sleep apnea, chronic kidney disease, and previous mechanical aortic valve replacement. Patient follows in the office with Dr. Ibarra. We have been asked to see the patient in consultation for syncope. Patient examined at the bedside in the emergency room. Patient states he presented to the hospital with chief complaint of feeling unwell. He also reports having some dizziness. He denies chest pain or pressure. Denies any shortness of breath. The patient was found to have worsening kidney function with a creatinine of 7.29. Patient was supposed to follow-up outpatient with nephrology but has not yet been seen. Patient's blood pressures were noted to be significantly elevated upon admission to the hospital with a reading of 245/168. Patient has been resumed on his home cardiac medications. Most recent blood pressure 151/95. Patient's INR on admission is 1.2. Patient is adamant that he has been taking his medications as prescribed including his Coumadin. Patient follows up in the cardiology office for his INR checks and Coumadin management. Patient's last visit to the cardiology office for an INR check was on October 28, 2023. At that time the patient's INR was greater than 8 per office staff. DIAGNOSTICS: - EKG reveals sinus tachycardia with heart rate of 114. Diffuse T wave inversions. LVH. - Chest xray negative for acute process. - Laboratory data: WBC 13.7. Hemoglobin 11.5. Platelet count 124. Sodium 134. Potassium 3.2. BUN 79. Creatinine 7.29. Troponin 0.244. 0.254. 0.266. - Current home cardiac medications include Coumadin 2 mg daily, carvedilol 25 mg twice a day, hydralazine 100 mg 3 times a day, and amlodipine 5 mg twice a day. - Most recent echocardiogram obtained in September 2023 revealed ejection fraction 55% with normally functioning mechanical prosthetic aortic valve -Previous echocardiogram in May 2023 revealed ejection fraction of 40% - Cardiac catheterization history: April 2023 revealing mild nonobstructive disease involving the right coronary artery REVIEW OF SYSTEMS: At the time of my exam: CONSTITUTIONAL: Denies fever or chills. HEENT: Denies blurred vision, vision changes, or eye pain. Denies hemoptysis CARDIOVASCULAR: Denies chest pain. Denies orthopnea. Denies PND. Denies palpitations RESPIRATORY: Denies shortness of breath. GASTROINTESTINAL: Denies abdominal pain. Denies nausea or vomiting. HEMATOLOGIC: Denies bleeding disorders. GENITOURINARY: Denies any blood in urine. SKIN: Denies pruitis. Denies rash. PHYSICAL EXAM: VITAL SIGNS: Reviewed. GENERAL: Well-developed in no acute distress. HEENT: Head is normocephalic. Pupils are equal, round. Sclerae anicteric. Mucous membranes of the mouth are moist. Neck supple. No JVD or thyromegaly LUNGS: Respirations even and unlabored. Lungs essentially clear to auscultation bilaterally. HEART: Regular rate and rhythm. S1 and S2 heard. Mechanical click noted. ABDOMEN: Soft. Nondistended. Nontender. EXTREMITIES: Normal range of motion. No clubbing or cyanosis. Peripheral pul ses intact. No lower extremity edema NEUROLOGIC: Awake and alert. Oriented x 3. ASSESSMENT: Dizziness Presyncope Acute on chronic kidney disease Subtherapeutic INR, questionable compliance with medications Hypertensive emergency Abnormal troponins, flat, likely secondary to chronic kidney disease History of mechanical aortic valve replacement, 2003, in [place] History of nonischemic cardiomyopathy with improved EF Mild nonobstructive CAD per cardiac catheterization 2022 Hypertension Hyperlipidemia History of medication noncompliance PLAN: Continue current cardiac medications Begin IV heparin Will wait for further recommendations from nephrology. Will hold on initiating Coumadin in case patient will require dialysis catheter placement Continue to monitor blood pressure Further recommendations pending patient course Nurse practitioner note has been reviewed by physician. Signing provider agrees with the documented findings, assessment, and plan of care documented by DIRECTOR [employer] as a scribe. Past Medical History Past Medical History: CVA/TIA, GERD/Reflux, Hyperlipidemia, Hypertension, Sleep Apnea/CPAP/BIPAP Additional Past Medical History / Comment(s): stress test abnormal, cva 2 yrs ago lft arm tires quickly, questioning possible [place],no cpap used See Dr Ibarra's H & P History of Any Multi-Drug Resistant Organisms: None Reported Past Surgical History: Cardiac Valve Replacement Additional Past Surgical History / Comment(s): 2003 aortic valve replaced, cerebral aneurysm repaired 2021 Past Anesthesia/Blood Transfusion Reactions: No Reported Reaction Additional Past Anesthesia/Blood Transfusion Reaction / Comment(s): no hx of blood tx Past Psychological History: No Psychological Hx Reported Smoking Status: Current every day smoker Past Alcohol Use History: Occasional Past Drug Use History: None Reported - Past Family History Father History Unknown: Yes Medications and Allergies Home Medications Medication Instructions Recorded Confirmed Type Esomeprazole Magnesium 40 mg PO DAILY 06/17/23 11/22/23 History Ipratropium/Albuter 20-100Mcg 2 puff INHALATION RT-Q4H PRN 07/04/23 11/22/23 History [Combivent Respimat 20-100Mcg Inhaler] Tiotropium Br/Olodaterol HCl 2 puff INHALATION RT-DAILY 07/04/23 11/22/23 History [Stiolto Respimat Inhal [place]] Folic Acid 1 mg PO DAILY 10/06/23 11/22/23 History amLODIPine [Norvasc] 5 mg PO BID #180 tab 10/13/23 11/22/23 Rx carvediloL [Coreg] 25 mg PO BID #180 tab 10/13/23 11/22/23 Rx hydrALAZINE HCL [Apresoline] 100 mg PO TID #270 tablet 10/13/23 11/22/23 Rx Warfarin [Coumadin] 2 mg PO DAILY@1500 11/22/23 11/22/23 History Allergies Allergy/AdvReac Type Severity Reaction Status Date / Time No Known Allergies Allergy Verified 11/22/23 20:27 Physical Exam Vitals: Vital Signs Temp Pulse Pulse Resp BP BP BP 11/23/23 05:44 151/95 11/23/23 04:45 80 20 162/110 11/23/23 01:21 75 16 11/23/23 01:13 148/96 11/23/23 00:59 164/108 11/23/23 00:00 75 16 155/89 11/22/23 22:40 88 16 207/131 11/22/23 22:00 85 20 222/143 11/22/23 20:15 91 18 204/122 11/22/23 18:35 107 H 18 211/143 11/22/23 16:36 98.1 F 117 H 16 245/168 Pulse Ox 11/23/23 05:44 11/23/23 04:45 99 11/23/23 01:21 11/23/23 01:13 11/23/23 00:59 11/23/23 00:00 94 L 03/04/24 22:40 93 L 11/22/23 22:00 94 L 11/22/23 20:15 93 L 11/22/23 18:35 96 11/22/23 16:36 95 Intake and Output 11/22/23 11/23/23 11/23/23 22:59 06:59 14:59 Output Total 50 Balance -50 Output: Urine 50 Other: Voiding Method Toilet Toilet Urinal Urinal Weight 86.183 kg Results 11/23/23 08:57 11/23/23 03:16 Cardiac Enzymes 11/22/23 11/22/23 11/22/23 Range/Units 16:56 16:56 21:16 AST 25 (17-59) U/L Troponin I 0.223 H* 0.244 H* (0.000-0.034) ng/mL 11/23/23 11/23/23 11/23/23 Range/Units 00:01 03:16 03:16 AST 20 (17-59) U/L Troponin I 0.254 H* 0.266 H* (0.000-0.034) ng/mL Coagulation 11/23/23 Range/Units 01:40 PT 12.6 H (10.0-12.5) sec CBC 11/22/23 11/23/23 Range/Units 16:56 03:16 WBC 15.1 H 13.7 H (3.8-10.6) k/uL RBC 4.38 3.93 L (4.30-5.90) m/uL Hgb 12.7 L 11.5 L (13.0-17.5) gm/dL Hct 36.9 L 33.5 L (39.0-53.0) % Plt Count 124 L 124 L (150-450) k/uL Comprehensive Metabolic Panel 11/22/23 11/23/23 Range/Units 16:56 03:16 Sodium 134 L 134 L (137-145) mmol/L Potassium 3.4 L 3.2 L (3.5-5.1) mmol/L Chloride 100 104 (98-107) mmol/L Carbon Dioxide 23 22 (22-30) mmol/L BUN 78 H 79 H (9-20) mg/dL Creatinine 6.79 H 7.29 H* (0.66-1.25) mg/dL Glucose 231 H 135 H (74-99) mg/dL Calcium 8.3 L 8.2 L (8.4-10.2) mg/dL AST 25 20 (17-59) U/L ALT 13 8 (4-49) U/L Alkaline Phosphatase 77 68 (38-126) U/L Total Protein 6.7 6.0 L (6.3-8.2) g/dL Albumin 3.7 3.2 L (3.5-5.0) g/dL Current Medications Generic Name Dose Route Start Last Admin Trade Name Freq PRN Reason Stop Dose Admin Acetaminophen 650 mg 11/22/23 19:43 Acetaminophen Tab 325 Mg Tab PO Q6HR PRN Mild Pain or Fever > 100.5 Amlodipine Besylate 5 mg 11/22/23 22:15 11/22/23 22:31 Amlodipine 5 Mg Tab PO 5 mg BID PETER Administration Carvedilol 25 mg 11/22/23 22:15 11/22/23 22:31 Carvedilol 12.5 Mg Tab PO 25 mg BID PETER Administration Clonidine 0.2 mg 11/23/23 06:00 11/23/23 06:13 Clonidine Hcl 0.2 Mg Tab PO 0.2 mg TID PETER Administration Hydralazine HCl 100 mg 11/22/23 22:15 11/22/23 22:31 Hydralazine Hcl 50 Mg Tab PO 100 mg TID PETER Administration Hydralazine HCl 10 mg 11/22/23 22:38 11/23/23 05:20 Hydralazine Hcl 20 Mg/Ml 1 Ml Vial IVP 10 mg Q4HR PRN Administration Blood Pressure - High Hydromorphone HCl 1 mg 11/22/23 19:43 Hydromorphone 1 Mg/Ml 1 Ml Syringe IVP Q3HR PRN Severe Pain (Scale 7 to 10) Sodium Chloride 1,000 mls @ 130 mls/hr 11/22/23 19:45 11/23/23 06:21 Saline 0.9% IV Not Given .[id number] [facility] Morphine Sulfate 4 mg 11/22/23 20:59 Morphine Sulfate 4 Mg/Ml Syringe IVP Q4HR PRN Pain Naloxone HCl 0.2 mg 11/22/23 19:43 Naloxone 0.4 Mg/Ml 1 Ml Vial IV Q2M PRN Opioid Reversal Ondansetron HCl 4 mg 11/22/23 19:43 11/23/23 06:12 Ondansetron 4 Mg/2 Ml Vial IVP 4 mg Q8HR PRN Administration Nausea And Vomiting Intake and Output 11/22/23 11/23/23 11/23/23 22:59 06:59 14:59 Output Total 50 Balance -50 Output: Urine 50 Other: Voiding Method Toilet Toilet Urinal Urinal Weight 86.183 kg 11/23/23 03:16 11/23/23 03:16
[2023-11-23] MEDS: SODIUM CHLORIDE 0.9% 1,000 ML IV ONE (11:40)
--- NOTE | 2023-11-23 11:40 | P.HPIM ---
History of Present Illness H&P Date: 11/23/23 This is a 62-year-old gentleman with past medical history significant for mechanical aortic valve, nonischemic cardiomyopathy,hypertension, CVA, supratherapeutic INR, chronic kidney disease stage IV and multiple other medical issues presented to the ER with complaints of dizziness, nausea, vomiting, minimal shortness of breath. Worsened with ambulation. Denies any exertional, strenuous activity. Reports he has been stressed, preparing his taxes. Patient was eating lunch with his sister when the dizziness abruptly started.denies syncope .denies increased sodium Intake .Reports normally his systolic Blood Pressures Run in the 140s to 150s . Denies chest pain, palpitations. Denies lightheadedness dizziness or focal deficits. Reports medication compliance, routinely follows up with cardiology's office for INR monitoring/Coumadin management. States he was scheduled to follow-up with nephrology tomorrow, November 23. Presented to the ER with heart rate 117, blood pressure 245/168, respiratory rate 16, maintaining O2 sats in 95% on room air, INR subtherapeutic, 1.2, BUN 78, creatinine 6.79. Afebrile, WBC 15.1 on admission, currently 13.8. Hemoglobin 11.9, platelets 147, INR 1, sodium 134, potassium 3.2, bicarb 22, BUN 79, creatinine 7.29 glucose 135 lactic acid 2.1, 1.1, phosphorus 5.2, magnesium 2.2. Troponins 0.223, 0.244, 0.254, 0.266. UA reported rare mucus, moderate blood, 2+ glucose, 3+ protein, negative nitrates negative leukocytes. Viral screening negative. Chest x-ray reported nonacute. Brain CTs reported no acute intracranial abnormality. Chest CT reported limited study no acute abnormality demonstrated in chest, pulmonary trunk borderline, mildly uncharged, can be seen with early pulmonary hypertension, prostatic aortic valve in place, several scattered small pulmonary nodular densities bilateral one 6.5 mm in the right middle lobe, recommend 6-month follow-up CT chest, nonspecific nonenlarged and mildly enlarged mediastinal nodes, cholelithiasis, left upper quadrant 3.4 cm mass, likely arising from the adrenal gland. Renal ultrasound reported no hydr onephrosis, no nephrolithiasis or polyp masses seen, simple cyst left kidney. Review of Systems ROS Statement: Those systems with pertinent positive or pertinent negative responses have been documented in the HPI. ROS Other: All systems not noted in ROS Statement are negative. Past Medical History Past Medical History: CVA/TIA, GERD/Reflux, Hyperlipidemia, Hypertension, Sleep Apnea/CPAP/BIPAP Additional Past Medical History / Comment(s): stress test abnormal, cva 2 yrs ago lft arm tires quickly, questioning possible [place],no cpap used See Dr Ibarra's H & P History of Any Multi-Drug Resistant Organisms: None Reported Past Surgical History: Cardiac Valve Replacement Additional Past Surgical History / Comment(s): 2003 aortic valve replaced, cerebral aneurysm repaired 2021 Past Anesthesia/Blood Transfusion Reactions: No Reported Reaction Additional Past Anesthesia/Blood Transfusion Reaction / Comment(s): no hx of blood tx Past Psychological History: No Psychological Hx Reported Smoking Status: Current every day smoker Past Alcohol Use History: Occasional Past Drug Use History: None Reported - Past Family History Father History Unknown: Yes Medications and Allergies Home Medications Medication Instructions Recorded Confirmed Type Esomeprazole Magnesium 40 mg PO DAILY 06/17/23 11/22/23 History Ipratropium/Albuter 20-100Mcg 2 puff INHALATION RT-Q4H PRN 07/04/23 11/22/23 History [Combivent Respimat 20-100Mcg Inhaler] Tiotropium Br/Olodaterol HCl 2 puff INHALATION RT-DAILY 07/04/23 11/22/23 History [Stiolto Respimat Inhal [place]] Folic Acid 1 mg PO DAILY 10/06/23 11/22/23 History amLODIPine [Norvasc] 5 mg PO BID #180 tab 10/13/23 11/22/23 Rx carvediloL [Coreg] 25 mg PO BID #180 tab 10/13/23 11/22/23 Rx hydrALAZINE HCL [Apresoline] 100 mg PO TID #270 tablet 10/13/23 11/22/23 Rx Warfarin [Coumadin] 2 mg PO DAILY@1500 11/22/23 11/22/23 History Allergies Allergy/AdvReac Type Severity Reaction Status Date / Time No Known Allergies Allergy Verified 11/22/23 20:27 Physical Exam Vitals: Vital Signs Temp Pulse Pulse Resp BP BP BP 11/23/23 05:44 151/95 11/23/23 04:45 80 20 162/110 11/23/23 01:21 75 16 11/23/23 01:13 148/96 11/23/23 00:59 164/108 11/23/23 00:00 75 16 155/89 11/22/23 22:40 88 16 207/131 11/22/23 22:00 85 20 222/143 11/22/23 20:15 91 18 204/122 11/22/23 18:35 107 H 18 211/143 11/22/23 16:36 98.1 F 117 H 16 245/168 Pulse Ox 11/23/23 05:44 11/23/23 04:45 99 11/23/23 01:21 11/23/23 01:13 11/23/23 00:59 11/23/23 00:00 94 L 11/22/23 22:40 93 L 11/22/23 22:00 94 L 11/22/23 20:15 93 L 11/22/23 18:35 96 11/22/23 16:36 95 Intake and Output 11/22/23 11/23/23 11/23/23 22:59 06:59 14:59 Output Total 50 Balance -50 Output: Urine 50 Other: Voiding Method Toilet Toilet Urinal Urinal Weight 86.183 kg PHYSICAL EXAM: VITAL SIGNS: [As above] GENERAL: Alert and oriented 3, sitting up at bedside, no acute distress HEENT: Normocephalic, Conjunctivae normal. eyes normal. NECK: Supple, positive JVD. CARDIOVASCULAR: S1, S2 regular. No murmur, prosthetic valve click RESPIRATION: Unlabored, equal air entry, CTA, bilateral bases diminished ABDOMEN: Soft, nondistended, nontender . No guarding. No rigidity ,+BS LEGS: No edema. no calf tenderness, no clubbing or cyanosis. NERVOUS SYSTEM: Cranial N 2-12 grossly normal. No focal deficits. Strength and sensation grossly intact. Skin: Warm and dry, no rash Results CBC & Chem 7: 11/23/23 08:57 11/23/23 03:16 Labs: Abnormal Lab Results - Last 24 Hours (Table) 11/22/23 11/22/23 11/22/23 Range/Units 16:56 16:56 16:56 WBC 15.1 H (3.8-10.6) k/uL RBC (4.30-5.90) m/uL Hgb 12.7 L (13.0-17.5) gm/dL Hct 36.9 L (39.0-53.0) % RDW (11.5-15.5) % Plt Count 124 L (150-450) k/uL Neutrophils # 13.5 H (1.3-7.7) k/uL Lymphocytes # 0.5 L (1.0-4.8) k/uL PT (10.0-12.5) sec INR (<1.2) D-Dimer (<0.60) mg/L FEU Sodium 134 L (137-145) mmol/L Potassium 3.4 L (3.5-5.1) mmol/L BUN 78 H (9-20) mg/dL Creatinine 6.79 H (0.66-1.25) mg/dL Glucose 231 H (74-99) mg/dL Plasma Lactic Acid Lyle 2.1 H* (0.7-2.0) mmol/L Calcium 8.3 L (8.4-10.2) mg/dL Phosphorus (2.5-4.5) mg/dL Total Bilirubin 2.0 H (0.2-1.3) mg/dL Troponin I (0.000-0.034) ng/mL Total Protein (6.3-8.2) g/dL Albumin (3.5-5.0) g/dL Urine Protein (Negative) Urine Glucose (UA) (Negative) Urine Blood (Negative) Urine Mucus (None) /hpf 11/22/23 11/22/23 11/22/23 Range/Units 16:56 19:45 21:10 WBC (3.8-10.6) k/uL RBC (4.30-5.90) m/uL Hgb (13.0-17.5) gm/dL Hct (39.0-53.0) % RDW (11.5-15.5) % Plt Count (150-450) k/uL Neutrophils # (1.3-7.7) k/uL Lymphocytes # (1.0-4.8) k/uL PT (10.0-12.5) sec INR (<1.2) D-Dimer 1.53 H (<0.60) mg/L FEU Sodium (137-145) mmol/L Potassium (3.5-5.1) mmol/L BUN (9-20) mg/dL Creatinine (0.66-1.25) mg/dL Glucose (74-99) mg/dL Plasma Lactic Acid [place] (0.7-2.0) mmol/L Calcium (8.4-10.2) mg/dL Phosphorus (2.5-4.5) mg/dL Total Bilirubin (0.2-1.3) mg/dL Troponin I 0.223 H* (0.000-0.034) ng/mL Total Protein (6.3-8.2) g/dL Albumin (3.5-5.0) g/dL Urine Protein 3+ H (Negative) Urine Glucose (UA) 2+ H (Negative) Urine Blood Moderate H (Negative) Urine Mucus Rare H (None) /hpf 11/22/23 11/23/23 11/23/23 Range/Units 21:16 00:01 01:40 WBC (3.8-10.6) k/uL RBC (4.30-5.90) m/uL Hgb (13.0-17.5) gm/dL Hct (39.0-53.0) % RDW (11.5-15.5) % Plt Count (150-450) k/uL Neutrophils # (1.3-7.7) k/uL Lymphocytes # (1.0-4.8) k/uL PT 12.6 H (10.0-12.5) sec INR 1.2 H (<1.2) D-Dimer (<0.60) mg/L FEU Sodium (137-145) mmol/L Potassium (3.5-5.1) mmol/L BUN (9-20) mg/dL Creatinine (0.66-1.25) mg/dL Glucose (74-99) mg/dL Plasma Lactic Acid [place] (0.7-2.0) mmol/L Calcium (8.4-10.2) mg/dL Phosphorus (2.5-4.5) mg/dL Total Bilirubin (0.2-1.3) mg/dL Troponin I 0.244 H* 0.254 H* (0.000-0.034) ng/mL Total Protein (6.3-8.2) g/dL Albumin (3.5-5.0) g/dL Urine Protein (Negative) Urine Glucose (UA) (Negative) Urine Blood (Negative) Urine Mucus (None) /hpf 11/23/23 11/23/23 11/23/23 Range/Units 03:16 03:16 03:16 WBC 13.7 H (3.8-10.6) k/uL RBC 3.93 L (4.30-5.90) m/uL Hgb 11.5 L (13.0-17.5) gm/dL Hct 33.5 L (39.0-53.0) % RDW 15.6 H (11.5-15.5) % Plt Count 124 L (150-450) k/uL Neutrophils # 11.8 H (1.3-7.7) k/uL Lymphocytes # 0.6 L (1.0-4.8) k/uL PT (10.0-12.5) sec INR (<1.2) D-Dimer (<0.60) mg/L FEU Sodium 134 L (137-145) mmol/L Potassium 3.2 L (3.5-5.1) mmol/L BUN 79 H (9-20) mg/dL Creatinine 7.29 H* (0.66-1.25) mg/dL Glucose 135 H (74-99) mg/dL Plasma Lactic Acid [place] (0.7-2.0) mmol/L Calcium 8.2 L (8.4-10.2) mg/dL Phosphorus 5.2 H (2.5-4.5) mg/dL Total Bilirubin 1.5 H (0.2-1.3) mg/dL Troponin I 0.266 H* (0.000-0.034) ng/mL Total Protein 6.0 L (6.3-8.2) g/dL Albumin 3.2 L (3.5-5.0) g/dL Urine Protein (Negative) Urine Glucose (UA) (Negative) Urine Blood (Negative) Urine Mucus (None) /hpf 11/23/23 Range/Units 08:57 WBC 13.8 H (3.8-10.6) k/uL RBC 4.16 L (4.30-5.90) m/uL Hgb 11.9 L (13.0-17.5) gm/dL Hct 35.4 L (39.0-53.0) % RDW 15.6 H (11.5-15.5) % Plt Count 147 L (150-450) k/uL Neutrophils # 12.1 H (1.3-7.7) k/uL Lymphocytes # 0.7 L (1.0-4.8) k/uL PT (10.0-12.5) sec INR (<1.2) D-Dimer (<0.60) mg/L FEU Sodium (137-145) mmol/L Potassium (3.5-5.1) mmol/L BUN (9-20) mg/dL Creatinine (0.66-1.25) mg/dL Glucose (74-99) mg/dL Plasma Lactic Acid [place] (0.7-2.0) mmol/L Calcium (8.4-10.2) mg/dL Phosphorus (2.5-4.5) mg/dL Total Bilirubin (0.2-1.3) mg/dL Troponin I (0.000-0.034) ng/mL Total Protein (6.3-8.2) g/dL Albumin (3.5-5.0) g/dL Urine Protein (Negative) Urine Glucose (UA) (Negative) Urine Blood (Negative) Urine Mucus (None) /hpf Assessment and Plan Assessment: Hypertensive emergency, on admission, better controlled Subtherapeutic INR Acute on chronic CKD, stage IV,baseline creatinine 3-4 in 10/13, secondary to #1 (On previous admission in September 2023 :2.2 cm hypoechoic at the left kidney mid pole suspected to represent a column of [place] rather than a solid mass with recommendations of follow-up renal ultrasound in 3-6 months, reported per renal ultrasound.) Mechanical aortic valve-[facility], AVR 2003 Nonischemic cardiomyopathy, EF 40% CAD History of CVA 2 years ago Hypertension Hyperlipidemia Gastroesophageal reflux disease Obstructive sleep apnea and does not use BiPAP or CPAP Obesity, BMI 28 Ongoing nicotine dependence Hypokalemia 6.5 mm right middle lobe pulmonary nodular density, recommend 6-month follow-up CT chest Plan: Continue on current medication regimen ,monitoring and symptomatic treatment. Antihypertensives with close monitoring of blood pressure. Heparin drip initiated for anticoagulation, potential for dialysis catheter. Cardiology and nephrology consults in place with recommendations noted and appreciated. IV fluids as per nephrology, close monitoring of renal function. Prognosis guarded given multiple complex medical issues. The impression and plan of care has been dictated as directed. : I performed a history and examination of this patient, discussed the same with the dictator. I agree with the dictator's note ,documented as a scribe. Any additional findings or plans will be noted.
--- NOTE | 2023-11-23 13:06 | P.NPCON ---
History of Present Illness - Reason for Consult chronic renal failure - History of Present Illness Patient is a 63-year-old male with history of hypertension, advanced chronic kidney disease, CVA who is admitted to the hospital with complaints of dizziness, nausea vomiting. Patient was noted to have significantly elevated blood pressure at 245/168. Patient states that he had been stressed recently. Patient denies noncompliance with medications. History of chronic kidney disease NKF stage IV with recent creatinine at 3.8-4 mg/dL in September 2023. No history of use of NSAIDs Patient has had good urine output. Briefly discussed renal replacement therapy last admission however patient has not been established yet as outpatient. Appetite has been fairly good. Blood pressure has improved however he had been as low as 89 mmHg this morning for systolic blood pressure. Meds will be decreased. Review of Systems As per HPI Past Medical History Past Medical History: CVA/TIA, GERD/Reflux, Hyperlipidemia, Hypertension, Sleep Apnea/CPAP/BIPAP Additional Past Medical History / Comment(s): stress test abnormal, cva 2 yrs ago lft arm tires quickly, questioning possible MD,no cpap used See Dr Ibarra's H & P History of Any Multi-Drug Resistant Organisms: None Reported Past Surgical History: Cardiac Valve Replacement Additional Past Surgical History / Comment(s): 2003 aortic valve replaced, cerebral aneurysm repaired 2021 Past Anesthesia/Blood Transfusion Reactions: No Reported Reaction Additional Past Anesthesia/Blood Transfusion Reaction / Comment(s): no hx of blood tx Past Psychological History: No Psychological Hx Reported Smoking Status: Current every day smoker Past Alcohol Use History: Occasional Past Drug Use History: None Reported - Past Family History Father History Unknown: Yes Medications and Allergies Home Medications Medication Instructions Recorded Confirmed Type Esomeprazole Magnesium 40 mg PO DAILY 06/17/23 11/22/23 History Ipratropium/Albuter 20-100Mcg 2 puff INHALATION RT-Q4H PRN 07/04/23 11/22/23 History [Combivent Respimat 20-100Mcg Inhaler] Tiotropium Br/Olodaterol HCl 2 puff INHALATION RT-DAILY 07/04/23 11/22/23 History [Stiolto Respimat Inhal Farley] Folic Acid 1 mg PO DAILY 10/06/23 11/22/23 History amLODIPine [Norvasc] 5 mg PO BID #180 tab 10/13/23 11/22/23 Rx carvediloL [Coreg] 25 mg PO BID #180 tab 10/13/23 11/22/23 Rx hydrALAZINE HCL [Apresoline] 100 mg PO TID #270 tablet 10/13/23 11/22/23 Rx Warfarin [Coumadin] 2 mg PO DAILY@1500 11/22/23 11/22/23 History Allergies Allergy/AdvReac Type Severity Reaction Status Date / Time No Known Allergies Allergy Verified 11/22/23 20:27 Physical Exam Vitals: Vital Signs Temp Pulse Pulse Resp BP BP BP 11/23/23 08:00 97.7 F 79 17 160/106 11/23/23 05:44 151/95 11/23/23 04:45 80 20 162/110 11/23/23 01:21 75 16 11/23/23 01:13 148/96 11/23/23 00:59 164/108 11/23/23 00:00 75 16 155/89 11/22/23 22:40 88 16 207/131 11/22/23 22:00 85 20 222/143 11/22/23 20:15 91 18 204/122 11/22/23 18:35 107 H 18 211/143 11/22/23 16:36 98.1 F 117 H 16 245/168 Pulse Ox 11/23/23 08:00 96 11/23/23 05:44 11/23/23 04:45 99 11/23/23 01:21 11/23/23 01:13 11/23/23 00:59 11/23/23 00:00 94 L 11/22/23 22:40 93 L 11/22/23 22:00 94 L 11/22/23 20:15 93 L 11/22/23 18:35 96 11/22/23 16:36 95 Intake and Output 11/22/23 11/23/23 11/23/23 22:59 06:59 14:59 Output Total 50 200 Balance -50 -200 Output: Urine 50 200 Other: Voiding Method Toilet Toilet Urinal Urinal Weight 86.183 kg Patient is awake, comfortable, no acute distress Alert oriented 3 Examination of the heart S1 and S2 Examination of the lungs bilateral breath sounds are heard Abdomen is soft nontender Examination of lower extremities shows no significant edema 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 Chronic kidney disease NKF stage IV with baseline creatinine around 3-4 mg/dL. Etiology is likely nephrosclerosis. UA shows 1+ protein in September and 3+ protein currently. We will obtain workup for proteinuria. Ultrasound shows no evidence of obstructive uropathy. 2. Acute kidney injury, most likely related to uncontrolled hypertension versus progression of underlying chronic kidney disease. Discussed renal replacement therapy again with the patient. I will challenge with IV fluids and repeat labs in a.m. Patient is advised that if there is no further improvement in renal function he will need to start dialysis. 3. Hypertensive emergency. Decrease medications as blood pressure was significantly low this morning. Goal systolic blood pressure about 140-150mmHg 4. History of mechanical aortic valve replacement in 2003 5. cardiomyopathy with EF of 40% 6. History of CVA Plan: Decrease clonidine dose Decrease next dose of hydralazine depending on the blood pressure. Add IV fluids Repeat labs in a.m. Start renal replacement therapy this admission if no improvement in renal function Obtain workup for proteinuria. Thank you for the consultation. We will continue to follow the patient with you during his hospitalization
[2023-11-23] MEDS: POTASSIUM BICARBONATE/CIT AC 20 MEQ TABLET.EFF PO ONE (14:16)
[2023-11-23 19:18] LABS: Hepatitis B Surface Antigen Nonreactive; Hepatitis C IgG Antibody Nonreactive
[2023-11-23] MEDS: SODIUM CHLORIDE 0.9% 1,000 ML IV SCH (19:26)
[2023-11-23 21:19] LABS: Anti-DNA, DS unit <1.0 IU/mL; DNA Double-Stranded Negative (Negative)
[2023-11-23] MEDS: HEPARIN SODIUM 1,000 UN/ML (10ML VL) IV PRN (21:23)
[2023-11-23 22:01] LABS: Hepatitis B Surface AB- Quant 3.5 mIU/mL
[2023-11-24 03:59] LABS: INR 1.1 (<1.2); Partial Thromboplastin Time 43.7 sec (22.0-30.0); Prothrombin Time 11.6 sec (10.0-12.5)
[2023-11-24 04:01] LABS: Basophils # (A) 0.1 k/uL (0-0.2); Basophils % (A) 1 %; Eosinophils # (A) 0.4 k/uL (0-0.7); Eosinophils % (A) 4 %; HCT 28.1 % (39.0-53.0); Lymphocytes # (A) 1.1 k/uL (1.0-4.8); Lymphocytes % (A) 9 %; MCH 29.2 pg (25.0-35.0); MCHC 34.2 g/dL (31.0-37.0); MCV 85.4 fL (80.0-100.0); Monocytes # (A) 0.5 k/uL (0-1.0); Monocytes % (A) 4 %; Neutrophils # (A) 9.2 k/uL (1.3-7.7); Neutrophils % (A) 81 %; Platelet Count 113 k/uL (150-450); RBC 3.29 m/uL (4.30-5.90); RDW 15.9 % (11.5-15.5); WBC 11.4 k/uL (3.8-10.6)
[2023-11-24 04:02] LABS: HGB 9.6 gm/dL (13.0-17.5)
[2023-11-24] MEDS: SPIRONOLACTONE 25 MG TAB PO SCH ×2 (10:14→16:42)
[2023-11-24 11:46] LABS: ALT 8 U/L (4-49); AST 15 U/L (17-59); African American GFR (CKD) 8 (>60 ml/min/1.73 sqM); Albumin 2.5 g/dL (3.5-5.0); Alkaline Phosphatase 65 U/L (38-126); Anion Gap 11 mmol/L; Blood Urea Nitrogen 85 mg/dL (9-20); Calcium 7.5 mg/dL (8.4-10.2); Carbon Dioxide 19 mmol/L (22-30); Chloride 104 mmol/L (98-107); Glucose 108 mg/dL (74-99); Non-African American GFR(CKD) 7 (>60 ml/min/1.73 sqM); Potassium 3.1 mmol/L (3.5-5.1); Sodium 134 mmol/L (137-145); Total Bilirubin 0.6 mg/dL (0.2-1.3)
--- NOTE | 2023-11-24 12:47 | P.PN ---
Subjective Patient is seen for follow-up for chronic kidney disease with acute kidney injury this admission. Renal function has not improved. No complaints of nausea vomiting. Discussed with patient regarding starting renal replacement therapy. He is agreeable if labs are worse from today. Patient has been voiding Objective - Vital Signs Vital signs: Vital Signs Temp 98.2 F 11/24/23 04:00 Pulse 72 11/24/23 08:00 Resp 18 11/24/23 08:00 BP 134/75 11/24/23 08:00 Pulse Ox 98 11/24/23 08:00 FiO2 Intake & Output 11/23/23 11/24/23 11/24/23 18:59 06:59 18:59 Intake Total 862 628 Output Total 200 550 Balance -200 312 628 Intake: Intake, IV Titration 502 148 Amount Heparin Sod,Pork in 0.45% 102 148 NaCl 25,000 unit In 0.45 % NaCl 1 250ml.bag @ 11. 603 UNITS/KG/HR 10 mls/hr IV .Q24H [facility] Rx#: [id number] Sodium Chloride 0.9% 1, 400 000 ml @ 100 mls/hr IV . 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 - Labs CBC & Chem 7: 11/24/23 03:08 11/24/23 03:08 Labs: Abnormal Lab Results - Last 24 Hours (Table) 11/23/23 11/23/23 11/23/23 Range/Units 10:19 16:45 19:53 WBC (3.8-10.6) k/uL RBC (4.30-5.90) m/uL Hgb (13.0-17.5) gm/dL Hct (39.0-53.0) % RDW (11.5-15.5) % Plt Count (150-450) k/uL Neutrophils # (1.3-7.7) k/uL APTT 41.1 H 36.9 H (22.0-30.0) sec Sodium (137-145) mmol/L Potassium (3.5-5.1) mmol/L Carbon Dioxide (22-30) mmol/L BUN (9-20) mg/dL Creatinine (0.66-1.25) mg/dL Glucose (74-99) mg/dL Calcium (8.4-10.2) mg/dL AST (17-59) U/L Total Protein (6.3-8.2) g/dL Albumin (3.5-5.0) g/dL TAVARES Screen POSITIVE A (Negative) 11/24/23 11/24/23 11/24/23 Range/Units 03:08 03:08 03:08 WBC 11.4 H (3.8-10.6) k/uL RBC 3.29 L (4.30-5.90) m/uL Hgb 9.6 L D (13.0-17.5) gm/dL Hct 28.1 L (39.0-53.0) % RDW 15.9 H (11.5-15.5) % Plt Count 113 L (150-450) k/uL Neutrophils # 9.2 H (1.3-7.7) k/uL APTT 43.7 H (22.0-30.0) sec Sodium 134 L (137-145) mmol/L Potassium 3.1 L (3.5-5.1) mmol/L Carbon Dioxide 19 L (22-30) mmol/L BUN 85 H (9-20) mg/dL Creatinine 7.81 H* (0.66-1.25) mg/dL Glucose 108 H (74-99) mg/dL Calcium 7.5 L (8.4-10.2) mg/dL AST 15 L (17-59) U/L Total Protein 5.0 L (6.3-8.2) g/dL Albumin 2.5 L (3.5-5.0) g/dL TAVARES Screen (Negative) Assessment and Plan Assessment: 1. Chronic kidney disease NKF stage IV with baseline creatinine around 3-4 mg/dL. Etiology is likely nephrosclerosis, rule out underlying GN. Serologies are negative thus far except for positive TAVARES. UA shows 1+ protein in September and 3+ protein currently. We will obtain workup for proteinuria. Ultrasound shows no evidence of obstructive uropathy. 2. Acute kidney injury, most likely related to uncontrolled hypertension versus progression of underlying chronic kidney disease. Discussed renal replacement therapy again with the patient. Status post IV fluids. Patient is advised that if there is no further improvement in renal function he will need to start dialysis. 3. Hypertensive emergency. Decrease medications as blood pressure was significantly low this morning. Goal systolic blood pressure about 140-150mmHg 4. History of mechanical aortic valve replacement in 2003 5. cardiomyopathy with EF of 40% 6. History of CVA Plan: Decrease clonidine dose Repeat labs in a.m. Start renal replacement therapy this admission if no improvement in renal function
--- NOTE | 2023-11-24 12:51 | P.PN ---
Subjective HISTORY OF PRESENT ILLNESS: This is a 63-year-old male with a past medical history significant for nonischemic cardiomyopathy, hypertension, CVA, obstructive sleep apnea, chronic kidney disease, and previous mechanical aortic valve replacement. Patient follows in the office with Dr. Ibarra. We have been asked to see the patient in consultation for syncope. Patient examined at the bedside in the emergency room. Patient states he presented to the hospital with chief complaint of feeling unwell. He also reports having some dizziness. He denies chest pain or pressure. Denies any shortness of breath. The patient was found to have worsening kidney function with a creatinine of 7.29. Patient was supposed to follow-up outpatient with nephrology but has not yet been seen. Patient's blood pressures were noted to be significantly elevated upon admission to the hospital with a reading of 245/168. Patient has been resumed on his home cardiac medications. Most recent blood pressure 151/95. Patient's INR on admission is 1.2. Patient is adamant that he has been taking his medications as prescribed including his Coumadin. Patient follows up in the cardiology office for his INR checks and Coumadin management. Patient's last visit to the cardiology office for an INR check was on October 28, 2023. At that time the patient's INR was greater than 8 per office staff. DIAGNOSTICS: - EKG reveals sinus tachycardia with heart rate of 114. Diffuse T wave inversions. LVH. - Chest xray negative for acute process. - Laboratory data: WBC 13.7. Hemoglobin 11.5. Platelet count 124. Sodium 134. Potassium 3.2. BUN 79. Creatinine 7.29. Troponin 0.244. 0.254. 0.266. - Current home cardiac medications include Coumadin 2 mg daily, carvedilol 25 mg twice a day, hydralazine 100 mg 3 times a day, and amlodipine 5 mg twice a day. - Most recent echocardiogram obtained in September 2023 revealed ejection fraction 55% with normally functioning mechanical prosthetic aortic valve -Previous echocardiogram in May 2023 revealed ejection fraction of 40% - Cardiac catheterization history: April 2023 revealing mild nonobstructive di sease involving the right coronary artery 11/24/2023 Patient examined this morning at the bedside. Patient denies chest pain or pressure. He denies shortness of breath. Patient's creatinine worsened today at 7.81. Nephrology is following. He remains on IV heparin. Coumadin is on hold in the event that patient needs a hemodialysis catheter placed. Blood pressure stable with a recent reading of 134/75. PHYSICAL EXAM: VITAL SIGNS: Reviewed. GENERAL: Well-developed in no acute distress. HEENT: Head is normocephalic. Pupils are equal, round. Sclerae anicteric. Mucous membranes of the mouth are moist. Neck supple. No JVD or thyromegaly LUNGS: Respirations even and unlabored. Lungs essentially clear to auscultation bilaterally. HEART: Regular rate and rhythm. S1 and S2 heard. Mechanical click noted. ABDOMEN: Soft. Nondistended. Nontender. EXTREMITIES: Normal range of motion. No clubbing or cyanosis. Peripheral pulses intact. No lower extremity edema NEUROLOGIC: Awake and alert. Oriented x 3. ASSESSMENT: Dizziness Presyncope Acute on chronic kidney disease Subtherapeutic INR, questionable compliance with medications Hypertensive emergency Abnormal troponins, flat, likely secondary to chronic kidney disease History of mechanical aortic valve replacement, 2003, in [place] History of nonischemic cardiomyopathy with improved EF Mild nonobstructive CAD per cardiac catheterization 2022 Hypertension Hyperlipidemia History of medication noncompliance PLAN: Continue current cardiac medications Continue IV heparin Nephrology following. Will hold on initiating Coumadin in case patient will require dialysis catheter placement Continue to monitor blood pressure Further recommendations pending patient course Nurse practitioner note has been reviewed by physician. Signing provider agrees with the documented findings, assessment, and plan of care documented by RN MEDICATION as a scribe. Objective - Vital Signs Vital signs: Vital Signs Temp 98.2 F 11/24/23 04:00 Pulse 72 11/24/23 08:00 Resp 18 11/24/23 08:00 BP 134/75 11/24/23 08:00 Pulse Ox 98 11/24/23 08:00 FiO2 Intake & Output 11/23/23 11/24/23 11/24/23 18:59 06:59 18:59 Intake Total 862 628 Output Total 200 550 Balance -200 312 628 Intake: Intake, IV Titration 502 148 Amount Heparin Sod,Pork in 0.45% 102 148 NaCl 25,000 unit In 0.45 % NaCl 1 250ml.bag @ 11. 603 UNITS/KG/HR 10 mls/hr IV .Q24H [facility] Rx#: [id number] Sodium Chloride 0.9% 1, 400 000 ml @ 100 mls/hr IV . Q10H [facility] Rx#:[id number] Oral 360 480 Output: Urine 200 550 Other: Voiding Method Urinal Urinal # Voids 1 - Labs CBC & Chem 7: 11/24/23 03:08 11/24/23 03:08 Labs: Abnormal Lab Results - Last 24 Hours (Table) 11/23/23 11/23/23 11/23/23 Range/Units 10:19 16:45 19:53 WBC (3.8-10.6) k/uL RBC (4.30-5.90) m/uL Hgb (13.0-17.5) gm/dL Hct (39.0-53.0) % RDW (11.5-15.5) % Plt Count (150-450) k/uL Neutrophils # (1.3-7.7) k/uL APTT 41.1 H 36.9 H (22.0-30.0) sec Sodium (137-145) mmol/L Potassium (3.5-5.1) mmol/L Carbon Dioxide (22-30) mmol/L BUN (9-20) mg/dL Creatinine (0.66-1.25) mg/dL Glucose (74-99) mg/dL Calcium (8.4-10.2) mg/dL AST (17-59) U/L Total Protein (6.3-8.2) g/dL Albumin (3.5-5.0) g/dL TAVARES Screen POSITIVE A (Negative) 11/24/23 11/24/23 11/24/23 Range/Units 03:08 03:08 03:08 WBC 11.4 H (3.8-10.6) k/uL RBC 3.29 L (4.30-5.90) m/uL Hgb 9.6 L D (13.0-17.5) gm/dL Hct 28.1 L (39.0-53.0) % RDW 15.9 H (11.5-15.5) % Plt Count 113 L (150-450) k/uL Neutrophils # 9.2 H (1.3-7.7) k/uL APTT 43.7 H (22.0-30.0) sec Sodium 134 L (137-145) mmol/L Potassium 3.1 L (3.5-5.1) mmol/L Carbon Dioxide 19 L (22-30) mmol/L BUN 85 H (9-20) mg/dL Creatinine 7.81 H* (0.66-1.25) mg/dL Glucose 108 H (74-99) mg/dL Calcium 7.5 L (8.4-10.2) mg/dL AST 15 L (17-59) U/L Total Protein 5.0 L (6.3-8.2) g/dL Albumin 2.5 L (3.5-5.0) g/dL TAVARES Screen (Negative)
[2023-11-24 14:24] LABS: C-ANCA <1:20 Titer (<1:20)
[2023-11-24] MEDS: POTASSIUM CHLORIDE ER 20 MEQ TAB.ER PO SCH (16:42)
[2023-11-24 18:42] LABS: ANA Pattern Speckled
[2023-11-24] MEDS: cloNIDine HCL 0.1 MG TAB PO SCH (20:05)
[2023-11-25 07:58] LABS: Basophils # (A) 0.1 k/uL (0-0.2); Basophils % (A) 1 %; Eosinophils # (A) 0.4 k/uL (0-0.7); Eosinophils % (A) 4 %; HGB 10.2 gm/dL (13.0-17.5); Lymphocytes # (A) 0.8 k/uL (1.0-4.8); Lymphocytes % (A) 7 %; MCH 29.4 pg (25.0-35.0); MCHC 34.1 g/dL (31.0-37.0); MCV 86.2 fL (80.0-100.0); Mean Platelet Volume 10.9; Monocytes # (A) 0.5 k/uL (0-1.0); Monocytes % (A) 4 %; Neutrophils % (A) 83 %; Platelet Count 138 k/uL (150-450); RBC 3.48 m/uL (4.30-5.90); WBC 10.8 k/uL (3.8-10.6)
[2023-11-25 08:21] LABS: African American GFR (CKD) 7 (>60 ml/min/1.73 sqM); Anion Gap 11 mmol/L; Blood Urea Nitrogen 88 mg/dL (9-20); Calcium 8.2 mg/dL (8.4-10.2); Carbon Dioxide 17 mmol/L (22-30); Chloride 106 mmol/L (98-107); Glucose 105 mg/dL (74-99); Non-African American GFR(CKD) 6 (>60 ml/min/1.73 sqM); Sodium 134 mmol/L (137-145)
[2023-11-25 09:42] LABS: Glucose,Whole Blood 124 mg/dL (70-110)
--- NOTE | 2023-11-25 12:11 | P.PN ---
Subjective HISTORY OF PRESENT ILLNESS: This is a 63-year-old male with a past medical history significant for nonischemic cardiomyopathy, hypertension, CVA, obstructive sleep apnea, chronic kidney disease, and previous mechanical aortic valve replacement. Patient follows in the office with Dr. Ibarra. We have been asked to see the patient in consultation for syncope. Patient examined at the bedside in the emergency room. Patient states he presented to the hospital with chief complaint of feeling unwell. He also reports having some dizziness. He denies chest pain or pressure. Denies any shortness of breath. The patient was found to have worsening kidney function with a creatinine of 7.29. Patient was supposed to follow-up outpatient with nephrology but has not yet been seen. Patient's blood pressures were noted to be significantly elevated upon admission to the hospital with a reading of 245/168. Patient has been resumed on his home cardiac medications. Most recent blood pressure 151/95. Patient's INR on admission is 1.2. Patient is adamant that he has been taking his medications as prescribed including his Coumadin. Patient follows up in the cardiology office for his INR checks and Coumadin management. Patient's last visit to the cardiology office for an INR check was on October 28, 2023. At that time the patient's INR was greater than 8 per office staff. DIAGNOSTICS: - EKG reveals sinus tachycardia with heart rate of 114. Diffuse T wave inversions. LVH. - Chest xray negative for acute process. - Laboratory data: WBC 13.7. Hemoglobin 11.5. Platelet count 124. Sodium 134. Potassium 3.2. BUN 79. Creatinine 7.29. Troponin 0.244. 0.254. 0.266. - Current home cardiac medications include Coumadin 2 mg daily, carvedilol 25 mg twice a day, hydralazine 100 mg 3 times a day, and amlodipine 5 mg twice a day. - Most recent echocardiogram obtained in September 2023 revealed ejection fraction 55% with normally functioning mechanical prosthetic aortic valve -Previous echocardiogram in May 2023 revealed ejection fraction of 40% - Cardiac catheterization history: April 2023 revealing mild nonobstructive di sease involving the right coronary artery 11/24/2023 Patient examined this morning at the bedside. Patient denies chest pain or pressure. He denies shortness of breath. Patient's creatinine worsened today at 7.81. Nephrology is following. He remains on IV heparin. Coumadin is on hold in the event that patient needs a hemodialysis catheter placed. Blood pressure stable with a recent reading of 134/75. 11/25/2023 Patient examined this morning at the bedside. Patient appears to be more confus ed today compared to yesterday. He denies chest pain or pressure. He denies shortness of breath. Patient with worsening renal function with creatinine 8.43. PHYSICAL EXAM: VITAL SIGNS: Reviewed. GENERAL: Well-developed in no acute distress. HEENT: Head is normocephalic. Pupils are equal, round. Sclerae anicteric. Mucous membranes of the mouth are moist. Neck supple. No JVD or thyromegaly LUNGS: Respirations even and unlabored. Lungs essentially clear to auscultation bilaterally. HEART: Regular rate and rhythm. S1 and S2 heard. Mechanical click noted. ABDOMEN: Soft. Nondistended. Nontender. EXTREMITIES: Normal range of motion. No clubbing or cyanosis. Peripheral pulses intact. No lower extremity edema NEUROLOGIC: Awake and alert. Oriented x 3. ASSESSMENT: Dizziness Presyncope Acute on chronic kidney disease Subtherapeutic INR, questionable compliance with medications Hypertensive emergency Abnormal troponins, flat, likely secondary to chronic kidney disease History of mechanical aortic valve replacement, 2003, in [place] History of nonischemic cardiomyopathy with improved EF Mild nonobstructive CAD per cardiac catheterization 2022 Hypertension Hyperlipidemia History of medication noncompliance Nicotine dependence Documented 6-10 alcoholic drinks per day PLAN: Continue current cardiac medications Nephrology following. Patient to begin hemodialysis. Patient to have hemodialysis catheter inserted today. Will resume Coumadin tonight as long as patient has dialysis catheter placed We will continue IV heparin until INR is therapeutic Continue to monitor blood pressure Further recommendations pending patient course Nurse practitioner note has been reviewed by physician. Signing provider agrees with the documented findings, assessment, and plan of care documented by WRAPPER OPERATOR as a scribe. Objective - Vital Signs Vital signs: Vital Signs Temp 97.9 F 11/25/23 08:48 Pulse 60 11/25/23 08:48 Resp 17 11/25/23 08:48 BP 130/84 11/25/23 08:48 Pulse Ox 97 11/25/23 08:48 FiO2 Intake & Output 11/24/23 11/25/23 11/25/23 18:59 06:59 18:59 Intake Total 1068 490 Balance 1068 490 Intake: Intake, IV Titration 148 250 Amount Heparin Sod,Pork in 0.45% 148 250 NaCl 25,000 unit In 0.45 % NaCl 1 250ml.bag @ 11. 603 UNITS/KG/HR 10 mls/hr IV .Q24H [facility] Rx#: [id number] Oral 920 240 Other: Voiding Method Urinal # Voids 1 - Labs CBC & Chem 7: 11/25/23 07:45 11/25/23 07:45 Labs: Abnormal Lab Results - Last 24 Hours (Table) 11/25/23 11/25/23 11/25/23 Range/Units 07:45 07:45 07:45 WBC 10.8 H (3.8-10.6) k/uL RBC 3.48 L (4.30-5.90) m/uL Hgb 10.2 L (13.0-17.5) gm/dL Hct 30.0 L (39.0-53.0) % RDW 16.0 H (11.5-15.5) % Plt Count 138 L (150-450) k/uL Neutrophils # 9.0 H (1.3-7.7) k/uL Lymphocytes # 0.8 L (1.0-4.8) k/uL APTT 38.0 H (22.0-30.0) sec Sodium 134 L (137-145) mmol/L Carbon Dioxide 17 L (22-30) mmol/L BUN 88 H (9-20) mg/dL Creatinine 8.43 H* (0.66-1.25) mg/dL Glucose 105 H (74-99) mg/dL POC Glucose (mg/dL) (70-110) mg/dL Calcium 8.2 L (8.4-10.2) mg/dL 11/25/23 Range/Units 09:40 WBC (3.8-10.6) k/uL RBC (4.30-5.90) m/uL Hgb (13.0-17.5) gm/dL Hct (39.0-53.0) % RDW (11.5-15.5) % Plt Count (150-450) k/uL Neutrophils # (1.3-7.7) k/uL Lymphocytes # (1.0-4.8) k/uL APTT (22.0-30.0) sec Sodium (137-145) mmol/L Carbon Dioxide (22-30) mmol/L BUN (9-20) mg/dL Creatinine (0.66-1.25) mg/dL Glucose (74-99) mg/dL POC Glucose (mg/dL) 124 H (70-110) mg/dL Calcium (8.4-10.2) mg/dL
[2023-11-25] MEDS: THIAMINE 100 MG TAB PO SCH (12:18)
[2023-11-25] MEDS: FOLIC ACID 1 MG TAB PO SCH (12:18)
--- NOTE | 2023-11-25 12:30 | P.PN ---
Subjective Patient is seen for follow-up for chronic kidney disease with acute kidney injury this admission. Renal function has not improved. No complaints of nausea vomiting. Nursing staff reported confusion on and off today Discussed with patient regarding starting renal replacement therapy. He is agreeable . Scheduled for permacath placement today. We will proceed with first treatment of hemodialysis today. Objective - Vital Signs Vital signs: Vital Signs Temp 97.8 F 11/25/23 12:00 Pulse 62 11/25/23 12:00 Resp 16 11/25/23 12:00 BP 121/75 11/25/23 12:00 Pulse Ox 97 11/25/23 12:00 FiO2 Intake & Output 11/24/23 11/25/23 11/25/23 18:59 06:59 18:59 Intake Total 1068 490 Balance 1068 490 Intake: Intake, IV Titration 148 250 Amount Heparin Sod,Pork in 0.45% 148 250 NaCl 25,000 unit In 0.45 % NaCl 1 250ml.bag @ 11. 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 grossly intact - Labs CBC & Chem 7: 11/25/23 07:45 11/25/23 07:45 Labs: Abnormal Lab Results - Last 24 Hours (Table) 11/25/23 11/25/23 11/25/23 Range/Units 07:45 07:45 07:45 WBC 10.8 H (3.8-10.6) k/uL RBC 3.48 L (4.30-5.90) m/uL Hgb 10.2 L (13.0-17.5) gm/dL Hct 30.0 L (39.0-53.0) % RDW 16.0 H (11.5-15.5) % Plt Count 138 L (150-450) k/uL Neutrophils # 9.0 H (1.3-7.7) k/uL Lymphocytes # 0.8 L (1.0-4.8) k/uL APTT 38.0 H (22.0-30.0) sec Sodium 134 L (137-145) mmol/L Carbon Dioxide 17 L (22-30) mmol/L BUN 88 H (9-20) mg/dL Creatinine 8.43 H* (0.66-1.25) mg/dL Glucose 105 H (74-99) mg/dL POC Glucose (mg/dL) (70-110) mg/dL Calcium 8.2 L (8.4-10.2) mg/dL 11/25/23 Range/Units 09:40 WBC (3.8-10.6) k/uL RBC (4.30-5.90) m/uL Hgb (13.0-17.5) gm/dL Hct (39.0-53.0) % RDW (11.5-15.5) % Plt Count (150-450) k/uL Neutrophils # (1.3-7.7) k/uL Lymphocytes # (1.0-4.8) k/uL APTT (22.0-30.0) sec Sodium (137-145) mmol/L Carbon Dioxide (22-30) mmol/L BUN (9-20) mg/dL Creatinine (0.66-1.25) mg/dL Glucose (74-99) mg/dL POC Glucose (mg/dL) 124 H (70-110) mg/dL Calcium (8.4-10.2) mg/dL Assessment and Plan Assessment: 1. Chronic kidney disease NKF stage IV with baseline creatinine around 3-4 mg/dL. Etiology is likely nephrosclerosis, rule out underlying GN. Serologies are negative thus far except for positive TAVARES. UA shows 1+ protein in September and 3+ protein currently. We will obtain workup for proteinuria. Ultrasound shows no evidence of obstructive uropathy. 2. Acute kidney injury, most likely related to uncontrolled hypertension versus progression of underlying chronic kidney disease. Discussed renal replacement therapy again with the patient. Status post IV fluids. Patient will be started on hemodialysis. 3. Hypertensive emergency. Goal systolic blood pressure about 140-150mmHg 4. History of mechanical aortic valve replacement in 2003 5. cardiomyopathy with EF of 40% 6. History of CVA Plan: Decrease clonidine dose Hemodialysis today and again in a.m. Decrease IV fluids
[2023-11-25] MEDS: SODIUM CHLORIDE 0.9% 250 ML IV ONE (14:31)
[2023-11-25] MEDS: MIDAZOLAM 2 MG/2 ML VIAL IVP ONE (14:32)
[2023-11-25] MEDS: fentaNYL (PF) 50 MCG/1 ML VIAL IVP ONE (14:32)
[2023-11-25] MEDS: LIDOCAINE 1% INJ 10MG/ML (30 ML VIAL-PF) SQ ONE (14:34)
--- NOTE | 2023-11-25 15:04 | P.CNNES ---
History of Present Illness Consult date: 11/25/23 Requesting physician: Marina Kelly Reason for Consult: New onset confusion History of Present Illness: Patient is a 63-year-old right-handed male, with history of cerebral aneurysm, tobacco use, was brought to the hospital on Wednesday (3 days ago), 11/22/2023 at 4:30 PM for dizziness, lightheadedness and difficulty walking. He was noted to have high blood pressure, acute on chronic renal insufficiency. Patient states that he passed out at home. He was sitting in the chair. He got up, got out of the chair and was going to the bathroom when he hit the wall, states he lost consciousness, however he states that he did not fall to the ground. He was out for "couple seconds" and was fine afterwards. He was myles t to the hospital and states while he was coming to the ER, getting checked out, he "went to the legs", and states he did fall to the ground, and passed out. He states that he did not hit his head. He states that he has not been able to pass urine since yesterday. Bladder scan revealed 299 cc urine in the bladder. Apparently while he was in the hospital this morning in room #366, patient rippe d off the bed alarm, and tried to get up by himself, and apparently went down on the floor. When the nurse came in, he was kneeling on the floor. He did not hit his head. Vital signs on arrival blood pressure 245/168, which came down to 211/143, then 200/122. Pulse rate 117, temperature 98.1. Blood test shows WBC 15.1 hemoglobin 12.7, platelets 124. D-dimer 1.53 which is elevated. Sodium 134 potassium 3.4, BUN 78, creatinine 6.79. AST 25, ALT 13. Troponin mildly elevated 0.223. UA negative. Influenza, RSV, coronavirus PCR negative. Initial CT head revealed no CT evidence of an acute intracranial abnormality. Atrophy and chronic microvascular ischemic white matter changes. Paranasal sinus mucosal disease, greatest in the left maxillary sinus. Minimal fluid in the left inferior mastoid air cells. I personally reviewed CT head agree with the findings. EKG shows sinus tachycardia. CT of abdomen pelvis revealed left upper quadrant 3.4 cm mass like arising from the adrenal gland. Several scattered small pulmonary nodular densities bilaterally, 1 of more conspicuous is 6.5 mm in the right middle lobe. Recommend 6-month follow-up. Nonspecific nonenlarged and mildly enlarged mediastinal nodes. Borderline cardiomegaly. Repeat CT head performed this morning revealed previous left lateral craniotomy flap. There is moderate patchy burden of chronic small vessel ischemic disease. Old basal ganglionic lacunar infarcts. There also appears to be old right- sided cerebellar infarct. No acute intracranial abnormality seen. Severe chronic left maxillary sinusitis. Small amount of fluid inferior left mastoid air cells, questionable clinical significance. I personally reviewed CT head agree with the findings. Patient has smoked 3/4 pack/day for about 20 years. He drinks once a week heavily. He lives with his sister. He has no children. He walks by himself does not use any assistive devices at baseline. Patient states that he was diagnosed with a cerebral aneurysm 2 years ago which was unruptured and he underwent surgery for it. Review of Systems Constitutional: Reports weight loss, Denies chills, Denies fever Eyes: denies blurred vision, denies diplopia, denies pain Ears: deny: decreased hearing, ear discharge Ears, nose, mouth and throat: Denies headache, Denies vertigo Cardiovascular: Denies chest pain, Denies lightheadedness, Denies shortness of breath Respiratory: Reports cough, Reports excessive sputum Gastrointestinal: Denies abdominal pain, Denies diarrhea, Denies nausea, Denies vomiting Genitourinary: Reports urinary retention, Denies dysuria Musculoskeletal: Denies low back pain, Denies myalgias, Denies neck pain Integumentary: Denies pruritus, Denies rash Neurological: Reports as per HPI Psychiatric: Denies anxiety, Denies depression Endocrine: Reports fatigue, Reports weight change Past Medical History Past Medical History: CVA/TIA, GERD/Reflux, Hyperlipidemia, Hypertension, Sleep Apnea/CPAP/BIPAP Additional Past Medical History / Comment(s): stress test abnormal, cva 2 yrs ago lft arm tires quickly, questioning possible [place],no cpap used See Dr Ibarra's H & P History of Any Multi-Drug Resistant Organisms: None Reported Past Surgical History: Cardiac Valve Replacement Additional Past Surgical History / Comment(s): 2003 aortic valve replaced, cerebral aneurysm repaired 2021 Past Anesthesia/Blood Transfusion Reactions: No Reported Reaction Additional Past Anesthesia/Blood Transfusion Reaction / Comment(s): no hx of blood tx Past Psychological History: No Psychological Hx Reported Smoking Status: Current every day smoker Past Alcohol Use History: Occasional Past Drug Use History: None Reported - Past Family History Father History Unknown: Yes Medications and Allergies Home Medications Medication Instructions Recorded Confirmed Type Esomeprazole Magnesium 40 mg PO DAILY 06/17/23 11/22/23 History Ipratropium/Albuter 20-100Mcg 2 puff INHALATION RT-Q4H PRN 07/04/23 11/22/23 History [Combivent Respimat 20-100Mcg Inhaler] Tiotropium Br/Olodaterol HCl 2 puff INHALATION RT-DAILY 07/04/23 11/22/23 History [Stiolto Respimat Inhal [place]] Folic Acid 1 mg PO DAILY 10/06/23 11/22/23 History amLODIPine [Norvasc] 5 mg PO BID #180 tab 10/13/23 11/22/23 Rx carvediloL [Coreg] 25 mg PO BID #180 tab 10/13/23 11/22/23 Rx hydrALAZINE HCL [Apresoline] 100 mg PO TID #270 tablet 10/13/23 11/22/23 Rx Warfarin [Coumadin] 2 mg PO DAILY@1500 11/22/23 11/22/23 History Allergies Allergy/AdvReac Type Severity Reaction Status Date / Time No Known Allergies Allergy Verified 11/22/23 20:27 Physical Examination - Vital Signs Vital Signs: Vital Signs Temp Pulse Resp BP BP Pulse Ox 11/25/23 12:00 97.8 F 62 16 121/75 97 11/25/23 08:48 97.9 F 60 17 130/84 97 11/25/23 04:45 63 16 113/70 96 11/25/23 02:00 59 L 11/24/23 23:32 59 L 16 123/78 97 11/24/23 21:40 145/86 11/24/23 20:00 66 17 133/77 97 11/24/23 16:00 55 L 18 125/82 98 Intake and Output 11/24/23 11/25/23 11/25/23 22:59 06:59 14:59 Intake Total 200 544.684 Balance 200 544.684 Intake: Intake, IV Titration 304.684 Amount Heparin Sod,Pork in 0.45% 304.684 NaCl 25,000 unit In 0.45 % NaCl 1 250ml.bag @ 11. 603 UNITS/KG/HR 10 mls/hr IV .Q24H [facility] Rx#: [id number] Oral 200 240 Other: Voiding Method Urinal # Voids 1 1 Patient is a late middle aged male, in no acute distress. Patient is alert awake, appears slightly delirious. Patient states that his December 25, 2006. He knows he is in [facility] in [place]. He could not come up with the name of the president until he was prompted and given choices. He appears slightly forgetful, short attention span. Speech and language functions are normal. Patient can name and repeat very well. No aphasia or dysarthria. Attention, concentration is slightly decreased and fund of knowledge is slightly limited. On cranial nerve examination, pupils are equal, round and reacting to light, visual major are full on confrontation, with no neglect on double simultaneous stimulation. Extraocular muscles are intact with no nystagmus. Face is symmetric, tongue protrudes to the midline. Palatal elevation and sensation normal, hearing and shoulder shrug normal, facial sensation normal. On muscle strength testing, there is no pronator drift and the strength is normal in arms and legs distally and proximally. Deep tendon reflexes are asymmetric (right/left), biceps 1/2+, brachioradialis 1/2+, knees 2/2, ankles 1+/1+ and plantars are upgoing bilaterally. Sensory to touch is equal with no neglect on double simultaneous stimulation. Cerebellar function showed no ataxia for [id number]-ls-[id number] testing. No d ysdiadochokinesia. No ataxia for [id number]-go-[id number] testing on either side. Tone and bulk of muscles normal. Gait deferred.. On general examination, there is no carotid bruit or murmur, S1-S2 audible. Chest is clear on consultation. Abdomen is soft nontender. No organomegaly, bowel sounds present. Peripheral pulses are present. No peripheral edema. Results - Laboratory Findings CBC and BMP: 11/26/23 05:53 11/26/23 05:53 Abnormal Lab Findings: Abnormal Labs 11/22/23 11/22/23 11/22/23 16:56 16:56 16:56 WBC 15.1 H RBC Hgb 12.7 L Hct 36.9 L RDW Plt Count 124 L Neutrophils # 13.5 H Lymphocytes # 0.5 L PT INR APTT D-Dimer Sodium 134 L Potassium 3.4 L Carbon Dioxide BUN 78 H Creatinine 6.79 H Glucose 231 H POC Glucose (mg/dL) Plasma Lactic Acid Lyle 2.1 H* Calcium 8.3 L Phosphorus Total Bilirubin 2.0 H AST Troponin I Total Protein Albumin Urine Protein Urine Glucose (UA) Urine Blood Urine Mucus TAVARES Screen 11/22/23 11/22/23 11/22/23 16:56 19:45 21:10 WBC RBC Hgb Hct RDW Plt Count Neutrophils # Lymphocytes # PT INR APTT D-Dimer 1.53 H Sodium Potassium Carbon Dioxide BUN Creatinine Glucose POC Glucose (mg/dL) Plasma Lactic Acid Lyle Calcium Phosphorus Total Bilirubin AST Troponin I 0.223 H* Total Protein Albumin Urine Protein 3+ H Urine Glucose (UA) 2+ H Urine Blood Moderate H Urine Mucus Rare H TAVARES Screen 11/22/23 11/23/23 11/23/23 21:16 00:01 01:40 WBC RBC Hgb Hct RDW Plt Count Neutrophils # Lymphocytes # PT 12.6 H INR 1.2 H APTT D-Dimer Sodium Potassium Carbon Dioxide BUN Creatinine Glucose POC Glucose (mg/dL) Plasma Lactic Acid Lyle Calcium Phosphorus Total Bilirubin AST Troponin I 0.244 H* 0.254 H* Total Protein Albumin Urine Protein Urine Glucose (UA) Urine Blood Urine Mucus TAVARES Screen 11/23/23 11/23/23 11/23/23 03:16 03:16 03:16 WBC 13.7 H RBC 3.93 L Hgb 11.5 L Hct 33.5 L RDW 15.6 H Plt Count 124 L Neutrophils # 11.8 H Lymphocytes # 0.6 L PT INR APTT D-Dimer Sodium 134 L Potassium 3.2 L Carbon Dioxide BUN 79 H Creatinine 7.29 H* Glucose 135 H POC Glucose (mg/dL) Plasma Lactic Acid Lyle Calcium 8.2 L Phosphorus 5.2 H Total Bilirubin 1.5 H AST Troponin I 0.266 H* Total Protein 6.0 L Albumin 3.2 L Urine Protein Urine Glucose (UA) Urine Blood Urine Mucus TAVARES Screen 11/23/23 11/23/23 11/23/23 08:57 10:19 16:45 WBC 13.8 H RBC 4.16 L Hgb 11.9 L Hct 35.4 L RDW 15.6 H Plt Count 147 L Neutrophils # 12.1 H Lymphocytes # 0.7 L PT INR APTT 41.1 H D-Dimer Sodium Potassium Carbon Dioxide BUN Creatinine Glucose POC Glucose (mg/dL) Plasma Lactic Acid Lyle Calcium Phosphorus Total Bilirubin AST Troponin I Total Protein Albumin Urine Protein Urine Glucose (UA) Urine Blood Urine Mucus TAVARES Screen POSITIVE A 11/23/23 11/24/23 11/24/23 19:53 03:08 03:08 WBC 11.4 H RBC 3.29 L Hgb 9.6 L D Hct 28.1 L RDW 15.9 H Plt Count 113 L Neutrophils # 9.2 H Lymphocytes # PT INR APTT 36.9 H 43.7 H D-Dimer Sodium Potassium Carbon Dioxide BUN Creatinine Glucose POC Glucose (mg/dL) Plasma Lactic Acid Lyle Calcium Phosphorus Total Bilirubin AST Troponin I Total Protein Albumin Urine Protein Urine Glucose (UA) Urine Blood Urine Mucus TAVARES Screen 11/24/23 11/25/23 11/25/23 03:08 07:45 07:45 WBC 10.8 H RBC 3.48 L Hgb 10.2 L Hct 30.0 L RDW 16.0 H Plt Count 138 L Neutrophils # 9.0 H Lymphocytes # 0.8 L PT INR APTT D-Dimer Sodium 134 L 134 L Potassium 3.1 L Carbon Dioxide 19 L 17 L BUN 85 H 88 H Creatinine 7.81 H* 8.43 H* Glucose 108 H 105 H POC Glucose (mg/dL) Plasma Lactic Acid Lyle Calcium 7.5 L 8.2 L Phosphorus Total Bilirubin AST 15 L Troponin I Total Protein 5.0 L Albumin 2.5 L Urine Protein Urine Glucose (UA) Urine Blood Urine Mucus TAVARES Screen 11/25/23 11/25/23 07:45 09:40 WBC RBC Hgb Hct RDW Plt Count Neutrophils # Lymphocytes # PT INR APTT 38.0 H D-Dimer Sodium Potassium Carbon Dioxide BUN Creatinine Glucose POC Glucose (mg/dL) 124 H Plasma Lactic Acid Lyle Calcium Phosphorus Total Bilirubin AST Troponin I Total Protein Albumin Urine Protein Urine Glucose (UA) Urine Blood Urine Mucus TAVARES Screen Assessment and Plan Assessment: * Altered mental status, likely due to metabolic/uremic encephalopathy, versus some component of hypertensive encephalopathy * Accelerated hypertension * Acute on chronic renal failure * Urinary retention * Hypertension * Hyperlipidemia * History of aortic valve replacement in 2003 * History of cerebral aneurysm, with craniotomy in 2021 * Syncopal spell, likely vasovagal * History of B12, folate deficiency * Tobacco use Plan: * Patient's acute mental confusion is likely multifactorial. He has acute on chronic renal failure with perhaps uremic encephalopathy. Also patient had accelerated hypertension on arrival, which may have contributed to some hypertensive encephalopathy. * Patient is undergoing placement of dialysis catheter, and will be started on hemodialysis today. Hopefully that will help with the mentation. * Check EEG evaluate for encephalopathy, rule out any epileptiform activity. * Carotid Doppler, rule out stenosis. * B12, folate, MMA, B6 ammonia, TSH, RPR * TAVARES is elevated 1240, with speckled pattern. Immunofixation electrophoresis, C3, C4, myeloperoxidase antibodies, c-ANCA, p-ANCA all negative. Rule out lupus. * Hemoglobin A1c 5.8 on 06/18/2023. * Neurology will follow. Thank you for the consult.
--- NOTE | 2023-11-25 15:12 | P.GSCN ---
History of Present Illness History of present illness: 63-year-old gentleman consulted for placement of dialysis catheter. for placement of dialysis catheter. Patient has history of for placement, chronic kidney disease, aortic valve placement, chronic kidney dis history of hypertension, sleep apnea, on examination examinatease, history of h ypertension, sleep apnea, patient cam with history of with history of nausea vomiting nausea vomiting Chest is clear good entry both lungsChest is clear good entry both lungs few crackles at lung bases. Second sound presentfew crackles the lung bases first and second sound present AbdomenAbdomen soft nontender soft nontender Vascular femorals are 1+ bilateral Plan is placement dialysis catheter placement dialysis catheter p risk and complication discussed Past Medical History Past Medical History: CVA/TIA, GERD/Reflux, Hyperlipidemia, Hypertension, Sleep Apnea/CPAP/BIPAP Additional Past Medical History / Comment(s): stress test abnormal, cva 2 yrs ago lft arm tires quickly, questioning possible [place],no cpap used See Dr Ibarra's H & P History of Any Multi-Drug Resistant Organisms: None Reported Past Surgical History: Cardiac Valve Replacement Additional Past Surgical History / Comment(s): 2003 aortic valve replaced, cerebral aneurysm repaired 2021 Past Anesthesia/Blood Transfusion Reactions: No Reported Reaction Additional Past Anesthesia/Blood Transfusion Reaction / Comm: no hx of blood tx Past Psychological History: No Psychological Hx Reported Smoking Status: Current every day smoker Past Alcohol Use History: Occasional Past Drug Use History: None Reported - Past Family History Father History Unknown: Yes Medications and Allergies Home Medications Medication Instructions Recorded Confirmed Type Esomeprazole Magnesium 40 mg PO DAILY 06/17/23 11/22/23 History Ipratropium/Albuter 20-100Mcg 2 puff INHALATION RT-Q4H PRN 07/04/23 11/22/23 History [Combivent Respimat 20-100Mcg Inhaler] Tiotropium Br/Olodaterol HCl 2 puff INHALATION RT-DAILY 07/04/23 11/22/23 History [Stiolto Respimat Inhal [place]] Folic Acid 1 mg PO DAILY 10/06/23 11/22/23 History amLODIPine [Norvasc] 5 mg PO BID #180 tab 10/13/23 11/22/23 Rx carvediloL [Coreg] 25 mg PO BID #180 tab 10/13/23 11/22/23 Rx hydrALAZINE HCL [Apresoline] 100 mg PO TID #270 tablet 10/13/23 11/22/23 Rx Warfarin [Coumadin] 2 mg PO DAILY@1500 11/22/23 11/22/23 History Allergies Allergy/AdvReac Type Severity Reaction Status Date / Time No Known Allergies Allergy Verified 11/22/23 20:27 Surgical - Exam Vital Signs Temp Pulse Resp BP Pulse Ox 98.1 F 117 H 16 245/168 95 11/22/23 16:36 11/22/23 16:36 11/22/23 16:36 11/22/23 16:36 11/22/23 16:36 Results - Labs 11/25/23 07:45 11/25/23 07:45 Abnormal Lab Results - Last 24 Hours (Table) 11/25/23 11/25/23 11/25/23 Range/Units 07:45 07:45 07:45 WBC 10.8 H (3.8-10.6) k/uL RBC 3.48 L (4.30-5.90) m/uL Hgb 10.2 L (13.0-17.5) gm/dL Hct 30.0 L (39.0-53.0) % RDW 16.0 H (11.5-15.5) % Plt Count 138 L (150-450) k/uL Neutrophils # 9.0 H (1.3-7.7) k/uL Lymphocytes # 0.8 L (1.0-4.8) k/uL APTT 38.0 H (22.0-30.0) sec Sodium 134 L (137-145) mmol/L Carbon Dioxide 17 L (22-30) mmol/L BUN 88 H (9-20) mg/dL Creatinine 8.43 H* (0.66-1.25) mg/dL Glucose 105 H (74-99) mg/dL POC Glucose (mg/dL) (70-110) mg/dL Calcium 8.2 L (8.4-10.2) mg/dL 11/25/23 Range/Units 09:40 WBC (3.8-10.6) k/uL RBC (4.30-5.90) m/uL Hgb (13.0-17.5) gm/dL Hct (39.0-53.0) % RDW (11.5-15.5) % Plt Count (150-450) k/uL Neutrophils # (1.3-7.7) k/uL Lymphocytes # (1.0-4.8) k/uL APTT (22.0-30.0) sec Sodium (137-145) mmol/L Carbon Dioxide (22-30) mmol/L BUN (9-20) mg/dL Creatinine (0.66-1.25) mg/dL Glucose (74-99) mg/dL POC Glucose (mg/dL) 124 H (70-110) mg/dL Calcium (8.4-10.2) mg/dL Diabetes panel 11/25/23 Range/Units 07:45 Sodium 134 L (137-145) mmol/L Potassium 4.0 (3.5-5.1) mmol/L Chloride 106 (98-107) mmol/L Carbon Dioxide 17 L (22-30) mmol/L BUN 88 H (9-20) mg/dL Creatinine 8.43 H* (0.66-1.25) mg/dL Glucose 105 H (74-99) mg/dL Calcium 8.2 L (8.4-10.2) mg/dL Calcium panel 11/25/23 Range/Units 07:45 Calcium 8.2 L (8.4-10.2) mg/dL Pituitary panel 11/25/23 Range/Units 07:45 Sodium 134 L (137-145) mmol/L Potassium 4.0 (3.5-5.1) mmol/L Chloride 106 (98-107) mmol/L Carbon Dioxide 17 L (22-30) mmol/L BUN 88 H (9-20) mg/dL Creatinine 8.43 H* (0.66-1.25) mg/dL Glucose 105 H (74-99) mg/dL Calcium 8.2 L (8.4-10.2) mg/dL Adrenal panel 11/25/23 Range/Units 07:45 Sodium 134 L (137-145) mmol/L Potassium 4.0 (3.5-5.1) mmol/L Chloride 106 (98-107) mmol/L Carbon Dioxide 17 L (22-30) mmol/L BUN 88 H (9-20) mg/dL Creatinine 8.43 H* (0.66-1.25) mg/dL Glucose 105 H (74-99) mg/dL Calcium 8.2 L (8.4-10.2) mg/dL
--- NOTE | 2023-11-25 16:07 | XR ---
EXAMINATION TYPE: XR chest 1V confirm line [facility] DATE OF EXAM: 11/25/2023 CLINICAL HISTORY: Hemodialysis catheter insertion. TECHNIQUE: Single AP portable upright view of the chest is obtained. COMPARISON: Chest CT from 3 days earlier FINDINGS: There is new large bore right internal jugular dialysis catheter with tips at the caval at rial junction. No pneumothorax is seen. Overlying sternal wires redemonstrated. Cardiac silhouette si ze is stable and upper limits of normal. Osseous structures are intact. IMPRESSION: As above.
--- NOTE | 2023-11-25 16:08 | CT ---
EXAMINATION TYPE: CT brain wo con DATE OF EXAM: 11/25/2023 COMPARISON: 11/23/2023 HISTORY: 63-year-old male confusion TECHNIQUE: Examination was done in axial plane without intravenous contrast. Coronal and sagittal r econstructions performed. CT DLP: 1212.4 mGycm Automated exposure control for dose reduction was used. FINDINGS: Left lateral craniotomy flap. Moderate patchy periventricular white matter hypodensities. Old lacunar infarcts bilateral basal ganglia. Hypodensities in the right cerebellar hemisphere suggest old infar ct here as well. There is no evidence of acute intracranial hemorrhage, acute ischemic changes, mass, mass-effect, or extra-axial fluid collection. There is no effacement of cerebral sulci or basal subarachnoid cister ns. There is no hydrocephalus. There is no midline shift. Gusman-white matter distinction is preserv ed. Ongoing severe mucosal thickening throughout the left maxillary sinus. Some fluid within the inferior left mastoid air cells. IMPRESSION: 1. Previous left lateral craniotomy flap. There is moderate patchy burden of chronic small vessel isc hemic disease. Old basal ganglionic lacunar infarcts. There also appear to be old right-sided cerebel lar infarcts. 2. No acute intracranial abnormality seen. If concern for subtle acute ischemia, consider MRI. 3. Severe chronic left maxillary sinusitis. 4. Small amount of fluid inferior left mastoid air cells, questionable clinical significance. Correla te for any mastoid pain to exclude mastoiditis.
--- NOTE | 2023-11-25 17:08 | IR ---
EXAMINATION TYPE: IR cvc insert central tunneled DATE OF EXAM: 11/25/2023 FLUOROSCOPY Right-sided hemodialysis catheter, 0.5min fluoro, [id number] images submitted.
[2023-11-25] MEDS: WARFARIN 2 MG TAB PO ONE (18:41)
--- NOTE | 2023-11-25 19:11 | OP ---
OPERATIVE REPORT DATE OF SERVICE : PREOPERATIVE DIAGNOSIS: Acute chronic renal failure. POSTOPERATIVE DIAGNOSIS: Acute chronic renal failure. PROCEDURE PERFORMED: Ultrasound-guided 20 cm dialysis catheter placed, right jugular approach. DESCRIPTION OF PROCEDURE: The patient was brought to the laboratory courier. Right side of the neck and chest were prepped, and drapes applied in a sterile manner. 1% lidocaine infiltrated in neck and chest area. We passed a guidewire and a 4-[place]banian sheath on top of the guidewire. A tunnel was created. Through the tunnel, we brought 20 cm dialysis catheter. Then, we passed a regular guidewire, which was parked in the inferior vena cava. Dilator was advanced on top of the guidewire. Then, we placed a sheath on top of the guidewire. Through the sheath, we introduced the dialysis catheter. Tip of the catheter in superior vena cava atrial junction. Flushed with heparin saline and hep-locked, secured with 3-0 nylon and dressing applied. The patient tolerated the procedure well. MMODL / IJN: [id number] /
--- NOTE | 2023-11-25 20:03 | P.PN ---
Subjective Progress Note Date: 11/24/23 H&P Date: 11/23/23 This is a 62-year-old gentleman with past medical history significant for mechanical aortic valve, nonischemic cardiomyopathy,hypertension, CVA, supratherapeutic INR, chronic kidney disease stage IV and multiple other medical issues presented to the ER with complaints of dizziness, nausea, vomiting, minimal shortness of breath. Worsened with ambulation. Denies any exertional, strenuous activity. Reports he has been stressed, preparing his taxes. Patient was eating lunch with his sister when the dizziness abruptly started.denies syncope .denies increased sodium Intake .Reports normally his systolic Blood Pressures Run in the 140s to 150s . Denies chest pain, palpitations. Denies lightheadedness dizziness or focal deficits. Reports medication compliance, routinely follows up with cardiology's office for INR monitoring/Coumadin management. States he was scheduled to follow-up with nephrology tomorrow, November 23. Presented to the ER with heart rate 117, blood pressure 245/168, respiratory rate 16, maintaining O2 sats in 95% on room air, INR subtherapeutic, 1.2, BUN 78, creatinine 6.79. Afebrile, WBC 15.1 on admission, currently 13.8. Hemoglob in 11.9, platelets 147, INR 1, sodium 134, potassium 3.2, bicarb 22, BUN 79, creatinine 7.29 glucose 135 lactic acid 2.1, 1.1, phosphorus 5.2, magnesium 2.2. Troponins 0.223, 0.244, 0.254, 0.266. UA reported rare mucus, moderate blood, 2+ glucose, 3+ protein, negative nitrates negative leukocytes. Viral screening negative. Chest x-ray reported nonacute. Brain CTs reported no acute intracranial abnormality. Chest CT reported limited study no acute abnormality demonstrated in chest, pulmonary trunk borderline, mildly uncharged, can be seen with early pulmonary hypertension, prostatic aortic valve in place, several scattered small pulmonary nodular densities bilateral one 6.5 mm in the right middle lobe, recommend 6-month follow-up CT chest, nonspecific nonenlarged and mildly enlarged mediastinal nodes, cholelithiasis, left upper quadrant 3.4 cm mass, likely arising from the adrenal gland. Renal ultrasound reported no hydronephrosis, no nephrolithiasis or polyp masses seen, simple cyst left kidney. 11/24/2023 renal function worsening, creatinine 7.81. Coumadin remains on hold fo r potential placement of hemodialysis catheter ,anticoagulated on heparin drip. INR 1.1. Vital signs stable. denies chest pain, palpitations or shortness of breath. Denies lightheadedness dizziness or focal deficits. Denies nausea vomiting or diarrhea. Positive TAVARES, possible autoimmune kidney disease. This morning patient stating he has to go home, there is no one to take care of his dog. Stating he is going to have to leave AMA. Attempted reasoning with patient. Objective - Vital Signs Vital signs: Vital Signs Temp 98.2 F 11/24/23 04:00 Pulse 56 L 11/24/23 12:00 Resp 18 11/24/23 12:00 BP 104/70 11/24/23 12:00 Pulse Ox 98 11/24/23 12:00 FiO2 Intake & Output 11/23/23 11/24/23 11/24/23 18:59 06:59 18:59 Intake Total 862 868 Output Total 200 550 Balance -200 312 868 Intake: Intake, IV Titration 502 148 Amount Heparin Sod,Pork in 0.45% 102 148 NaCl 25,000 unit In 0.45 % NaCl 1 250ml.bag @ 11. 603 UNITS/KG/HR 10 mls/hr IV .Q24H [facility] Rx#: [id number] Sodium Chloride 0.9% 1, 400 000 ml @ 100 mls/hr IV . Q10H [facility] Rx#:[id number] Oral 360 720 Output: Urine 200 550 Other: Voiding Method Urinal Urinal # Voids 1 - Exam PHYSICAL EXAM: VITAL SIGNS: [As above] GENERAL: Alert and oriented 3, sitting up at bedside, no acute distress HEENT: Normocephalic, Conjunctivae normal. NECK: Supple, no JVD. CARDIOVASCULAR: S1, S2 regular. No murmur, prosthetic valve click RESPIRATION: Unlabored, equal air entry, CTA, bilateral bases diminished ABDOMEN: Soft, nondistended, nontender . No guarding. No rigidity ,+BS LEGS: No edema. no calf tenderness, no clubbing or cyanosis. NERVOUS SYSTEM: Cranial N 2-12 grossly normal. No focal deficits. Strength and sensation grossly intact. Skin: Warm and dry, no rash - Labs CBC & Chem 7: 11/25/23 07:45 11/25/23 07:45 Labs: Abnormal Lab Results - Last 24 Hours (Table) 11/23/23 11/23/23 11/23/23 Range/Units 10:19 16:45 19:53 WBC (3.8-10.6) k/uL RBC (4.30-5.90) m/uL Hgb (13.0-17.5) gm/dL Hct (39.0-53.0) % RDW (11.5-15.5) % Plt Count (150-450) k/uL Neutrophils # (1.3-7.7) k/uL APTT 41.1 H 36.9 H (22.0-30.0) sec Sodium (137-145) mmol/L Potassium (3.5-5.1) mmol/L Carbon Dioxide (22-30) mmol/L BUN (9-20) mg/dL Creatinine (0.66-1.25) mg/dL Glucose (74-99) mg/dL Calcium (8.4-10.2) mg/dL AST (17-59) U/L Total Protein (6.3-8.2) g/dL Albumin (3.5-5.0) g/dL TAVARES Screen POSITIVE A (Negative) 11/24/23 11/24/23 11/24/23 Range/Units 03:08 03:08 03:08 WBC 11.4 H (3.8-10.6) k/uL RBC 3.29 L (4.30-5.90) m/uL Hgb 9.6 L D (13.0-17.5) gm/dL Hct 28.1 L (39.0-53.0) % RDW 15.9 H (11.5-15.5) % Plt Count 113 L (150-450) k/uL Neutrophils # 9.2 H (1.3-7.7) k/uL APTT 43.7 H (22.0-30.0) sec Sodium 134 L (137-145) mmol/L Potassium 3.1 L (3.5-5.1) mmol/L Carbon Dioxide 19 L (22-30) mmol/L BUN 85 H (9-20) mg/dL Creatinine 7.81 H* (0.66-1.25) mg/dL Glucose 108 H (74-99) mg/dL Calcium 7.5 L (8.4-10.2) mg/dL AST 15 L (17-59) U/L Total Protein 5.0 L (6.3-8.2) g/dL Albumin 2.5 L (3.5-5.0) g/dL TAVARES Screen (Negative) Assessment and Plan Assessment: Hypertensive emergency, on admission, better controlled Subtherapeutic INR Acute on chronic CKD, stage IV,baseline creatinine 3-4 in 10/13, secondary to #1 (On previous admission in September 2023 :2.2 cm hypoechoic at the left kidney mid pole suspected to represent a column of Hugo rather than a solid mass with recommendations of follow-up renal ultrasound in 3-6 months, reported per renal ultrasound.) Mechanical aortic valve-[facility]. Karthikeyan, AVR 2003 Nonischemic cardiomyopathy, EF 40% CAD History of CVA 2 years ago Hypertension Hyperlipidemia Gastroesophageal reflux disease Obstructive sleep apnea and does not use BiPAP or CPAP Obesity, BMI 28 Ongoing nicotine dependence Hypokalemia 6.5 mm right middle lobe pulmonary nodular density, recommend 6-month follow-up CT chest Plan: Continue on current medication regimen ,monitoring and symptomatic treatment. Worsening renal function, following closely with nephrology. Maddison lyle remains on hold with heparin drip for anticoagulation related to potential dialysis catheter placement.Close monitoring of renal function. Patient threatening to leave AMA despite his being high risk, related to worried about his dog. prognosis guarded given multiple complex medical issues. The impression and plan of care has been dictated as directed. : I performed a history and examination of this patient, discussed the same with the dictator. I agree with the dictator's note ,documented as a scribe. Any additional findings or plans will be noted.
--- NOTE | 2023-11-25 20:14 | P.PN ---
Subjective Progress Note Date: 11/25/23 H&P Date: 11/23/23 This is a 62-year-old gentleman with past medical history significant for mechanical aortic valve, nonischemic cardiomyopathy,hypertension, CVA, supratherapeutic INR, chronic kidney disease stage IV and multiple other medical issues presented to the ER with complaints of dizziness, nausea, vomiting, minimal shortness of breath. Worsened with ambulation. Denies any exertional, strenuous activity. Reports he has been stressed, preparing his taxes. Patient was eating lunch with his sister when the dizziness abruptly started.denies syncope .denies increased sodium Intake .Reports normally his systolic Blood Pressures Run in the 140s to 150s . Denies chest pain, palpitations. Denies lightheadedness dizziness or focal deficits. Reports medication compliance, routinely follows up with cardiology's office for INR monitoring/Coumadin management. States he was scheduled to follow-up with nephrology tomorrow, November 23. Presented to the ER with heart rate 117, blood pressure 245/168, respiratory rate 16, maintaining O2 sats in 95% on room air, INR subtherapeutic, 1.2, BUN 78, creatinine 6.79. Afebrile, WBC 15.1 on admission, currently 13.8. Hemoglob in 11.9, platelets 147, INR 1, sodium 134, potassium 3.2, bicarb 22, BUN 79, creatinine 7.29 glucose 135 lactic acid 2.1, 1.1, phosphorus 5.2, magnesium 2.2. Troponins 0.223, 0.244, 0.254, 0.266. UA reported rare mucus, moderate blood, 2+ glucose, 3+ protein, negative nitrates negative leukocytes. Viral screening negative. Chest x-ray reported nonacute. Brain CTs reported no acute intracranial abnormality. Chest CT reported limited study no acute abnormality demonstrated in chest, pulmonary trunk borderline, mildly uncharged, can be seen with early pulmonary hypertension, prostatic aortic valve in place, several scattered small pulmonary nodular densities bilateral one 6.5 mm in the right middle lobe, recommend 6-month follow-up CT chest, nonspecific nonenlarged and mildly enlarged mediastinal nodes, cholelithiasis, left upper quadrant 3.4 cm mass, likely arising from the adrenal gland. Renal ultrasound reported no hydronephrosis, no nephrolithiasis or polyp masses seen, simple cyst left kidney. 11/24/2023 renal function worsening, creatinine 7.81. Coumadin remains on hold fo r potential placement of hemodialysis catheter ,anticoagulated on heparin drip. INR 1.1. Vital signs stable. denies chest pain, palpitations or shortness of breath. Denies lightheadedness dizziness or focal deficits. Denies nausea vomiting or diarrhea. Positive TAVARES, possible autoimmune kidney disease. This morning patient stating he has to go home, there is no one to take care of his dog. Stating he is going to have to leave AMA. Attempted reasoning with patient. 11/25/2023 significant confusion this morning, nurse reports he thought he was on an airplane. Patient is telling us that he went to a wedding yesterday as well as out last night with his nephew and had 3 drinks. Denies chest pain, palpitations or shortness of breath. Continued worsening of his renal function, 8.43 ;permacath and first hemodialysis treatment ordered. Objective - Vital Signs Vital signs: Vital Signs Temp 97.7 F 11/25/23 19:30 Pulse 83 11/25/23 19:32 Resp 20 11/25/23 19:30 BP 172/106 11/25/23 19:30 Pulse Ox 94 L 11/25/23 19:27 FiO2 Intake & Output 11/25/23 11/25/23 11/26/23 06:59 18:59 06:59 Intake Total 584.684 400 Output Total 200 900 Balance 384.684 -500 Intake: IV 40 Intake, IV Titration 304.684 Amount Heparin Sod,Pork in 0.45% 304.684 NaCl 25,000 unit In 0.45 % NaCl 1 250ml.bag @ 11. 603 UNITS/KG/HR 10 mls/hr IV .Q24H [facility] Rx#: [id number] Oral 240 Hemodialysis 400 Output: Urine 200 Hemodialysis 900 Other: Voiding Method Urinal Urinal # Voids 1 - Exam PHYSICAL EXAM: VITAL SIGNS: [As above] GENERAL: Alert and oriented 1-2, sitting up at bedside, no acute distress HEENT: Normocephalic, Conjunctivae normal. NECK: Supple, no JVD. CARDIOVASCULAR: S1, S2 regular. No murmur, prosthetic valve click RESPIRATION: Unlabored, equal air entry, CTA, bilateral bases diminished ABDOMEN: Soft, nondistended, nontender . No guarding. No rigidity ,+BS LEGS: No edema. no calf tenderness, no clubbing or cyanosis. NERVOUS SYSTEM: Cranial N 2-12 grossly normal. No focal deficits. Strength and sensation grossly intact. Skin: Warm and dry, no rash - Labs CBC & Chem 7: 11/25/23 07:45 11/25/23 07:45 Labs: Abnormal Lab Results - Last 24 Hours (Table) 11/25/23 11/25/23 11/25/23 Range/Units 07:45 07:45 07:45 WBC 10.8 H (3.8-10.6) k/uL RBC 3.48 L (4.30-5.90) m/uL Hgb 10.2 L (13.0-17.5) gm/dL Hct 30.0 L (39.0-53.0) % RDW 16.0 H (11.5-15.5) % Plt Count 138 L (150-450) k/uL Neutrophils # 9.0 H (1.3-7.7) k/uL Lymphocytes # 0.8 L (1.0-4.8) k/uL APTT 38.0 H (22.0-30.0) sec Sodium 134 L (137-145) mmol/L Carbon Dioxide 17 L (22-30) mmol/L BUN 88 H (9-20) mg/dL Creatinine 8.43 H* (0.66-1.25) mg/dL Glucose 105 H (74-99) mg/dL POC Glucose (mg/dL) (70-110) mg/dL Calcium 8.2 L (8.4-10.2) mg/dL 11/25/23 11/25/23 Range/Units 09:40 16:21 WBC (3.8-10.6) k/uL RBC (4.30-5.90) m/uL Hgb (13.0-17.5) gm/dL Hct (39.0-53.0) % RDW (11.5-15.5) % Plt Count (150-450) k/uL Neutrophils # (1.3-7.7) k/uL Lymphocytes # (1.0-4.8) k/uL APTT 37.3 H (22.0-30.0) sec Sodium (137-145) mmol/L Carbon Dioxide (22-30) mmol/L BUN (9-20) mg/dL Creatinine (0.66-1.25) mg/dL Glucose (74-99) mg/dL POC Glucose (mg/dL) 124 H (70-110) mg/dL Calcium (8.4-10.2) mg/dL Assessment and Plan Assessment: Altered mental status, suspect metabolic encephalopathy. Possibly Warnicke- Korsakoff syndrome, in a patient with possible alcohol abuse. Hypertensive emergency, on admission, better controlled Subtherapeutic INR Acute on chronic CKD, stage IV,baseline creatinine 3-4 in 10/13, secondary to #1 (On previous admission in September 2023 :2.2 cm hypoechoic at the left kidney mid pole suspected to represent a column of Hugo rather than a solid mass with recommendations of follow-up renal ultrasound in 3-6 months, reported per renal ultrasound.) Mechanical aortic valve-[facility]. Karthikeyan, AVR 2003 Nonischemic cardiomyopathy, EF 40% CAD History of CVA 2 years ago Hypertension Hyperlipidemia Gastroesophageal reflux disease Obstructive sleep apnea and does not use BiPAP or CPAP Obesity, BMI 28 Ongoing nicotine dependence Hypokalemia 6.5 mm right middle lobe pulmonary nodular density, recommend 6-month follow-up CT chest Plan: Continue on current medication regimen ,monitoring and symptomatic treatment. Significant confusion this morning , brain CT, neurology consult and thiamine ordered .continued worsening renal function, vascular surgery consulted for dialysis catheter placement as per nephrology with initiation of hemodialysis.resuming Coumadin after placement of dialysis catheter .continued close monitoring of renal function. prognosis guarded given multiple complex medical issues. The impression and plan of care has been dictated as directed. : I performed a history and examination of this patient, discussed the same with the dictator. I agree with the dictator's note ,documented as a scribe. Any additional findings or plans will be noted.
--- NOTE | 2023-11-25 21:04 | US ---
EXAMINATION TYPE: US carotid duplex left only DATE OF EXAM: 11/25/2023 COMPARISON: NONE CLINICAL INDICATION: Male, 63 years old with history of AMS, hx of aneurysm; AMS, hx of aneurysm per order. Smoker, hypertension, hyperlipidemia. TECHNIQUE: Carotid duplex ultrasound examination. Indirect Doppler criteria was utilized. FINDINGS: EXAM MEASUREMENTS: RIGHT: Not performed per order due to new right IJ dialysis cath* LEFT: Peak Systolic Velocity (PSV) cm/sec ----- Left CCA: 52.4 ----- Left ICA: 68.0 ----- Left ECA: 112.1 ICA/CCA ratio: 1.3 LEFT: End Diastole cm/sec ----- Left CCA: 21.1 ----- Left ICA: 22.5 ----- Left ECA: 15.0 VERTEBRALS (direction of flow): Right Vertebral: Not imaged per order Left Vertebral: Antegrade Rhythm: Normal NOTES: Only left side was performed per order. Intimal thickening noted left CCA. No elevated velocities at this time. IMPRESSION: Left carotid system: No significant LICA stenosis. Right carotid system: Not evaluated. Criteria for Assigning % of Stenosis / Diameter reduction (Estimation based on the indirect measurements of the internal carotid artery velocities (ICA PSV). 1. Normal (no stenosis)=ICA PSV < 125 cm/s: ratio < 2.0: ICA EDV<40 cm/s. 2. Less than 50% stenosis=ICA PSV < 125 cm/s: ratio < 2.0: ICA EDV<40 cm/s. 3. 50 to 69% stenosis=ICA PSV of 125 to 230 cm/s: ration 2.0 ? 4.0: ICA EDV 40- 100 cm/s. 4. Greater than 70% stenosis to near occlusion= ICA PSV > 230 cm/s: ratio > 4.0: ICA EDV > 100 cm/s. 5. Near occlusion= ICA PSV velocities may be low or undetectable: variable ratio and ICA EDV. 6. Total occlusion=unable to detect flow. MTDD
[2023-11-26 06:05] LABS: Anisocytosis Slight; Basophils # (A) 0.1 k/uL (0-0.2); Basophils % (A) 1 %; Eosinophils # (A) 0.2 k/uL (0-0.7); Eosinophils % (A) 3 %; HCT 28.3 % (39.0-53.0); HGB 9.8 gm/dL (13.0-17.5); Lymphocytes # (A) 0.5 k/uL (1.0-4.8); Lymphocytes % (A) 6 %; MCH 29.8 pg (25.0-35.0); MCHC 34.7 g/dL (31.0-37.0); Mean Platelet Volume 11.4; Monocytes # (A) 0.5 k/uL (0-1.0); Monocytes % (A) 6 %; Neutrophils # (A) 7.4 k/uL (1.3-7.7); Neutrophils % (A) 82 %; Platelet Count 133 k/uL (150-450); RBC 3.29 m/uL (4.30-5.90); RDW 16.3 % (11.5-15.5); WBC 8.9 k/uL (3.8-10.6)
[2023-11-26 06:43] LABS: African American GFR (CKD) 10 (>60 ml/min/1.73 sqM); Anion Gap 10 mmol/L; Blood Urea Nitrogen 60 mg/dL (9-20); Calcium 8.1 mg/dL (8.4-10.2); Carbon Dioxide 19 mmol/L (22-30); Chloride 106 mmol/L (98-107); Glucose 111 mg/dL (74-99); INR 1.2 (<1.2); Non-African American GFR(CKD) 8 (>60 ml/min/1.73 sqM); Prothrombin Time 12.5 sec (10.0-12.5); Sodium 135 mmol/L (137-145)
--- NOTE | 2023-11-26 11:26 | P.PN ---
Subjective HISTORY OF PRESENT ILLNESS: This is a 63-year-old male with a past medical history significant for nonischemic cardiomyopathy, hypertension, CVA, obstructive sleep apnea, chronic kidney disease, and previous mechanical aortic valve replacement. Patient follows in the office with Dr. Ibarra. We have been asked to see the patient in consultation for syncope. Patient examined at the bedside in the emergency room. Patient states he presented to the hospital with chief complaint of feeling unwell. He also reports having some dizziness. He denies chest pain or pressure. Denies any shortness of breath. The patient was found to have worsening kidney function with a creatinine of 7.29. Patient was supposed to follow-up outpatient with nephrology but has not yet been seen. Patient's blood pressures were noted to be significantly elevated upon admission to the hospital with a reading of 245/168. Patient has been resumed on his home cardiac medications. Most recent blood pressure 151/95. Patient's INR on admission is 1.2. Patient is adamant that he has been taking his medications as prescribed including his Coumadin. Patient follows up in the cardiology office for his INR checks and Coumadin management. Patient's last visit to the cardiology office for an INR check was on October 28, 2023. At that time the patient's INR was greater than 8 per office staff. DIAGNOSTICS: - EKG reveals sinus tachycardia with heart rate of 114. Diffuse T wave inversions. LVH. - Chest xray negative for acute process. - Laboratory data: WBC 13.7. Hemoglobin 11.5. Platelet count 124. Sodium 134. Potassium 3.2. BUN 79. Creatinine 7.29. Troponin 0.244. 0.254. 0.266. - Current home cardiac medications include Coumadin 2 mg daily, carvedilol 25 mg twice a day, hydralazine 100 mg 3 times a day, and amlodipine 5 mg twice a day. - Most recent echocardiogram obtained in September 2023 revealed ejection fraction 55% with normally functioning mechanical prosthetic aortic valve -Previous echocardiogram in May 2023 revealed ejection fraction of 40% - Cardiac catheterization history: April 2023 revealing mild nonobstructive di sease involving the right coronary artery 11/24/2023 Patient examined this morning at the bedside. Patient denies chest pain or pressure. He denies shortness of breath. Patient's creatinine worsened today at 7.81. Nephrology is following. He remains on IV heparin. Coumadin is on hold in the event that patient needs a hemodialysis catheter placed. Blood pressure stable with a recent reading of 134/75. 11/25/2023 Patient examined this morning at the bedside. Patient appears to be more confus ed today compared to yesterday. He denies chest pain or pressure. He denies shortness of breath. Patient with worsening renal function with creatinine 8.43. 11/26/2023 Patient examined this morning at the bedside. Patient received hemodialysis catheter yesterday and underwent his first hemodialysis treatment with half a liter removed. He is currently undergoing hemodialysis again this morning at the time of examination. He has been resumed on his Coumadin. He also remains on IV heparin until his INR is therapeutic. Patient denies chest pain or pressure. He denies shortness of breath. Vital signs are stable. PHYSICAL EXAM: VITAL SIGNS: Reviewed. GENERAL: Well-developed in no acute distress. HEENT: Head is normocephalic. Pupils are equal, round. Sclerae anicteric. Mucous membranes of the mouth are moist. Neck supple. No JVD or thyromegaly LUNGS: Respirations even and unlabored. Lungs essentially clear to auscultation bilaterally. HEART: Regular rate and rhythm. S1 and S2 heard. Mechanical click noted. ABDOMEN: Soft. Nondistended. Nontender. EXTREMITIES: Normal range of motion. No clubbing or cyanosis. Peripheral pulses intact. No lower extremity edema NEUROLOGIC: Awake and alert. Oriented x 3. ASSESSMENT: Dizziness Presyncope Acute on chronic kidney disease Subtherapeutic INR, questionable compliance with medications Hypertensive emergency Abnormal troponins, flat, likely secondary to chronic kidney disease History of mechanical aortic valve replacement, 2003, in [place] History of nonischemic cardiomyopathy with improved EF Mild nonobstructive CAD per cardiac catheterization 2022 Hypertension Hyperlipidemia History of medication noncompliance Nicotine dependence Documented 6-10 alcoholic drinks per day PLAN: Continue current cardiac medications Continue Coumadin. Continue IV heparin until INR is therapeutic Hemodialysis per nephrology Further recommendations pending patient course Nurse practitioner note has been reviewed by physician. Signing provider agrees with the documented findings, assessment, and plan of care documented by PRESSING DEPARTMENT SUPERVISOR as a scribe. Objective - Vital Signs Vital signs: Vital Signs Temp 98 F 11/26/23 08:00 Pulse 75 11/26/23 08:00 Resp 17 11/26/23 08:00 BP 157/88 03/08/24 08:00 Pulse Ox 95 11/26/23 08:00 FiO2 Intake & Output 11/25/23 11/26/23 11/26/23 18:59 06:59 18:59 Intake Total 584.684 494.129 110 Output Total 200 1200 Balance 384.684 -705.871 110 Weight 100.3 kg Intake: IV 40 Intake, IV Titration 304.684 94.129 Amount Heparin Sod,Pork in 0.45% 304.684 94.129 NaCl 25,000 unit In 0.45 % NaCl 1 250ml.bag @ 11. 603 UNITS/KG/HR 10 mls/hr IV .Q24H [facility] Rx#: [id number] Oral 240 110 Hemodialysis 400 Output: Urine 200 300 Hemodialysis 900 Other: Voiding Method Urinal Urinal Urinal # Voids 1 - Labs CBC & Chem 7: 11/26/23 05:53 11/26/23 05:53 Labs: Abnormal Lab Results - Last 24 Hours (Table) 11/25/23 11/25/23 11/26/23 Range/Units 16:21 21:22 05:53 RBC (4.30-5.90) m/uL Hgb (13.0-17.5) gm/dL Hct (39.0-53.0) % RDW (11.5-15.5) % Plt Count (150-450) k/uL Lymphocytes # (1.0-4.8) k/uL INR 1.2 H (<1.2) APTT 37.3 H 38.4 H (22.0-30.0) sec Sodium (137-145) mmol/L Carbon Dioxide (22-30) mmol/L BUN (9-20) mg/dL Creatinine (0.66-1.25) mg/dL Glucose (74-99) mg/dL Calcium (8.4-10.2) mg/dL 11/26/23 11/26/23 11/26/23 Range/Units 05:53 05:53 05:53 RBC 3.29 L (4.30-5.90) m/uL Hgb 9.8 L (13.0-17.5) gm/dL Hct 28.3 L (39.0-53.0) % RDW 16.3 H (11.5-15.5) % Plt Count 133 L (150-450) k/uL Lymphocytes # 0.5 L (1.0-4.8) k/uL INR (<1.2) APTT 61.2 H (22.0-30.0) sec Sodium 135 L (137-145) mmol/L Carbon Dioxide 19 L (22-30) mmol/L BUN 60 H (9-20) mg/dL Creatinine 6.44 H (0.66-1.25) mg/dL Glucose 111 H (74-99) mg/dL Calcium 8.1 L (8.4-10.2) mg/dL
[2023-11-26] MEDS: cloNIDine HCL 0.1 MG TAB PO SCH (11:54)
[2023-11-26] MEDS: DARBEPOETIN ALFA 40 MCG/0.4 ML SYRINGE SQ SCH (12:19)
--- NOTE | 2023-11-26 15:20 | P.PN ---
Subjective Patient is seen for follow-up for chronic kidney disease with acute kidney injury this admission. Renal function has not improved. It has continued to worsen. Patient was started on hemodialysis on 11/25/2023. Reports good urine output Patient has been confused. Currently seen on hemodialysis. Tolerating treatment well. Goal UF about 1.5 L. Objective - Vital Signs Vital signs: Vital Signs Temp 98 F 11/26/23 11:57 Pulse 75 11/26/23 11:57 Resp 17 11/26/23 11:57 BP 182/110 11/26/23 11:57 Pulse Ox 97 11/26/23 11:57 FiO2 Intake & Output 11/25/23 11/26/23 11/26/23 18:59 06:59 18:59 Intake Total 584.684 595.316 620 Output Total 200 1200 1901 Balance 384.684 -604.684 -1281 Weight 100.3 kg Intake: IV 40 Intake, IV Titration 304.684 195.316 Amount Heparin Sod,Pork in 0.45% 304.684 195.316 NaCl 25,000 unit In 0.45 % NaCl 1 250ml.bag @ 11. 603 UNITS/KG/HR 10 mls/hr IV .Q24H [facility] Rx#: [id number] Oral 240 220 Hemodialysis 400 400 Output: Urine 200 300 Urine/Stool Mix 1 Hemodialysis 900 1900 Other: Voiding Method Urinal Urinal Urinal # Voids 1 1 - Exam Patient is awake, comfortable, no acute distress Confused at times. Able to carry on conversation Examination of the heart S1 and S2 Examination of the lungs bilateral breath sounds are heard Abdomen is soft nontender Examination of lower extremities shows no significant edema EPIC ANESTHESIA ANALYST exam grossly intact - Labs CBC & Chem 7: 11/26/23 05:53 11/26/23 05:53 Labs: Abnormal Lab Results - Last 24 Hours (Table) 11/25/23 11/25/23 11/26/23 Range/Units 16:21 21:22 05:53 RBC (4.30-5.90) m/uL Hgb (13.0-17.5) gm/dL Hct (39.0-53.0) % RDW (11.5-15.5) % Plt Count (150-450) k/uL Lymphocytes # (1.0-4.8) k/uL INR 1.2 H (<1.2) APTT 37.3 H 38.4 H (22.0-30.0) sec Sodium (137-145) mmol/L Carbon Dioxide (22-30) mmol/L BUN (9-20) mg/dL Creatinine (0.66-1.25) mg/dL Glucose (74-99) mg/dL Calcium (8.4-10.2) mg/dL 11/26/23 11/26/23 11/26/23 Range/Units 05:53 05:53 05:53 RBC 3.29 L (4.30-5.90) m/uL Hgb 9.8 L (13.0-17.5) gm/dL Hct 28.3 L (39.0-53.0) % RDW 16.3 H (11.5-15.5) % Plt Count 133 L (150-450) k/uL Lymphocytes # 0.5 L (1.0-4.8) k/uL INR (<1.2) APTT 61.2 H (22.0-30.0) sec Sodium 135 L (137-145) mmol/L Carbon Dioxide 19 L (22-30) mmol/L BUN 60 H (9-20) mg/dL Creatinine 6.44 H (0.66-1.25) mg/dL Glucose 111 H (74-99) mg/dL Calcium 8.1 L (8.4-10.2) mg/dL Assessment and Plan Assessment: 1. Chronic kidney disease NKF stage IV with baseline creatinine around 3-4 mg/dL. Etiology is likely nephrosclerosis, rule out underlying GN. Serologies are negative thus far except for positive TAVARES. UA shows 1+ protein in September and 3+ protein currently. Ultrasound shows no evidence of obstructive uropathy. Progression of underlying advanced chronic kidney disease. Started hemodialysis on 11/25/2023. 2. Acute kidney injury, most likely related to uncontrolled hypertension versus progression of underlying chronic kidney disease. Discussed renal replacement therapy again with the patient. Status post IV fluids with no improvement in renal function. 3. Hypertensive emergency. Goal systolic blood pressure about 140-150mmHg 4. History of mechanical aortic valve replacement in 2003 5. cardiomyopathy with EF of 40% 6. History of CVA Plan: Hemodialysis today and again in a.m. Discontinue IV fluids Discharge planning working for outpatient hemodialysis chair time.
[2023-11-26] MEDS: WARFARIN 3 MG TAB PO ONE (16:26)
[2023-11-26] MEDS: ACETAMINOPHEN TAB 325 MG TAB PO PRN (18:57)
[2023-11-26 19:08] LABS: % Iron Saturation 12.81 (15.00-50.00)
--- NOTE | 2023-11-26 21:23 | P.PN ---
Subjective Progress Note Date: 11/26/23 This is a 62-year-old gentleman with past medical history significant for mechanical aortic valve, nonischemic cardiomyopathy,hypertension, CVA, supratherapeutic INR, chronic kidney disease stage IV and multiple other medical issues presented to the ER with complaints of dizziness, nausea, vomiting, minim al shortness of breath. Worsened with ambulation. Denies any exertional, strenuous activity. Reports he has been stressed, preparing his taxes. Patient was eating lunch with his sister when the dizziness abruptly started.denies syncope .denies increased sodium Intake .Reports normally his systolic Blood Pressures Run in the 140s to 150s . Denies chest pain, palpitations. Denies lightheadedness dizziness or focal deficits. Reports medication compliance, routinely follows up with cardiology's office for INR monitoring/Coumadin management. States he was scheduled to follow-up with nephrology tomorrow, November 23. Presented to the ER with heart rate 117, blood pressure 245/168, respiratory rate 16, maintaining O2 sats in 95% on room air, INR subtherapeutic, 1.2, BUN 78, creatinine 6.79. Afebrile, WBC 15.1 on admission, currently 13.8. Hemoglobin 11.9, platelets 147, INR 1, sodium 134, potassium 3.2, bicarb 22, BUN 79, creatinine 7.29 glucose 135 lactic acid 2.1, 1.1, phosphorus 5.2, magnesium 2.2. Troponins 0.223, 0.244, 0.254, 0.266. UA reported rare mucus, moderate blood, 2+ glucose, 3+ protein, negative nitrates negative leukocytes. Viral screening negative. Chest x-ray reported nonacute. Brain CTs reported no acute intracranial abnormality. Chest CT reported limited study no acute abnormality demonstrated in chest, pulmonary trunk borderline, mildly uncharged, can be seen with early pulmonary hypertension, prostatic aortic valve in place, several scattered small pulmonary nodular densities bilateral one 6.5 mm in the right middle lobe, recommend 6-month follow-up CT chest, nonspecific nonenlarged and mildly enlarged mediastinal nodes, cholelithiasis, left upper quadrant 3.4 cm mass, likely arising from the adrenal gland. Renal ultrasound reported no hydronephrosis, no nephrolithiasis or polyp masses seen, simple cyst left kidney. 11/24/2023 renal function worsening, creatinine 7.81. Coumadin remains on hold for potential placement of hemodialysis catheter ,anticoagulated on heparin drip. INR 1.1. Vital signs stable. denies chest pain, palpitations or shortness of breath. Denies lightheadedness dizziness or focal deficits. Denies nausea vomiting or diarrhea. Positive TAVARES, possible autoimmune kidney disease. This morning patient stating he has to go home, there is no one to take care of his dog. Stating he is going to have to leave AMA. Attempted reasoning with patient. 11/25/2023 significant confusion this morning, nurse reports he thought he was on an airplane. Patient is telling us that he went to a wedding yesterday as well as out last night with his nephew and had 3 drinks. Denies chest pain, palpitations or shortness of breath. Continued worsening of his renal function, 8.43 ;permacath and first hemodialysis treatment ordered. 11/26/2023 Pt was seen by Neurology yesterday, confusion improved, CT negative. He is s/p HD and has this scheduled again today. Cr is down to 6 from 8.3 yesterday. Objective - Vital Signs Vital signs: Vital Signs Temp 97.5 F L 11/26/23 20:00 Pulse 67 11/26/23 20:00 Resp 18 11/26/23 20:00 BP 153/80 11/26/23 20:00 Pulse Ox 96 11/26/23 20:00 FiO2 Intake & Output 11/26/23 11/26/23 11/27/23 06:59 18:59 06:59 Intake Total 595.316 860 Output Total 1200 1901 Balance -604.684 -1041 Weight 100.3 kg Intake: Intake, IV Titration 195.316 Amount Heparin Sod,Pork in 0.45% 195.316 NaCl 25,000 unit In 0.45 % NaCl 1 250ml.bag @ 11. 603 UNITS/KG/HR 10 mls/hr IV .Q24H [facility] Rx#: [id number] Oral 460 Hemodialysis 400 400 Output: Urine 300 Urine/Stool Mix 1 Hemodialysis 900 1900 Other: Voiding Method Urinal Urinal # Voids 1 1 - Exam Gen: well developed,well nourished NAD CV: RRR, no murmur Lungs: CTAB Abd: soft, nontender - Labs CBC & Chem 7: 11/26/23 05:53 11/26/23 05:53 Labs: Abnormal Lab Results - Last 24 Hours (Table) 11/25/23 11/26/23 11/26/23 Range/Units 21:22 05:53 05:53 RBC 3.29 L (4.30-5.90) m/uL Hgb 9.8 L (13.0-17.5) gm/dL Hct 28.3 L (39.0-53.0) % RDW 16.3 H (11.5-15.5) % Plt Count 133 L (150-450) k/uL Lymphocytes # 0.5 L (1.0-4.8) k/uL INR 1.2 H (<1.2) APTT 38.4 H (22.0-30.0) sec Sodium (137-145) mmol/L Carbon Dioxide (22-30) mmol/L BUN (9-20) mg/dL Creatinine (0.66-1.25) mg/dL Glucose (74-99) mg/dL Calcium (8.4-10.2) mg/dL Iron (65-175) UG/DL TIBC (228-460) UG/DL % Saturation (15.00-50.00) Transferrin (204.0-354.0) mg/dL 11/26/23 11/26/23 11/26/23 Range/Units 05:53 05:53 05:53 RBC (4.30-5.90) m/uL Hgb (13.0-17.5) gm/dL Hct (39.0-53.0) % RDW (11.5-15.5) % Plt Count (150-450) k/uL Lymphocytes # (1.0-4.8) k/uL INR (<1.2) APTT 61.2 H (22.0-30.0) sec Sodium 135 L (137-145) mmol/L Carbon Dioxide 19 L (22-30) mmol/L BUN 60 H (9-20) mg/dL Creatinine 6.44 H (0.66-1.25) mg/dL Glucose 111 H (74-99) mg/dL Calcium 8.1 L (8.4-10.2) mg/dL Iron 26 L (65-175) UG/DL TIBC 203 L (228-460) UG/DL % Saturation 12.81 L (15.00-50.00) Transferrin 145.0 L (204.0-354.0) mg/dL Assessment and Plan Plan: Continue with current regimen, renal replacement per Nephrology, Cardiology following for hypertension.
--- NOTE | 2023-11-27 00:59 | EEG ---
ELECTROENCEPHALOGRAM REPORT PREAMBLE: This is a 63-year-old male with history of aneurysm, who came with dizziness, lightheadedness and difficulty walking. He had a syncopal episode. The patient is getting dialysis. The patient has current medications Catapres, Dilaudid, morphine, Zofran, Aldactone and vitamin B1. EEG FINDINGS: This is a 21-channel digital EEG recorded with video component, utilizing 10/20 international system with referential and bipolar montages. Background consists of well-developed, but moderately well regulated, mixed frequencies of 8 hertz alpha, with some 6-7 hertz theta activity seen in bihemispheric region. Background does not seem to be reactive to eye opening or closing. There is slight amplitude asymmetry as well, with relatively higher amplitude activity in the left hemispheric region, consistent with breach rhythm from previous craniotomy defect. Different stages of sleep were not seen. No focal or generalized epileptiform activity was seen. EKG channel showed no obvious arrhythmia. IMPRESSION: This is an abnormal EEG due to: 1. Background slowing of mild degree, suggestive of generalized cerebral dysfunction as can be seen with encephalopathy or medication effect. 2. Amplitude asymmetry with relatively higher amplitude activity in the left hemispheric region related to breach rhythm from previous craniotomy defect. 3. No epileptiform activity was seen. MMODL / IJN: [id number] /
--- NOTE | 2023-11-27 01:02 | P.PN ---
Subjective Progress Note Date: 11/26/23 Patient was seen for a follow-up. Patient states his right side of neck is slightly hurting where he had dialysis catheter. Offers no new complaints. Patient is laying comfortably in the bed. Objective - Vital Signs Vital signs: Vital Signs Temp 97.4 F L 11/26/23 16:00 Pulse 74 11/26/23 16:00 Resp 17 11/26/23 16:00 BP 156/93 11/26/23 16:00 Pulse Ox 98 11/26/23 16:00 FiO2 Intake & Output 11/26/23 11/26/23 11/27/23 06:59 18:59 06:59 Intake Total 595.316 860 Output Total 1200 1901 Balance -604.684 -1041 Weight 100.3 kg Intake: Intake, IV Titration 195.316 Amount Heparin Sod,Pork in 0.45% 195.316 NaCl 25,000 unit In 0.45 % NaCl 1 250ml.bag @ 11. 603 UNITS/KG/HR 10 mls/hr IV .Q24H [facility] Rx#: [id number] Oral 460 Hemodialysis 400 400 Output: Urine 300 Urine/Stool Mix 1 Hemodialysis 900 1900 Other: Voiding Method Urinal Urinal # Voids 1 1 - Exam Patient is alert and awake. Patient states it is October and the year is 2023. He states that he is in [place] but then said was [facility]. He knows name of the current president. He has to concentrate to recall answers. Per nursing report, last night he was thinking he was in the [facility]. Patient's visual major are full. Face is symmetric. Tongue protrudes midline. Speech and language functions normal. On muscle testing there is no pronator drift. - Labs CBC & Chem 7: 11/26/23 05:53 11/26/23 05:53 Labs: Abnormal Lab Results - Last 24 Hours (Table) 11/25/23 11/26/23 11/26/23 Range/Units 21:22 05:53 05:53 RBC 3.29 L (4.30-5.90) m/uL Hgb 9.8 L (13.0-17.5) gm/dL Hct 28.3 L (39.0-53.0) % RDW 16.3 H (11.5-15.5) % Plt Count 133 L (150-450) k/uL Lymphocytes # 0.5 L (1.0-4.8) k/uL INR 1.2 H (<1.2) APTT 38.4 H (22.0-30.0) sec Sodium (137-145) mmol/L Carbon Dioxide (22-30) mmol/L BUN (9-20) mg/dL Creatinine (0.66-1.25) mg/dL Glucose (74-99) mg/dL Calcium (8.4-10.2) mg/dL Iron (65-175) UG/DL TIBC (228-460) UG/DL % Saturation (15.00-50.00) Transferrin (204.0-354.0) mg/dL 11/26/23 11/26/23 11/26/23 Range/Units 05:53 05:53 05:53 RBC (4.30-5.90) m/uL Hgb (13.0-17.5) gm/dL Hct (39.0-53.0) % RDW (11.5-15.5) % Plt Count (150-450) k/uL Lymphocytes # (1.0-4.8) k/uL INR (<1.2) APTT 61.2 H (22.0-30.0) sec Sodium 135 L (137-145) mmol/L Carbon Dioxide 19 L (22-30) mmol/L BUN 60 H (9-20) mg/dL Creatinine 6.44 H (0.66-1.25) mg/dL Glucose 111 H (74-99) mg/dL Calcium 8.1 L (8.4-10.2) mg/dL Iron 26 L (65-175) UG/DL TIBC 203 L (228-460) UG/DL % Saturation 12.81 L (15.00-50.00) Transferrin 145.0 L (204.0-354.0) mg/dL Assessment and Plan Assessment: * Altered mental status, likely due to metabolic/uremic encephalopathy, versus some component of hypertensive encephalopathy * Accelerated hypertension * Acute on chronic renal failure * Urinary retention * Hypertension * Hyperlipidemia * History of aortic valve replacement in 2003 * History of cerebral aneurysm, with craniotomy in 2021 * Syncopal spell, likely vasovagal * History of B12, folate deficiency * Tobacco use Plan: * Patient's acute mental confusion is likely multifactorial. He has acute on chronic renal failure with perhaps uremic encephalopathy. Also patient had accelerated hypertension on arrival, which may have contributed to some hypertensive encephalopathy. * Patient has been started on hemodialysis, mentation has improved. * EEG preliminary report showed background slowing, consistent with encephalopathy. Also revealed amplitude asymmetry with higher amplitude activity over the left hemispheric region due to breach rhythm from previous craniotomy defect. No epileptiform activity was seen. * Carotid Doppler revealed no significant left ICA stenosis. Right side could not be checked because of presence of hemodialysis catheter. * B12 915, folate 8.0, ammonia < 9, TSH 3.44, RPR nonreactive. B6, MMA pending. * TAVARES is elevated 1240, with speckled pattern. Immunofixation electrophoresis, C3, C4, myeloperoxidase antibodies, c-ANCA, p-ANCA all negative. Rule out lupus. * Hemoglobin A1c 5.8 on 06/18/2023. * Dr. Guerrero covering neurology service over the weekend. Dr. Melendez starting neurology service on Wednesday.
[2023-11-27] MEDS: traZODone HCL 50 MG TAB PO PRN (01:19)
[2023-11-27] MEDS: NICOTINE 14MG/24HR PATCH TRANSDERM SCH (01:19)
[2023-11-27 08:20] LABS: INR 1.4 (<1.2); Prothrombin Time 14.1 sec (10.0-12.5)
--- NOTE | 2023-11-27 10:05 | P.PN ---
Subjective Patient is seen in follow-up for acute kidney injury on chronic kidney disease. Started on hemodialysis November 25, 2023. Hemodynamically stable. Has been voiding. Denies chest pain or shortness of breath. Vital signs are stable. General: No acute distress. HEENT: Head exam is unremarkable. LUNGS: No audible rhonchi or wheezes. HEART: Rate and Rhythm are regular. ABDOMEN: Nontender. EXTREMITITES: 1+ edema. Objective - Vital Signs Vital signs: Vital Signs Temp 97.5 F L 11/27/23 03:58 Pulse 76 11/27/23 09:33 Resp 17 11/27/23 09:33 BP 158/97 11/27/23 09:33 Pulse Ox 96 11/27/23 09:33 FiO2 Intake & Output 11/26/23 11/27/23 11/27/23 18:59 06:59 18:59 Intake Total 860 441.774 180 Output Total 1901 Balance -1041 441.774 180 Weight 99.7 kg Intake: Intake, IV Titration 201.774 Amount Heparin Sod,Pork in 0.45% 201.774 NaCl 25,000 unit In 0.45 % NaCl 1 250ml.bag @ 11. 603 UNITS/KG/HR 10 mls/hr IV .Q24H [facility] Rx#: [id number] Oral 460 240 180 Hemodialysis 400 Output: Urine/Stool Mix 1 Hemodialysis 1900 Other: Voiding Method Urinal Toilet # Voids 1 1 1 # Bowel Movements 1 1 - Labs CBC & Chem 7: 11/26/23 05:53 11/26/23 05:53 Labs: Abnormal Lab Results - Last 24 Hours (Table) 11/26/23 11/27/23 11/27/23 Range/Units 05:53 07:32 07:32 PT 14.1 H (10.0-12.5) sec INR 1.4 H (<1.2) APTT 44.7 H (22.0-30.0) sec Iron 26 L (65-175) UG/DL TIBC 203 L (228-460) UG/DL % Saturation 12.81 L (15.00-50.00) Transferrin 145.0 L (204.0-354.0) mg/dL Assessment and Plan Plan: Assessment: 1. Acute kidney injury secondary to ATN versus progression of underlying chronic kidney disease. Creatinine peaked at 8.4 this admission. Started on hemodialysis November 25, 2023. Has permacath. UA showed 3+ protein with no RBCs. No hydronephrosis noted on kidney ultrasound. Serologies negative except for positive TAVARES. 2. Chronic kidney disease stage IV with baseline creatinine in the range of 3-4 secondary to nephrosclerosis. Concern for GN due to proteinuria. 3. Hypertensive emergency. 4. Cardiomyopathy with ejection fraction of 40%. 5. History of CVA. 6. History of aortic valve replacement. 7. Metabolic acidosis secondary to chronic kidney disease. 8. Anemia of chronic kidney disease maintained on Aranesp. Plan: Hemodialysis today. Outpatient dialysis being set up by case management. Add as needed hydralazine. Check protein to creatinine ratio. Check phosphorus level. Discussed kidney biopsy for definitive diagnosis. Patient unable to tolerate procedure at this time. Also, due to underlying CKD stage IV, patient will not benefit much from immunosuppressive therapy.
--- NOTE | 2023-11-27 14:58 | P.PN ---
Subjective Progress Note Date: 11/27/23 The patient is a 63-year-old male who was seen in neurologic follow-up on November 27, 2023, in cross coverage for Dr. Carey, in collaboration with Nohemy Garcia, via teleneurology. The patient's chart has been reviewed. Neurology reportedly was seeing the patient for acute mental status changes. These mental status changes are thought to be secondary to metabolic encephalopathy, related to renal failure. This morning, the patient is receiving dialysis. He reports feeling better. He feels he is still somewhat confused however this confusion has improved. Objective - Vital Signs Vital signs: Vital Signs Temp 97.5 F L 11/27/23 03:58 Pulse 76 11/27/23 09:33 Resp 17 11/27/23 09:33 BP 158/97 11/27/23 09:33 Pulse Ox 96 11/27/23 09:33 FiO2 Intake & Output 11/26/23 11/27/23 11/27/23 18:59 06:59 18:59 Intake Total 860 441.774 180 Output Total 1901 Balance -1041 441.774 180 Weight 99.7 kg Intake: Intake, IV Titration 201.774 Amount Heparin Sod,Pork in 0.45% 201.774 NaCl 25,000 unit In 0.45 % NaCl 1 250ml.bag @ 11. 603 UNITS/KG/HR 10 mls/hr IV .Q24H [facility] Rx#: [id number] Oral 460 240 180 Hemodialysis 400 Output: Urine/Stool Mix 1 Hemodialysis 1900 Other: Voiding Method Urinal Toilet # Voids 1 1 1 # Bowel Movements 1 1 - Exam General: Patient is reclining in the bed. He is well-nourished, well-developed and in no acute distress HEENT: Head is atraumatic, normocephalic. Fundus not visualized. There is no scleral icterus. Mucous membranes are moist. Extremities: Without edema Neurological examination Mental status: The patient is awake, alert and oriented to his name, date of , age, current month and upcoming holiday. He states the current year to be "2019". Patient's speech is clear. Cranial nerves: 2-12 grossly intact Motor: Patient is able to move all 4 extremities - Labs CBC & Chem 7: 11/26/23 05:53 11/26/23 05:53 Labs: Abnormal Lab Results - Last 24 Hours (Table) 11/26/23 11/27/23 11/27/23 Range/Units 05:53 07:32 07:32 PT 14.1 H (10.0-12.5) sec INR 1.4 H (<1.2) APTT 44.7 H (22.0-30.0) sec Iron 26 L (65-175) UG/DL TIBC 203 L (228-460) UG/DL % Saturation 12.81 L (15.00-50.00) Transferrin 145.0 L (204.0-354.0) mg/dL Assessment and Plan Assessment: * Altered mental status, likely due to metabolic/uremic encephalopathy, versus some component of hypertensive encephalopathy * Accelerated hypertension * Acute on chronic renal failure * Urinary retention * Hypertension * Hyperlipidemia * History of aortic valve replacement in 2003 * History of cerebral aneurysm, with craniotomy in 2021 * Syncopal spell, likely vasovagal * History of B12, folate deficiency * Tobacco use Plan: 1. Continue treatment of acute renal failure 2. B12, folate and TSH are found to be normal 3. No further neurologic intervention is needed at this time. Neurology will sign off. Please call with questions or concerns. Time with Patient: Greater than 30 (35 minutes were spent caring for this patient today including, obtaining history, examining the patient, reviewing chart documentation, labs and creating this note)
--- NOTE | 2023-11-27 15:08 | P.PN ---
Subjective Progress Note Date: 11/27/23 The patient is evaluated today resting on the medical floor. He is being eval by neurology due to altered mental status. He underwent EEG which was negative for any seizure-like activity. He has been started on hemodialysis on November 24 this admission his creatinine is elevated up to 6.44. He will be dialyzed today. He remains on warfarin with a subtherapeutic INR today and is 0.4 and patient is on a heparin bridge. Neurology has signed off the case. Patient is being set up for outpatient hemodialysis in [place] will be followed up on Wednesday with physical therapy. Patient would like to return home however is being considered for [facility] on discharge. Review of Systems Constitutional: Denied any fatigue denied any fever. Cardio vascular: denied any chest pain, palpitations Gastrointestinal: denied any nausea, vomiting, diarrhea Pulmonary: Denied any shortness of breath cough Neurologic denied any new focal deficits All inpatient medications were reviewed and appropriate changes in these medications as dictated in the interval history and assessment and plan. PHYSICAL EXAMINATION: GENERAL: The patient is alert and oriented x3, not in any acute distress. Well developed, well nourished. HEENT: Pupils are round and equally reacting to light. EOMI. No scleral icterus. No conjunctival pallor. Normocephalic, atraumatic. No pharyngeal erythema. No thyromegaly. CARDIOVASCULAR: S1 and S2 present. No murmurs, rubs, or gallops. PULMONARY: Chest is clear to auscultation, no wheezing or crackles. Right-sided chest permacath in place ABDOMEN: Soft, nontender, nondistended, normoactive bowel sounds. No palpable organomegaly. MUSCULOSKELETAL: No joint swelling or deformity. EXTREMITIES: No cyanosis, clubbing, or pedal edema. NEUROLOGICAL: Gross neurological examination did not reveal any focal deficits. SKIN: No rashes. Assessment and plan -Altered mental status secondary to acute metabolic encephalopathy secondary to uremia and also a component of hypertensive encephalopathy -Acute kidney injury secondary to acute tubular necrosis with underlying chronic kidney disease stage IV. Patient was started on renal replacement therapy this admission and is being set up for outpatient hemodialysis. Social work to follow-up on Wednesday. -Hypertension uncontrolled cardiology is following and patient has been started on IV hydralazine as needed today for improved blood pressure control. -History of stroke -History of mechanical aortic valve anticoagulated with warfarin on outpatient basis patient has a subtherapeutic INR and is maintained on IV heparin bridge with daily PT/INR. -History of hyperlipidemia -History of gastroesophageal reflux disease -Daily smoker -Cerebral aneurysm s/p repair in 2021 -Anemia of chronic disease with underlying iron deficiency maintained on Aranesp DVT prophylaxis as mentioned patient is on IV bridged with warfarin GI prophylaxis Full code The impression and plan of care has been dictated by Tawana Delatorre, Nurse Practitioner as directed. Dr. Adia MD I have performed a history and physical examination and medical decision making of this patient, discussed the same with the dictator, and agree with the dictators assessment and plan as written, documented as a scribe. Based on total visit time, I have performed more than 50% of this visit. - Objective - Vital Signs Vital signs: Vital Signs Temp 97.1 F L 11/27/23 13:50 Pulse 87 11/27/23 13:50 Resp 16 11/27/23 13:50 BP 167/99 11/27/23 13:50 Pulse Ox 97 11/27/23 11:55 FiO2 Intake & Output 11/26/23 11/27/23 11/27/23 18:59 06:59 18:59 Intake Total 860 441.774 580 Output Total 1901 1900 Balance -1041 441.774 -1320 Weight 99.7 kg Intake: Intake, IV Titration 201.774 Amount Heparin Sod,Pork in 0.45% 201.774 NaCl 25,000 unit In 0.45 % NaCl 1 250ml.bag @ 11. 603 UNITS/KG/HR 10 mls/hr IV .Q24H [facility] Rx#: [id number] Oral 460 240 180 Hemodialysis 400 400 Output: Urine/Stool Mix 1 Hemodialysis 1900 1900 Other: Voiding Method Urinal Toilet Toilet # Voids 1 1 1 # Bowel Movements 1 1 - Labs CBC & Chem 7: 11/26/23 05:53 11/26/23 05:53 Labs: Abnormal Lab Results - Last 24 Hours (Table) 11/26/23 11/27/23 11/27/23 Range/Units 05:53 07:32 07:32 PT 14.1 H (10.0-12.5) sec INR 1.4 H (<1.2) APTT 44.7 H (22.0-30.0) sec Iron 26 L (65-175) UG/DL TIBC 203 L (228-460) UG/DL % Saturation 12.81 L (15.00-50.00) Transferrin 145.0 L (204.0-354.0) mg/dL Assessment and Plan Time with Patient: Less than 30
[2023-11-27] MEDS: WARFARIN 2 MG TAB PO ONE (16:49)
--- NOTE | 2023-11-27 17:43 | P.PN ---
Subjective Progress Note Date: 11/27/23 This is a 63-year-old male with a past medical history significant for nonischemic cardiomyopathy, hypertension, CVA, obstructive sleep apnea, chronic kidney disease, and previous mechanical aortic valve replacement. Patient follows in the office with Dr. Ibarra. We have been asked to see the patient in c onsultation for syncope. Patient examined at the bedside in the emergency room. Patient states he presented to the hospital with chief complaint of feeling unwell. He also reports having some dizziness. He denies chest pain or pressure. Denies any shortness of breath. The patient was found to have worsening kidney function with a creatinine of 7.29. Patient was supposed to follow-up outpatient with nephrology but has not yet been seen. Patient's blood pressures were noted to be significantly elevated upon admission to the hospital with a reading of 245/168. Patient has been resumed on his home cardiac medications. Most recent blood pressure 151/95. Patient's INR on admission is 1.2. Patient is adamant that he has been taking his medications as prescribed including his Coumadin. Patient follows up in the cardiology office for his INR checks and Coumadin management. Patient's last visit to the cardiology office for an INR check was on October 28, 2023. At that time the patient's INR was greater than 8 per office staff. DIAGNOSTICS: - EKG reveals sinus tachycardia with heart rate of 114. Diffuse T wave inversions. LVH. - Chest xray negative for acute process. - Laboratory data: WBC 13.7. Hemoglobin 11.5. Platelet count 124. Sodium 134. Potassium 3.2. BUN 79. Creatinine 7.29. Troponin 0.244. 0.254. 0.266. - Current home cardiac medications include Coumadin 2 mg daily, carvedilol 25 mg twice a day, hydralazine 100 mg 3 times a day, and amlodipine 5 mg twice a day. - Most recent echocardiogram obtained in September 2023 revealed ejection fraction 55% with normally functioning mechanical prosthetic aortic valve -Previous echocardiogram in May 2023 revealed ejection fraction of 40% - Cardiac catheterization history: April 2023 revealing mild nonobstructive disease involving the right coronary artery 11/24/2023 Patient examined this morning at the bedside. Patient denies chest pain or pressure. He denies shortness of breath. Patient's creatinine worsened today at 7.81. Nephrology is following. He remains on IV heparin. Coumadin is on hold in the event that patient needs a hemodialysis catheter placed. Blood pressure stable with a recent reading of 134/75. 11/25/2023 Patient examined this morning at the bedside. Patient appears to be more confused today compared to yesterday. He denies chest pain or pressure. He denies shortness of breath. Patient with worsening renal function with creatinine 8.43. 11/26/2023 Patient examined this morning at the bedside. Patient received hemodialysis catheter yesterday and underwent his first hemodialysis treatment with half a liter removed. He is currently undergoing hemodialysis again this morning at the time of examination. He has been resumed on his Coumadin. He also remains on IV heparin until his INR is therapeutic. Patient denies chest pain or pressure. He denies shortness of breath. Vital signs are stable. 11/27/2023 Blood pressure is better controlled. INR 1.4, hemoglobin 9.8, BUN 60, creatinine 6.4 PHYSICAL EXAM: VITAL SIGNS: Reviewed. GENERAL: Well-developed in no acute distress. HEENT: Head is normocephalic. Pupils are equal, round. Sclerae anicteric. Mucous membranes of the mouth are moist. Neck supple. No JVD or thyromegaly LUNGS: Respirations even and unlabored. Lungs essentially clear to auscultation bilaterally. HEART: Regular rate and rhythm. S1 and S2 heard. Mechanical click noted. ABDOMEN: Soft. Nondistended. Nontender. EXTREMITIES: Normal range of motion. No clubbing or cyanosis. Peripheral pulses intact. No lower extremity edema NEUROLOGIC: Awake and alert. Oriented x 3. ASSESSMENT: Dizziness Presyncope Acute on chronic kidney disease Subtherapeutic INR, questionable compliance with medications Hypertensive emergency Abnormal troponins, flat, likely secondary to chronic kidney disease History of mechanical aortic valve replacement, 2003, in [place] History of nonischemic cardiomyopathy with improved EF Mild nonobstructive CAD per cardiac catheterization 2022 Hypertension Hyperlipidemia History of medication noncompliance Nicotine dependence Documented 6-10 alcoholic drinks per day PLAN: Amlodipine 5 mg twice daily, Coreg 25 mg twice daily, hydralazine 100 mg 3 times daily, Discontinue Aldactone 50 mg daily, in view of worsening renal function. IV heparin drip and warfarin Continue Coumadin. Continue IV heparin until INR is therapeutic Hemodialysis per nephrology Objective - Vital Signs Vital signs: Vital Signs Temp 97.8 F 11/27/23 16:53 Pulse 71 11/27/23 16:53 Resp 15 11/27/23 16:53 BP 151/89 11/27/23 16:53 Pulse Ox 97 11/27/23 16:53 FiO2 Intake & Output 11/26/23 11/27/23 11/27/23 18:59 06:59 18:59 Intake Total 860 441.774 698 Output Total 1901 1900 Balance -1041 441.774 -1202 Weight 99.7 kg Intake: Intake, IV Titration 201.774 Amount Heparin Sod,Pork in 0.45% 201.774 NaCl 25,000 unit In 0.45 % NaCl 1 250ml.bag @ 11. 603 UNITS/KG/HR 10 mls/hr IV .Q24H [facility] Rx#: [id number] Oral 460 240 298 Hemodialysis 400 400 Output: Urine/Stool Mix 1 Hemodialysis 1900 1900 Other: Voiding Method Urinal Toilet Toilet # Voids 1 1 1 # Bowel Movements 1 1 - Labs CBC & Chem 7: 11/26/23 05:53 11/26/23 05:53 Labs: Abnormal Lab Results - Last 24 Hours (Table) 11/26/23 11/27/23 11/27/23 Range/Units 05:53 07:32 07:32 PT 14.1 H (10.0-12.5) sec INR 1.4 H (<1.2) APTT 44.7 H (22.0-30.0) sec Iron 26 L (65-175) UG/DL TIBC 203 L (228-460) UG/DL % Saturation 12.81 L (15.00-50.00) Transferrin 145.0 L (204.0-354.0) mg/dL
[2023-11-27 23:59] LABS: Creatinine,Urine Random 34.2 mg/dL; Protein/Creatinine Ratio,Urine 4.006
[2023-11-28 08:02] LABS: INR 1.8 (<1.2); Prothrombin Time 18.4 sec (10.0-12.5)
[2023-11-28 08:11] LABS: African American GFR (CKD) 15 (>60 ml/min/1.73 sqM); Anion Gap 7 mmol/L; Blood Urea Nitrogen 35 mg/dL (9-20); Calcium 8.5 mg/dL (8.4-10.2); Carbon Dioxide 27 mmol/L (22-30); Chloride 103 mmol/L (98-107); Glucose 111 mg/dL (74-99); Non-African American GFR(CKD) 13 (>60 ml/min/1.73 sqM); Phosphorus 4.1 mg/dL (2.5-4.5); Sodium 137 mmol/L (137-145)
[2023-11-28 09:01] LABS: Potassium 3.9 mmol/L (3.5-5.1)
[2023-11-28] MEDS: FAMOTIDINE 20 MG TAB PO SCH (09:39)
--- NOTE | 2023-11-28 10:17 | P.PN ---
Subjective Patient is seen in follow-up for acute kidney injury on chronic kidney disease. Started on hemodialysis November 25, 2023. Hemodynamically stable. Has been voiding. Denies chest pain or shortness of breath. No problems with dialysis yesterday. Vital signs are stable. General: No acute distress. HEENT: Head exam is unremarkable. LUNGS: No audible rhonchi or wheezes. HEART: Rate and Rhythm are regular. ABDOMEN: Nontender. EXTREMITITES: 1+ edema. Objective - Vital Signs Vital signs: Vital Signs Temp 97.9 F 11/28/23 08:00 Pulse 74 11/28/23 08:00 Resp 16 11/28/23 08:00 BP 172/93 11/28/23 08:00 Pulse Ox 95 11/28/23 08:00 FiO2 Intake & Output 11/27/23 11/28/23 11/28/23 17:59 06:59 18:59 Intake Total 298 Output Total Balance 298 Weight Intake: Intake, IV Titration Amount Heparin Sod,Pork in 0.45% NaCl 25,000 unit In 0.45 % NaCl 1 250ml.bag @ 11. 603 UNITS/KG/HR 10 mls/hr IV .Q24H [facility] Rx#: [id number] Oral 298 Hemodialysis Output: Urine Hemodialysis Other: Voiding Method # Voids # Bowel Movements - Labs CBC & Chem 7: 11/26/23 05:53 11/28/23 07:16 Labs: Abnormal Lab Results - Last 24 Hours (Table) 11/28/23 11/28/23 11/28/23 Range/Units 07:16 07:16 07:16 PT 18.4 H (10.0-12.5) sec INR 1.8 H (<1.2) APTT 64.5 H (22.0-30.0) sec BUN 35 H (9-20) mg/dL Creatinine 4.57 H (0.66-1.25) mg/dL Glucose 111 H (74-99) mg/dL Assessment and Plan Plan: Assessment: 1. Acute kidney injury secondary to ATN versus progression of underlying chronic kidney disease. Creatinine peaked at 8.4 this admission. Started on hemodialysis November 25, 2023. Has permacath. UA showed 3+ protein with no RBCs. No hydronephrosis noted on kidney ultrasound. Serologies negative except for positive TAVARES. 2. Chronic kidney disease stage IV with baseline creatinine in the range of 3-4 secondary to nephrosclerosis. Concern for GN due to proteinuria. UPC 4 g. 3. Hypertensive emergency. 4. Cardiomyopathy with ejection fraction of 40%. 5. History of CVA. 6. History of aortic valve replacement. 7. Metabolic acidosis secondary to chronic kidney disease. Improved postdialysis. 8. Anemia of chronic kidney disease maintained on Aranesp. Plan: Hemodialysis tomorrow. Outpatient dialysis being set up by case management. Add torsemide 40 mg once daily. Maintain as needed hydralazine. Phosphorus 4.1 dated November 28, 2023. Discussed kidney biopsy for definitive diagnosis. Will schedule outpatient if agreeable. Also, due to underlying CKD stage IV, patient will not benefit much from immunosuppressive therapy.
[2023-11-28] MEDS: TORSEMIDE 20 MG TAB PO SCH (12:29)
[2023-11-28] MEDS: WARFARIN 3 MG TAB PO ONE (17:24)
[2023-11-28] MEDS ORDERED: WARFARIN 2 MG TAB PO ONE (18:00)
--- NOTE | 2023-11-28 18:30 | P.PN ---
Subjective Progress Note Date: 11/28/23 This is a 63-year-old male with a past medical history significant for nonischemic cardiomyopathy, hypertension, CVA, obstructive sleep apnea, chronic kidney disease, and previous mechanical aortic valve replacement. Patient follows in the office with Dr. Ibarra. We have been asked to see the patient in c onsultation for syncope. Patient examined at the bedside in the emergency room. Patient states he presented to the hospital with chief complaint of feeling unwell. He also reports having some dizziness. He denies chest pain or pressure. Denies any shortness of breath. The patient was found to have worsening kidney function with a creatinine of 7.29. Patient was supposed to follow-up outpatient with nephrology but has not yet been seen. Patient's blood pressures were noted to be significantly elevated upon admission to the hospital with a reading of 245/168. Patient has been resumed on his home cardiac medications. Most recent blood pressure 151/95. Patient's INR on admission is 1.2. Patient is adamant that he has been taking his medications as prescribed including his Coumadin. Patient follows up in the cardiology office for his INR checks and Coumadin management. Patient's last visit to the cardiology office for an INR check was on October 28, 2023. At that time the patient's INR was greater than 8 per office staff. DIAGNOSTICS: - EKG reveals sinus tachycardia with heart rate of 114. Diffuse T wave inversions. LVH. - Chest xray negative for acute process. - Laboratory data: WBC 13.7. Hemoglobin 11.5. Platelet count 124. Sodium 134. Potassium 3.2. BUN 79. Creatinine 7.29. Troponin 0.244. 0.254. 0.266. - Current home cardiac medications include Coumadin 2 mg daily, carvedilol 25 mg twice a day, hydralazine 100 mg 3 times a day, and amlodipine 5 mg twice a day. - Most recent echocardiogram obtained in September 2023 revealed ejection fraction 55% with normally functioning mechanical prosthetic aortic valve -Previous echocardiogram in May 2023 revealed ejection fraction of 40% - Cardiac catheterization history: April 2023 revealing mild nonobstructive disease involving the right coronary artery 11/24/2023 Patient examined this morning at the bedside. Patient denies chest pain or pressure. He denies shortness of breath. Patient's creatinine worsened today at 7.81. Nephrology is following. He remains on IV heparin. Coumadin is on hold in the event that patient needs a hemodialysis catheter placed. Blood pressure stable with a recent reading of 134/75. 11/25/2023 Patient examined this morning at the bedside. Patient appears to be more confused today compared to yesterday. He denies chest pain or pressure. He denies shortness of breath. Patient with worsening renal function with creatinine 8.43. 11/26/2023 Patient examined this morning at the bedside. Patient received hemodialysis catheter yesterday and underwent his first hemodialysis treatment with half a liter removed. He is currently undergoing hemodialysis again this morning at the time of examination. He has been resumed on his Coumadin. He also remains on IV heparin until his INR is therapeutic. Patient denies chest pain or pressure. He denies shortness of breath. Vital signs are stable. 11/27/2023 Blood pressure is better controlled. INR 1.4, hemoglobin 9.8, BUN 60, creatinine 6.4 11/28/2023 Blood pressure 150-160 systolic INR 1.8 Minimal urine output No chest pain shortness of breath PHYSICAL EXAM: VITAL SIGNS: Reviewed. GENERAL: Well-developed in no acute distress. HEENT: Head is normocephalic. Pupils are equal, round. Sclerae anicteric. Mucous membranes of the mouth are moist. Neck supple. No JVD or thyromegaly LUNGS: Respirations even and unlabored. Lungs essentially clear to auscultation bilaterally. HEART: Regular rate and rhythm. S1 and S2 heard. Mechanical click noted. ABDOMEN: Soft. Nondistended. Nontender. EXTREMITIES: Normal range of motion. No clubbing or cyanosis. Peripheral pulses intact. No lower extremity edema NEUROLOGIC: Awake and alert. Oriented x 3. ASSESSMENT: Dizziness Presyncope Acute on chronic kidney disease Subtherapeutic INR, questionable compliance with medications Hypertensive emergency Abnormal troponins, flat, likely secondary to chronic kidney disease History of mechanical aortic valve replacement, 2003, in [place] History of nonischemic cardiomyopathy with improved EF Mild nonobstructive CAD per cardiac catheterization 2022 Hypertension Hyperlipidemia History of medication noncompliance Nicotine dependence Documented 6-10 alcoholic drinks per day PLAN: Amlodipine 5 mg twice daily, Coreg 25 mg twice daily, hydralazine 100 mg 3 times daily. Discontinue Aldactone 50 mg daily, in view of worsening renal function. IV heparin drip and warfarin Continue Coumadin. Continue IV heparin until INR is therapeutic Hemodialysis per nephrology Objective - Vital Signs Vital signs: Vital Signs Temp 98.4 F 11/28/23 15:44 Pulse 75 11/28/23 15:44 Resp 16 11/28/23 15:44 BP 168/94 11/28/23 15:44 Pulse Ox 96 11/28/23 15:44 FiO2 Intake & Output 11/27/23 11/28/23 11/28/23 17:59 06:59 18:59 Intake Total 2202 Output Total Balance 2202 Weight Intake: Intake, IV Titration 430 Amount Heparin Sod,Pork in 0.45% 250 NaCl 25,000 unit In 0.45 % NaCl 1 250ml.bag @ 11. 603 UNITS/KG/HR 10 mls/hr IV .Q24H [facility] Rx#: [id number] Sodium Chloride 0.9% 250 180 ml @ 0 mls/hr IV .[facility] Rx#:[id number] Oral 1772 Hemodialysis Output: Urine Hemodialysis Other: Voiding Method Toilet # Voids 4 # Bowel Movements - Labs CBC & Chem 7: 11/26/23 05:53 11/28/23 07:16 Labs: Abnormal Lab Results - Last 24 Hours (Table) 11/28/23 11/28/23 11/28/23 Range/Units 07:16 07:16 07:16 PT 18.4 H (10.0-12.5) sec INR 1.8 H (<1.2) APTT 64.5 H (22.0-30.0) sec BUN 35 H (9-20) mg/dL Creatinine 4.57 H (0.66-1.25) mg/dL Glucose 111 H (74-99) mg/dL
--- NOTE | 2023-11-28 18:45 | P.PN ---
Subjective Progress Note Date: 11/28/23 The patient is evaluated today resting on the medical floor. He is being eval by neurology due to altered mental status. He underwent EEG which was negative for any seizure-like activity. He has been started on hemodialysis on November 24 this admission his creatinine is elevated up to 6.44. He will be dialyzed today. He remains on warfarin with a subtherapeutic INR today and is 0.4 and patient is on a heparin bridge. Neurology has signed off the case. Patient is being set up for outpatient hemodialysis in [place] will be followed up on Wednesday with physical therapy. Patient would like to return home however is being considered for [facility] on discharge. 11/28/2023 Patient is evaluated today #. No acute complaints. Patient underwent dialysis yesterday. He will be set up for outpatient dialysis on a Wednesday schedule. INR is up to 1.8 today patient continues on warfarin with IV heparin bridge. Mentation continues to improve he is less confused. Review of Systems Constitutional: Denied any fatigue denied any fever. Cardio vascular: denied any chest pain, palpitations Gastrointestinal: denied any nausea, vomiting, diarrhea Pulmonary: Denied any shortness of breath cough Neurologic denied any new focal deficits All inpatient medications were reviewed and appropriate changes in these medications as dictated in the interval history and assessment and plan. PHYSICAL EXAMINATION: GENERAL: The patient is alert and oriented x3, not in any acute distress. Well developed, well nourished. HEENT: Pupils are round and equally reacting to light. EOMI. No scleral icterus. No conjunctival pallor. Normocephalic, atraumatic. No pharyngeal erythema. No thyromegaly. CARDIOVASCULAR: S1 and S2 present. No murmurs, rubs, or gallops. PULMONARY: Chest is clear to auscultation, no wheezing or crackles. Right-sided chest permacath in place ABDOMEN: Soft, nontender, nondistended, normoactive bowel sounds. No palpable organomegaly. MUSCULOSKELETAL: No joint swelling or deformity. EXTREMITIES: No cyanosis, clubbing, or pedal edema. NEUROLOGICAL: Gross neurological examination did not reveal any focal deficits. SKIN: No rashes. Assessment and plan -Altered mental status secondary to acute metabolic encephalopathy secondary to uremia and also a component of hypertensive encephalopathy -Acute kidney injury secondary to acute tubular necrosis with underlying chronic kidney disease stage IV. Patient was started on renal replacement therapy this admission and is being set up for outpatient hemodialysis. Social work to follow-up on Wednesday. -Hypertension uncontrolled cardiology is following and patient has been started on IV hydralazine as needed today for improved blood pressure control. -History of stroke -History of mechanical aortic valve anticoagulated with warfarin on outpatient basis patient has a subtherapeutic INR and is maintained on IV heparin bridge with daily PT/INR. -History of hyperlipidemia -History of gastroesophageal reflux disease -Daily smoker -Cerebral aneurysm s/p repair in 2021 -Anemia of chronic disease with underlying iron deficiency maintained on Aranesp DVT prophylaxis as mentioned patient is on IV bridged with warfarin GI prophylaxis Full code The impression and plan of care has been dictated by Tawana Delatorre, Nurse Practitioner as directed. Dr. Adia MD I have performed a history and physical examination and medical decision making of this patient, discussed the same with the dictator, and agree with the dictators assessment and plan as written, documented as a scribe. Based on total visit time, I have performed more than 50% of this visit. - Objective - Vital Signs Vital signs: Vital Signs Temp 98.4 F 11/28/23 15:44 Pulse 75 11/28/23 15:44 Resp 16 11/28/23 15:44 BP 168/94 11/28/23 15:44 Pulse Ox 96 11/28/23 15:44 FiO2 Intake & Output 11/27/23 11/28/23 11/28/23 17:59 06:59 18:59 Intake Total 2202 Output Total Balance 2202 Weight Intake: Intake, IV Titration 430 Amount Heparin Sod,Pork in 0.45% 250 NaCl 25,000 unit In 0.45 % NaCl 1 250ml.bag @ 11. 603 UNITS/KG/HR 10 mls/hr IV .Q24H [facility] Rx#: [id number] Sodium Chloride 0.9% 250 180 ml @ 0 mls/hr IV .[facility] Rx#:[id number] Oral 1772 Hemodialysis Output: Urine Hemodialysis Other: Voiding Method Toilet # Voids 4 # Bowel Movements - Labs CBC & Chem 7: 11/26/23 05:53 11/28/23 07:16 Labs: Abnormal Lab Results - Last 24 Hours (Table) 11/28/23 11/28/2311/27/24 Range/Units 07:16 07:16 07:16 PT 18.4 H (10.0-12.5) sec INR 1.8 H (<1.2) APTT 64.5 H (22.0-30.0) sec BUN 35 H (9-20) mg/dL Creatinine 4.57 H (0.66-1.25) mg/dL Glucose 111 H (74-99) mg/dL Assessment and Plan Time with Patient: Less than 30
[2023-11-28] MEDS: hydrALAZINE HCL 20 MG/ML 1 ML VIAL IVP PRN (23:15)
[2023-11-29 08:07] LABS: Prothrombin Time 29.5 sec (10.0-12.5)
--- NOTE | 2023-11-29 11:25 | P.DS ---
Providers Date of admission: 11/22/23 19:43 Expected date of discharge: 11/29/23 Attending physician: Terence Sutton MD Consults: 11/22/23 19:43 Consult Physician Routine Consulting Provider: Jarad Horton Consult Reason/Comments: SyncopeHTN Do you want consulting provider notified?: Yes 11/22/23 21:01 Consult Physician Routine Consulting Provider: Daniel Montenegro Consult Reason/Comments: CJD Do you want consulting provider notified?: Yes Consult Physician Routine Consulting Provider: Jarad Horton Consult Reason/Comments: kevin Do you want consulting provider notified?: Yes 11/25/23 09:14 Consult Physician Urgent Consulting Provider: Mandi Carey Consult Reason/Comments: new onset confusion Do you want consulting provider notified?: Yes 11/25/23 10:34 Consult Physician Urgent Consulting Provider: Jovany Chapman Consult Reason/Comments: permanent dialysis cath placement Do you want consulting provider notified?: Yes Primary care physician: Emma Mobley Hospital Course: Final Diagnoses: Altered mental status, secondary to acute metabolic encephalopathy, uremic encephalopathy, and hypertensive encephalopathy. 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 Hypertensive emergency, on admission. Hypertension med regimen continues to be adjusted as per cardiology. Subtherapeutic INR on Admission .bridged with IV heparin and Coumadin. Anticoagulation dosing and monitoring outpatient as per cardiology. Acute on chronic CKD, stage IV,baseline creatinine 3-4 in 10/13, secondary to #1. Hemodialysis initiated 11/25/2023 via permacath. Etiology unclear, possible GN, possible autoimmune/lupus, outpatient kidney biopsy discussed-defer to nephrology. (On previous admission in September 2023 :2.2 cm hypoechoic at the left kidney mid pole suspected to represent a column of Hugo rather than a solid mass with recommendations of follow-up renal ultrasound in 3-6 months, reported per renal ultrasound.) Chronic anemia, underlying iron deficient, maintained on Aranesp. Mechanical aortic valve-[facility]. [facility]ikeyan, AVR 2003 Nonischemic cardiomyopathy, EF 40% CAD History of cerebral aneurysm, status postrepair in 2021 History of CVA 2 years ago Hypertension Hyperlipidemia Gastroesophageal reflux disease Obstructive sleep apnea and does not use BiPAP or CPAP Obesity, BMI 28 Ongoing nicotine dependence Hypokalemia, improved 6.5 mm right middle lobe pulmonary nodular density, recommend 6-month follow-up CT chest Hospital course:This is a 62-year-old gentleman with past medical history significant for mechanical aortic valve, nonischemic cardiomyopathy,hypertension, CVA, supratherapeutic INR, chronic kidney disease stage IV and multiple other medical issues presented to the ER with complaints of dizziness, nausea, vomiting, minimal shortness of breath. Worsened with ambulation. Denies any exertional, strenuous activity. Reports he has been stressed, preparing his taxes. Patient was eating lunch with his sister when the dizziness abruptly started.denies syncope .denies increased sodium Intake .Reports normally his systolic Blood Pressures Run in the 140s to 150s . Denies chest pain, palpitations. Denies lightheadedness dizziness or focal deficits. Reports medication compliance, routinely follows up with cardiology's office for INR monitoring/Coumadin management. States he was scheduled to follow-up with nephrology tomorrow, November 23. Presented to the ER with heart rate 117, blood pressure 245/168, respiratory rate 16, maintaining O2 sats in 95% on room air, INR subtherapeutic, 1.2, BUN 78, creatinine 6.79. Afebrile, WBC 15.1 on admission, currently 13.8. Hemoglobin 11.9, platelets 147, INR 1, sodium 134, potassium 3.2, bicarb 22, BUN 79, creatinine 7.29 glucose 135 lactic acid 2.1, 1.1, phosphorus 5.2, magnesium 2.2. Troponins 0.223, 0.244, 0.254, 0.266. UA reported rare mucus, moderate blood, 2+ glucose, 3+ protein, negative nitrates negative leukocytes. Viral screening negative. Chest x-ray reported nonacute. Brain CTs reported no acute intracranial abnormality. Chest CT reported limited study no acute abnormality demonstrated in chest, pulmonary trunk borderline, mildly uncharged, can be seen with early pulmonary hypertension, prostatic aortic valve in place, several scattered small pulmonary nodular densities bilateral one 6.5 mm in the right middle lobe, recommend 6-month follow-up CT chest, nonspecific nonenlarged and mildly enlarged mediastinal nodes, cholelithiasis, left upper quadrant 3.4 cm mass, likely arising from the adrenal gland. Renal ultrasound reported no hydronephrosis, no nephrolithiasis or polyp masses seen, simple cyst left kidney. 11/24/2023 renal function worsening, creatinine 7.81. Coumadin remains on hold for potential placement of hemodialysis catheter ,anticoagulated on heparin drip. INR 1.1. Vital signs stable. denies chest pain, palpitations or shortness of breath. Denies lightheadedness dizziness or focal deficits. Denies nausea vomiting or diarrhea. Positive TAVARES, possible autoimmune kidney disease. This morning patient stating he has to go home, there is no one to take care of his dog. Stating he is going to have to leave AMA. Attempted reasoning with patient. 11/25/2023 significant confusion this morning, nurse reports he thought he was on an airplane. Patient is telling us that he went to a wedding yesterday as well as out last night with his nephew and had 3 drinks. Denies chest pain, palpitations or shortness of breath. Continued worsening of his renal function, 8.43 ;permacath and first hemodialysis treatment ordered. 11/26/2023 Pt was seen by Neurology yesterday, confusion improved, CT negative. He is s/p HD and has this scheduled again today. Cr is down to 6 from 8.3 yesterday. Significant Clinical Improvement. Hypertensive, Imdur Added to Med Regimen As per Cardiology. Denies chest pain, palpitations or shortness of breath. Maintaining O2 sats in the high 90s on room air. INR 3 on heparin drip and Coumadin. Creatinine down to 4.57 as of yesterday .Scheduled for hemodialysis today. Discharge planning in progress pending arrangement of outpatient dialysis as per case management, anticoagulation dosing for discharge and monitoring outpatient as per cardiology, final DC recommendations and clearance per cardiology and nephrology. Patient will be discharged home in stable condition with guarded prognosis. The impression and plan of care has been dictated as directed. : I performed a history and examination of this patient, discussed the same with the dictator. I agree with the dictator's note ,documented as a scribe. Any additional findings or plans will be noted. Patient Condition at Discharge: Stable Plan - Discharge Summary New Discharge Prescriptions: New Thiamine [Vitamin B-1] 100 mg PO DAILY tab Warfarin [Coumadin] 3 mg PO DAILY@1800 #7 tab Torsemide [Demadex] 40 mg PO DAILY #60 tab Nicotine 14Mg/24Hr Patch [Habitrol] 1 patch TRANSDERM DAILY #30 patch Isosorbide Mononitrate ER [Imdur] 30 mg PO DAILY #30 tab Continue Ipratropium/Albuter 20-100Mcg [Combivent Respimat 20-100Mcg Inhaler] 2 puff INHALATION RT-Q4H PRN PRN Reason: Shortness Of Breath amLODIPine [Norvasc] 5 mg PO BID #180 tab Esomeprazole Magnesium 40 mg PO DAILY Tiotropium Br/Olodaterol HCl [Stiolto Respimat Inhal [place]] 2 puff INHALATION RT-DAILY Folic Acid 1 mg PO DAILY hydrALAZINE HCL [Apresoline] 100 mg PO TID #270 tablet carvediloL [Coreg] 25 mg PO BID #180 tab No Action Warfarin [Coumadin] 2 mg PO DAILY@1500 Discharge Medication List Esomeprazole Magnesium 40 mg PO DAILY 06/17/23 [History] Ipratropium/Albuter 20-100Mcg [Combivent Respimat 20-100Mcg Inhaler] 2 puff INHALATION RT-Q4H PRN 07/04/23 [History] Tiotropium Br/Olodaterol HCl [Stiolto Respimat Inhal [place]] 2 puff INHALATION RT-DAILY 07/04/23 [History] Folic Acid 1 mg PO DAILY 10/06/23 [History] amLODIPine [Norvasc] 5 mg PO BID #180 tab 10/13/23 [Rx] carvediloL [Coreg] 25 mg PO BID #180 tab 10/13/23 [Rx] hydrALAZINE HCL [Apresoline] 100 mg PO TID #270 tablet 10/13/23 [Rx] Warfarin [Coumadin] 2 mg PO DAILY@1500 11/22/23 [History] Isosorbide Mononitrate ER [Imdur] 30 mg PO DAILY #30 tab 11/29/23 [Rx] Nicotine 14Mg/24Hr Patch [Habitrol] 1 patch TRANSDERM DAILY #30 patch 11/29/23 [Rx] Thiamine [Vitamin B-1] 100 mg PO DAILY tab 11/29/23 [Rx] Torsemide [Demadex] 40 mg PO DAILY #60 tab 11/29/23 [Rx] Warfarin [Coumadin] 3 mg PO DAILY@1800 #7 tab 11/29/23 [Rx] Follow up Appointment(s)/Referral(s): Terence Sutton MD [STAFF PHYSICIAN] - 1 Week Daniel Montenegro DO [STAFF PHYSICIAN] - 1 Week Nathaniel Ibarra MD [STAFF PHYSICIAN] - 1 Week Ambulatory/Diagnostic Orders: Prothrombin Time INR [LAB.AMB] Time Frame: 12/01/23, Location: None Selected Activity/Diet/Wound Care/Special Instructions: Anticoagulation dosing for discharge and monitoring outpatient as per cardiology. Hemodialysis, diuretics as per nephrology.
--- NOTE | 2023-11-29 11:44 | P.PN ---
Subjective Patient is seen in follow-up for acute kidney injury on chronic kidney disease. Started on hemodialysis November 25, 2023. Hemodynamically stable. Has been voiding. Denies chest pain or shortness of breath. Tolerating dialysis well. Blood pressure well-controlled. Vital signs are stable. General: No acute distress. HEENT: Head exam is unremarkable. LUNGS: No audible rhonchi or wheezes. HEART: Rate and Rhythm are regular. ABDOMEN: Nontender. EXTREMITITES: 1+ edema. Objective - Vital Signs Vital signs: Vital Signs Temp 98.1 F 11/29/23 08:00 Pulse 94 11/29/23 08:00 Resp 18 11/29/23 08:00 BP 182/92 11/29/23 08:00 Pulse Ox 97 11/29/23 08:00 FiO2 Intake & Output 11/28/23 11/29/23 11/29/23 18:59 06:59 18:59 Intake Total 2202 1030 Output Total 1440 200 Balance 2202 -1440 830 Weight 98 kg Intake: Intake, IV Titration 430 250 Amount Heparin Sod,Pork in 0.45% 250 250 NaCl 25,000 unit In 0.45 % NaCl 1 250ml.bag @ 11. 603 UNITS/KG/HR 10 mls/hr IV .Q24H [facility] Rx#: [id number] Sodium Chloride 0.9% 250 180 ml @ 0 mls/hr IV .[facility] Rx#:[id number] Oral [id number] Output: Urine 1440 200 Other: Voiding Method Toilet Toilet Toilet # Voids 4 1 - Labs CBC & Chem 7: 11/26/23 05:53 11/28/23 07:16 Labs: Abnormal Lab Results - Last 24 Hours (Table) 11/25/23 11/29/23 11/29/23 Range/Units 16:21 07:20 07:20 PT 29.5 H (10.0-12.5) sec INR 3.0 H (<1.2) APTT 63.6 H (22.0-30.0) sec Methylmalonic Acid 1.17 H (<0.40) umol/L Assessment and Plan Plan: Assessment: 1. Acute kidney injury secondary to ATN versus progression of underlying chronic kidney disease. Creatinine peaked at 8.4 this admission. Started on hemodialysis November 25, 2023. Has permacath. UA showed 3+ protein with no RBCs. No hydronephrosis noted on kidney ultrasound. Serologies negative except for positive TAVARES. 2. Chronic kidney disease stage IV with baseline creatinine in the range of 3-4 secondary to nephrosclerosis. Concern for GN due to proteinuria. UPC 4 g. 3. Hypertensive emergency. Improved. 4. Cardiomyopathy with ejection fraction of 40%. 5. History of CVA. 6. History of aortic valve replacement. 7. Metabolic acidosis secondary to chronic kidney disease. Improved postdialysis. 8. Anemia of chronic kidney disease maintained on Aranesp. Plan: Currently seen while undergoing hemodialysis. He will be maintained on Wednesday schedule outpatient. Outpatient dialysis being set up by case management. Maintain torsemide. Maintain as needed hydralazine. Phosphorus 4.1 dated November 28, 2023. Discussed kidney biopsy for definitive diagnosis. Patient agreeable to get the biopsy done outpatient.
[2023-11-29 12:35] LABS: African American GFR (CKD) 10 (>60 ml/min/1.73 sqM); Anion Gap 9 mmol/L; Blood Urea Nitrogen 48 mg/dL (9-20); Calcium 8.7 mg/dL (8.4-10.2); Carbon Dioxide 26 mmol/L (22-30); Chloride 102 mmol/L (98-107); Glucose 124 mg/dL (74-99); Non-African American GFR(CKD) 9 (>60 ml/min/1.73 sqM); Potassium 4.3 mmol/L (3.5-5.1); Sodium 137 mmol/L (137-145)
[2023-11-29] MEDS: ISOSORBIDE MONONITRATE ER 30 MG TAB.ER.24H PO SCH (13:42)
--- NOTE | 2023-11-29 14:16 | P.PN ---
Subjective Progress Note Date: 11/29/23 This is a 63-year-old male with a past medical history significant for nonischemic cardiomyopathy, hypertension, CVA, obstructive sleep apnea, chronic kidney disease, and previous mechanical aortic valve replacement. Patient follows in the office with Dr. Ibarra. We have been asked to see the patient in c onsultation for syncope. Patient examined at the bedside in the emergency room. Patient states he presented to the hospital with chief complaint of feeling unwell. He also reports having some dizziness. He denies chest pain or pressure. Denies any shortness of breath. The patient was found to have worsening kidney function with a creatinine of 7.29. Patient was supposed to follow-up outpatient with nephrology but has not yet been seen. Patient's blood pressures were noted to be significantly elevated upon admission to the hospital with a reading of 245/168. Patient has been resumed on his home cardiac medications. Most recent blood pressure 151/95. Patient's INR on admission is 1.2. Patient is adamant that he has been taking his medications as prescribed including his Coumadin. Patient follows up in the cardiology office for his INR checks and Coumadin management. Patient's last visit to the cardiology office for an INR check was on October 28, 2023. At that time the patient's INR was greater than 8 per office staff. DIAGNOSTICS: - EKG reveals sinus tachycardia with heart rate of 114. Diffuse T wave inversions. LVH. - Chest xray negative for acute process. - Laboratory data: WBC 13.7. Hemoglobin 11.5. Platelet count 124. Sodium 134. Potassium 3.2. BUN 79. Creatinine 7.29. Troponin 0.244. 0.254. 0.266. - Current home cardiac medications include Coumadin 2 mg daily, carvedilol 25 mg twice a day, hydralazine 100 mg 3 times a day, and amlodipine 5 mg twice a day. - Most recent echocardiogram obtained in September 2023 revealed ejection fraction 55% with normally functioning mechanical prosthetic aortic valve -Previous echocardiogram in May 2023 revealed ejection fraction of 40% - Cardiac catheterization history: April 2023 revealing mild nonobstructive disease involving the right coronary artery 11/24/2023 Patient examined this morning at the bedside. Patient denies chest pain or pressure. He denies shortness of breath. Patient's creatinine worsened today at 7.81. Nephrology is following. He remains on IV heparin. Coumadin is on hold in the event that patient needs a hemodialysis catheter placed. Blood pressure stable with a recent reading of 134/75. 11/25/2023 Patient examined this morning at the bedside. Patient appears to be more confused today compared to yesterday. He denies chest pain or pressure. He denies shortness of breath. Patient with worsening renal function with creatinine 8.43. 11/26/2023 Patient examined this morning at the bedside. Patient received hemodialysis catheter yesterday and underwent his first hemodialysis treatment with half a liter removed. He is currently undergoing hemodialysis again this morning at the time of examination. He has been resumed on his Coumadin. He also remains on IV heparin until his INR is therapeutic. Patient denies chest pain or pressure. He denies shortness of breath. Vital signs are stable. 11/27/2023 Blood pressure is better controlled. INR 1.4, hemoglobin 9.8, BUN 60, creatinine 6.4 11/28/2023 Blood pressure 150-160 systolic INR 1.8 Minimal urine output No chest pain shortness of breath 11/28 Patient is currently undergoing hemodialysis. Patient denies chest pain or shortness of breath. Blood pressure 182/92, heart rate 94, pulse ox 97 % on room air. Repeat blood work revealed INR 3. Electrolytes normal. BUN 40 and creatinine 6.33. PHYSICAL EXAM: VITAL SIGNS: Reviewed. GENERAL: Well-developed in no acute distress. HEENT: Head is normocephalic. Pupils are equal, round. Sclerae anicteric. Mucous membranes of the mouth are moist. Neck supple. No JVD or thyromegaly LUNGS: Respirations even and unlabored. Lungs essentially clear to auscultation bilaterally. HEART: Regular rate and rhythm. S1 and S2 heard. Mechanical click noted. ABDOMEN: Soft. Nondistended. Nontender. EXTREMITIES: No clubbing or cyanosis. Peripheral pulses intact. No lower extremity edema NEUROLOGIC: Awake and alert. Oriented x 3. ASSESSMENT: Dizziness Presyncope Acute on chronic kidney disease Subtherapeutic INR, questionable compliance with medications Hypertensive emergency Abnormal troponins, flat, likely secondary to chronic kidney disease History of mechanical aortic valve replacement, 2003, in [place] History of nonischemic cardiomyopathy with improved EF Mild nonobstructive CAD per cardiac catheterization 2022 Hypertension Hyperlipidemia History of medication noncompliance Nicotine dependence Documented 6-10 alcoholic drinks per day PLAN: Amlodipine 5 mg twice daily, Coreg 25 mg twice daily, hydralazine 100 mg 3 times daily. Discontinue Aldactone 50 mg daily Start patient on Imdur 30 mg daily Continue Coumadin. Hemodialysis per nephrology Patient is cleared for discharge with cardiology follow-up with Dr. Joan Ibarra in 1 to 2 weeks. Nurse practitioner note has been reviewed, I agree with documented findings and plan of care. Patient was seen and examined. No acute Objective - Vital Signs Vital signs: Vital Signs Temp 98.1 F 11/29/23 08:00 Pulse 94 11/29/23 08:00 Resp 18 11/29/23 08:00 BP 182/92 11/29/23 08:00 Pulse Ox 97 11/29/23 08:00 FiO2 Intake & Output 11/28/23 11/29/23 11/29/23 18:59 06:59 18:59 Intake Total 2202 790 Output Total 1440 Balance 2202 -1440 790 Weight 98 kg Intake: Intake, IV Titration 430 250 Amount Heparin Sod,Pork in 0.45% 250 250 NaCl 25,000 unit In 0.45 % NaCl 1 250ml.bag @ 11. 603 UNITS/KG/HR 10 mls/hr IV .Q24H [facility] Rx#: [id number] Sodium Chloride 0.9% 250 180 ml @ 0 mls/hr IV .[facility] Rx#:[id number] Oral [id number] Output: Urine 1440 Other: Voiding Method Toilet Toilet Toilet # Voids 4 - Labs CBC & Chem 7: 11/26/23 05:53 11/29/23 07:20 Labs: Abnormal Lab Results - Last 24 Hours (Table) 11/25/23 11/29/23 11/29/23 Range/Units 16:21 07:20 07:20 PT 29.5 H (10.0-12.5) sec INR 3.0 H (<1.2) APTT 63.6 H (22.0-30.0) sec Methylmalonic Acid 1.17 H (<0.40) umol/L
[2023-11-29 15:14] VITALS: BMI 31.8
[2023-11-29 15:49] VITALS: BP 149/86; PULSE 77; RESP 16; TEMP 98.2
[2023-11-29] MEDS ORDERED: WARFARIN 2 MG TAB PO ONE (18:00)
== END 2023-11-29 16:44 | disposition home or self-care (01) | DRG 682 ==
LOC: EC 16:30 → 1SOBS 19:43 → 3SCARD 20:51
PROVIDERS: ADMIT Family Medicine; ATTEND Family Medicine
PROC: 02HV33Z Insertion of Infusion Device into Superior Vena Cava, Percutaneous Approach (ICD-10-PCS; principal; 2023-11-25 09:45)
PROC: 5A1D70Z Performance of Urinary Filtration, Intermittent, Less than 6 Hours Per Day (ICD-10-PCS; 2023-11-26)
DX: I12.9 Hypertensive chronic kidney disease with stage 1 through stage 4 chronic kidney disease, or unspecified chronic kidney disease (principal); G93.41 Metabolic encephalopathy; N17.0 Acute kidney failure with tubular necrosis; I16.1 Hypertensive emergency; I42.8 Other cardiomyopathies; I67.4 Hypertensive encephalopathy; G93.49 Other encephalopathy; N18.6 End stage renal disease; I25.10 Atherosclerotic heart disease of native coronary artery without angina pectoris; J32.0 Chronic maxillary sinusitis; G47.33 Obstructive sleep apnea (adult) (pediatric); K21.9 Gastro-esophageal reflux disease without esophagitis; D63.1 Anemia in chronic kidney disease; R76.8 Other specified abnormal immunological findings in serum; E87.6 Hypokalemia; E66.9 Obesity, unspecified; R79.1 Abnormal coagulation profile; R00.1 Bradycardia, unspecified; D50.9 Iron deficiency anemia, unspecified; F17.210 Nicotine dependence, cigarettes, uncomplicated; R91.1 Solitary pulmonary nodule; Z11.52 Encounter for screening for COVID-19; Z95.2 Presence of prosthetic heart valve; E53.8 Deficiency of other specified B group vitamins; Z68.28 Body mass index [BMI] 28.0-28.9, adult; Z91.81 History of falling; Z86.73 Personal history of transient ischemic attack (TIA), and cerebral infarction without residual deficits; Z91.148 Patient's other noncompliance with medication regimen for other reason; Z86.79 Personal history of other diseases of the circulatory system; Z79.01 Long term (current) use of anticoagulants; Z79.899 Other long term (current) drug therapy
CPT/HCPCS: 36415; 36558; 70450; 71046; 71250; 76770; 76937; 77001; 80048; 80053; 81001; 82140; 82570; 82607; 82746; 83516; 83540; 83550; 83605; 83735; 83921; 84100; 84156; 84207; 84443; 84484; 85025; 85379; 85610; 85730; 86038; 86039; 86160; 86225; 86255; 86334; 86335; 86706; 86780; 86803; 87340; 87636; 90935; 93005; 93880; 95816; 96361; 96374; 96375; 96376; 99285

== ENCOUNTER 2023-12-06 21:42 | Observation (INO) | payer BC, OTHER ==
--- NOTE | 2023-12-06 22:05 | ED ---
Dizziness HPI - General Chief Complaint: Syncope Stated Complaint: Syncope Time Seen by Provider: 12/06/23 21:44 Source: EMS, RN notes reviewed, old records reviewed Mode of arrival: EMS Limitations: no limitations - History of Present Illness Initial Comments: This is a 63-year-old male to the ER for evaluation today. Patient presents today for evaluation regards to syncopal event syncope versus near syncope. Low blood pressure lightheadedness. Patient did have dialysis today without complication does have recent inpatient hospitalization for elevation of blood pressure and not feeling well then. Patient states he did not feel good after dialysis throughout the day but has no current headache chest pain shortness of breath. Patient does feel lightheaded MD Complaint: dizziness, near syncope (Patient did have a syncopal event) -: hour(s) Timing: sudden onset Description: near-syncope History of Same: No History of Trauma: No Severity: severe Worsens With: nothing Associated Symptoms: shortness of breath, syncope, weakness - Related Data Home Medications Medication Instructions Recorded Confirmed Esomeprazole Magnesium 40 mg PO DAILY 06/17/23 12/07/23 Ipratropium/Albuter 20-100Mcg 2 puff INHALATION RT-Q4H PRN 07/04/23 12/07/23 [Combivent Respimat 20-100Mcg Inhaler] Tiotropium Br/Olodaterol HCl 2 puff INHALATION RT-DAILY 07/04/23 12/07/23 [Stiolto Respimat Inhal [place]] Folic Acid 1 mg PO DAILY 10/06/23 12/07/23 Warfarin [Coumadin] 2 mg PO DAILY@1500 11/22/23 12/07/23 Previous Rx's Medication Instructions Recorded hydrALAZINE HCL [Apresoline] 100 mg PO TID #270 tablet 10/13/23 Isosorbide Mononitrate ER [Imdur] 30 mg PO DAILY #30 tab 11/29/23 Nicotine 14Mg/24Hr Patch [Habitrol] 1 patch TRANSDERM DAILY #30 patch 11/29/23 Thiamine [Vitamin B-1] 100 mg PO DAILY tab 11/29/23 Warfarin [Coumadin] 3 mg PO DAILY@1800 #7 tab 11/29/23 Torsemide [Demadex] 10 mg PO DAILY #30 tab 12/08/23 carvediloL [Coreg*] 12.5 mg PO BID-W/MEALS #60 tab 12/08/23 Allergies Allergy/AdvReac Type Severity Reaction Status Date / Time No Known Allergies Allergy Verified 12/07/23 07:30 Review of Systems ROS Statement: Those systems with pertinent positive or pertinent negative responses have been documented in the HPI. ROS Other: All systems not noted in ROS Statement are negative. Past Medical History Past Medical History: CVA/TIA, GERD/Reflux, Hyperlipidemia, Hypertension, Sleep Apnea/CPAP/BIPAP Additional Past Medical History / Comment(s): stress test abnormal, cva 2 yrs ago lft arm tires quickly, questioning possible [place],no cpap used See Dr Ibarra's H & P History of Any Multi-Drug Resistant Organisms: None Reported Past Surgical History: Cardiac Valve Replacement Additional Past Surgical History / Comment(s): 2003 aortic valve replaced, cerebral aneurysm repaired 2021 Past Anesthesia/Blood Transfusion Reactions: No Reported Reaction Additional Past Anesthesia/Blood Transfusion Reaction / Comment(s): no hx of blood tx Past Psychological History: No Psychological Hx Reported Smoking Status: Current every day smoker Past Alcohol Use History: Occasional Past Drug Use History: None Reported - Past Family History Father History Unknown: Yes General Exam Limitations: no limitations General appearance: alert, in no apparent distress Head exam: Present: atraumatic, normocephalic, normal inspection Eye exam: Present: normal appearance, PERRL, EOMI. Absent: scleral icterus, conjunctival injection, periorbital swelling ENT exam: Present: normal exam, mucous membranes moist Neck exam: Present: normal inspection. Absent: tenderness, meningismus, lymphadenopathy Respiratory exam: Present: normal lung sounds bilaterally. Absent: respiratory distress, wheezes, rales, rhonchi, stridor Cardiovascular Exam: Present: regular rate, normal rhythm, normal heart sounds. Absent: systolic murmur, diastolic murmur, rubs, gallop, clicks GI/Abdominal exam: Present: soft, normal bowel sounds. Absent: distended, tenderness, guarding, rebound, rigid Extremities exam: Present: normal inspection, full ROM, normal capillary refill. Absent: tenderness, pedal edema, joint swelling, calf tenderness Back exam: Present: normal inspection Neurological exam: Present: alert, oriented X3, CN II-XII intact Psychiatric exam: Present: normal affect, normal mood Skin exam: Present: warm, dry, intact, normal color. Absent: rash Course Vital Signs 03/18/24 03/19/24 03/19/24 21:48 00:22 03:21 Temperature 98.1 F Pulse Rate 75 75 76 Pulse Rate [ Left Sitting Pulse Oximetery ] Pulse Rate [ Left Standing Pulse Oximetery ] Pulse Rate [ Left Supine Pulse Oximetery ] Respiratory 18 18 18 Rate Blood Pressure 99/65 93/69 138/90 Blood Pressure [Left Arm Sitting] Blood Pressure [Left Arm Standing] Blood Pressure [Left Arm Supine] O2 Sat by Pulse 97 96 97 Oximetry 12/07/23 12/07/23 12/07/23 06:38 10:53 12:42 Temperature 97.8 F 98.5 F Pulse Rate 64 68 Pulse Rate [ Left Sitting Pulse Oximetery ] Pulse Rate [ 85 Left Standing Pulse Oximetery ] Pulse Rate [ Left Supine Pulse Oximetery ] Respiratory 18 16 16 Rate Blood Pressure 117/58 145/89 Blood Pressure 185/106 [Left Arm Sitting] Blood Pressure [Left Arm Standing] Blood Pressure [Left Arm Supine] O2 Sat by Pulse 97 97 98 Oximetry 12/07/23 12/07/23 12/07/23 13:01 13:05 13:07 Temperature Pulse Rate Pulse Rate [ 75 Left Sitting Pulse Oximetery ] Pulse Rate [ 80 Left Standing Pulse Oximetery ] Pulse Rate [ 68 Left Supine Pulse Oximetery ] Respiratory Rate Blood Pressure Blood Pressure 132/82 [Left Arm Sitting] Blood Pressure 113/76 [Left Arm Standing] Blood Pressure 149/90 [Left Arm Supine] O2 Sat by Pulse Oximetry 12/07/23 12/07/23 12/07/23 13:28 15:00 17:00 Temperature Pulse Rate 72 74 80 Pulse Rate [ Left Sitting Pulse Oximetery ] Pulse Rate [ Left Standing Pulse Oximetery ] Pulse Rate [ Left Supine Pulse Oximetery ] Respiratory 16 20 22 Rate Blood Pressure 113/76 159/95 146/93 Blood Pressure [Left Arm Sitting] Blood Pressure [Left Arm Standing] Blood Pressure [Left Arm Supine] O2 Sat by Pulse 97 97 97 Oximetry 12/07/23 12/07/23 12/07/23 19:00 19:53 21:39 Temperature 97.7 F Pulse Rate 75 76 Pulse Rate [ Left Sitting Pulse Oximetery ] Pulse Rate [ Left Standing Pulse Oximetery ] Pulse Rate [ Left Supine Pulse Oximetery ] Respiratory 18 18 Rate Blood Pressure 141/76 155/101 168/113 Blood Pressure [Left Arm Sitting] Blood Pressure [Left Arm Standing] Blood Pressure [Left Arm Supine] O2 Sat by Pulse 97 98 Oximetry - Reevaluation(s) Reevaluation #1: 12/06/23 22:11 Medical records reviewed Reevaluation #2: 12/06/23 22:12 Patient symptoms unchanged Reevaluation #3: 12/06/23 22:12 Patient informed of results questions answered Reevaluation #4: Was pt. sent in by a medical professional or institution (, BREANA, TELEPHONE OPERATOR RECEPTIONIST, urgent care, hospital, or [facility]...) When possible be specific @ -no Did you speak to anyone other than the patient for history (EMS, parent, family, police, friend...)? What history was obtained from this source @ -no Did you review nursing and triage notes (agree or disagree)? Why? @ -agree Are old charts reviewed (outside hosp., previous admission, EMS record, old EKG, old radiological studies, urgent care reports/EKG's, [facility] records)? Report findings @ -yes Differential Diagnosis (chest pain, altered mental status, abdominal pain women, abdominal pain men, vaginal bleeding, weakness, fever, dyspnea, syncope, head ache, dizziness, GI bleed, back pain, seizure, CVA, palpatations, mental health, musculoskeletal)? @ -prior EKG interpreted by me (3pts min.). @ -yes X-rays interpreted by me (1pt min.). @ -no CT interpreted by me (1pt min.). @ -Yes negative for acute disease U/S interpreted by me (1pt. min.). @ -no What testing was considered but not performed or refused? (CT, X-rays, U/S, labs)? Why? @ -none What meds were considered but not given or refused? Why? @ -none Did you discuss the management of the patient with other professionals (professionals i.e. BREANA Nielson, TELEPHONE OPERATOR RECEPTIONIST, lab, RT, psych nurse, social services counselor, nursing informatics specialist, teacher, parole or probation officer, case worker)? Give summary @ -no Was smoking cessation discussed for >3mins.? @ -no Was critical care preformed (if so, how long)? @ -yes31 Were there social determinants of health that impacted care today? How? (Homelessness, low income, unemployed, alcoholism, drug addiction, transportation, low edu. Level, literacy, decrease access to med. care, nursing home, rehab)? @ -none Was there de-escalation of care discussed even if they declined (Discuss DNR or withdrawal of care, Hospice)? DNR status @ -no What co-morbidities impacted this encounter? (DM, HTN, Smoking, COPD, CAD, Cancer, CVA, ARF, Chemo, Hep., AIDS, mental health diagnosis, sleep apnea, morbid obesity)? @ -none Was patient admitted / discharged? Hospital course, mention meds given and route, prescriptions, significant lab abnormalities, going to OR and other pertinent info. @ - 63 male to ER for evaluation of syncopal event, patient has a period of unresponsiveness followed by headache here in the emergency room. Unsure if patient did hit his head he is complaining of headache and lightheadedness here in the ER, patient does have low blood pressure significant lower than his normal blood pressure and patient will be admitted for further evaluation and management Admitted Undiagnosed new problem with uncertain prognosis? @ -no Drug Therapy requiring intensive monitoring for toxicity (Heparin, Nitro, Insulin, Cardizem)? @ -no Were any procedures done? @ -no Diagnosis/symptom? @ -Hypertension and headache, syncope Acute, or Chronic, or Acute on Chronic? @ -Acute Uncomplicated (without systemic symptoms) or Complicated (systemic symptoms)? @ -Complicated Side effects of treatment? @ -no Exacerbation, Progression, or Severe Exacerbation? @ -exacerbation Poses a threat to life or bodily function? How? (Chest pain, [place], AR, pneumonia, PE, COPD, DKA, ARF, appy, cholecystitis, CVA, Diverticulitis, Homicidal, Suicidal, threat to staff... and all critical care pts) @ -yes severely elevated blood pressure Reevaluation #5: Differential Syncope: Valvular disease, hypertrophic cardiomyopathy, pulmonary embolism, tamponade, tachycardia, bradycardia, AR, hypovolemia, hemorrhage, dissection, anemia, intracranial hemorrhage, seizure, hypoglycemia, carbon monoxide poisoning, this is not meant to be an all-inclusive list. EKG Findings - EKG Comments: EKG Findings:: EKG is sinus 75 NH 174 QRS 94 QTc 438 - EKG Results: EKG: interpreted by WILLIAM Medical Decision Making - Medical Decision Making 63 male to ER for evaluation of syncopal event, patient has a period of unresponsiveness followed by headache here in the emergency room. Unsure if patient did hit his head he is complaining of headache and lightheadedness here in the ER, patient does have low blood pressure significant lower than his normal blood pressure and patient will be admitted for further evaluation and management - Lab Data Result diagrams: 12/08/23 11:14 12/07/23 04:12 Lab Results 12/06/23 12/06/23 12/06/23 Range/Units 21:45 21:45 21:45 WBC 14.6 H (3.8-10.6) k/uL RBC 3.87 L (4.30-5.90) m/uL Hgb 11.1 L (13.0-17.5) gm/dL Hct 33.2 L (39.0-53.0) % MCV 86.0 (80.0-100.0) fL MCH 28.8 (25.0-35.0) pg MCHC 33.6 (31.0-37.0) g/dL RDW 15.4 (11.5-15.5) % Plt Count 221 (150-450) k/uL MPV 8.3 Neutrophils % 87 % Lymphocytes % 5 % Monocytes % 5 % Eosinophils % 1 % Basophils % 1 % Neutrophils # 12.7 H (1.3-7.7) k/uL Lymphocytes # 0.7 L (1.0-4.8) k/uL Monocytes # 0.7 (0-1.0) k/uL Eosinophils # 0.2 (0-0.7) k/uL Basophils # 0.1 (0-0.2) k/uL PT 35.1 H (10.0-12.5) sec INR 3.6 H (<1.2) APTT 52.9 H (22.0-30.0) sec Sodium 134 L (137-145) mmol/L Potassium 4.2 (3.5-5.1) mmol/L Chloride 97 L (98-107) mmol/L Carbon Dioxide 27 (22-30) mmol/L Anion Gap 10 mmol/L BUN 43 H (9-20) mg/dL Creatinine 5.10 H (0.66-1.25) mg/dL Est GFR (CKD-EPI)AfAm 13 (>60 ml/min/1.73 sqM) Est GFR (CKD-EPI)NonAf 11 (>60 ml/min/1.73 sqM) Glucose 162 H (74-99) mg/dL Calcium 7.9 L (8.4-10.2) mg/dL Phosphorus 6.0 H (2.5-4.5) mg/dL Magnesium 1.9 (1.6-2.3) mg/dL Total Bilirubin 0.9 (0.2-1.3) mg/dL AST 18 (17-59) U/L ALT 12 (4-49) U/L Alkaline Phosphatase 75 (38-126) U/L Troponin I (0.000-0.034) ng/mL NT-Pro-B Natriuret Pep 11932 pg/mL Total Protein 6.4 (6.3-8.2) g/dL Albumin 3.4 L (3.5-5.0) g/dL 12/06/23 Range/Units 21:45 WBC (3.8-10.6) k/uL RBC (4.30-5.90) m/uL Hgb (13.0-17.5) gm/dL Hct (39.0-53.0) % MCV (80.0-100.0) fL MCH (25.0-35.0) pg MCHC (31.0-37.0) g/dL RDW (11.5-15.5) % Plt Count (150-450) k/uL MPV Neutrophils % % Lymphocytes % % Monocytes % % Eosinophils % % Basophils % % Neutrophils # (1.3-7.7) k/uL Lymphocytes # (1.0-4.8) k/uL Monocytes # (0-1.0) k/uL Eosinophils # (0-0.7) k/uL Basophils # (0-0.2) k/uL PT (10.0-12.5) sec INR (<1.2) APTT (22.0-30.0) sec Sodium (137-145) mmol/L Potassium (3.5-5.1) mmol/L Chloride (98-107) mmol/L Carbon Dioxide (22-30) mmol/L Anion Gap mmol/L BUN (9-20) mg/dL Creatinine (0.66-1.25) mg/dL Est GFR (CKD-EPI)AfAm (>60 ml/min/1.73 sqM) Est GFR (CKD-EPI)NonAf (>60 ml/min/1.73 sqM) Glucose (74-99) mg/dL Calcium (8.4-10.2) mg/dL Phosphorus (2.5-4.5) mg/dL Magnesium (1.6-2.3) mg/dL Total Bilirubin (0.2-1.3) mg/dL AST (17-59) U/L ALT (4-49) U/L Alkaline Phosphatase (38-126) U/L Troponin I 0.081 H* (0.000-0.034) ng/mL NT-Pro-B Natriuret Pep pg/mL Total Protein (6.3-8.2) g/dL Albumin (3.5-5.0) g/dL - EKG Data -: EKG Interpreted by Me - Radiology Data Radiology results: report reviewed (CT brain is negative for acute disease), image reviewed Critical Care Time Critical Care Time: Yes Total Critical Care Time: 31 Disposition Clinical Impression: AVA (acute kidney injury), CKD (chronic kidney disease), Syncope, Chest pain, Dizziness, Accelerated hypertension, Hypertensive emergency Disposition: ADMITTED IP TO THIS [facility] Condition: Serious Is patient prescribed a controlled substance at d/c from ED?: No Time of Disposition: 23:55
[2023-12-06] MEDS: SODIUM CHLORIDE 0.9% 500 ML 500 ML IV STA (22:40)
[2023-12-06 22:41] LABS: Basophils # (A) 0.1 k/uL (0-0.2); Basophils % (A) 1 %; Eosinophils # (A) 0.2 k/uL (0-0.7); Eosinophils % (A) 1 %; HCT 33.2 % (39.0-53.0); HGB 11.1 gm/dL (13.0-17.5); Lymphocytes # (A) 0.7 k/uL (1.0-4.8); Lymphocytes % (A) 5 %; MCH 28.8 pg (25.0-35.0); MCHC 33.6 g/dL (31.0-37.0); Mean Platelet Volume 8.3; Monocytes # (A) 0.7 k/uL (0-1.0); Monocytes % (A) 5 %; Neutrophils # (A) 12.7 k/uL (1.3-7.7); Neutrophils % (A) 87 %; Platelet Count 221 k/uL (150-450); RBC 3.87 m/uL (4.30-5.90); RDW 15.4 % (11.5-15.5); WBC 14.6 k/uL (3.8-10.6)
[2023-12-06 22:45] LABS: Potassium 4.2 mmol/L (3.5-5.1)
[2023-12-06 22:46] LABS: ALT 12 U/L (4-49); AST 18 U/L (17-59); African American GFR (CKD) 13 (>60 ml/min/1.73 sqM); Albumin 3.4 g/dL (3.5-5.0); Alkaline Phosphatase 75 U/L (38-126); Anion Gap 10 mmol/L; Blood Urea Nitrogen 43 mg/dL (9-20); Calcium 7.9 mg/dL (8.4-10.2); Carbon Dioxide 27 mmol/L (22-30); Chloride 97 mmol/L (98-107); Glucose 162 mg/dL (74-99); Magnesium 1.9 mg/dL (1.6-2.3); Non-African American GFR(CKD) 11 (>60 ml/min/1.73 sqM); Sodium 134 mmol/L (137-145); Total Bilirubin 0.9 mg/dL (0.2-1.3); Total Protein 6.4 g/dL (6.3-8.2)
[2023-12-06 23:03] LABS: INR 3.6 (<1.2); Partial Thromboplastin Time 52.9 sec (22.0-30.0); Prothrombin Time 35.1 sec (10.0-12.5)
[2023-12-06 23:16] LABS: NT-Pro-B-Type Natriuretic Pept 35100 pg/mL
--- NOTE | 2023-12-06 23:38 | CT ---
EXAM: CT Head Without Intravenous Contrast CLINICAL HISTORY: ITS.REASON CT Reason: pain TECHNIQUE: Axial computed tomography images of the head/brain without intravenous contrast. CTDI is 49.2 mGy and DLP is 1212.4 mGy-cm. This CT exam was performed using one or more of the following dose reduction techniques: automated exposure control, adjustment of the mA and/or kV according to patient size, and/or use of iterative reconstruction technique. COMPARISON: No relevant prior studies available. FINDINGS: No acute intracranial hemorrhage. No midline shift or mass effect. The territorial dyer-white matter differentiation is maintained throughout. Age-related cerebral volume loss. Periventricular and subcortical white matter hypoattenuation, consistent with chronic microangiopathy. The visualized orbits appear grossly unremarkable. Old left pterional craniotomy. Mucous retention cyst in the left mastoid sinus. IMPRESSION: No acute intracranial hemorrhage, midline shift, or mass effect. Old left pterional craniotomy.
[2023-12-06] MEDS ORDERED: NALOXONE 0.4 MG/ML 1 ML VIAL IV PRN (23:55)
[2023-12-06] MEDS ORDERED: HYDROmorphone 1 MG/ML 1 ML SYRINGE IVP PRN (23:55)
[2023-12-06] MEDS ORDERED: ONDANSETRON 4 MG/2 ML VIAL IVP PRN (23:55)
[2023-12-07] MEDS: SODIUM CHLORIDE 0.9% 1,000 ML IV SCH (00:21)
[2023-12-07 04:34] LABS: Basophils # (A) 0.1 k/uL (0-0.2); Basophils % (A) 1 %; Eosinophils # (A) 0.1 k/uL (0-0.7); Eosinophils % (A) 1 %; HCT 30.8 % (39.0-53.0); Lymphocytes # (A) 0.9 k/uL (1.0-4.8); Lymphocytes % (A) 7 %; MCHC 32.5 g/dL (31.0-37.0); MCV 86.2 fL (80.0-100.0); Mean Platelet Volume 8.4; Monocytes # (A) 0.6 k/uL (0-1.0); Monocytes % (A) 4 %; Neutrophils # (A) 10.7 k/uL (1.3-7.7); Neutrophils % (A) 86 %; Platelet Count 187 k/uL (150-450); RBC 3.57 m/uL (4.30-5.90); RDW 15.5 % (11.5-15.5); WBC 12.5 k/uL (3.8-10.6)
[2023-12-07 05:01] LABS: ALT 12 U/L (4-49); AST 16 U/L (17-59); African American GFR (CKD) 11 (>60 ml/min/1.73 sqM); Albumin 3.1 g/dL (3.5-5.0); Alkaline Phosphatase 71 U/L (38-126); Anion Gap 7 mmol/L; Blood Urea Nitrogen 48 mg/dL (9-20); Calcium 8.2 mg/dL (8.4-10.2); Carbon Dioxide 24 mmol/L (22-30); Chloride 101 mmol/L (98-107); Glucose 122 mg/dL (74-99); Non-African American GFR(CKD) 10 (>60 ml/min/1.73 sqM); Phosphorus 5.8 mg/dL (2.5-4.5); Potassium 3.9 mmol/L (3.5-5.1); Sodium 132 mmol/L (137-145); Total Bilirubin 0.6 mg/dL (0.2-1.3); Total Protein 5.9 g/dL (6.3-8.2)
[2023-12-07] MEDS ORDERED: NON FORMULARY DRUG (Carvedilol [Coreg] 25 MG Tablet) PO SCH (09:00)
[2023-12-07] MEDS ORDERED: NON FORMULARY DRUG (Hydralazine Hcl [Apresoline] 100 MG Tablet) PO SCH (09:00)
[2023-12-07] MEDS: amLODIPine 5 MG TAB PO SCH ×2 (09:12→22:30)
[2023-12-07] MEDS: ISOSORBIDE MONONITRATE ER 30 MG TAB.ER.24H PO SCH (09:12)
[2023-12-07] MEDS: PANTOPRAZOLE 40 MG TABLET PO SCH (09:13)
[2023-12-07] MEDS: FOLIC ACID 1 MG TAB PO SCH (09:13)
[2023-12-07 10:23] LABS: Prothrombin Time 39.6 sec (10.0-12.5)
--- NOTE | 2023-12-07 12:00 | P.NPCON ---
History of Present Illness - Reason for Consult end stage renal disease - History of Present Illness Patient is a 63-year-old male with end-stage renal disease started hemodialysis about 2 weeks ago due to progressive renal failure. Patient is admitted to the hospital with history of syncope. He stated that he felt weak yesterday after he came home from dialysis and passed out and fell at home. CT of the brain is negative. Blood pressure was low with systolic in the 90s. Currently maintained on IV fluids. Amlodipine will be discontinued. No fluid removal with hemodialysis as outpatient. No history of fever chills nausea vomiting or abdominal pain or diarrhea or cough. Hemoglobin is 10.0 Review of Systems As per HPI Past Medical History Past Medical History: CVA/TIA, GERD/Reflux, Hyperlipidemia, Hypertension, Sleep Apnea/CPAP/BIPAP Additional Past Medical History / Comment(s): stress test abnormal, cva 2 yrs ago lft arm tires quickly, questioning possible [place],no cpap used See Dr Ibarra's H & P History of Any Multi-Drug Resistant Organisms: None Reported Past Surgical History: Cardiac Valve Replacement Additional Past Surgical History / Comment(s): 2003 aortic valve replaced, cerebral aneurysm repaired 2021 Past Anesthesia/Blood Transfusion Reactions: No Reported Reaction Additional Past Anesthesia/Blood Transfusion Reaction / Comment(s): no hx of blood tx Past Psychological History: No Psychological Hx Reported Smoking Status: Current every day smoker Past Alcohol Use History: Occasional Past Drug Use History: None Reported - Past Family History Father History Unknown: Yes Medications and Allergies Home Medications Medication Instructions Recorded Confirmed Type Esomeprazole Magnesium 40 mg PO DAILY 06/17/23 12/07/23 History Ipratropium/Albuter 20-100Mcg 2 puff INHALATION RT-Q4H PRN 07/04/23 12/07/23 History [Combivent Respimat 20-100Mcg Inhaler] Tiotropium Br/Olodaterol HCl 2 puff INHALATION RT-DAILY 07/04/23 12/07/23 History [Stiolto Respimat Inhal [place]] Folic Acid 1 mg PO DAILY 10/06/23 12/07/23 History amLODIPine [Norvasc] 5 mg PO BID #180 tab 10/13/23 12/07/23 Rx carvediloL [Coreg] 25 mg PO BID #180 tab 10/13/23 12/07/23 Rx hydrALAZINE HCL [Apresoline] 100 mg PO TID #270 tablet 10/13/23 12/07/23 Rx Warfarin [Coumadin] 2 mg PO DAILY@1500 11/22/23 12/07/23 History Isosorbide Mononitrate ER [Imdur] 30 mg PO DAILY #30 tab 11/29/23 12/07/23 Rx Nicotine 14Mg/24Hr Patch [Habitrol] 1 patch TRANSDERM DAILY #30 patch 11/29/23 12/07/23 Rx Thiamine [Vitamin B-1] 100 mg PO DAILY tab 11/29/23 12/07/23 Rx Torsemide [Demadex] 40 mg PO DAILY #60 tab 11/29/23 12/07/23 Rx Warfarin [Coumadin] 3 mg PO DAILY@1800 #7 tab 11/29/23 12/07/23 Rx Allergies Allergy/AdvReac Type Severity Reaction Status Date / Time No Known Allergies Allergy Verified 12/07/23 07:30 Physical Exam Vitals: Vital Signs Temp Pulse Resp BP Pulse Ox 12/07/23 10:53 97.8 F 68 16 145/89 97 12/07/23 06:38 64 18 117/58 97 12/07/23 03:21 76 18 138/90 97 12/07/23 00:22 75 18 93/69 96 12/06/23 21:48 98.1 F 75 18 99/65 97 Intake and Output 12/06/23 12/07/23 12/07/23 22:59 06:59 14:59 Other: Weight 57.153 kg Patient is awake, alert oriented 3 No acute distress Examination of the heart S1 and S2 Examination of the lungs bilateral breath sounds are heard Abdomen is soft nontender Examination of lower extremity shows no evidence of edema. 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 Results - Lab Results Most recent lab results Calcium 8.2 mg/dL (8.4-10.2) L 12/07/23 04:12 Phosphorus 5.8 mg/dL (2.5-4.5) H 12/07/23 04:12 Magnesium 2.0 mg/dL (1.6-2.3) 12/07/23 04:12 12/07/23 04:12 12/07/23 04:12 Assessment and Plan Assessment: 1. End-stage renal disease on hemodialysis on Wednesday schedule 2. Syncope secondary to hypotension. No fluid removal with hemodialysis as outpatient. Antihypertensive medications will be discontinued and we can add midodrine if blood pressure continues to remain low. 3. Status post fall 4. CK D mineral bone disorder 5. Borderline elevated troponin. Plan: DC amlodipine Hemodialysis in a.m. with no US Continue with hemodialysis [place] Thank you for the consultation. We will continue to follow the patient with you during his hospitalization.
--- NOTE | 2023-12-07 12:50 | P.CRDCN ---
History of Present Illness History of present illness: HISTORY OF PRESENT ILLNESS: This is a 63-year-old male with a past medical history significant for nonischemic cardiomyopathy, hypertension, CVA, obstructive sleep apnea, chronic kidney disease, previous mechanical aortic valve replacement, and medication noncompliance. Patient follows in the office with Dr. Ibarra. We have been asked to see the patient in consultation for syncope. Patient examined at the bedside in the emergency room. Patient states he went to dialysis yesterday and was feeling in his normal state of health. He states he did not take his medications yesterday. He states when he got home he went to use the bathroom and when he was walking back from the bathroom he had a syncopal episode. He does report hitting the right side of his head which is slightly swollen this morning. The patient's blood pressure was found to be low upon admission with a pressure of 99/65. Most recent blood pressure 117/658. It is also noted that the patient was recently hospitalized earlier this month secondary to syncope/dizziness. The patient was found to have uncontrolled hypertension at that time with a blood pressure of 245/168. He was also found to have subtherapeutic INR. DIAGNOSTICS: - EKG reveals sinus mechanism with LVH. - Laboratory data: WBC 12.5. Hemoglobin 10.0. Platelet count 187. INR 3.6. Sodium 132. Potassium 3.9. BUN 48. Creatinine 5.63. Troponin 0.081. 0.081. 0.075. proBNP 35,100 - Current home cardiac medications include hydralazine 100 mg 3 times daily, carvedilol 25 mg twice a day, amlodipine 5 mg twice a day, warfarin 5 mg daily, Demadex 40 mg daily, Imdur 30 mg daily. - Most recent echocardiogram obtained in September 2023 revealed ejection fraction 55% with normally functioning mechanical prosthetic aortic valve - Previous echocardiogram in May 2023 revealed ejection fraction of 40% - Cardiac catheterization history: April 2023 revealing mild nonobstructive disease involving the right coronary artery REVIEW OF SYSTEMS: At the time of my exam: CONSTITUTIONAL: Denies fever or chills. HEENT: Denies blurred vision, vision changes, or eye pain. Denies hemoptysis CARDIOVASCULAR: Denies chest pain. Denies orthopnea. Denies PND. Denies palpitations RESPIRATORY: Denies shortness of breath. GASTROINTESTINAL: Denies abdominal pain. Denies nausea or vomiting. HEMATOLOGIC: Denies bleeding disorders. GENITOURINARY: Denies any blood in urine. SKIN: Denies pruitis. Denies rash. PHYSICAL EXAM: VITAL SIGNS: Reviewed. GENERAL: Well-developed in no acute distress. HEENT: Right orbital swelling. Head is normocephalic. Pupils are equal, round. Sclerae anicteric. Mucous membranes of the mouth are moist. Neck supple. No JVD or thyromegaly LUNGS: Respirations even and unlabored. Lungs essentially clear to auscultation bilaterally. HEART: Regular rate and rhythm. S1 and S2 heard. Mechanical click heard. ABDOMEN: Soft. Nondistended. Nontender. EXTREMITIES: Normal range of motion. No clubbing or cyanosis. Peripheral pulses intact. No lower extremity edema NEUROLOGIC: Awake and alert. Oriented x 3. ASSESSMENT: Syncope History of nonischemic cardiomyopathy with improved EF Mild nonobstructive CAD per cardiac catheterization in 2022 History of mechanical aortic valve replacement, 2003, in [place] Chronic kidney disease, started on hemodialysis recently Abnormal troponins, flat, likely secondary to above History of hypertension History of hyperlipidemia History of medication noncompliance History of cerebral aneurysm repair Nicotine dependence Daily alcohol use PLAN: No need to repeat echo Imdur has been resumed per primary medicine Hold additional cardiac medications at this time Obtain orthostatic blood pressures Further recommendations pending patient course Nurse practitioner note has been reviewed by physician. Signing provider agrees with the documented findings, assessment, and plan of care documented by MATERIAL MAN as a scribe. Past Medical History Past Medical History: CVA/TIA, GERD/Reflux, Hyperlipidemia, Hypertension, Sleep Apnea/CPAP/BIPAP Additional Past Medical History / Comment(s): stress test abnormal, cva 2 yrs ago lft arm tires quickly, questioning possible [place],no cpap used See Dr Ibarra's H & P History of Any Multi-Drug Resistant Organisms: None Reported Past Surgical History: Cardiac Valve Replacement Additional Past Surgical History / Comment(s): 2003 aortic valve replaced, cerebral aneurysm repaired 2021 Past Anesthesia/Blood Transfusion Reactions: No Reported Reaction Additional Past Anesthesia/Blood Transfusion Reaction / Comment(s): no hx of blood tx Past Psychological History: No Psychological Hx Reported Smoking Status: Current every day smoker Past Alcohol Use History: Occasional Past Drug Use History: None Reported - Past Family History Father History Unknown: Yes Medications and Allergies Home Medications Medication Instructions Recorded Confirmed Type Esomeprazole Magnesium 40 mg PO DAILY 06/17/23 12/07/23 History Ipratropium/Albuter 20-100Mcg 2 puff INHALATION RT-Q4H PRN 07/04/23 12/07/23 History [Combivent Respimat 20-100Mcg Inhaler] Tiotropium Br/Olodaterol HCl 2 puff INHALATION RT-DAILY 07/04/23 12/07/23 History [Stiolto Respimat Inhal [place]] Folic Acid 1 mg PO DAILY 10/06/23 12/07/23 History amLODIPine [Norvasc] 5 mg PO BID #180 tab 10/13/23 12/07/23 Rx carvediloL [Coreg] 25 mg PO BID #180 tab 10/13/23 12/07/23 Rx hydrALAZINE HCL [Apresoline] 100 mg PO TID #270 tablet 10/13/23 12/07/23 Rx Warfarin [Coumadin] 2 mg PO DAILY@1500 11/22/23 12/07/23 History Isosorbide Mononitrate ER [Imdur] 30 mg PO DAILY #30 tab 11/29/23 12/07/23 Rx Nicotine 14Mg/24Hr Patch [Habitrol] 1 patch TRANSDERM DAILY #30 patch 11/29/23 12/07/23 Rx Thiamine [Vitamin B-1] 100 mg PO DAILY tab 11/29/23 12/07/23 Rx Torsemide [Demadex] 40 mg PO DAILY #60 tab 11/29/23 12/07/23 Rx Warfarin [Coumadin] 3 mg PO DAILY@1800 #7 tab 11/29/23 12/07/23 Rx Allergies Allergy/AdvReac Type Severity Reaction Status Date / Time No Known Allergies Allergy Verified 12/07/23 07:30 Physical Exam Vitals: Vital Signs Temp Pulse Resp BP Pulse Ox 12/07/23 06:38 64 18 117/58 97 12/07/23 03:21 76 18 138/90 97 12/07/23 00:22 75 18 93/69 96 12/06/23 21:48 98.1 F 75 18 99/65 97 Intake and Output 12/06/23 12/07/23 12/07/23 22:59 06:59 14:59 Other: Weight 57.153 kg Results 12/07/23 04:12 12/07/23 04:12 Cardiac Enzymes 12/06/23 12/06/23 12/07/23 Range/Units 21:45 21:45 00:54 AST 18 (17-59) U/L Troponin I 0.081 H* 0.081 H* (0.000-0.034) ng/mL 12/07/23 12/07/23 Range/Units 04:12 04:12 AST 16 L (17-59) U/L Troponin I 0.075 H* (0.000-0.034) ng/mL Coagulation 12/06/23 Range/Units 21:45 PT 35.1 H (10.0-12.5) sec APTT 52.9 H (22.0-30.0) sec CBC 12/06/23 12/07/23 Range/Units 21:45 04:12 WBC 14.6 H 12.5 H (3.8-10.6) k/uL RBC 3.87 L 3.57 L (4.30-5.90) m/uL Hgb 11.1 L 10.0 L (13.0-17.5) gm/dL Hct 33.2 L 30.8 L (39.0-53.0) % Plt Count 221 187 (150-450) k/uL Comprehensive Metabolic Panel 12/06/23 12/07/23 Range/Units 21:45 04:12 Sodium 134 L 132 L (137-145) mmol/L Potassium 4.2 3.9 (3.5-5.1) mmol/L Chloride 97 L 101 (98-107) mmol/L Carbon Dioxide 27 24 (22-30) mmol/L BUN 43 H 48 H (9-20) mg/dL Creatinine 5.10 H 5.63 H (0.66-1.25) mg/dL Glucose 162 H 122 H (74-99) mg/dL Calcium 7.9 L 8.2 L (8.4-10.2) mg/dL AST 18 16 L (17-59) U/L ALT 12 12 (4-49) U/L Alkaline Phosphatase 75 71 (38-126) U/L Total Protein 6.4 5.9 L (6.3-8.2) g/dL Albumin 3.4 L 3.1 L (3.5-5.0) g/dL Current Medications Generic Name Dose Route Start Last Admin Trade Name Freq PRN Reason Stop Dose Admin Hydromorphone HCl 1 mg 12/06/23 23:55 Hydromorphone 1 Mg/Ml 1 Ml Syringe IVP Q3HR PRN Severe Pain (Scale 7 to 10) Sodium Chloride 1,000 mls @ 75 mls/hr 12/06/23 23:45 12/07/23 00:21 Saline 0.9% IV 75 mls/hr .[id number] PETER Administration Naloxone HCl 0.2 mg 12/06/23 23:55 Naloxone 0.4 Mg/Ml 1 Ml Vial IV Q2M PRN Opioid Reversal Ondansetron HCl 4 mg 12/06/23 23:55 Ondansetron 4 Mg/2 Ml Vial IVP Q8HR PRN Nausea And Vomiting Intake and Output 12/06/23 12/07/23 12/07/23 22:59 06:59 14:59 Other: Weight 57.153 kg 12/07/23 04:12 12/07/23 04:12
[2023-12-07] MEDS ORDERED: WARFARIN 2 MG TAB PO SCH (15:00)
[2023-12-07] MEDS: WARFARIN 0.5 MG TAB PO ONE (19:06)
[2023-12-07] MEDS: amLODIPine 5 MG TAB PO STA (21:34)
[2023-12-07] MEDS: hydrALAZINE HCL 50 MG TAB PO SCH (22:33)
[2023-12-07] MEDS: carvediloL 12.5 MG TAB PO SCH (22:33)
[2023-12-07] MEDS: NICOTINE 14MG/24HR PATCH TRANSDERM SCH (22:34)
[2023-12-08 08:05] LABS: INR 3.9 (<1.2); Prothrombin Time 37.9 sec (10.0-12.5)
--- NOTE | 2023-12-08 08:44 | P.HPIM ---
History of Present Illness H&P Date: 12/07/23 Chief Complaint: syncope Catalino Vasquez is a 63-year-old male with a past medical history significant for mechanical aortic valve replacement, ESRD, nonischemic cardiomyopathy, HTN and medical noncompliance who presented to the ED after a syncopal event at home. Patient states he went to dialysis yesterday and was feeling in his normal state of health. He states he did not take his medications yesterday morning but after his dialysis session he took all his blood pressure medications at once. He then got up to use the bathroom and felt dizzy and blacked out, hitting his head. The patient's blood pressure was found to be low upon admission with a pressure of 99/65. Labs are reviewed with WBC 14k, Hgb 11, Cr 5.1, INR 3.6, BNP [address]. CT head no acute process. Review of Systems All systems: negative Constitutional: Reports weakness, Denies chills, Denies fever Eyes: denies blurred vision, denies pain Ears, nose, mouth and throat: Denies headache, Denies sore throat Cardiovascular: Reports syncope, Denies chest pain, Denies shortness of breath Respiratory: Denies cough Gastrointestinal: Denies abdominal pain, Denies diarrhea, Denies nausea, Denies vomiting Musculoskeletal: Denies myalgias Integumentary: Denies pruritus, Denies rash Neurological: Denies numbness, Denies weakness Psychiatric: Denies anxiety, Denies depression Endocrine: Denies fatigue, Denies weight change Past Medical History Past Medical History: CVA/TIA, GERD/Reflux, Hyperlipidemia, Hypertension, Sleep Apnea/CPAP/BIPAP Additional Past Medical History / Comment(s): stress test abnormal, cva 2 yrs ago lft arm tires quickly, questioning possible [place],no cpap used See Dr Ibarra's H & P History of Any Multi-Drug Resistant Organisms: None Reported Past Surgical History: Cardiac Valve Replacement Additional Past Surgical History / Comment(s): 2003 aortic valve replaced, cerebral aneurysm repaired 2021 Past Anesthesia/Blood Transfusion Reactions: No Reported Reaction Additional Past Anesthesia/Blood Transfusion Reaction / Comment(s): no hx of blood tx Past Psychological History: No Psychological Hx Reported Smoking Status: Current every day smoker Past Alcohol Use History: Occasional Past Drug Use History: None Reported - Past Family History Father History Unknown: Yes Medications and Allergies Home Medications Medication Instructions Recorded Confirmed Type Esomeprazole Magnesium 40 mg PO DAILY 06/17/23 12/07/23 History Ipratropium/Albuter 20-100Mcg 2 puff INHALATION RT-Q4H PRN 07/04/23 12/07/23 History [Combivent Respimat 20-100Mcg Inhaler] Tiotropium Br/Olodaterol HCl 2 puff INHALATION RT-DAILY 07/04/23 12/07/23 History [Stiolto Respimat Inhal [place]] Folic Acid 1 mg PO DAILY 10/06/23 12/07/23 History amLODIPine [Norvasc] 5 mg PO BID #180 tab 10/13/23 12/07/23 Rx carvediloL [Coreg] 25 mg PO BID #180 tab 10/13/23 12/07/23 Rx hydrALAZINE HCL [Apresoline] 100 mg PO TID #270 tablet 10/13/23 12/07/23 Rx Warfarin [Coumadin] 2 mg PO DAILY@1500 11/22/23 12/07/23 History Isosorbide Mononitrate ER [Imdur] 30 mg PO DAILY #30 tab 11/29/23 12/07/23 Rx Nicotine 14Mg/24Hr Patch [Habitrol] 1 patch TRANSDERM DAILY #30 patch 11/29/23 12/07/23 Rx Thiamine [Vitamin B-1] 100 mg PO DAILY tab 11/29/23 12/07/23 Rx Torsemide [Demadex] 40 mg PO DAILY #60 tab 11/29/23 12/07/23 Rx Warfarin [Coumadin] 3 mg PO DAILY@1800 #7 tab 11/29/23 12/07/23 Rx Allergies Allergy/AdvReac Type Severity Reaction Status Date / Time No Known Allergies Allergy Verified 12/07/23 07:30 Physical Exam Vitals: Vital Signs Temp Pulse Pulse Pulse Pulse Resp BP 12/08/23 04:00 75 18 12/08/23 00:00 79 18 12/07/23 21:39 168/113 12/07/23 19:53 97.7 F 76 18 155/101 12/07/23 19:00 75 18 141/76 12/07/23 17:00 80 22 146/93 12/07/23 15:00 74 20 159/95 12/07/23 13:28 72 16 113/76 12/07/23 13:07 80 12/07/23 13:05 75 12/07/23 13:01 68 12/07/23 12:42 98.5 F 85 16 12/07/23 10:53 97.8 F 68 16 145/89 BP BP BP Pulse Ox 12/08/23 04:00 136/81 124/80 133/70 97 12/08/23 00:00 145/75 98 12/07/23 21:39 12/07/23 19:53 98 12/07/23 19:00 97 12/07/23 17:00 97 12/07/23 15:00 97 12/07/23 13:28 97 12/07/23 13:07 113/76 12/07/23 13:05 132/82 12/07/23 13:01 149/90 12/07/23 12:42 185/106 98 12/07/23 10:53 97 Intake and Output 12/07/23 12/08/23 12/08/23 22:59 06:59 14:59 Intake Total 120 Balance 120 Intake: Oral 120 Other: Voiding Method Toilet Toilet Gen: well developed, well nourished, NAD HEENT: NC/AT, mmm Neck: supple no JVD or thyromegaly CV: RRR, systolic murmur noted Lungs: Normal effort, clear throughout Abd: soft, nontender, non distended, BS+ Neuro: alert and oriented x3, no focal deficits Skin: warm and dry Results CBC & Chem 7: 12/07/23 04:12 12/07/23 04:12 Labs: Abnormal Lab Results - Last 24 Hours (Table) 12/07/23 12/08/23 Range/Units 09:44 06:22 PT 39.6 H 37.9 H (10.0-12.5) sec INR 4.0 H 3.9 H (<1.2) Thrombosis Risk Factor Assmnt - Choose All That Apply Each Factor Represents 1 point: Abnormal pulmonary function (COPD) Other Risk Factors: Yes Each Risk Factor Represents 2 Points: Age 61-74 years Thrombosis Risk Factor Assessment Total Risk Factor Score: 3 Thrombosis Risk Factor Assessment Level: Moderate Risk Assessment and Plan Plan: 1. Syncope and collapse. Suspect secondary to hypotension related to HD and taking his medications off schedule. Admit to obs and Cardiology consulted for further evaluation 2. ESRD on HD. Nephrology consult, at baseline. Continue with HD 3. Mechanical AVR. Continue coumadin at home dose
--- NOTE | 2023-12-08 11:22 | P.PN ---
Subjective Patient is seen for follow-up for end-stage renal disease. Currently seen on hemodialysis. Tolerating treatment well. No ultrafiltration today. Amlodipine was discontinued yesterday. Patient has been walking with no complaints of lightheadedness or dizziness. Objective - Vital Signs Vital signs: Vital Signs Temp 97.8 F 12/08/23 08:20 Pulse 68 12/08/23 08:20 Resp 16 12/08/23 08:20 BP 120/76 12/08/23 08:20 Pulse Ox 97 12/08/23 08:20 FiO2 Intake & Output 12/07/23 12/08/23 12/08/23 18:59 06:59 18:59 Intake Total 120 Balance 120 Weight 57.153 kg Intake: Oral 120 Other: Voiding Method Toilet Toilet - Exam Patient is awake, alert oriented 3 No acute distress Examination of the heart S1 and S2 Examination of the lungs bilateral breath sounds are heard Abdomen is soft nontender Examination of lower extremity shows no evidence of edema. INTERNATIONAL GUEST COORDINATOR exam grossly intact. - Labs CBC & Chem 7: 12/07/23 04:12 12/07/23 04:12 Labs: Abnormal Lab Results - Last 24 Hours (Table) 12/08/23 Range/Units 06:22 PT 37.9 H (10.0-12.5) sec INR 3.9 H (<1.2) Assessment and Plan Assessment: 1. End-stage renal disease on hemodialysis on Wednesday schedule 2. Syncope secondary to hypotension. No fluid removal with hemodialysis as outpatient. Antihypertensive medications will be decreased and we can add midodrine if blood pressure continues to remain low. 3. Status post fall 4. CK D mineral bone disorder 5. Borderline elevated troponin. Plan: DC amlodipine Okay for discharge from nephrology standpoint. Continue off of amlodipine. May continue with carvedilol but decrease dose to 12.5 mg twice a day upon discharge.
[2023-12-08] MEDS: THIAMINE 100 MG TAB PO SCH (11:30)
[2023-12-08] MEDS: TORSEMIDE 20 MG TAB PO SCH (11:30)
--- NOTE | 2023-12-08 11:37 | P.PN ---
Subjective HISTORY OF PRESENT ILLNESS: This is a 63-year-old male with a past medical history significant for nonischemic cardiomyopathy, hypertension, CVA, obstructive sleep apnea, chronic kidney disease, previous mechanical aortic valve replacement, and medication noncompliance. Patient follows in the office with Dr. Ibarra. We have been asked to see the patient in consultation for syncope. Patient examined at the bedside in the emergency room. Patient states he went to dialysis yesterday and was feeling in his normal state of health. He states he did not take his medications yesterday. He states when he got home he went to use the bathroom and when he was walking back from the bathroom he had a syncopal episode. He does report hitting the right side of his head which is slightly swollen this morning. The patient's blood pressure was found to be low upon admission with a pressure of 99/65. Most recent blood pressure 117/658. It is also noted that the patient was recently hospitalized earlier this month secondary to syncope/dizziness. The patient was found to have uncontrolled hypertension at that time with a blood pressure of 245/168. He was also found to have subtherapeutic INR. DIAGNOSTICS: - EKG reveals sinus mechanism with LVH. - Laboratory data: WBC 12.5. Hemoglobin 10.0. Platelet count 187. INR 3.6. Sodium 132. Potassium 3.9. BUN 48. Creatinine 5.63. Troponin 0.081. 0.081. 0.075. proBNP 35,100 - Current home cardiac medications include hydralazine 100 mg 3 times daily, carvedilol 25 mg twice a day, amlodipine 5 mg twice a day, warfarin 5 mg daily, Demadex 40 mg daily, Imdur 30 mg daily. - Most recent echocardiogram obtained in September 2023 revealed ejection fraction 55% with normally functioning mechanical prosthetic aortic valve - Previous echocardiogram in May 2023 revealed ejection fraction of 40% - Cardiac catheterization history: April 2023 revealing mild nonobstructive disease involving the right coronary artery 12/08/2023 Patient examined this morning at the bedside. Patient denies chest pain or pressure. He denies shortness of breath. He reports the chills and feels fever olga today. Temperature at 8 AM was 97.8. Patient's blood pressures have remained stable. Orthostatic blood pressures are negative. INR 1.9 today. PHYSICAL EXAM: VITAL SIGNS: Reviewed. GENERAL: Well-developed in no acute distress. HEENT: Right orbital swelling. Head is normocephalic. Pupils are equal, round. Sclerae anicteric. Mucous membranes of the mouth are moist. Neck supple. No JVD or thyromegaly LUNGS: Respirations even and unlabored. Lungs essentially clear to auscultation bilaterally. HEART: Regular rate and rhythm. S1 and S2 heard. Mechanical click heard. ABDOMEN: Soft. Nondistended. Nontender. EXTREMITIES: Normal range of motion. No clubbing or cyanosis. Peripheral pulses intact. No lower extremity edema NEUROLOGIC: Awake and alert. Oriented x 3. ASSESSMENT: Syncope Leukocytosis with chills, rule out infectious process History of nonischemic cardiomyopathy with improved EF Mild nonobstructive CAD per cardiac catheterization in 2022 History of mechanical aortic valve replacement, 2003, in [place] Chronic kidney disease, started on hemodialysis recently Abnormal troponins, flat, likely secondary to above History of hypertension History of hyperlipidemia History of medication noncompliance History of cerebral aneurysm repair Nicotine dependence Daily alcohol use PLAN: No need to repeat echo Continue current cardiac medications Obtain blood cultures Recheck CBC Patient may be discharged from a cardiac standpoint however recommend infectious workup due to leukocytosis and patient feeling feverish. However we will defer this to internal medicine Patient to resume his previous Coumadin regimen upon discharge Further recommendations pending patient course Nurse practitioner note has been reviewed by physician. Signing provider agrees with the documented findings, assessment, and plan of care documented by ESTIMATOR BINDING as a scribe. Objective - Vital Signs Vital signs: Vital Signs Temp 97.8 F 12/08/23 08:20 Pulse 68 12/08/23 08:20 Resp 16 12/08/23 08:20 BP 120/76 12/08/23 08:20 Pulse Ox 97 12/08/23 08:20 FiO2 Intake & Output 12/07/23 12/08/23 12/08/23 18:59 06:59 18:59 Intake Total 120 Balance 120 Weight 57.153 kg Intake: Oral 120 Other: Voiding Method Toilet Toilet - Labs CBC & Chem 7: 12/07/23 04:12 12/07/23 04:12 Labs: Abnormal Lab Results - Last 24 Hours (Table) 12/08/23 Range/Units 06:22 PT 37.9 H (10.0-12.5) sec INR 3.9 H (<1.2)
[2023-12-08 11:40] LABS: Basophils # (A) 0.1 k/uL (0-0.2); Basophils % (A) 1 %; Eosinophils # (A) 0.2 k/uL (0-0.7); Eosinophils % (A) 3 %; HCT 27.1 % (39.0-53.0); HGB 9.6 gm/dL (13.0-17.5); Lymphocytes # (A) 0.6 k/uL (1.0-4.8); Lymphocytes % (A) 8 %; MCH 30.2 pg (25.0-35.0); MCHC 35.5 g/dL (31.0-37.0); MCV 84.9 fL (80.0-100.0); Mean Platelet Volume 8.9; Monocytes # (A) 0.5 k/uL (0-1.0); Monocytes % (A) 6 %; Neutrophils # (A) 6.3 k/uL (1.3-7.7); Neutrophils % (A) 81 %; Platelet Count 165 k/uL (150-450); RDW 15.4 % (11.5-15.5); WBC 7.8 k/uL (3.8-10.6)
[2023-12-08 12:15] VITALS: BP 158/95; PULSE 69; RESP 18; TEMP 97.9
[2023-12-08] MEDS ORDERED: carvediloL 12.5 MG TAB PO SCH (17:30)
[2023-12-08] MEDS ORDERED: WARFARIN 0.5 MG TAB PO ONE (18:00)
--- NOTE | 2023-12-10 07:45 | P.DS ---
Providers Date of admission: 12/06/23 23:57 Expected date of discharge: 12/08/23 Attending physician: Terence Sutton MD Consults: 12/06/23 23:55 Consult Physician Routine Consulting Provider: Jarad Horton Consult Reason/Comments: syncope Do you want consulting provider notified?: Yes Consult Physician Routine Consulting Provider: Jenny العراقي Consult Reason/Comments: HD Do you want consulting provider notified?: Yes Primary care physician: Emma Mobley Hospital Course: Final Diagnoses: 1. Syncope and collapse. Suspect secondary to hypotension related to HD and taki ng his medications off schedule. 2. ESRD on HD. At baseline 3. Mechanical AVR. Continue coumadin. Hospital course: Catalino Vasquez is a 63-year-old male with a past medical history significant for mechanical aortic valve replacement, ESRD, nonischemic cardiomyopathy, HTN and medical noncompliance who presented to the ED after a syncopal event at home. Patient states he went to dialysis yesterday and was feeling in his normal state of health. He states he did not take his medications yesterday morning but after his dialysis session he took all his blood pressure medications at once. He then got up to use the bathroom and felt dizzy and blacked out, hitting his head. The patient's blood pressure was found to be low upon admission with a pressure of 99/65. Labs are reviewed with WBC 14k, Hgb 11, Cr 5.1, INR 3.6, BNP 69900. CT head no acute process. Evaluated by both nephrology and cardiology. Significant clinical improvement. Continued with hemodialysis. No ultrafiltration today Norvasc discontinued. Ambulating, tolerating exertion well. Denies chest pain, palpitations or shortness of breath. Denies lightheadedness, dizziness or focal deficits. Afebrile, normal WBC. Vital signs stable. Orthostatic vital signs negative. INR 3.9. Cleared by cardiology and nephrology for discharge. Patient will be discharged home today in a stable condition with guarded prognosis after completing hemodialysis. Anticoagulation with outpatient monitoring as per cardiology. The impression and plan of care has been dictated as directed. : I performed a history and examination of this patient, discussed the same with the dictator. I agree with the dictator's note ,documented as a scribe. Any additional findings or plans will be noted. Patient Condition at Discharge: Stable Plan - Discharge Summary Discharge Rx Participant: No New Discharge Prescriptions: New carvediloL [Coreg*] 12.5 mg PO BID-W/MEALS #60 tab Continue Ipratropium/Albuter 20-100Mcg [Combivent Respimat 20-100Mcg Inhaler] 2 puff INHALATION RT-Q4H PRN PRN Reason: Shortness Of Breath Thiamine [Vitamin B-1] 100 mg PO DAILY tab Esomeprazole Magnesium 40 mg PO DAILY Tiotropium Br/Olodaterol HCl [Stiolto Respimat Inhal [place]] 2 puff INHALATION RT-DAILY Folic Acid 1 mg PO DAILY hydrALAZINE HCL [Apresoline] 100 mg PO TID #270 tablet Nicotine 14Mg/24Hr Patch [Habitrol] 1 patch TRANSDERM DAILY #30 patch Isosorbide Mononitrate ER [Imdur] 30 mg PO DAILY #30 tab Changed Torsemide [Demadex] 10 mg PO DAILY #30 tab Discontinued amLODIPine [Norvasc] 5 mg PO BID #180 tab carvediloL [Coreg] 25 mg PO BID #180 tab No Action Warfarin [Coumadin] 2 mg PO DAILY@1500 Warfarin [Coumadin] 3 mg PO DAILY@1800 #7 tab Discharge Medication List Esomeprazole Magnesium 40 mg PO DAILY 06/17/23 [History] Ipratropium/Albuter 20-100Mcg [Combivent Respimat 20-100Mcg Inhaler] 2 puff INHALATION RT-Q4H PRN 07/04/23 [History] Tiotropium Br/Olodaterol HCl [Stiolto Respimat Inhal [place]] 2 puff INHALATION RT-DAILY 07/04/23 [History] Folic Acid 1 mg PO DAILY 10/06/23 [History] hydrALAZINE HCL [Apresoline] 100 mg PO TID #270 tablet 10/13/23 [Rx] Warfarin [Coumadin] 2 mg PO DAILY@1500 11/22/23 [History] Isosorbide Mononitrate ER [Imdur] 30 mg PO DAILY #30 tab 11/29/23 [Rx] Nicotine 14Mg/24Hr Patch [Habitrol] 1 patch TRANSDERM DAILY #30 patch 11/29/23 [Rx] Thiamine [Vitamin B-1] 100 mg PO DAILY tab 11/29/23 [Rx] Warfarin [Coumadin] 3 mg PO DAILY@1800 #7 tab 11/29/23 [Rx] Torsemide [Demadex] 10 mg PO DAILY #30 tab 12/08/23 [Rx] carvediloL [Coreg*] 12.5 mg PO BID-W/MEALS #60 tab 12/08/23 [Rx] Follow up Appointment(s)/Referral(s): Terence Sutton MD [STAFF PHYSICIAN] - 12/13/23 2:45 pm Patient Instructions/Handouts: Syncope (DC) Activity/Diet/Wound Care/Special Instructions: Hemodialysis as per nephrology, anticoagulation with outpatient monitoring as per cardiology. Discharge/Stand Alone Forms: Who Do I Call? Discharge Disposition: HOME SELF-CARE
== END 2023-12-08 15:53 | disposition home or self-care (01) ==
LOC: EC 21:42 → 3SCARD 23:57 → INTOOBSV 23:57 → 3SCARD 12-07 05:22
PROVIDERS: ADMIT Family Medicine; ATTEND Family Medicine
DX: R55 Syncope and collapse (principal); R79.89 Other specified abnormal findings of blood chemistry; I16.1 Hypertensive emergency; I12.0 Hypertensive chronic kidney disease with stage 5 chronic kidney disease or end stage renal disease; N18.6 End stage renal disease; N25.0 Renal osteodystrophy; I42.8 Other cardiomyopathies; G47.33 Obstructive sleep apnea (adult) (pediatric); D72.829 Elevated white blood cell count, unspecified; I25.10 Atherosclerotic heart disease of native coronary artery without angina pectoris; R68.83 Chills (without fever); E78.5 Hyperlipidemia, unspecified; N17.9 Acute kidney failure, unspecified; F10.10 Alcohol abuse, uncomplicated; K21.9 Gastro-esophageal reflux disease without esophagitis; F17.200 Nicotine dependence, unspecified, uncomplicated; Z86.73 Personal history of transient ischemic attack (TIA), and cerebral infarction without residual deficits; Z95.2 Presence of prosthetic heart valve; Z91.148 Patient's other noncompliance with medication regimen for other reason; Z91.81 History of falling; Z99.2 Dependence on renal dialysis; Z79.01 Long term (current) use of anticoagulants; Z79.899 Other long term (current) drug therapy
CPT/HCPCS: 96361 ×2; 96360; 99285; 36415; 93005; 83880; 80053 ×2; 83735 ×2; 84100 ×2; 84484 ×2; 85025 ×3; 85610 ×3; 85730; 87040; 70450; G0378 ×3; S4990 ×2; 90935

== ENCOUNTER 2023-12-12 09:24 | Observation (INO) | payer BC, OTHER ==
[2023-12-12 09:50] LABS: Basophils # (A) 0.1 k/uL (0-0.2); Basophils % (A) 1 %; Eosinophils # (A) 0.4 k/uL (0-0.7); Eosinophils % (A) 4 %; HGB 11.1 gm/dL (13.0-17.5); Lymphocytes # (A) 0.7 k/uL (1.0-4.8); Lymphocytes % (A) 7 %; MCH 28.8 pg (25.0-35.0); MCHC 33.6 g/dL (31.0-37.0); MCV 85.6 fL (80.0-100.0); Mean Platelet Volume 8.4; Monocytes # (A) 0.7 k/uL (0-1.0); Monocytes % (A) 7 %; Neutrophils # (A) 8.1 k/uL (1.3-7.7); Neutrophils % (A) 79 %; Platelet Count 240 k/uL (150-450); RBC 3.85 m/uL (4.30-5.90); RDW 15.2 % (11.5-15.5); WBC 10.3 k/uL (3.8-10.6)
[2023-12-12] MEDS: LIDOCAINE/EPINEPHR/TETRACAINE 5 ML BOTTLE TOPICAL ONE (09:50)
[2023-12-12 09:59] LABS: INR 3.9 (<1.2); Partial Thromboplastin Time 52.6 sec (22.0-30.0); Prothrombin Time 37.7 sec (10.0-12.5)
[2023-12-12 10:11] LABS: ALT 11 U/L (4-49); African American GFR (CKD) 10 (>60 ml/min/1.73 sqM); Albumin 3.6 g/dL (3.5-5.0); Anion Gap 16 mmol/L; Blood Urea Nitrogen 48 mg/dL (9-20); Calcium 8.4 mg/dL (8.4-10.2); Carbon Dioxide 23 mmol/L (22-30); Chloride 97 mmol/L (98-107); Glucose 105 mg/dL (74-99); Non-African American GFR(CKD) 8 (>60 ml/min/1.73 sqM); Sodium 136 mmol/L (137-145); Total Bilirubin 0.8 mg/dL (0.2-1.3); Total Protein 6.6 g/dL (6.3-8.2)
[2023-12-12 10:37] LABS: AST 22 U/L (17-59); Alkaline Phosphatase 72 U/L (38-126); Potassium 3.8 mmol/L (3.5-5.1)
[2023-12-12] MEDS ORDERED: NALOXONE 0.4 MG/ML 1 ML VIAL IV PRN (11:45)
--- NOTE | 2023-12-12 11:50 | ED ---
General Adult HPI - General Chief complaint: Recheck/Abnormal Lab/Rx Stated complaint: Post Surgery Bleed Time Seen by Provider: 12/12/23 09:28 Source: patient, EMS, RN notes reviewed, old records reviewed Mode of arrival: EMS Limitations: no limitations - History of Present Illness Initial comments: 63-year-old male presenting for evaluation of bleeding from surgical incision. Patient had a right chest wall permacath placed approximately 17 days ago. The patient had a stitch removed several days ago and has had persistent bleeding since that time. He is on Coumadin with history of mechanical aortic valve. - Related Data Home Medications Medication Instructions Recorded Confirmed Warfarin [Coumadin] 2 mg PO DAILY@1500 11/22/23 12/12/23 Torsemide [Demadex] 40 mg PO DAILY 12/12/23 12/12/23 amLODIPine [Norvasc] 2.5 mg PO BID 12/12/23 12/12/23 Previous Rx's Medication Instructions Recorded hydrALAZINE HCL [Apresoline] 100 mg PO TID #270 tablet 10/13/23 Isosorbide Mononitrate ER [Imdur] 30 mg PO DAILY #30 tab 11/29/23 Thiamine [Vitamin B-1] 100 mg PO DAILY tab 11/29/23 Warfarin [Coumadin] 3 mg PO DAILY@1800 #7 tab 11/29/23 carvediloL [Coreg*] 12.5 mg PO BID-W/MEALS #60 tab 12/08/23 Allergies Allergy/AdvReac Type Severity Reaction Status Date / Time No Known Allergies Allergy Verified 12/12/23 09:38 Review of Systems ROS Statement: Those systems with pertinent positive or pertinent negative responses have been documented in the HPI. ROS Other: All systems not noted in ROS Statement are negative. Past Medical History Past Medical History: CVA/TIA, GERD/Reflux, Hyperlipidemia, Hypertension, Renal Disease, Sleep Apnea/CPAP/BIPAP Additional Past Medical History / Comment(s): stress test abnormal, cva 2 yrs ago lft arm tires quickly, questioning possible [place],no cpap used See Dr Ibarra's H & P History of Any Multi-Drug Resistant Organisms: None Reported Past Surgical History: Cardiac Valve Replacement Additional Past Surgical History / Comment(s): 2003 aortic valve replaced, cerebral aneurysm repaired 2021 Past Anesthesia/Blood Transfusion Reactions: No Reported Reaction Additional Past Anesthesia/Blood Transfusion Reaction / Comment(s): no hx of blood tx Past Psychological History: No Psychological Hx Reported Smoking Status: Current every day smoker Past Alcohol Use History: Rare Past Drug Use History: None Reported - Past Family History Father History Unknown: Yes General Exam Limitations: no limitations General appearance: alert, in no apparent distress Head exam: Present: atraumatic, normocephalic Eye exam: Present: normal appearance, PERRL Neck exam: Present: other (1 cm hematoma with persistent pinpoint hemorrhage in the right base of the neck) Cardiovascular Exam: Present: regular rate, normal rhythm GI/Abdominal exam: Present: soft. Absent: distended, guarding Course Vital Signs 12/12/23 12/12/23 09:33 13:16 Temperature 98.1 F Pulse Rate 92 86 Respiratory 18 18 Rate Blood Pressure 187/114 183/109 O2 Sat by Pulse 99 98 Oximetry Medical Decision Making - Medical Decision Making Was pt. sent in by a medical professional or institution (, PA, [employer], urgent care, hospital, or [facility]...) When possible be specific @ -No Did you speak to anyone other than the patient for history (EMS, parent, family, police, friend...)? What history was obtained from this source @ -No Did you review nursing and triage notes (agree or disagree)? Why? @ -I reviewed and agree with nursing and triage notes Were old charts reviewed (outside hosp., previous admission, EMS record, old EKG, old radiological studies, urgent care reports/EKG's, [facility] records)? Report findings @ -No old charts were reviewed Differential Diagnosis (chest pain, altered mental status, abdominal pain women, abdominal pain men, vaginal bleeding, weakness, fever, dyspnea, syncope, headache, dizziness, GI bleed, back pain, seizure, CVA, palpatations, mental health, musculoskeletal)? @ -Bleeding from venous puncture site, right dialysis catheter access EKG interpreted by me (3pts min.). @ -Sinus rhythm left ventricular hypertrophy, rate of 90, NV interval 161, QRS duration 109, QTc 427 X-rays interpreted by me (1pt min.). @ -None done CT interpreted by me (1pt min.). @ -None done U/S interpreted by me (1pt. min.). @ -None done What testing was considered but not performed or refused? (CT, X-rays, U/S, labs)? Why? @ -None What meds were considered but not given or refused? Why? @ -None Did you discuss the management of the patient with other professionals (professionals i.e. , PA, [employer], lab, RT, psych nurse, dialysis social worker, scratch finisher, teacher, engineering officer, pillowcase cutter)? Give summary @ -Dr. Chapman, Dr. Dickinson Was smoking cessation discussed for >3mins.? @ -No Was critical care preformed (if so, how long)? @ -No Were there social determinants of health that impacted care today? How? (Homelessness, low income, unemployed, alcoholism, drug addiction, transportation, low edu. Level, literacy, decrease access to med. care, usp, rehab)? @ -No Was there de-escalation of care discussed even if they declined (Discuss DNR or withdrawal of care, Hospice)? DNR status @ -No What co-morbidities impacted this encounter? (DM, HTN, Smoking, COPD, CAD, Ca ncer, CVA, ARF, Chemo, Hep., AIDS, mental health diagnosis, sleep apnea, morbid obesity)? @ -End Stage renal disease Was patient admitted / discharged? Hospital course, mention meds given and route, prescriptions, significant lab abnormalities, going to OR and other pertinent info. @ -Dr. Chapman is able to provide care in the emergency department. He does asked that the patient be observed overnight with repeat hemoglobin in the morning. Coumadin will be held as the INR is 3.9. Current hemoglobin is stable and improved over prior. Undiagnosed new problem with uncertain prognosis? @ -No Drug Therapy requiring intensive monitoring for toxicity (Heparin, Nitro, Insulin, Cardizem)? @ -No Were any procedures done? @ -No Diagnosis/symptom? @ -[Incisional bleeding, supratherapeutic INR Acute, or Chronic, or Acute on Chronic? @ -Acute Uncomplicated (without systemic symptoms) or Complicated (systemic symptoms)? @ -[default Side effects of treatment? @ -No Exacerbation, Progression, or Severe Exacerbation? @ -No Poses a threat to life or bodily function? How? (Chest pain, [place], [place], pneumonia, PE, COPD, DKA, ARF, appy, cholecystitis, CVA, Diverticulitis, Homicidal, Suicidal, threat to staff... and all critical care pts) @ -Low risk at this time - Lab Data Result diagrams: 12/12/23 09:30 12/12/23 09:30 Lab Results 12/12/23 12/12/23 12/12/23 Range/Units 09:30 09:30 09:30 WBC 10.3 (3.8-10.6) k/uL RBC 3.85 L (4.30-5.90) m/uL Hgb 11.1 L (13.0-17.5) gm/dL Hct 33.0 L (39.0-53.0) % MCV 85.6 (80.0-100.0) fL MCH 28.8 (25.0-35.0) pg MCHC 33.6 (31.0-37.0) g/dL RDW 15.2 (11.5-15.5) % Plt Count 240 (150-450) k/uL MPV 8.4 Neutrophils % 79 % Lymphocytes % 7 % Monocytes % 7 % Eosinophils % 4 % Basophils % 1 % Neutrophils # 8.1 H (1.3-7.7) k/uL Lymphocytes # 0.7 L (1.0-4.8) k/uL Monocytes # 0.7 (0-1.0) k/uL Eosinophils # 0.4 (0-0.7) k/uL Basophils # 0.1 (0-0.2) k/uL PT 37.7 H (10.0-12.5) sec INR 3.9 H (<1.2) APTT 52.6 H (22.0-30.0) sec Sodium 136 L (137-145) mmol/L Potassium 3.8 (3.5-5.1) mmol/L Chloride 97 L (98-107) mmol/L Carbon Dioxide 23 (22-30) mmol/L Anion Gap 16 mmol/L BUN 48 H (9-20) mg/dL Creatinine 6.39 H (0.66-1.25) mg/dL Est GFR (CKD-EPI)AfAm 10 (>60 ml/min/1.73 sqM) Est GFR (CKD-EPI)NonAf 8 (>60 ml/min/1.73 sqM) Glucose 105 H (74-99) mg/dL Calcium 8.4 (8.4-10.2) mg/dL Total Bilirubin 0.8 (0.2-1.3) mg/dL AST 22 (17-59) U/L ALT 11 (4-49) U/L Alkaline Phosphatase 72 (38-126) U/L Total Protein 6.6 (6.3-8.2) g/dL Albumin 3.6 (3.5-5.0) g/dL Blood Type Blood Type Confirm Blood Type Recheck Bld Type Recheck Status Antibody Screen Spec Expiration Date 12/12/23 12/12/23 Range/Units 09:30 09:35 WBC (3.8-10.6) k/uL RBC (4.30-5.90) m/uL Hgb (13.0-17.5) gm/dL Hct (39.0-53.0) % MCV (80.0-100.0) fL MCH (25.0-35.0) pg MCHC (31.0-37.0) g/dL RDW (11.5-15.5) % Plt Count (150-450) k/uL MPV Neutrophils % % Lymphocytes % % Monocytes % % Eosinophils % % Basophils % % Neutrophils # (1.3-7.7) k/uL Lymphocytes # (1.0-4.8) k/uL Monocytes # (0-1.0) k/uL Eosinophils # (0-0.7) k/uL Basophils # (0-0.2) k/uL PT (10.0-12.5) sec INR (<1.2) APTT (22.0-30.0) sec Sodium (137-145) mmol/L Potassium (3.5-5.1) mmol/L Chloride (98-107) mmol/L Carbon Dioxide (22-30) mmol/L Anion Gap mmol/L BUN (9-20) mg/dL Creatinine (0.66-1.25) mg/dL Est GFR (CKD-EPI)AfAm (>60 ml/min/1.73 sqM) Est GFR (CKD-EPI)NonAf (>60 ml/min/1.73 sqM) Glucose (74-99) mg/dL Calcium (8.4-10.2) mg/dL Total Bilirubin (0.2-1.3) mg/dL AST (17-59) U/L ALT (4-49) U/L Alkaline Phosphatase (38-126) U/L Total Protein (6.3-8.2) g/dL Albumin (3.5-5.0) g/dL Blood Type A Positive Blood Type Confirm A Positive Blood Type Recheck No Previous Record Bld Type Recheck Status CABO Indicated Antibody Screen NEGATIVE Spec Expiration Date 12/15/20232329 Disposition Clinical Impression: Mechanical heart valve present, Elevated INR, Postoperative bleeding from incision Disposition: ADMITTED IP TO THIS HOSP Condition: Stable Is patient prescribed a controlled substance at d/c from ED?: No Time of Disposition: 12:56
--- NOTE | 2023-12-12 12:20 | P.NPCON ---
History of Present Illness - Reason for Consult end stage renal disease - History of Present Illness Reason for consultation: End-stage renal disease History of present illness: Patient is a 63-year-old male seen in renal consultation for acute kidney injury on chronic kidney disease. Patient was seen and examined in the emergency room. Patient is maintained on hemodialysis on Wednesday schedule. He was started on hemodialysis on November 25, 2023. Serologies were negative except for positive TAVARES. Patient states he underwent hemodialysis Wednesday and the stitch was removed. Patient noted bleeding shortly afterwards and states the bleeding got worse over the weekend and therefore came to the hospital. He was seen by vascular surgery and had a stitch placed. No further bleeding. He is due for dialysis tomorrow. Denies fever or chills. No chest pain or shortness of breath. No vomiting or diarrhea. Denies history of diabetes. Patient does have history of CHF with ejection fraction of 40%. Denies history of diabetes. Denies cardiac stenting. Patient does have history of aortic valve replacement. Patient's INR was noted to be elevated at 4 which is currently held. Vital signs are stable. General: No acute distress. HEENT: Head exam is unremarkable. LUNGS: No audible rhonchi or wheezes. HEART: Rate and Rhythm are regular. ABDOMEN: Nontender. EXTREMITITES: No edema. Past Medical History Past Medical History: CVA/TIA, GERD/Reflux, Hyperlipidemia, Hypertension, Renal Disease, Sleep Apnea/CPAP/BIPAP Additional Past Medical History / Comment(s): stress test abnormal, cva 2 yrs ago lft arm tires quickly, questioning possible [place],no cpap used See Dr Ibarra's H & P History of Any Multi-Drug Resistant Organisms: None Reported Past Surgical History: Cardiac Valve Replacement Additional Past Surgical History / Comment(s): 2003 aortic valve replaced, cerebral aneurysm repaired 2021 Past Anesthesia/Blood Transfusion Reactions: No Reported Reaction Additional Past Anesthesia/Blood Transfusion Reaction / Comment(s): no hx of blood tx Past Psychological History: No Psychological Hx Reported Smoking Status: Current every day smoker Past Alcohol Use History: Rare Past Drug Use History: None Reported - Past Family History Father History Unknown: Yes Medications and Allergies Home Medications Medication Instructions Recorded Confirmed Type Esomeprazole Magnesium 40 mg PO DAILY 06/17/23 12/07/23 History Ipratropium/Albuter 20-100Mcg 2 puff INHALATION RT-Q4H PRN 07/04/23 12/07/23 History [Combivent Respimat 20-100Mcg Inhaler] Tiotropium Br/Olodaterol HCl 2 puff INHALATION RT-DAILY 07/04/23 12/07/23 History [Stiolto Respimat Inhal [place]] Folic Acid 1 mg PO DAILY 10/06/23 12/07/23 History hydrALAZINE HCL [Apresoline] 100 mg PO TID #270 tablet 10/13/23 12/07/23 Rx Warfarin [Coumadin] 2 mg PO DAILY@1500 11/22/23 12/07/23 History Isosorbide Mononitrate ER [Imdur] 30 mg PO DAILY #30 tab 11/29/23 12/07/23 Rx Nicotine 14Mg/24Hr Patch [Habitrol] 1 patch TRANSDERM DAILY #30 patch 11/29/23 12/07/23 Rx Thiamine [Vitamin B-1] 100 mg PO DAILY tab 11/29/23 12/07/23 Rx Warfarin [Coumadin] 3 mg PO DAILY@1800 #7 tab 11/29/23 12/07/23 Rx Torsemide [Demadex] 10 mg PO DAILY #30 tab 12/08/23 12/07/23 Rx carvediloL [Coreg*] 12.5 mg PO BID-W/MEALS #60 tab 12/08/23 Rx Allergies Allergy/AdvReac Type Severity Reaction Status Date / Time No Known Allergies Allergy Verified 12/12/23 09:38 Physical Exam Vitals: Vital Signs Temp Pulse Resp BP Pulse Ox 12/12/23 09:33 98.1 F 92 18 187/114 99 Intake and Output 12/11/23 12/12/23 12/12/23 22:59 06:59 14:59 Other: Weight 102.058 kg Results - Lab Results Most recent lab results Calcium 8.4 mg/dL (8.4-10.2) 12/12/23 09:30 12/12/23 09:30 12/12/23 09:30 Assessment and Plan Plan: Assessment: 1. Acute kidney injury, hemodialysis dependent. Started on hemodialysis November 25, 2023 due to severe AVA. Serologies negative except for positive TAVARES. No hydronephrosis on kidney ultrasound. 2. Chronic kidney disease stage IV with concern for progression to end-stage renal disease. Suspect nephrosclerosis. 3. Bleeding from permacath now resolved. 4. Coagulopathy from Coumadin. 5. History of aortic valve replacement. 6. Hypertension with chronic kidney disease. Plan: Hemodialysis tomorrow. Resume hydralazine and Coreg. Monitor for renal recovery outpatient. Thank you for the consultation. I will continue to follow the patient with you during his hospital stay.
--- NOTE | 2023-12-12 14:23 | P.GSCN ---
History of Present Illness History of present illness: 63-year-old gentleman patient came to the emergency room with history of bleeding right side post dialysis catheter placement. This patient had a dialysis cath placed on November 21 he was fine for the last 1 month. He came with the opinion from the neck area where the stitch was removed yesterday we patient is on Coumadin his INR is 48 Surgical history patient had aortic valve placed in the past and also had a right IJ catheter placed in the past neck supple no bruit appreciated patient has a bleeding from the neck a and T site of the catheter Chest is clear good and both then first and second sound present Vascular femorals are 1+ bilateral Plan is controlled with bleeding from the neck site. Catheter incision site. Past Medical History Past Medical History: CVA/TIA, GERD/Reflux, Hyperlipidemia, Hypertension, Renal Disease, Sleep Apnea/CPAP/BIPAP Additional Past Medical History / Comment(s): stress test abnormal, cva 2 yrs ago lft arm tires quickly, questioning possible [place],no cpap used See Dr Ibarra's H & P History of Any Multi-Drug Resistant Organisms: None Reported Past Surgical History: Cardiac Valve Replacement Additional Past Surgical History / Comment(s): 2003 aortic valve replaced, cerebral aneurysm repaired 2021 Past Anesthesia/Blood Transfusion Reactions: No Reported Reaction Additional Past Anesthesia/Blood Transfusion Reaction / Comm: no hx of blood tx Past Psychological History: No Psychological Hx Reported Smoking Status: Current every day smoker Past Alcohol Use History: Rare Past Drug Use History: None Reported - Past Family History Father History Unknown: Yes Medications and Allergies Home Medications Medication Instructions Recorded Confirmed Type Esomeprazole Magnesium 40 mg PO DAILY 06/17/23 12/07/23 History Ipratropium/Albuter 20-100Mcg 2 puff INHALATION RT-Q4H PRN 07/04/23 12/07/23 History [Combivent Respimat 20-100Mcg Inhaler] Tiotropium Br/Olodaterol HCl 2 puff INHALATION RT-DAILY 07/04/23 12/07/23 History [Stiolto Respimat Inhal [place]] Folic Acid 1 mg PO DAILY 10/06/23 12/07/23 History hydrALAZINE HCL [Apresoline] 100 mg PO TID #270 tablet 10/13/23 12/07/23 Rx Warfarin [Coumadin] 2 mg PO DAILY@1500 11/22/23 12/07/23 History Isosorbide Mononitrate ER [Imdur] 30 mg PO DAILY #30 tab 11/29/23 12/07/23 Rx Nicotine 14Mg/24Hr Patch [Habitrol] 1 patch TRANSDERM DAILY #30 patch 11/29/23 12/07/23 Rx Thiamine [Vitamin B-1] 100 mg PO DAILY tab 11/29/23 12/07/23 Rx Warfarin [Coumadin] 3 mg PO DAILY@1800 #7 tab 11/29/23 12/07/23 Rx Torsemide [Demadex] 10 mg PO DAILY #30 tab 12/08/23 12/07/23 Rx carvediloL [Coreg*] 12.5 mg PO BID-W/MEALS #60 tab 12/08/23 Rx Allergies Allergy/AdvReac Type Severity Reaction Status Date / Time No Known Allergies Allergy Verified 12/12/23 09:38 Surgical - Exam Vital Signs Temp Pulse Resp BP Pulse Ox 98.1 F 92 18 187/114 99 12/12/23 09:33 12/12/23 09:33 12/12/23 09:33 12/12/23 09:33 12/12/23 09:33 Results - Labs 12/12/23 09:30 12/12/23 09:30 Abnormal Lab Results - Last 24 Hours (Table) 12/12/23 12/12/23 12/12/23 Range/Units 09:30 09:30 09:30 RBC 3.85 L (4.30-5.90) m/uL Hgb 11.1 L (13.0-17.5) gm/dL Hct 33.0 L (39.0-53.0) % Neutrophils # 8.1 H (1.3-7.7) k/uL Lymphocytes # 0.7 L (1.0-4.8) k/uL PT 37.7 H (10.0-12.5) sec INR 3.9 H (<1.2) APTT 52.6 H (22.0-30.0) sec Sodium 136 L (137-145) mmol/L Chloride 97 L (98-107) mmol/L BUN 48 H (9-20) mg/dL Creatinine 6.39 H (0.66-1.25) mg/dL Glucose 105 H (74-99) mg/dL Diabetes panel 12/12/23 Range/Units 09:30 Sodium 136 L (137-145) mmol/L Potassium 3.8 (3.5-5.1) mmol/L Chloride 97 L (98-107) mmol/L Carbon Dioxide 23 (22-30) mmol/L BUN 48 H (9-20) mg/dL Creatinine 6.39 H (0.66-1.25) mg/dL Glucose 105 H (74-99) mg/dL Calcium 8.4 (8.4-10.2) mg/dL AST 22 (17-59) U/L ALT 11 (4-49) U/L Alkaline Phosphatase 72 (38-126) U/L Total Protein 6.6 (6.3-8.2) g/dL Albumin 3.6 (3.5-5.0) g/dL Calcium panel 12/12/23 Range/Units 09:30 Calcium 8.4 (8.4-10.2) mg/dL Albumin 3.6 (3.5-5.0) g/dL Pituitary panel 12/12/23 Range/Units 09:30 Sodium 136 L (137-145) mmol/L Potassium 3.8 (3.5-5.1) mmol/L Chloride 97 L (98-107) mmol/L Carbon Dioxide 23 (22-30) mmol/L BUN 48 H (9-20) mg/dL Creatinine 6.39 H (0.66-1.25) mg/dL Glucose 105 H (74-99) mg/dL Calcium 8.4 (8.4-10.2) mg/dL Adrenal panel 12/12/23 Range/Units 09:30 Sodium 136 L (137-145) mmol/L Potassium 3.8 (3.5-5.1) mmol/L Chloride 97 L (98-107) mmol/L Carbon Dioxide 23 (22-30) mmol/L BUN 48 H (9-20) mg/dL Creatinine 6.39 H (0.66-1.25) mg/dL Glucose 105 H (74-99) mg/dL Calcium 8.4 (8.4-10.2) mg/dL Total Bilirubin 0.8 (0.2-1.3) mg/dL AST 22 (17-59) U/L ALT 11 (4-49) U/L Alkaline Phosphatase 72 (38-126) U/L Total Protein 6.6 (6.3-8.2) g/dL Albumin 3.6 (3.5-5.0) g/dL
--- NOTE | 2023-12-12 14:28 | P.PCN ---
Description of Procedure: Procedure note patient was seen in the emergency room. This patient had a right IJ catheter placed in the past about a month ago patient started bleeding from the neck patient INR is 4 patient is on Coumadin neck was prepped and 1% lidocaine were infiltrated using 3-0 nylon a to stitches are placed and pressure dressing applied patient for the procedure well patient will be admitted overnight because of bleeding issue and patient will have a dialysis tomorrow stable patient can be discharged
[2023-12-12] MEDS: hydrALAZINE HCL 50 MG TAB PO SCH (15:06)
[2023-12-12] MEDS ORDERED: hydrALAZINE HCL 50 MG TAB PO SCH (16:00)
[2023-12-12] MEDS: NICOTINE 14MG/24HR PATCH TRANSDERM SCH (16:37)
[2023-12-12] MEDS: hydrALAZINE HCL 20 MG/ML 1 ML VIAL IVP PRN (16:37)
[2023-12-12] MEDS: carvediloL 12.5 MG TAB PO SCH (16:37)
[2023-12-12] MEDS ORDERED: carvediloL 12.5 MG TAB PO SCH ×2 (17:30→21:00)
[2023-12-12 19:45] VITALS: RESP 16
[2023-12-12] MEDS: amLODIPine 5 MG TAB PO SCH (20:09)
[2023-12-12] MEDS ORDERED: amLODIPine 2.5 MG TAB PO SCH (21:00)
[2023-12-12] MEDS: TEMAZEPAM 7.5 MG CAP PO ONE (21:28)
[2023-12-13] MEDS: THIAMINE 100 MG TAB PO SCH (08:32)
[2023-12-13] MEDS: ISOSORBIDE MONONITRATE ER 30 MG TAB.ER.24H PO SCH (08:32)
[2023-12-13] MEDS: TORSEMIDE 20 MG TAB PO SCH (08:33)
[2023-12-13 08:35] LABS: Basophils # (A) 0.08 X 10*3/uL (0.00-0.10); Basophils % (A) 0.9 %; Eosinophils # (A) 0.39 X 10*3/uL (0.04-0.35); Eosinophils % (A) 4.3 %; HCT 29.6 % (39.6-50.0); HGB 9.6 g/dL (13.0-17.0); Lymphocytes # (A) 0.88 X 10*3/uL (0.90-5.00); Lymphocytes % (A) 9.8 %; MCH 27.7 pg (27.0-32.0); MCHC 32.4 g/dL (32.0-37.0); MCV 85.5 FL (80.0-97.0); Mean Platelet Volume 10.8 FL (9.5-12.2); Monocytes # (A) 0.77 X 10*3/uL (0.20-1.00); Monocytes % (A) 8.6 %; NRBC Per 100 WBC 0 X 10*3/uL (0.00-0.01); Neutrophils % (A) 75.6 %; Platelet Count 242 X 10*3/uL (140-440); RBC 3.46 X 10*6/uL (4.40-5.60); RDW 14.5 % (11.5-14.5); WBC 8.99 X 10*3/uL (4.50-10.00)
--- NOTE | 2023-12-13 11:28 | P.PN ---
Subjective Patient is seen in follow-up for end-stage renal disease. He is maintained on hemodialysis on Wednesday schedule. Currently seen while undergoing hemodialysis. Denies chest pain or shortness of breath. No bleeding from the access site. Vital signs are stable. General: No acute distress. HEENT: Head exam is unremarkable. LUNGS: No audible rhonchi or wheezes. HEART: Rate and Rhythm are regular. ABDOMEN: Nontender. EXTREMITITES: No edema. Objective - Vital Signs Vital signs: Vital Signs Temp 97.3 F L 12/13/23 07:00 Pulse 73 12/13/23 07:00 Resp 16 12/13/23 07:00 BP 160/73 12/13/23 07:00 Pulse Ox 98 12/13/23 07:00 FiO2 Intake & Output 12/12/23 12/13/23 12/13/23 18:59 06:59 18:59 Weight 102.058 kg Other: # Voids 1 - Labs CBC & Chem 7: 12/13/23 05:40 12/12/23 09:30 Labs: Abnormal Lab Results - Last 24 Hours (Table) 12/13/23 Range/Units 05:40 RBC 3.46 L (4.40-5.60) X 10*6/uL Hgb 9.6 L (13.0-17.0) g/dL Hct 29.6 L (39.6-50.0) % Immature Gran # 0.07 H (0.00-0.04) X 10*3/uL Lymphocytes # 0.88 L (0.90-5.00) X 10*3/uL Eosinophils # 0.39 H (0.04-0.35) X 10*3/uL Assessment and Plan Plan: Assessment: 1. Acute kidney injury, hemodialysis dependent. Started on hemodialysis November 25, 2023 due to severe AVA. Serologies negative except for positive TAVARES. No hydronephrosis on kidney ultrasound. 2. Chronic kidney disease stage IV with concern for progression to end-stage renal disease. Suspect nephrosclerosis. 3. Bleeding from permacath, now resolved. 4. Coagulopathy from Coumadin. 5. History of aortic valve replacement. 6. Hypertension with chronic kidney disease. Plan: Currently seen while undergoing hemodialysis. Monitor for renal recovery outpatient. Potential discharge after dialysis today.
[2023-12-13 11:49] LABS: INR 4.2 (<1.2)
--- NOTE | 2023-12-13 13:35 | P.HPIM ---
History of Present Illness H&P Date: 12/13/23 Chief Complaint: Bleeding from prior surgical incision This is a 63-year-old gentleman with past medical history significant for mechanical aortic valve on Coumadin ,ESRD on HD,presented to the ER with bleeding from previous surgical site of recently placed permacath on the right chest wall. Prior to his most recent discharge on 12/08/2023, stitch was removed and developed bleeding. Denies trauma, denies picking or manipulating site. Denies chest pain, palpitations or shortness of breath. Denies lightheadedness, dizziness or focal deficits. Evaluated by vascular surgery, stitches placed with pressure dressing over permacath site. Bleeding resolved. Hemodialysis s cheduled for this morning. Review of Systems ROS Statement: Those systems with pertinent positive or pertinent negative responses have been documented in the HPI. ROS Other: All systems not noted in ROS Statement are negative. Past Medical History Past Medical History: CVA/TIA, GERD/Reflux, Hyperlipidemia, Hypertension, Renal Disease, Sleep Apnea/CPAP/BIPAP Additional Past Medical History / Comment(s): stress test abnormal, cva 2 yrs ago lft arm tires quickly, questioning possible [place],no cpap used See Dr Ibarra's H & P History of Any Multi-Drug Resistant Organisms: None Reported Past Surgical History: Cardiac Valve Replacement Additional Past Surgical History / Comment(s): 2003 aortic valve replaced, cerebral aneurysm repaired 2021, PermaCath 11-22-2023 Past Anesthesia/Blood Transfusion Reactions: No Reported Reaction Additional Past Anesthesia/Blood Transfusion Reaction / Comment(s): no hx of blood tx Past Psychological History: No Psychological Hx Reported Smoking Status: Current every day smoker Past Alcohol Use History: Rare Additional Past Alcohol Use History / Comment(s): 6-10 per /day/ Past Drug Use History: None Reported - Past Family History Father History Unknown: Yes Medications and Allergies Home Medications Medication Instructions Recorded Confirmed Type hydrALAZINE HCL [Apresoline] 100 mg PO TID #270 tablet 10/13/23 12/12/23 Rx Isosorbide Mononitrate ER [Imdur] 30 mg PO DAILY #30 tab 11/29/23 12/12/23 Rx Thiamine [Vitamin B-1] 100 mg PO DAILY tab 11/29/23 12/12/23 Rx carvediloL [Coreg*] 12.5 mg PO BID-W/MEALS #60 tab 12/08/23 12/12/23 Rx Torsemide [Demadex] 40 mg PO DAILY 12/12/23 12/12/23 History amLODIPine [Norvasc] 2.5 mg PO BID 12/12/23 12/12/23 History Nicotine 14Mg/24Hr Patch [Habitrol] 1 patch TRANSDERM DAILY patch 12/13/23 Rx Warfarin [Coumadin] 4 mg PO DAILY@1800 #0 12/13/23 12/12/23 Rx Allergies Allergy/AdvReac Type Severity Reaction Status Date / Time No Known Allergies Allergy Verified 12/12/23 09:38 Physical Exam Vitals: Vital Signs Temp Pulse Pulse Resp BP BP BP 12/13/23 12:52 97.9 F 72 16 150/79 12/13/23 07:00 97.3 F L 73 16 160/73 12/13/23 06:24 82 164/82 12/13/23 01:30 97.8 F 83 16 169/93 12/12/23 19:00 98.5 F 91 16 158/87 12/12/23 17:53 178/98 12/12/23 15:06 93 18 164/103 12/12/23 15:00 98.4 F 93 17 199/109 Pulse Ox 12/13/23 12:52 12/13/23 07:00 98 12/13/23 06:24 98 12/13/23 01:30 99 12/12/23 19:00 97 12/12/23 17:53 12/12/23 15:06 96 12/12/23 15:00 99 Intake and Output 12/12/23 12/13/23 12/13/23 22:59 06:59 14:59 Intake Total 2500 Output Total 500 Balance 2000 Intake: Hemodialysis 2500 Output: Hemodialysis 500 Other: # Voids 1 1 Weight 102.058 kg Gen: well developed, well nourished, NAD HEENT: NC/AT, mmm Neck: supple no JVD or thyromegaly CV: RRR, systolic murmur noted Lungs: Normal effort, clear throughout Abd: soft, nontender, non distended, BS+ Neuro: alert and oriented x3, no focal deficits Skin: warm and dry Results CBC & Chem 7: 12/13/23 05:40 12/12/23 09:30 Labs: Abnormal Lab Results - Last 24 Hours (Table) 12/13/23 12/13/23 Range/Units 05:40 10:24 RBC 3.46 L (4.40-5.60) X 10*6/uL Hgb 9.6 L (13.0-17.0) g/dL Hct 29.6 L (39.6-50.0) % Immature Gran # 0.07 H (0.00-0.04) X 10*3/uL Lymphocytes # 0.88 L (0.90-5.00) X 10*3/uL Eosinophils # 0.39 H (0.04-0.35) X 10*3/uL PT 41.0 H (10.0-12.5) sec INR 4.2 H (<1.2) Thrombosis Risk Factor Assmnt - Choose All That Apply Any of the Below Risk Factors Present?: Yes Each Factor Represents 1 point: Obesity (BMI >25) Other Risk Factors: Yes Each Risk Factor Represents 2 Points: Age 61-74 years Thrombosis Risk Factor Assessment Total Risk Factor Score: 3 Thrombosis Risk Factor Assessment Level: Moderate Risk Assessment and Plan Assessment: Bleeding from permacath, resolved Mechanical AVR, on Coumadin. Maintain INR 2.5-3.5. Home Coumadin dose decreased, recheck INR with cardiology this week. Coumadin monitoring outpatient as per cardiology. Patient has been scheduled to follow-up with Dr. Ibarra this week on 12/15. ESRD on HD Hypertension Plan: Continue on current medication regimen ,monitoring and symptomatic treatment. Significant clinical improvement. Cleared by nephrology for discharge patient will be discharged home today, after hemodialysis, in a stable condition with guarded prognosis with decreased dose of Coumadin, recheck INR this week with cardiology. Hemodialysis as per nephrology. The impression and plan of care has been dictated as directed. : I performed a history and examination of this patient, discussed the same with the dictator. I agree with the dictator's note ,documented as a scribe. Any additional findings or plans will be noted.
[2023-12-13 15:09] VITALS: BP 113/74; PULSE 82; TEMP 98.4
[2023-12-13] MEDS ORDERED: WARFARIN 0.5 MG TAB PO ONE (18:00)
== END 2023-12-13 16:47 | disposition home or self-care (01) ==
LOC: EC 09:24 → SUPCPDRO 09:24 → 6NMEDSUR 11:45
PROVIDERS: ADMIT Family Medicine; ATTEND Family Medicine
DX: Z48.3 Aftercare following surgery for neoplasm (principal); R79.1 Abnormal coagulation profile; T45.515A Adverse effect of anticoagulants, initial encounter; N17.9 Acute kidney failure, unspecified; I13.0 Hypertensive heart and chronic kidney disease with heart failure and stage 1 through stage 4 chronic kidney disease, or unspecified chronic kidney disease; I50.9 Heart failure, unspecified; N18.4 Chronic kidney disease, stage 4 (severe); Z99.2 Dependence on renal dialysis; K21.9 Gastro-esophageal reflux disease without esophagitis; E78.5 Hyperlipidemia, unspecified; G47.30 Sleep apnea, unspecified; F17.200 Nicotine dependence, unspecified, uncomplicated; Z86.73 Personal history of transient ischemic attack (TIA), and cerebral infarction without residual deficits; Z95.2 Presence of prosthetic heart valve; Z79.01 Long term (current) use of anticoagulants; Z79.899 Other long term (current) drug therapy
CPT/HCPCS: 96374; 99284; 36415; 86900; 86901; 80053; 85025 ×2; 85610 ×2; 85730; 86850; G0378 ×2; S4990 ×2; J0360; 90935

== ENCOUNTER 2023-12-14 14:04 | Observation (INO) | payer BC, OTHER ==
--- NOTE | 2023-12-14 14:23 | ED ---
Wound/Laceration HPI - General Chief Complaint: Wound/Laceration Stated Complaint: Neck Lac Time Seen by Provider: 12/14/23 14:10 Source: patient, RN notes reviewed Mode of arrival: ambulatory Limitations: no limitations - History of Present Illness Initial Comments: 63-year-old male chief complaint of bleeding from his insertion of a port catheter site on the right side of his neck which was placed at the beginning of November for dialysis. States that he was admitted to [facility] on December 11 for a similar occurrence with bleeding from his IJ insertion site of a port catheter, patient states that new sutures were placed and he was discharged home. Patient states that yesterday morning while he was at home a home nurse came, where he expressed that he has been experiencing blood loss and oozing/leakage from his IJ where the port catheter insertion site was, he was instructed to come to the emergency department for further evaluation. Patient denies any fevers, weakness, lightheadedness. He denies any obvious injury or trauma to the area. Is on warfarin for an aortic valve replacement. - Related Data Home Medications Medication Instructions Recorded Confirmed Torsemide [Demadex] 40 mg PO DAILY 12/12/23 12/14/23 amLODIPine [Norvasc] 2.5 mg PO BID 12/12/23 12/14/23 Previous Rx's Medication Instructions Recorded hydrALAZINE HCL [Apresoline] 100 mg PO TID #270 tablet 10/13/23 Isosorbide Mononitrate ER [Imdur] 30 mg PO DAILY #30 tab 11/29/23 Thiamine [Vitamin B-1] 100 mg PO DAILY tab 11/29/23 carvediloL [Coreg*] 12.5 mg PO BID-W/MEALS #60 tab 12/08/23 Nicotine 14Mg/24Hr Patch [Habitrol] 1 patch TRANSDERM DAILY patch 12/13/23 Warfarin [Coumadin] 4 mg PO DAILY@1800 #0 12/13/23 Allergies Allergy/AdvReac Type Severity Reaction Status Date / Time No Known Allergies Allergy Verified 12/14/23 19:49 Review of Systems ROS Statement: Those systems with pertinent positive or pertinent negative responses have been documented in the HPI. ROS Other: All systems not noted in ROS Statement are negative. Past Medical History Past Medical History: CVA/TIA, GERD/Reflux, Hyperlipidemia, Hypertension, Sleep Apnea/CPAP/BIPAP Additional Past Medical History / Comment(s): stress test abnormal, cva 2 yrs ago lft arm tires quickly, questioning possible [place],no cpap used See Dr Ibarra's H & P History of Any Multi-Drug Resistant Organisms: None Reported Past Surgical History: Cardiac Valve Replacement Additional Past Surgical History / Comment(s): 2003 aortic valve replaced, cerebral aneurysm repaired 2021, PermaCath 11-22-2023 Past Anesthesia/Blood Transfusion Reactions: No Reported Reaction Additional Past Anesthesia/Blood Transfusion Reaction / Comment(s): no hx of blood tx Past Psychological History: No Psychological Hx Reported Past Alcohol Use History: Occasional - Past Family History Father History Unknown: Yes General Exam - General Exam Comments Initial Comments: Visual Physical Exam Vital signs reviewed General: Well-appearing, nontoxic, no acute distress. Head: Normocephalic, atraumatic Eyes: PERRLA, EOMI ENT: Airway patent Chest: Nonlabored breathing Skin: No visual rash, normal skin tone Neuro: Alert and oriented 3 Musculoskeletal: No gross abnormalities Limitations: no limitations General appearance: alert, in no apparent distress Head exam: Present: atraumatic, normocephalic, normal inspection Eye exam: Present: normal appearance, PERRL, EOMI. Absent: scleral icterus, conjunctival injection, periorbital swelling ENT exam: Present: normal exam, mucous membranes moist Neck exam: Present: other (right IJ sutures in place with weeping/oozing from previous site of catheter placement) Respiratory exam: Present: normal lung sounds bilaterally. Absent: respiratory distress, wheezes, rales, rhonchi, stridor Cardiovascular Exam: Present: regular rate, normal rhythm, normal heart sounds. Absent: systolic murmur, diastolic murmur, rubs, gallop, clicks GI/Abdominal exam: Present: soft, normal bowel sounds. Absent: distended, tenderness, guarding, rebound, rigid Extremities exam: Present: normal inspection, full ROM, normal capillary refill. Absent: tenderness, pedal edema, joint swelling, calf tenderness Back exam: Present: normal inspection Neurological exam: Present: alert, oriented X3, CN II-XII intact Psychiatric exam: Present: normal affect, normal mood Skin exam: Present: warm, dry, intact, normal color, other (right side of neck IJ sutures placed with minor hematoma and oozing/leakage of blood from site. Port catheter in place on right chest which is intact and sterilely covered.). Absent: rash Course Vital Signs 12/14/23 12/14/23 12/15/23 14:08 21:39 01:00 Temperature 97.8 F Pulse Rate 90 98 92 Respiratory 16 18 18 Rate Blood Pressure 177/101 175/88 175/97 O2 Sat by Pulse 99 97 98 Oximetry 12/15/23 12/15/23 12/15/23 04:04 05:31 06:23 Temperature Pulse Rate 90 90 Respiratory 18 18 Rate Blood Pressure 185/117 189/115 188/105 O2 Sat by Pulse 98 99 Oximetry Medical Decision Making - Medical Decision Making Was pt. sent in by a medical professional or institution (, PA, TIRE FIXER, urgent care, hospital, or custodial...) When possible be specific @ -No Did you speak to anyone other than the patient for history (EMS, parent, family, police, friend...)? What history was obtained from this source @ -No Did you review nursing and triage notes (agree or disagree)? Why? @ -I reviewed and agree with nursing and triage notes Were old charts reviewed (outside hosp., previous admission, EMS record, old EKG, old radiological studies, urgent care reports/EKG's, custodial records)? Report findings @ -Admission was reviewed from the where patient underwent revision of his catheter site replacement and a new sutures were placed. Differential Diagnosis (chest pain, altered mental status, abdominal pain women, abdominal pain men, vaginal bleeding, weakness, fever, dyspnea, syncope, headache, dizziness, GI bleed, back pain, seizure, CVA, palpatations, mental health, musculoskeletal)? @ -Port catheter placement dehissence, improper placement of sutures EKG interpreted by me (3pts min.). @ -none X-rays interpreted by me (1pt min.). @ -None done CT interpreted by me (1pt min.). @ -None done U/S interpreted by me (1pt. min.). @ -None done What testing was considered but not performed or refused? (CT, X-rays, U/S, labs)? Why? @ -None What meds were considered but not given or refused? Why? @ -None Did you discuss the management of the patient with other professionals (professionals i.e. , PA, TIRE FIXER, lab, RT, psych nurse, clinical social work aide, director of national sales, teacher, chief medical officer, shoe parts caser)? Give summary @ -I discussed this case with, Dr. Chapman, pending which completed the procedure on December 11. He states that he will come and visit the patient to determine if he needs further suturing. He was seen would like the patient to be admitted for further evaluation tomorrow. He also advised that the patient be started on Ancef for antibiotic coverage due to open wound on the patient's neck. Was smoking cessation discussed for >3mins.? @ -No Was critical care preformed (if so, how long)? @ -No Were there social determinants of health that impacted care today? How? (Homelessness, low income, unemployed, alcoholism, drug addiction, transportation, low edu. Level, literacy, decrease access to med. care, penitentiary, rehab)? @ -No Was there de-escalation of care discussed even if they declined (Discuss DNR or withdrawal of care, Hospice)? DNR status @ -No What co-morbidities impacted this encounter? (DM, HTN, Smoking, COPD, CAD, Cancer, CVA, ARF, Chemo, Hep., AIDS, mental health diagnosis, sleep apnea, morbid obesity)? @ -None Was patient admitted / discharged? Hospital course, mention meds given and route, prescriptions, significant lab abnormalities, going to OR and other pertinent info. @ - Admitted. 63-year-old male chief complaint of bleeding and oozing from his port catheter placement. discussed this case with, Dr. Chapman, pending which completed the procedure on December 11. He states that he will come and visit the patient to determine if he needs further suturing. Patient CMP unremarkable, coagulation profile PT 33.6, INR 3.4, APTT 59.3. Spopke with Dr. Tillman with the patient started on Antibiotics, Kefsol, and Admitted to Dr. Sutton. He was seen would like the patient to be admitted for further evaluation tomorrow. He also advised that the patient be started on kefsol for antibiotic coverage due to open wound on the patient's neck. Undiagnosed new problem with uncertain prognosis? @ -No Drug The for Further Evaluation.rapy requiring intensive monitoring for toxicity (Heparin, Nitro, Insulin, Cardizem)? @ -No Were any procedures done? @ -No Diagnosis/symptom? @ -wound, bleeding from port cath Acute, or Chronic, or Acute on Chronic? @ -acute Uncomplicated (without systemic symptoms) or Complicated (systemic symptoms)? @ -complicated Side effects of treatment? @ -No Exacerbation, Progression, or Severe Exacerbation? @ -No Poses a threat to life or bodily function? How? (Chest pain, [place], [place], pneumonia, PE, COPD, DKA, ARF, appy, cholecystitis, CVA, Diverticulitis, Homicidal, Suicidal, threat to staff... and all critical care pts) @ -Yes, bleeding from IJ site can lead to infection or severe blood loss if not managed. - Lab Data Result diagrams: 12/14/23 14:44 12/15/23 07:20 Lab Results 12/14/23 12/14/23 12/14/23 Range/Units 14:44 14:44 14:44 WBC 9.4 (3.8-10.6) k/uL RBC 3.45 L (4.30-5.90) m/uL Hgb 10.2 L (13.0-17.5) gm/dL Hct 29.8 L (39.0-53.0) % MCV 86.2 (80.0-100.0) fL MCH 29.6 (25.0-35.0) pg MCHC 34.4 (31.0-37.0) g/dL RDW 15.1 (11.5-15.5) % Plt Count 278 (150-450) k/uL MPV 8.0 Neutrophils % 75 % Lymphocytes % 10 % Monocytes % 8 % Eosinophils % 5 % Basophils % 1 % Neutrophils # 7.0 (1.3-7.7) k/uL Lymphocytes # 1.0 (1.0-4.8) k/uL Monocytes # 0.7 (0-1.0) k/uL Eosinophils # 0.4 (0-0.7) k/uL Basophils # 0.1 (0-0.2) k/uL PT 33.6 H (10.0-12.5) sec INR 3.4 H (<1.2) APTT 59.3 H (22.0-30.0) sec Sodium 137 (137-145) mmol/L Potassium 3.4 L (3.5-5.1) mmol/L Chloride 100 (98-107) mmol/L Carbon Dioxide 22 (22-30) mmol/L Anion Gap 15 mmol/L BUN 43 H (9-20) mg/dL Creatinine 6.09 H (0.66-1.25) mg/dL Est GFR (CKD-EPI)AfAm 10 (>60 ml/min/1.73 sqM) Est GFR (CKD-EPI)NonAf 9 (>60 ml/min/1.73 sqM) Glucose 118 H (74-99) mg/dL Calcium 8.3 L (8.4-10.2) mg/dL Total Bilirubin 0.5 (0.2-1.3) mg/dL AST 15 L (17-59) U/L ALT 10 (4-49) U/L Alkaline Phosphatase 84 (38-126) U/L Total Protein 6.6 (6.3-8.2) g/dL Albumin 3.5 (3.5-5.0) g/dL Disposition Clinical Impression: Port-A-Cath in place Disposition: ADMITTED IP TO THIS [facility] Condition: Good Is patient prescribed a controlled substance at d/c from ED?: No Decision to Admit Reason: Admit from EC Decision Date: 12/14/23 Decision Time: 19:02
[2023-12-14 14:55] LABS: Basophils # (A) 0.1 k/uL (0-0.2); Basophils % (A) 1 %; Eosinophils # (A) 0.4 k/uL (0-0.7); Eosinophils % (A) 5 %; HCT 29.8 % (39.0-53.0); HGB 10.2 gm/dL (13.0-17.5); Lymphocytes % (A) 10 %; MCH 29.6 pg (25.0-35.0); MCHC 34.4 g/dL (31.0-37.0); MCV 86.2 fL (80.0-100.0); Monocytes # (A) 0.7 k/uL (0-1.0); Monocytes % (A) 8 %; Neutrophils % (A) 75 %; Platelet Count 278 k/uL (150-450); RBC 3.45 m/uL (4.30-5.90); RDW 15.1 % (11.5-15.5); WBC 9.4 k/uL (3.8-10.6)
[2023-12-14 15:09] LABS: INR 3.4 (<1.2); Partial Thromboplastin Time 59.3 sec (22.0-30.0); Prothrombin Time 33.6 sec (10.0-12.5)
[2023-12-14 16:09] LABS: ALT 10 U/L (4-49); AST 15 U/L (17-59); African American GFR (CKD) 10 (>60 ml/min/1.73 sqM); Albumin 3.5 g/dL (3.5-5.0); Alkaline Phosphatase 84 U/L (38-126); Anion Gap 15 mmol/L; Blood Urea Nitrogen 43 mg/dL (9-20); Calcium 8.3 mg/dL (8.4-10.2); Carbon Dioxide 22 mmol/L (22-30); Chloride 100 mmol/L (98-107); Glucose 118 mg/dL (74-99); Non-African American GFR(CKD) 9 (>60 ml/min/1.73 sqM); Potassium 3.4 mmol/L (3.5-5.1); Sodium 137 mmol/L (137-145); Total Bilirubin 0.5 mg/dL (0.2-1.3); Total Protein 6.6 g/dL (6.3-8.2)
[2023-12-14] MEDS: LIDOCAINE 1% INJ 10MG/ML (20 ML MDV) SQ ONE (18:00)
[2023-12-14] MEDS ORDERED: NALOXONE 0.4 MG/ML 1 ML VIAL IV PRN (19:02)
[2023-12-14] MEDS: NICOTINE 21MG/24HR PATCH TRANSDERM STA (19:46)
[2023-12-15] MEDS: hydrALAZINE HCL 50 MG TAB PO ONE (04:34)
[2023-12-15] MEDS: ISOSORBIDE MONONITRATE ER 30 MG TAB.ER.24H PO SCH (08:47)
[2023-12-15] MEDS: THIAMINE 100 MG TAB PO SCH (08:47)
[2023-12-15] MEDS: amLODIPine 2.5 MG TAB PO SCH (08:47)
[2023-12-15] MEDS: hydrALAZINE HCL 50 MG TAB PO SCH (08:48)
[2023-12-15] MEDS: TORSEMIDE 20 MG TAB PO SCH (08:48)
[2023-12-15] MEDS: carvediloL 12.5 MG TAB PO SCH (08:51)
[2023-12-15 10:31] LABS: INR 3.7 (<1.2); Partial Thromboplastin Time 57.8 sec (22.0-30.0); Prothrombin Time 36.3 sec (10.0-12.5)
[2023-12-15] MEDS: ESCITALOPRAM 10 MG TAB PO SCH (11:57)
[2023-12-15] MEDS ORDERED: hydrALAZINE HCL 20 MG/ML 1 ML VIAL IVP PRN (12:23)
--- NOTE | 2023-12-15 12:24 | P.NPCON ---
History of Present Illness - Reason for Consult acute renal failure - History of Present Illness Reason for consultation: Acute kidney injury, hemodialysis dependent History of present illness: Patient is a 63-year-old male seen in renal consultation for acute kidney injury on chronic kidney disease. Patient is maintained on hemodialysis on Wednesday schedule. He was started on hemodialysis on November 25, 2023 due to severely impaired renal function. Serologies were negative except for p ositive TAVARES. Patient came to the hospital due to bleeding from the access site. He was just discharged with similar complaints and states when he went back he noticed bleeding again overnight from his catheter site. He was seen by vascular surgery and currently has a pressure dressing applied. He is tolerating dialysis well. Denies chest pain or shortness of breath. Patient has history of CHF ejection fraction of 40%. He denies history of diabetes. No history of coronary artery disease. Patient does take Coumadin due to aortic valve replacement. Patient is due to get his catheter exchanged this afternoon. Vital signs are stable. Blood pressure high. General: No acute distress. HEENT: Head exam is unremarkable. LUNGS: No audible rhonchi or wheezes. HEART: Rate and Rhythm are regular. ABDOMEN: Nontender. EXTREMITITES: No edema. Past Medical History Past Medical History: CVA/TIA, GERD/Reflux, Hyperlipidemia, Hypertension, Sleep Apnea/CPAP/BIPAP Additional Past Medical History / Comment(s): stress test abnormal, cva 2 yrs ago lft arm tires quickly, questioning possible [place],no cpap used See Dr Ibarra's H & P History of Any Multi-Drug Resistant Organisms: None Reported Past Surgical History: Cardiac Valve Replacement Additional Past Surgical History / Comment(s): 2003 aortic valve replaced, cerebral aneurysm repaired 2021, PermaCath 11-22-2023 Past Anesthesia/Blood Transfusion Reactions: No Reported Reaction Additional Past Anesthesia/Blood Transfusion Reaction / Comment(s): no hx of blood tx Past Psychological History: No Psychological Hx Reported Smoking Status: Current every day smoker Past Alcohol Use History: Occasional Additional Past Alcohol Use History / Comment(s): 6-10 per /day/ Past Drug Use History: None Reported - Past Family History Father History Unknown: Yes Medications and Allergies Home Medications Medication Instructions Recorded Confirmed Type hydrALAZINE HCL [Apresoline] 100 mg PO TID #270 tablet 10/13/23 12/14/23 Rx Isosorbide Mononitrate ER [Imdur] 30 mg PO DAILY #30 tab 11/29/23 12/14/23 Rx Thiamine [Vitamin B-1] 100 mg PO DAILY tab 11/29/23 12/14/23 Rx carvediloL [Coreg*] 12.5 mg PO BID-W/MEALS #60 tab 12/08/23 12/14/23 Rx Torsemide [Demadex] 40 mg PO DAILY 12/12/23 12/14/23 History amLODIPine [Norvasc] 2.5 mg PO BID 12/12/23 12/14/23 History Nicotine 14Mg/24Hr Patch [Habitrol] 1 patch TRANSDERM DAILY patch 12/13/23 12/14/23 Rx Warfarin [Coumadin] 4 mg PO DAILY@1800 #0 12/13/23 12/14/23 Rx Allergies Allergy/AdvReac Type Severity Reaction Status Date / Time No Known Allergies Allergy Verified 12/14/23 19:49 Physical Exam Vitals: Vital Signs Temp Pulse Pulse Resp BP BP Pulse Ox 12/15/23 07:54 98.1 F 90 16 197/115 98 12/15/23 06:23 90 18 188/105 99 12/15/23 05:31 189/115 12/15/23 04:04 90 18 185/117 98 12/15/23 01:00 92 18 175/97 98 12/14/23 21:39 98 18 175/88 97 12/14/23 14:08 97.8 F 90 16 177/101 99 Intake and Output 12/14/23 12/15/23 12/15/23 22:59 06:59 14:59 Intake Total 240 Balance 240 Intake: Oral 240 Other: Weight 102.512 kg Results - Lab Results Most recent lab results Calcium 8.3 mg/dL (8.4-10.2) L 12/14/23 14:44 12/14/23 14:44 12/15/23 07:20 Assessment and Plan Plan: Assessment: 1. Acute kidney injury, hemodialysis dependent. Maintain on hemodialysis on Wednesday schedule. Started on hemodialysis November 25, 2023 due to severe AVA/ATN. 2. Chronic kidney disease stage IV with concern for progression to end-stage r enal disease. Suspect nephrosclerosis. 3. Bleeding from permacath. 4. Coagulopathy from Coumadin. 5. History of aortic valve replacement. 6. Hypertension with chronic kidney disease. 7. Anemia of chronic kidney disease. Plan: Currently seen while undergoing hemodialysis. Scheduled for permacath exchange this afternoon. Coumadin held. Home antihypertensives resumed. Add IV as needed hydralazine. Monitor for renal recovery outpatient. Check phosphorus level. Check iron studies. Thank you for the consultation. I will continue to follow the patient with you during his hospital stay.
--- NOTE | 2023-12-15 13:48 | P.HPIM ---
History of Present Illness H&P Date: 12/15/23 Chief Complaint: Oozing from perm. catheter site This is a 63-year-old gentleman with past medical history significant for mechanical aortic valve on Coumadin ,ESRD on HD,presented to the ER with recurrent bleeding noticed from previous surgical site of recently placed permac ath on the right chest wall. patient was discharged 12/13/2023 post evaluation by vascular surgery, Dr. Chapman with stitches placed, pressure dressing applied, with bleeding resolved. Denies trauma, denies picking or manipulating site. Denies chest pain, palpitations or shortness of breath. Denies lightheadedness, dizziness or focal deficits. Hemodialysis scheduled for this morning. Vascular surgery consult in place for potential catheter exchange. On admission patient was hypertensive , INR was therapeutic at 3.4. Hemoglobin stable at 10.2. Reports compliance with his med regimen including his antihypertensives. Reports compliance with his low-sodium diet, though he states he ate 2 small bags of potato chips yesterday and beef barley soup prior to that. Current INR pending. Review of Systems ROS Statement: Those systems with pertinent positive or pertinent negative responses have been documented in the HPI. ROS Other: All systems not noted in ROS Statement are negative. Past Medical History Past Medical History: CVA/TIA, GERD/Reflux, Hyperlipidemia, Hypertension, Sleep Apnea/CPAP/BIPAP Additional Past Medical History / Comment(s): stress test abnormal, cva 2 yrs ago lft arm tires quickly, questioning possible [facility],no cpap used See Dr Ibarra's H & P History of Any Multi-Drug Resistant Organisms: None Reported Past Surgical History: Cardiac Valve Replacement Additional Past Surgical History / Comment(s): 2003 aortic valve replaced, cerebral aneurysm repaired 2021, PermaCath 11-22-2023 Past Anesthesia/Blood Transfusion Reactions: No Reported Reaction Additional Past Anesthesia/Blood Transfusion Reaction / Comment(s): no hx of blood tx Past Psychological History: No Psychological Hx Reported Smoking Status: Current every day smoker Past Alcohol Use History: Occasional Additional Past Alcohol Use History / Comment(s): 6-10 per /day/ Past Drug Use History: None Reported - Past Family History Father History Unknown: Yes Medications and Allergies Home Medications Medication Instructions Recorded Confirmed Type hydrALAZINE HCL [Apresoline] 100 mg PO TID #270 tablet 10/13/23 12/14/23 Rx Isosorbide Mononitrate ER [Imdur] 30 mg PO DAILY #30 tab 11/29/23 12/14/23 Rx Thiamine [Vitamin B-1] 100 mg PO DAILY tab 11/29/23 12/14/23 Rx carvediloL [Coreg*] 12.5 mg PO BID-W/MEALS #60 tab 12/08/23 12/14/23 Rx Torsemide [Demadex] 40 mg PO DAILY 12/12/23 12/14/23 History amLODIPine [Norvasc] 2.5 mg PO BID 12/12/23 12/14/23 History Nicotine 14Mg/24Hr Patch [Habitrol] 1 patch TRANSDERM DAILY patch 12/13/23 12/14/23 Rx Warfarin [Coumadin] 4 mg PO DAILY@1800 #0 12/13/23 12/14/23 Rx Allergies Allergy/AdvReac Type Severity Reaction Status Date / Time No Known Allergies Allergy Verified 12/14/23 19:49 Physical Exam Vitals: Vital Signs Temp Pulse Pulse Resp BP BP Pulse Ox 12/15/23 12:24 98.3 F 88 18 150/94 12/15/23 07:54 98.1 F 90 16 197/115 98 12/15/23 06:23 90 18 188/105 99 12/15/23 05:31 189/115 12/15/23 04:04 90 18 185/117 98 12/15/23 01:00 92 18 175/97 98 12/14/23 21:39 98 18 175/88 97 12/14/23 14:08 97.8 F 90 16 177/101 99 Intake and Output 12/14/23 12/15/23 12/15/23 22:59 06:59 14:59 Intake Total 640 Output Total 1999 Balance -1360 Intake: Oral 240 Hemodialysis 400 Output: Hemodialysis 1999 Other: Weight 102.512 kg Gen: well developed, well nourished, NAD HEENT: NC/AT, mmm Neck: supple no JVD or thyromegaly CV: RRR, systolic murmur noted Lungs: Normal effort, clear throughout Abd: soft, nontender, non distended, BS+ Neuro: alert and oriented x3, no focal deficits Skin: warm and dry Results CBC & Chem 7: 12/14/23 14:44 12/15/23 07:20 Labs: Abnormal Lab Results - Last 24 Hours (Table) 12/14/23 12/14/23 12/14/23 Range/Units 14:44 14:44 14:44 RBC 3.45 L (4.30-5.90) m/uL Hgb 10.2 L (13.0-17.5) gm/dL Hct 29.8 L (39.0-53.0) % PT 33.6 H (10.0-12.5) sec INR 3.4 H (<1.2) APTT 59.3 H (22.0-30.0) sec Potassium 3.4 L (3.5-5.1) mmol/L BUN 43 H (9-20) mg/dL Creatinine 6.09 H (0.66-1.25) mg/dL Glucose 118 H (74-99) mg/dL Calcium 8.3 L (8.4-10.2) mg/dL AST 15 L (17-59) U/L 12/15/23 12/15/23 Range/Units 07:20 09:53 RBC (4.30-5.90) m/uL Hgb (13.0-17.5) gm/dL Hct (39.0-53.0) % PT 36.3 H (10.0-12.5) sec INR 3.7 H (<1.2) APTT 57.8 H (22.0-30.0) sec Potassium 3.4 L (3.5-5.1) mmol/L BUN (9-20) mg/dL Creatinine (0.66-1.25) mg/dL Glucose (74-99) mg/dL Calcium (8.4-10.2) mg/dL AST (17-59) U/L Thrombosis Risk Factor Assmnt - Choose All That Apply Any of the Below Risk Factors Present?: Yes Each Risk Factor Represents 2 Points: Age 61-74 years, Central venous access Other congenital or acquired thrombophilia - If yes, enter type in comment: No Thrombosis Risk Factor Assessment Total Risk Factor Score: 4 Thrombosis Risk Factor Assessment Level: Moderate Risk Assessment and Plan Assessment: Bleeding from permacath site. Mechanical AVR, on Coumadin. ESRD on HD Hypertension Depression Plan: Continue on current medication regimen ,monitoring and symptomatic treatment. Home antihypertensives resumed. vascular consult in place for PermaCath exchange. Nephrology consulted for hemodialysis ,as patient is on a Wednesday schedule. Lexapro and Xanax as needed at bedtime ordered as patient complains of anxiety/difficulty sleeping, depression over his health decline. Dietitian consulted for further teaching/reinforcement on his low-sodium diet. Coumadin as per pharmacy dosing. Discharge planning in progress for tomorrow. The impression and plan of care has been dictated as directed. : I performed a history and examination of this patient, discussed the same with the dictator. I agree with the dictator's note ,documented as a scribe. Any additional findings or plans will be noted.
[2023-12-15 14:02] VITALS: BMI 32.4
[2023-12-15] MEDS: NICOTINE 14MG/24HR PATCH TRANSDERM SCH (16:40)
[2023-12-15 17:40] LABS: % Iron Saturation 12.85 (15.00-50.00)
[2023-12-15] MEDS: WARFARIN 1 MG TAB PO ONE (20:06)
[2023-12-15] MEDS: ALPRAZolam 0.25 MG TAB PO PRN (21:06)
--- NOTE | 2023-12-16 01:18 | CONS ---
DATE OF CONSULTATION: 12/15/2023 This is a 63-year-old pleasant gentleman, who had a dialysis catheter placed on November 21, right jugular approach, stitches were removed, and patient came to the emergency room with history of bleeding from the neck incision site. There was some skin necrosis noted, and there is an opening of the incision at the neck area. He has been admitted. His INR was 3.5. The patient is on Coumadin. The patient has been admitted for dialysis and observation. PAST MEDICAL HISTORY: History of CVA in the past, hyperlipidemia, hypertension, sleep apnea. Patient had an abnormal stress test in the past. The patient had in 2003 aortic valve replaced. The patient also had cerebral aneurysm repaired in 2021. PHYSICAL EXAMINATION: GENERAL: Patient was seen in the emergency room. NECK: Supple. Patient has a right IJ catheter, with bleeding from the incision site of the catheter with skin necrosis. CHEST: Clear. First and second sounds present. ABDOMEN: Soft, nontender. EXTREMITIES: Femorals are 1+ bilaterally. Discussed with Nephrology. We will admit the patient, stop the Coumadin, and the patient will have dialysis. PLAN: We will remove this catheter and place a new catheter via left jugular approach when INR is stable. MMODL / IJN: [id number] / MTDD
[2023-12-16 07:43] LABS: Prothrombin Time 29.1 sec (10.0-12.5)
[2023-12-16 08:04] VITALS: RESP 16
[2023-12-16 09:53] LABS: HCT 29.8 % (39.0-53.0); HGB 9.9 gm/dL (13.0-17.5); MCH 28.9 pg (25.0-35.0); MCHC 33.3 g/dL (31.0-37.0); Mean Platelet Volume 8.9; Platelet Count 266 k/uL (150-450); RBC 3.43 m/uL (4.30-5.90); RDW 15.1 % (11.5-15.5); WBC 9.6 k/uL (3.8-10.6)
--- NOTE | 2023-12-16 12:08 | P.PN ---
Subjective Patient is seen in follow-up for end-stage renal disease. He is maintained on hemodialysis on Wednesday schedule. No problems with dialysis yesterday. No bleeding from the access site. Being followed by vascular surgery. Vital signs are stable. General: No acute distress. HEENT: Head exam is unremarkable. LUNGS: No audible rhonchi or wheezes. HEART: Rate and Rhythm are regular. ABDOMEN: Nontender. EXTREMITITES: No edema. Objective - Vital Signs Vital signs: Vital Signs Temp 97.7 F 12/16/23 07:00 Pulse 81 12/16/23 07:00 Resp 16 12/16/23 07:00 BP 143/84 12/16/23 07:00 Pulse Ox 95 12/16/23 07:00 FiO2 Intake & Output 12/15/23 12/16/23 12/16/23 18:59 06:59 18:59 Intake Total 640 420 Output Total 2000 Balance -1360 420 Weight 102.512 kg Intake: Oral 240 420 Hemodialysis 400 Output: Hemodialysis 2000 Other: Voiding Method Toilet Toilet # Voids 0 1 - Labs CBC & Chem 7: 12/16/23 06:26 12/15/23 07:20 Labs: Abnormal Lab Results - Last 24 Hours (Table) 12/15/23 12/16/23 12/16/23 Range/Units 07:20 06:26 06:26 RBC 3.43 L (4.30-5.90) m/uL Hgb 9.9 L (13.0-17.5) gm/dL Hct 29.8 L (39.0-53.0) % PT 29.1 H (10.0-12.5) sec INR 3.0 H (<1.2) Iron 32 L (65-175) UG/DL % Saturation 12.85 L (15.00-50.00) Transferrin 178.0 L (204.0-354.0) mg/dL Ferritin 402.0 H (22.0-322.0) ng/mL Assessment and Plan Plan: Assessment: 1. Acute kidney injury, hemodialysis dependent. Maintain on hemodialysis on Wednesday schedule. Started on hemodialysis November 25, 2023 due to severe AVA/ATN. 2. Chronic kidney disease stage IV with concern for progression to end-stage renal disease. Suspect nephrosclerosis. 3. Bleeding from permacath. Resolved. Being followed by vascular surgery. Will get permacath exchanged this admission. 4. Coagulopathy from Coumadin. 5. History of aortic valve replacement. 6. Hypertension with chronic kidney disease. 7. Anemia of chronic kidney disease. Iron deficiency noted. Plan: Hemodialysis tomorrow. Coumadin held. Add IV iron. Monitor for renal recovery outpatient. Follow-up phosphorus level.
[2023-12-16] MEDS: SODIUM FERRIC GLUCONAT-SUCROSE 125 MG in SODIUM CHLORIDE 0.9% 100 ML IVPB SCH (13:19)
--- NOTE | 2023-12-16 13:27 | P.DS ---
Providers Date of admission: 12/14/23 19:04 Expected date of discharge: 12/16/23 Attending physician: Terence Sutton MD Consults: 12/15/23 08:06 Consult Physician Routine Consulting Provider: Jovany Chapman Consult Reason/Comments: port a cath Do you want consulting provider notified?: Yes 12/15/23 08:17 Consult Physician Routine Consulting Provider: Natalie Montenegro Consult Reason/Comments: HD Do you want consulting provider notified?: Yes 12/15/23 12:03 Consult Physician Routine Consulting Provider: Daniel Montenegro Consult Reason/Comments: dialysis Do you want consulting provider notified?: Yes Primary care physician: Terence Sutton MD Hospital Course: Final Diagnoses: Bleeding from permacath site. Resolved Mechanical AVR, on Coumadin. Outpatient monitoring/management as per [facility]. ESRD on HD, Wednesdays Hypertension Depression Anemia of chronic kidney disease, iron deficient. Hospital course:This is a 63-year-old gentleman with past medical history significant for mechanical aortic valve on Coumadin ,ESRD on HD,presented to the ER with recurrent bleeding noticed from previous surgical site of recently placed permacath on the right chest wall. patient was discharged 12/13/2023 post evaluation by vascular surgery, Dr. Chapman with stitches placed, pressure dressing applied, with bleeding resolved. Denies trauma, denies picking or manipulating site. Denies chest pain, palpitations or shortness of breath. Denies lightheadedness, dizziness or focal deficits. Hemodialysis scheduled for this morning. Vascular surgery consult in place for potential catheter exchange. On admission patient was hypertensive , INR was therapeutic at 3.4. Hemoglobin stable at 10.2. Reports compliance with his med regimen including his antihypertensives. Reports compliance with his low-sodium diet, though he states he ate 2 small bags of potato chips yesterday and beef barley soup prior to that. Current INR pending. Significant clinical improvement. Bleeding subsided, no further surgical intervention at this time as per vascular surgery. Blood pressure controlled. Received Coumadin 1 mg last night, INR 3 and will decrease Coumadin dose at DC to 3 mg daily with recheck on Wednesday at [facility] office. Coumadin management as per cardiology outpatient. Received education from dietitian regarding low-sodium. Reports feels better, slept well. Denies chest pain, palpitations or shortness of breath. Denies lightheadedness, dizziness or focal deficits. Patient will be discharged home today, after further evaluation, final DC recommendations and clearance per vascular surgery. The impression and plan of care has been dictated as directed. : I performed a history and examination of this patient, discussed the same with the dictator. I agree with the dictator's note ,documented as a scribe. Any additional findings or plans will be noted. Patient Condition at Discharge: Stable Plan - Discharge Summary Discharge Rx Participant: Yes New Discharge Prescriptions: New Escitalopram [Lexapro] 10 mg PO DAILY #30 tab Ferrous Sulfate [Feosol] 325 mg PO DAILY #1 tab Sennosides-Docusate Sodium [Senokot-S] 2 tab PO HS #60 tablet Continue Thiamine [Vitamin B-1] 100 mg PO DAILY tab carvediloL [Coreg*] 12.5 mg PO BID-W/MEALS #60 tab hydrALAZINE HCL [Apresoline] 100 mg PO TID #270 tablet Isosorbide Mononitrate ER [Imdur] 30 mg PO DAILY #30 tab Torsemide [Demadex] 40 mg PO DAILY amLODIPine [Norvasc] 2.5 mg PO BID Nicotine 14Mg/24Hr Patch [Habitrol] 1 patch TRANSDERM DAILY patch Changed Warfarin [Coumadin] 3 mg PO DAILY@1800 #0 Discharge Medication List hydrALAZINE HCL [Apresoline] 100 mg PO TID #270 tablet 10/13/23 [Rx] Isosorbide Mononitrate ER [Imdur] 30 mg PO DAILY #30 tab 11/29/23 [Rx] Thiamine [Vitamin B-1] 100 mg PO DAILY tab 11/29/23 [Rx] carvediloL [Coreg*] 12.5 mg PO BID-W/MEALS #60 tab 12/08/23 [Rx] Torsemide [Demadex] 40 mg PO DAILY 12/12/23 [History] amLODIPine [Norvasc] 2.5 mg PO BID 12/12/23 [History] Nicotine 14Mg/24Hr Patch [Habitrol] 1 patch TRANSDERM DAILY patch 12/13/23 [Rx] Escitalopram [Lexapro] 10 mg PO DAILY #30 tab 12/16/23 [Rx] Ferrous Sulfate [Feosol] 325 mg PO DAILY #1 tab 12/16/23 [Rx] Sennosides-Docusate Sodium [Senokot-S] 2 tab PO HS #60 tablet 12/16/23 [Rx] Warfarin [Coumadin] 3 mg PO DAILY@1800 #0 12/16/23 [Rx] Follow up Appointment(s)/Referral(s): Terence Sutton MD [Primary Care Provider] - 3 Days Nathaniel Ibarra MD [STAFF PHYSICIAN] - 1 Week Ambulatory/Diagnostic Orders: Prothrombin Time INR [LAB.AMB] Time Frame: 12/20/23, Location: None Selected Activity/Diet/Wound Care/Special Instructions: Coumadin management outpatient with cardiology; cardiology monitoring with [facility]. Low sodium/renal diet Hemodialysis Wednesday as per nephrology
[2023-12-16 15:29] VITALS: BP 154/80; PULSE 82; TEMP 98.4
[2023-12-16] MEDS ORDERED: WARFARIN 2 MG TAB PO ONE (18:00)
[2023-12-17 01:00] LABS: BUN/Creat Ratio 6.05 Ratio (12.00-20.00); Blood Urea Nitrogen 45.4 mg/dL (9.0-27.0); Calcium 8.6 mg/dL (8.7-10.3); Chloride 98 mmol/L (96-109); Glucose 102 mg/dL (70-110); Potassium 3.6 mmol/L (3.5-5.5); Sodium 142 mmol/L (135-145)
== END 2023-12-16 16:18 | disposition home or self-care (01) ==
LOC: EC 14:04 → 6NMEDSUR 19:04
PROVIDERS: ADMIT Family Medicine; ATTEND Family Medicine
DX: T85.9XXA Unspecified complication of internal prosthetic device, implant and graft, initial encounter (principal); S11.91XA Laceration without foreign body of unspecified part of neck, initial encounter; Z95.2 Presence of prosthetic heart valve; Z79.899 Other long term (current) drug therapy; Z79.01 Long term (current) use of anticoagulants; Z86.73 Personal history of transient ischemic attack (TIA), and cerebral infarction without residual deficits; Z99.2 Dependence on renal dialysis; N18.6 End stage renal disease; D63.1 Anemia in chronic kidney disease; I13.2 Hypertensive heart and chronic kidney disease with heart failure and with stage 5 chronic kidney disease, or end stage renal disease; I50.9 Heart failure, unspecified; F32.A Depression, unspecified
CPT/HCPCS: 96365; 96366; 96375; 99285; 36415; 80053; 80048; 82728; 83540; 83550; 84100; 84132; 85025; 85027; 85610 ×3; 85730 ×2; G0378 ×3; S4990 ×3; J0690 ×2; J2001; J2916; 90935

== ENCOUNTER 2023-12-26 15:57 | Emergency (ER) | payer BC, OTHER ==
--- NOTE | 2023-12-26 16:03 | ED ---
Syncope HPI - General Stated Complaint: Syncope, Fall Time Seen by Provider: 12/26/23 16:01 Source: RN notes reviewed, old records reviewed Limitations: no limitations - History of Present Illness Initial Comments: This is a 63-year-old male to the ER for evaluation today. Patient was today for evaluation regards to a syncopal event syncopal event resulting in collapse with significant left elbow pain back pain neck pain. Patient denies loss of conscious no headache chest pain shortness of breath or abdominal pain. Patient does have complicated recent medical history is on Coumadin MD Complaint: loss of consciousness, collapsed -: hour(s) Prodromal Symptoms: lightheaded, nausea/vomiting -: second(s) Witnessed: yes - by bystander Current Symptoms: lightheaded, weakness History: previous syncopal episode Context: at rest Treatments Prior to Arrival: none - Related Data Home Medications Medication Instructions Recorded Confirmed Torsemide [Demadex] 40 mg PO DAILY 12/12/23 12/26/23 amLODIPine [Norvasc] 2.5 mg PO BID 12/12/23 12/26/23 Albuterol Inhaler [Ventolin Hfa 2 puff INHALATION RT-QID PRN 12/26/23 12/26/23 Inhaler] Nicotine 14Mg/24Hr Patch [Habitrol] 1 patch TRANSDERM DAILY PRN 12/26/23 12/26/23 Warfarin [Coumadin] 3 mg PO DAILY@1800 12/26/23 12/26/23 Previous Rx's Medication Instructions Recorded hydrALAZINE HCL [Apresoline] 100 mg PO TID #270 tablet 10/13/23 Isosorbide Mononitrate ER [Imdur] 30 mg PO DAILY #30 tab 11/29/23 Thiamine [Vitamin B-1] 100 mg PO DAILY tab 11/29/23 carvediloL [Coreg*] 12.5 mg PO BID-W/MEALS #60 tab 12/08/23 Escitalopram [Lexapro] 10 mg PO DAILY #30 tab 12/16/23 Ferrous Sulfate [Feosol] 325 mg PO DAILY #1 tab 12/16/23 Sennosides-Docusate Sodium 2 tab PO HS #60 tablet 12/16/23 [Senokot-S] Allergies Allergy/AdvReac Type Severity Reaction Status Date / Time No Known Allergies Allergy Verified 04/07/24 19:00 Review of Systems ROS Statement: Those systems with pertinent positive or pertinent negative responses have been documented in the HPI. ROS Other: All systems not noted in ROS Statement are negative. Past Medical History Past Medical History: CVA/TIA, GERD/Reflux, Hyperlipidemia, Hypertension, Sleep Apnea/CPAP/BIPAP Additional Past Medical History / Comment(s): stress test abnormal, cva 2 yrs ago lft arm tires quickly, questioning possible [place],no cpap used See Dr Ibarra's H & P History of Any Multi-Drug Resistant Organisms: None Reported Past Surgical History: Cardiac Valve Replacement Additional Past Surgical History / Comment(s): 2003 aortic valve replaced, c erebral aneurysm repaired 2021, PermaCath 11-22-2023 Past Anesthesia/Blood Transfusion Reactions: No Reported Reaction Additional Past Anesthesia/Blood Transfusion Reaction / Comment(s): no hx of blood tx Past Psychological History: No Psychological Hx Reported Smoking Status: Current every day smoker Past Alcohol Use History: Occasional Additional Past Alcohol Use History / Comment(s): 6-10 per /day/ Past Drug Use History: None Reported - Past Family History Father History Unknown: Yes General Exam General appearance: alert, in no apparent distress, anxious, in distress Head exam: Present: atraumatic, normocephalic, normal inspection Eye exam: Present: normal appearance, PERRL, EOMI. Absent: scleral icterus, conjunctival injection, periorbital swelling ENT exam: Present: normal exam, mucous membranes moist Neck exam: Present: normal inspection. Absent: tenderness, meningismus, lymphadenopathy Respiratory exam: Present: normal lung sounds bilaterally. Absent: respiratory distress, wheezes, rales, rhonchi, stridor Cardiovascular Exam: Present: regular rate, normal rhythm, normal heart sounds. Absent: systolic murmur, diastolic murmur, rubs, gallop, clicks GI/Abdominal exam: Present: soft, normal bowel sounds. Absent: distended, tend erness, guarding, rebound, rigid Extremities exam: Present: normal inspection, full ROM, normal capillary refill. Absent: tenderness, pedal edema, joint swelling, calf tenderness Back exam: Present: normal inspection Neurological exam: Present: alert, oriented X3, CN II-XII intact Psychiatric exam: Present: normal affect, normal mood Skin exam: Present: warm, dry, intact, normal color. Absent: rash Course Vital Signs 12/26/23 12/26/23 12/26/23 16:00 17:49 18:48 Temperature 97.6 F Pulse Rate 94 90 95 Respiratory 18 16 18 Rate Blood Pressure 167/108 167/120 152/97 O2 Sat by Pulse 100 99 98 Oximetry 12/26/23 12/26/23 19:42 21:20 Temperature Pulse Rate 105 H 98 Respiratory 18 18 Rate Blood Pressure 151/94 169/119 O2 Sat by Pulse 99 98 Oximetry - Reevaluation(s) Reevaluation #1: 12/26/23 17:20 Medical records reviewed Reevaluation #2: 12/26/23 17:20 Patient is having GI bleeding with bright red blood per rectum 12/26/23 19:36 Patient has no recurrent syncope here in the ER Reevaluation #3: 12/26/23 17:20 Patient informed of results questions answered Reevaluation #4: Was pt. sent in by a medical professional or institution (, PA, LABOR SUPERVISOR, urgent care, hospital, or [facility]...) When possible be specific @ -no Did you speak to anyone other than the patient for history (EMS, parent, family, police, friend...)? What history was obtained from this source @ -no Did you review nursing and triage notes (agree or disagree)? Why? @ -agree Are old charts reviewed (outside hosp., previous admission, EMS record, old EKG, old radiological studies, urgent care reports/EKG's, [facility] records)? Report findings @ -yes Differential Diagnosis (chest pain, altered mental status, abdominal pain women, abdominal pain men, vaginal bleeding, weakness, fever, dyspnea, syncope, headache, dizziness, GI bleed, back pain, seizure, CVA, palpatations, mental health, musculoskeletal)? @ -prior EKG interpreted by me (3pts min.). @ -yes X-rays interpreted by me (1pt min.). @ -yes negative for acute disease CT interpreted by me (1pt min.). @ -yes negative for acute disease U/S interpreted by me (1pt. min.). @ -no What testing was considered but not performed or refused? (CT, X-rays, U/S, labs)? Why? @ -none What meds were considered but not given or refused? Why? @ -none Did you discuss the management of the patient with other professionals (professionals i.e. DrMiya, PA, LABOR SUPERVISOR, lab, RT, psych nurse, administrator social welfare, diesel mechanic farm, teacher, custodial officer, wrapper caser)? Give summary @ -no Was smoking cessation discussed for >3mins.? @ -no Was critical care preformed (if so, how long)? @ -yes31 Were there social determinants of health that impacted care today? How? (Homelessness, low income, unemployed, alcoholism, drug addiction, t ransportation, low edu. Level, literacy, decrease access to med. care, detention, rehab)? @ -none Was there de-escalation of care discussed even if they declined (Discuss DNR or withdrawal of care, Hospice)? DNR status @ -no What co-morbidities impacted this encounter? (DM, HTN, Smoking, COPD, CAD, Can cer, CVA, ARF, Chemo, Hep., AIDS, mental health diagnosis, sleep apnea, morbid obesity)? @ -none Was patient admitted / discharged? Hospital course, mention meds given and route, prescriptions, significant lab abnormalities, going to OR and other pertinent info. @ - 63 male to ER for evaluation of significant coagulopathy syncopal event and anemia. Patient is on Coumadin and will be transferred for GI evaluation Coumadin reversal for severe GI bleed Transferred to [facility] Admitted Undiagnosed new problem with uncertain prognosis? @ -no Drug Therapy requiring intensive monitoring for toxicity (Heparin, Nitro, Insulin, Cardizem)? @ -no Were any procedures done? @ -no Diagnosis/symptom? @ -Syncope and anemia with coagulopathy Acute, or Chronic, or Acute on Chronic? @ -Acute Uncomplicated (without systemic symptoms) or Complicated (systemic symptoms)? @ -Complicated Side effects of treatment? @ -no Exacerbation, Progression, or Severe Exacerbation? @ -exacerbation Poses a threat to life or bodily function? How? (Chest pain, [place], [place], pneumonia, PE, COPD, DKA, ARF, appy, cholecystitis, CVA, Diverticulitis, Homicidal, Suicidal, threat to staff... and all critical care pts) @ -yes with significant acute anemia, syncope anticoagulation Reevaluation #5: Differential Syncope: Valvular disease, hypertrophic cardiomyopathy, pulmonary embolism, tamponade, tachycardia, bradycardia, [place], hypovolemia, hemorrhage, dissection, anemia, intracranial hemorrhage, seizure, hypoglycemia, carbon monoxide poisoning, this is not meant to be an all-inclusive list. EKG Findings - EKG Comments: EKG Findings:: EKG is sinus 94 ME 166 QRS 124 QTc 454 Medical Decision Making - Medical Decision Making 63 male to ER for evaluation of significant coagulopathy syncopal event and anemia. Patient is on Coumadin and will be transferred for GI evaluation Coumadin reversal for severe GI bleed - Lab Data Result diagrams: 12/26/23 16:19 12/26/23 16:19 Lab Results 12/26/23 12/26/23 12/26/23 Range/Units 16:16 16:19 16:19 WBC 16.6 H (3.8-10.6) k/uL RBC 3.27 L (4.30-5.90) m/uL Hgb 9.6 L (13.0-17.5) gm/dL Hct 28.2 L (39.0-53.0) % MCV 86.3 (80.0-100.0) fL MCH 29.3 (25.0-35.0) pg MCHC 33.9 (31.0-37.0) g/dL RDW 15.5 (11.5-15.5) % Plt Count 323 (150-450) k/uL MPV 8.3 Neutrophils % 89 % Lymphocytes % 5 % Monocytes % 3 % Eosinophils % 1 % Basophils % 1 % Neutrophils # 14.8 H (1.3-7.7) k/uL Lymphocytes # 0.8 L (1.0-4.8) k/uL Monocytes # 0.5 (0-1.0) k/uL Eosinophils # 0.2 (0-0.7) k/uL Basophils # 0.1 (0-0.2) k/uL PT (10.0-12.5) sec INR (<1.2) APTT (22.0-30.0) sec Sodium 135 L (137-145) mmol/L Potassium 3.3 L (3.5-5.1) mmol/L Chloride 95 L (98-107) mmol/L Carbon Dioxide 28 (22-30) mmol/L Anion Gap 12 mmol/L BUN 60 H (9-20) mg/dL Creatinine 7.35 H* (0.66-1.25) mg/dL Est GFR (CKD-EPI)AfAm 8 (>60 ml/min/1.73 sqM) Est GFR (CKD-EPI)NonAf 7 (>60 ml/min/1.73 sqM) Glucose 140 H (74-99) mg/dL Calcium 8.5 (8.4-10.2) mg/dL Phosphorus 5.5 H (2.5-4.5) mg/dL Magnesium 1.9 (1.6-2.3) mg/dL Total Bilirubin 0.6 (0.2-1.3) mg/dL AST 17 (17-59) U/L ALT 10 (4-49) U/L Alkaline Phosphatase 87 (38-126) U/L Troponin I (0.000-0.034) ng/mL NT-Pro-B Natriuret Pep 33684 pg/mL Total Protein 6.5 (6.3-8.2) g/dL Albumin 3.6 (3.5-5.0) g/dL Blood Type A Positive Blood Type Recheck A Pos Bld Type Recheck Status No Antibody Screen NEGATIVE Spec Expiration Date 12/29/2023231512/26/23 12/26/23 Range/Units 16:19 17:30 WBC (3.8-10.6) k/uL RBC (4.30-5.90) m/uL Hgb (13.0-17.5) gm/dL Hct (39.0-53.0) % MCV (80.0-100.0) fL MCH (25.0-35.0) pg MCHC (31.0-37.0) g/dL RDW (11.5-15.5) % Plt Count (150-450) k/uL MPV Neutrophils % % Lymphocytes % % Monocytes % % Eosinophils % % Basophils % % Neutrophils # (1.3-7.7) k/uL Lymphocytes # (1.0-4.8) k/uL Monocytes # (0-1.0) k/uL Eosinophils # (0-0.7) k/uL Basophils # (0-0.2) k/uL PT 100.1 H (10.0-12.5) sec INR >10.0 H* (<1.2) APTT 94.7 H (22.0-30.0) sec Sodium (137-145) mmol/L Potassium (3.5-5.1) mmol/L Chloride (98-107) mmol/L Carbon Dioxide (22-30) mmol/L Anion Gap mmol/L BUN (9-20) mg/dL Creatinine (0.66-1.25) mg/dL Est GFR (CKD-EPI)AfAm (>60 ml/min/1.73 sqM) Est GFR (CKD-EPI)NonAf (>60 ml/min/1.73 sqM) Glucose (74-99) mg/dL Calcium (8.4-10.2) mg/dL Phosphorus (2.5-4.5) mg/dL Magnesium (1.6-2.3) mg/dL Total Bilirubin (0.2-1.3) mg/dL AST (17-59) U/L ALT (4-49) U/L Alkaline Phosphatase (38-126) U/L Troponin I 0.060 H* (0.000-0.034) ng/mL NT-Pro-B Natriuret Pep pg/mL Total Protein (6.3-8.2) g/dL Albumin (3.5-5.0) g/dL Blood Type Blood Type Recheck Bld Type Recheck Status Antibody Screen Spec Expiration Date - Radiology Data Radiology results: report reviewed (CT brain C-spine chest pelvis and elbow x- ray are negative for traumatic injury), image reviewed Critical Care Time Critical Care Time: Yes Total Critical Care Time: 31 Disposition Clinical Impression: Supratherapeutic INR, Elevated INR, Syncope, CKD (chronic kidney disease), Warfarin-induced coagulopathy, Anemia, GI bleed, BRBPR (bright red blood per rectum) Disposition: OTHER INSTITUTION NOT DEFINED Condition: Critical Is patient prescribed a controlled substance at d/c from ED?: No Referrals: Terence Sutton MD [Primary Care Provider] - 1-2 days - Out of Hospital Transfer - Req. Specs Out of Hospital Transfer - Requested Specifics: Other Emergency Center ([facility]
[2023-12-26 16:08] VITALS: TEMP 97.6
[2023-12-26] MEDS: SODIUM CHLORIDE 0.9% 1,000 ML IV STA (16:23)
[2023-12-26 16:31] LABS: Basophils # (A) 0.1 k/uL (0-0.2); Basophils % (A) 1 %; Eosinophils # (A) 0.2 k/uL (0-0.7); Eosinophils % (A) 1 %; HCT 28.2 % (39.0-53.0); HGB 9.6 gm/dL (13.0-17.5); Lymphocytes # (A) 0.8 k/uL (1.0-4.8); Lymphocytes % (A) 5 %; MCH 29.3 pg (25.0-35.0); MCHC 33.9 g/dL (31.0-37.0); MCV 86.3 fL (80.0-100.0); Mean Platelet Volume 8.3; Monocytes # (A) 0.5 k/uL (0-1.0); Monocytes % (A) 3 %; Neutrophils # (A) 14.8 k/uL (1.3-7.7); Neutrophils % (A) 89 %; Platelet Count 323 k/uL (150-450); RBC 3.27 m/uL (4.30-5.90); RDW 15.5 % (11.5-15.5); WBC 16.6 k/uL (3.8-10.6)
[2023-12-26 17:48] LABS: ALT 10 U/L (4-49); AST 17 U/L (17-59); African American GFR (CKD) 8 (>60 ml/min/1.73 sqM); Albumin 3.6 g/dL (3.5-5.0); Alkaline Phosphatase 87 U/L (38-126); Anion Gap 12 mmol/L; Blood Urea Nitrogen 60 mg/dL (9-20); Calcium 8.5 mg/dL (8.4-10.2); Carbon Dioxide 28 mmol/L (22-30); Chloride 95 mmol/L (98-107); Glucose 140 mg/dL (74-99); Magnesium 1.9 mg/dL (1.6-2.3); Non-African American GFR(CKD) 7 (>60 ml/min/1.73 sqM); Phosphorus 5.5 mg/dL (2.5-4.5); Potassium 3.3 mmol/L (3.5-5.1); Sodium 135 mmol/L (137-145); Total Bilirubin 0.6 mg/dL (0.2-1.3); Total Protein 6.5 g/dL (6.3-8.2)
--- NOTE | 2023-12-26 17:53 | CT ---
EXAMINATION TYPE: CT brain cspine wo con CT DLP: 1517.5 scanned by [facility], Automated exposure control for dose reduction was used. DATE OF EXAM: 12/26/2023 5:21 PM COMPARISON: CT brain 12/06/2023 and before CLINICAL INDICATION:Male, 63 years old with history of fall; pain after fall. abrasion to back of hea d TECHNIQUE: Brain: Multiple axial CT images of the brain were obtained without IV contrast. Cspine: Axial CT images from the skull base to the inferior aspect of T2 we obtained without intraven ous contrast. Coronal and sagittal reformatted images were also reviewed. FINDINGS: Brain: Extra-axial spaces: No abnormal extra-axial fluid collections. Ventricular system: Appear dilated in proportion to the degree of cerebral atrophy. Cerebral parenchyma: No increased attenuation to suggest acute intraparenchymal hemorrhage. The gra y-white matter interface appears maintained. Moderate generalized brain atrophy. Scattered hypoatte nuating areas are seen within the cerebral white matter, nonspecific but most often seen with chronic microvascular ischemic changes; moderate in degree. Left basal ganglia remote lacunar infarcts agai n seen. Small area of hypoattenuation in the left henry appears stable, suggestive of remote infarct. Cerebellum: No acute abnormality. Appearance is stable, with hypodensity on the right suggestive of r emote infarct. Mass effect: No evidence of mass effect or midline shift. Intracranial vasculature: Unremarkable Soft tissues: Possible small broad subgaleal hematoma in the left posterior occipital region. Visualized orbits: Orbital contents appear grossly intact. Calvarium/osseous structures: No evidence of calvarial fracture. Changes of remote left craniotomy. Paranasal sinuses and mastoid air cells: Mild rightward nasal septal deviation with small osseous spu r. Moderate lobular mucosal thickening in the left maxillary sinus again noted, with possible small a mount of superimposed fluid. Please note the roots of one of the teeth in the left posterior maxilla protrudes slightly into the base of the maxillary sinus, and there looks to be a small area of bony d ehiscence between the roots and the mucosal thickening. This predisposes to chronic, recurrent sinusi tis. Mastoid air cells are unchanged, generally clear with partial opacification inferiorly on the l eft redemonstrated. MRI is more sensitive for detecting acute processes such as infarct, and may be considered if clinica lly warranted. Cervical spine: Fracture: None seen. Osseous structures, spinal canal/neural foramina: Craniocervical junction appears intact. Mild/modera te degenerative change of the atlantooccipital joints and anterior C1-C2 articulation with normal ali gnment. There are mild/moderate multilevel degenerative disc changes with disc osteophyte complexes, and facet arthrosis throughout the cervical spine. The most severe findings seems to be: C4-C5 there is mild to moderate spinal canal and neuroforaminal stenosis, C5-C6 there is mild to moderate canal s tenosis and moderate foraminal stenosis. Vertebral alignment: No traumatic malalignment. There is reversal of the normal cervical lordosis fro m C2 through C6, which appears degenerative. Neck soft tissues: No acute finding.. Calcifications noted involving the cervical carotid arteries mo stly bifurcation regions. Large bore, likely dialysis catheter is seen entering the right IJV and ext ending into the upper chest with the tip beyond the field of view. Other: The included lung apices show moderate emphysematous changes and mild scarring. No acute infil trate or pneumothorax. Partially seen sternal fixation wires. IMPRESSION: CT head: 1. No CT evidence of an acute intracranial abnormality. 2. Atrophy and chronic microvascular ischemic white matter changes. 3. Left maxillary sinus disease. CT cervical spine: 1. No evidence of acute cervical spine fracture or traumatic malalignment. 2. Moderate cervical spondylosis. 3. Pulmonary emphysema.
[2023-12-26 17:55] LABS: NT-Pro-B-Type Natriuretic Pept 11600 pg/mL
[2023-12-26 18:09] LABS: INR >10.0 (<1.2); Partial Thromboplastin Time 94.7 sec (22.0-30.0)
[2023-12-26 18:10] LABS: Prothrombin Time 100.1 sec (10.0-12.5)
[2023-12-26 19:14] VITALS: RESP 18
[2023-12-26] MEDS ORDERED: Kcentra PER PHARMACY 1 EACH MISC MISCELLANE PRN (19:18)
[2023-12-26] MEDS: PHYTONADIONE 10 MG in SODIUM CHLORIDE 0.9% 50 ML IVPB STA (19:45)
[2023-12-26] MEDS ORDERED: HUMAN PROTHROMBIN COMPLX 500 UNIT/16 ML VIAL IV ONE (20:19)
[2023-12-26] MEDS: HUMAN PROTHROMBIN COMPLX IV ONE (20:19)
--- NOTE | 2023-12-26 21:09 | XR ---
EXAMINATION TYPE: XR chest 1V DATE OF EXAM: 12/26/2023 HISTORY: Shortness of breath. COMPARISON: 11/25/2023 TECHNIQUE: Single view of the chest is submitted. FINDINGS: Demonstrated are scattered senescent parenchymal change. There is no evidence for focal infiltrate. Large bore central venous line is unchanged in position. C hanges of median sternotomy and CABG. The heart is stable. Hilar and mediastinal structures are within normal limits. Degenerative changes are seen of the dorsal spine. IMPRESSION: 1. Chronic changes without evidence for acute pulmonary disease.
--- NOTE | 2023-12-26 21:10 | XR ---
EXAMINATION TYPE: XR elbow complete LT DATE OF EXAM: 12/26/2023 CLINICAL HISTORY: pain TECHNIQUE: Frontal, lateral and oblique images of the left elbow are obtained. COMPARISON: None. FINDINGS: There is no acute fracture/dislocation evident of the elbow. No abnormal fat pad signs ar e seen. The overlying soft tissue appears unremarkable. IMPRESSION: There is no acute fracture or dislocation of the elbow. ICD 10 NO FRACTURE, INITIAL EVALUATION
--- NOTE | 2023-12-26 21:11 | XR ---
EXAMINATION TYPE: XR pelvis AP view DATE OF EXAM: 12/26/2023 CLINICAL HISTORY: pain TECHNIQUE: Single view the pelvis is submitted. FINDINGS: No evidence for fracture, dislocation or bony lesion. Joint spaces are well-preserved. S I joints appear symmetric. IMPRESSION: 1. No acute fracture or dislocation seen. ICD 10 NO FRACTURE, INITIAL EVALUATION
[2023-12-26 21:46] VITALS: BP 169/119; PULSE 98
== END 2023-12-26 21:22 | disposition other institution (70) ==
LOC: EC 15:57
DX: K92.2 Gastrointestinal hemorrhage, unspecified (principal); K62.5 Hemorrhage of anus and rectum; D64.9 Anemia, unspecified; D68.32 Hemorrhagic disorder due to extrinsic circulating anticoagulants; R79.1 Abnormal coagulation profile; I12.9 Hypertensive chronic kidney disease with stage 1 through stage 4 chronic kidney disease, or unspecified chronic kidney disease; N18.9 Chronic kidney disease, unspecified; R55 Syncope and collapse; F17.200 Nicotine dependence, unspecified, uncomplicated
CPT/HCPCS: 36415; 93005; 86900; 86901; 83880; 80053; 83735; 84100; 84484; 85025; 85610; 85730; 86850; 72170; 73080; 71045; 72125; 70450; 99285; 96365; 96367; 96361 ×4; J3430; J7168

== ENCOUNTER 2024-02-29 10:20 | Emergency (ER) | payer BC, OTHER ==
[2024-02-29 10:31] VITALS: TEMP 97.6
--- NOTE | 2024-02-29 11:01 | ED ---
General Adult HPI - General Chief complaint: Dizziness Stated complaint: Dizziness Time Seen by Provider: 02/29/24 10:41 Source: patient, EMS, RN notes reviewed Mode of arrival: EMS Limitations: no limitations - History of Present Illness Initial comments: Patient is a 63-year-old male present to the emergency department with concerns with dizziness. Onset of symptoms was 4 to 5 days ago. Patient has dizziness described as a spinning type sensation. Symptoms worsen with getting up and head movement. Symptoms have been pretty constant. Patient has had associated nausea and vomiting. No syncope. No weakness nor confusion. - Related Data Home Medications Medication Instructions Recorded Confirmed Torsemide [Demadex] 10 mg PO DAILY 12/12/23 02/29/24 amLODIPine [Norvasc] 2.5 mg PO BID 12/12/23 02/29/24 Esomeprazole Magnesium [NexIUM] 40 mg PO DAILY 02/29/24 02/29/24 Ipratropium/Albuter 20-100Mcg 1 puff INHALATION RT-DAILY PRN 02/29/24 02/29/24 [Combivent Respimat 20-100Mcg Inhaler] Isosorbide Mononitrate [Ismo] 20 mg PO DAILY 02/29/24 02/29/24 Sennosides-Docusate Sodium 1 tab PO Q2D 02/29/24 02/29/24 [Senokot-S] Tiotropium Br/Olodaterol HCl 1 puff INHALATION RT-DAILY PRN 02/29/24 02/29/24 [Stiolto Respimat Inhal [place]] carvediloL [Coreg*] 12.5 mg PO BID 02/29/24 02/29/24 hydrALAZINE HCL [Apresoline] 100 mg PO BID 02/29/24 02/29/24 Previous Rx's Medication Instructions Recorded Thiamine [Vitamin B-1] 100 mg PO DAILY tab 11/29/23 Escitalopram [Lexapro] 10 mg PO DAILY #30 tab 12/16/23 Ferrous Sulfate [Feosol] 325 mg PO DAILY #1 tab 12/16/23 Allergies Allergy/AdvReac Type Severity Reaction Status Date / Time No Known Allergies Allergy Verified 02/29/24 12:09 Review of Systems ROS Statement: Those systems with pertinent positive or pertinent negative responses have been documented in the HPI. ROS Other: All systems not noted in ROS Statement are negative. Constitutional: Denies: fever Eyes: Denies: eye pain ENT: Denies: ear pain Respiratory: Denies: cough, dyspnea Cardiovascular: Denies: chest pain Endocrine: Denies: fatigue Gastrointestinal: Reports: nausea, vomiting. Denies: abdominal pain Neurological: Reports: as per HPI, vertigo Past Medical History Past Medical History: CVA/TIA, GERD/Reflux, Hyperlipidemia, Hypertension, Sleep Apnea/CPAP/BIPAP Additional Past Medical History / Comment(s): stress test abnormal, cva 2 yrs ago lft arm tires quickly, questioning possible NE,no cpap used See Dr Ibarra's H & P History of Any Multi-Drug Resistant Organisms: None Reported Past Surgical History: Cardiac Valve Replacement Additional Past Surgical History / Comment(s): 2003 aortic valve replaced, cerebral aneurysm repaired 2021, PermaCath 11-22-2023 Past Anesthesia/Blood Transfusion Reactions: No Reported Reaction Additional Past Anesthesia/Blood Transfusion Reaction / Comment(s): no hx of blood tx Past Psychological History: No Psychological Hx Reported Smoking Status: Current every day smoker Past Alcohol Use History: Occasional Past Drug Use History: None Reported - Past Family History Father History Unknown: Yes General Exam Limitations: no limitations General appearance: alert, in no apparent distress Head exam: Present: normocephalic Eye exam: Present: normal appearance, PERRL, EOMI, nystagmus (Mild horizontal) ENT exam: Present: normal oropharynx Neck exam: Present: normal inspection Respiratory exam: Present: normal lung sounds bilaterally Cardiovascular Exam: Present: regular rate, normal rhythm GI/Abdominal exam: Present: soft. Absent: tenderness Extremities exam: Present: normal inspection Neurological exam: Present: alert, oriented X3, CN II-XII intact. Absent: motor sensory deficit Expanded Neurological exam: Present: protecting the airway Patient oriented to: Present: person, place, time Speech: Present: fluid speech Cranial nerves: EOM's Intact: Normal, Facial Sensation: Normal Cerebellar function: Finger to Nose: Normal Sensory exam: Upper Extremity Light Touch: Normal, Lower Extremity Light Touch: Normal Motor strength exam: RUE: 5, LUE: 5, RLE: 5, LLE: 5 Eye Response: (4) open spontaneously Motor Response: (6) obeys commands Verbal Response: (5) oriented Psychiatric exam: Present: normal affect, normal mood Skin exam: Present: normal color Course Vital Signs 02/29/24 10:22 Temperature 97.6 F Pulse Rate 57 L Respiratory 17 Rate Blood Pressure 166/100 O2 Sat by Pulse 99 Oximetry EKG Findings - EKG Results: EKG: interpreted by WILLIAM (QT 507. QTc 502.), sinus rhythm, normal axis, normal QRS, normal ST/T EKG shows: bradycardia Medical Decision Making - Medical Decision Making Was pt. sent in by a medical professional or institution (, PA, [facility], urgent care, hospital, or correction...) When possible be specific @ -No Did you speak to anyone other than the patient for history (EMS, parent, family, police, friend...)? What history was obtained from this source @ -No Did you review nursing and triage notes (agree or disagree)? Why? @ -I reviewed and agree with nursing and triage notes Were old charts reviewed (outside hosp., previous admission, EMS record, old EKG, old radiological studies, urgent care reports/EKG's, correction records)? Report findings @ -No old charts were reviewed Differential Diagnosis (chest pain, altered mental status, abdominal pain women, abdominal pain men, vaginal bleeding, weakness, fever, dyspnea, syncope, headache, dizziness, GI bleed, back pain, seizure, CVA, palpatations, mental health, musculoskeletal)? @ -Differential Dizziness: Benign paroxysmal positional Vertigo, Menieres disease, otitis media, acoustic neuroma, vertebrobasilar insufficiency, cerebellar stroke, encephalitis, hypovolemic, arrhythmia, coronary artery syndrome, anemia, this is not meant to be an all-inclusive list EKG interpreted by me (3pts min.). @ -As above X-rays interpreted by me (1pt min.). @ -Chest x-ray shows no acute process. Dialysis catheter is present. CT interpreted by me (1pt min.). @ -CT scan of the brain has concern for right hyperdense focus thalamic 6 mm. U/S interpreted by me (1pt. min.). @ -None done What testing was considered but not performed or refused? (CT, X-rays, U/S, labs)? Why? @ -None What meds were considered but not given or refused? Why? @ -None Did you discuss the management of the patient with other professionals (professionals i.e. , PA, [facility], lab, RT, psych nurse, social worker clinical, dials supervisor, teacher, medical information officer, porter sample case)? Give summary @ -Case was discussed with Marine as well as Dr. Jaime who will accept transfer to [facility]. Dr. Hardy recommends systolic blood pressure under 150. He would lean towards reversing Coumadin with half dose of PCC. Discussion had with patient regarding risks of this including clotting with his valve however patient is agreeable to this. This has been ordered. Was smoking cessation discussed for >3mins.? @ -No Was critical care preformed (if so, how long)? @ -35 minutes critical care time Were there social determinants of health that impacted care today? How? (Homelessness, low income, unemployed, alcoholism, drug addiction, transportation, low edu. Level, literacy, decrease access to med. care, retirement, rehab)? @ -No Was there de-escalation of care discussed even if they declined (Discuss DNR or withdrawal of care, Hospice)? DNR status @ -No What co-morbidities impacted this encounter? (DM, HTN, Smoking, COPD, CAD, Cancer, CVA, ARF, Chemo, Hep., AIDS, mental health diagnosis, sleep apnea, morbid obesity)? @ -Renal failure on dialysis as well as mechanical aortic valve with anticoagulation. Was patient admitted / discharged? Hospital course, mention meds given and route, prescriptions, significant lab abnormalities, going to OR and other pertinent info. @ -Patient presents with dizziness with concern for small bleed on head CT. Patient is anticoagulated. Kcentra ordered for reversal. Patient will be transferred for neurological/neurosurgical care at [facility]. Undiagnosed new problem with uncertain prognosis? @ -No Drug Therapy requiring intensive monitoring for toxicity (Heparin, Nitro, Insulin, Cardizem)? @ -Kcentra ordered. Marcial correia will be on standby Were any procedures done? @ -No Diagnosis/symptom? @ -Thalamic hemorrhage Acute, or Chronic, or Acute on Chronic? @ -Acute Uncomplicated (without systemic symptoms) or Complicated (systemic symptoms)? @ -Default Side effects of treatment? @ -No Exacerbation, Progression, or Severe Exacerbation? @ -No Poses a threat to life or bodily function? How? (Chest pain, USA, NE, pneumonia, PE, COPD, DKA, ARF, appy, cholecystitis, CVA, Diverticulitis, Homicidal, Suicidal, threat to staff... and all critical care pts) @ -Threat to life with intracranial hemorrhage - Lab Data Result diagrams: 02/29/24 11:01 02/29/24 11:01 Lab Results 02/29/24 02/29/24 02/29/24 Range/Units 11:01 11:01 11:01 WBC 10.1 (3.8-10.6) k/uL RBC 3.85 L (4.30-5.90) m/uL Hgb 12.0 L (13.0-17.5) gm/dL Hct 34.0 L (39.0-53.0) % MCV 88.4 (80.0-100.0) fL MCH 31.1 (25.0-35.0) pg MCHC 35.2 (31.0-37.0) g/dL RDW 14.0 (11.5-15.5) % Plt Count 256 (150-450) k/uL MPV 8.6 Neutrophils % 83 % Lymphocytes % 8 % Monocytes % 5 % Eosinophils % 2 % Basophils % 1 % Neutrophils # 8.5 H (1.3-7.7) k/uL Lymphocytes # 0.8 L (1.0-4.8) k/uL Monocytes # 0.5 (0-1.0) k/uL Eosinophils # 0.2 (0-0.7) k/uL Basophils # 0.1 (0-0.2) k/uL PT 19.3 H (10.0-12.5) sec INR 1.9 H (<1.2) APTT 37.6 H (22.0-30.0) sec Sodium 137 (137-145) mmol/L Potassium 3.5 (3.5-5.1) mmol/L Chloride 99 (98-107) mmol/L Carbon Dioxide 30 (22-30) mmol/L Anion Gap 8 mmol/L BUN 37 H (9-20) mg/dL Creatinine 5.00 H (0.66-1.25) mg/dL Est GFR (CKD-EPI)AfAm 13 (>60 ml/min/1.73 sqM) Est GFR (CKD-EPI)NonAf 11 (>60 ml/min/1.73 sqM) Glucose 144 H (74-99) mg/dL Plasma Lactic Acid Lyle (0.7-2.0) mmol/L Calcium 9.1 (8.4-10.2) mg/dL Magnesium 2.0 (1.6-2.3) mg/dL Total Bilirubin 0.7 (0.2-1.3) mg/dL AST 16 L (17-59) U/L ALT 11 (4-49) U/L Alkaline Phosphatase 85 (38-126) U/L Total Protein 6.8 (6.3-8.2) g/dL Albumin 4.0 (3.5-5.0) g/dL 02/29/24 Range/Units 11:01 WBC (3.8-10.6) k/uL RBC (4.30-5.90) m/uL Hgb (13.0-17.5) gm/dL Hct (39.0-53.0) % MCV (80.0-100.0) fL MCH (25.0-35.0) pg MCHC (31.0-37.0) g/dL RDW (11.5-15.5) % Plt Count (150-450) k/uL MPV Neutrophils % % Lymphocytes % % Monocytes % % Eosinophils % % Basophils % % Neutrophils # (1.3-7.7) k/uL Lymphocytes # (1.0-4.8) k/uL Monocytes # (0-1.0) k/uL Eosinophils # (0-0.7) k/uL Basophils # (0-0.2) k/uL PT (10.0-12.5) sec INR (<1.2) APTT (22.0-30.0) sec Sodium (137-145) mmol/L Potassium (3.5-5.1) mmol/L Chloride (98-107) mmol/L Carbon Dioxide (22-30) mmol/L Anion Gap mmol/L BUN (9-20) mg/dL Creatinine (0.66-1.25) mg/dL Est GFR (CKD-EPI)AfAm (>60 ml/min/1.73 sqM) Est GFR (CKD-EPI)NonAf (>60 ml/min/1.73 sqM) Glucose (74-99) mg/dL Plasma Lactic Acid Lyle 2.2 H* (0.7-2.0) mmol/L Calcium (8.4-10.2) mg/dL Magnesium (1.6-2.3) mg/dL Total Bilirubin (0.2-1.3) mg/dL AST (17-59) U/L ALT (4-49) U/L Alkaline Phosphatase (38-126) U/L Total Protein (6.3-8.2) g/dL Albumin (3.5-5.0) g/dL Critical Care Time Critical Care Time: Yes Disposition Clinical Impression: Thalamic hemorrhage Disposition: OTHER INSTITUTION NOT DEFINED Condition: Critical Is patient prescribed a controlled substance at d/c from ED?: No Referrals: Terence Sutton MD [Primary Care Provider] - 1-2 days Time of Disposition: 12:33 - Out of Hospital Transfer - Req. Specs Out of Hospital Transfer - Requested Specifics: Other Emergency Center
[2024-02-29] MEDS: MECLIZINE 12.5 MG TAB PO STA (11:07)
[2024-02-29] MEDS: METOCLOPRAMIDE 5 MG/ML 2 ML VIAL IVP STA (11:09)
[2024-02-29 11:37] LABS: Basophils # (A) 0.1 k/uL (0-0.2); Basophils % (A) 1 %; Eosinophils # (A) 0.2 k/uL (0-0.7); Eosinophils % (A) 2 %; Lymphocytes # (A) 0.8 k/uL (1.0-4.8); Lymphocytes % (A) 8 %; MCH 31.1 pg (25.0-35.0); MCHC 35.2 g/dL (31.0-37.0); MCV 88.4 fL (80.0-100.0); Mean Platelet Volume 8.6; Monocytes # (A) 0.5 k/uL (0-1.0); Monocytes % (A) 5 %; Neutrophils # (A) 8.5 k/uL (1.3-7.7); Neutrophils % (A) 83 %; Platelet Count 256 k/uL (150-450); RBC 3.85 m/uL (4.30-5.90); WBC 10.1 k/uL (3.8-10.6)
[2024-02-29 11:44] LABS: INR 1.9 (<1.2); Partial Thromboplastin Time 37.6 sec (22.0-30.0); Prothrombin Time 19.3 sec (10.0-12.5)
[2024-02-29 11:46] LABS: ALT 11 U/L (4-49); AST 16 U/L (17-59); African American GFR (CKD) 13 (>60 ml/min/1.73 sqM); Alkaline Phosphatase 85 U/L (38-126); Anion Gap 8 mmol/L; Blood Urea Nitrogen 37 mg/dL (9-20); Calcium 9.1 mg/dL (8.4-10.2); Carbon Dioxide 30 mmol/L (22-30); Chloride 99 mmol/L (98-107); Glucose 144 mg/dL (74-99); Non-African American GFR(CKD) 11 (>60 ml/min/1.73 sqM); Potassium 3.5 mmol/L (3.5-5.1); Sodium 137 mmol/L (137-145); Total Bilirubin 0.7 mg/dL (0.2-1.3); Total Protein 6.8 g/dL (6.3-8.2)
--- NOTE | 2024-02-29 11:47 | CT ---
EXAMINATION TYPE: CT brain wo con DATE OF EXAM: 02/29/2024 COMPARISON: 12/26/2023 HISTORY: 63-year-old male Weakness TECHNIQUE: Examination was done in axial plane without intravenous contrast. Coronal and sagittal r econstructions performed. CT DLP: 1125.4 mGycm Automated exposure control for dose reduction was used. FINDINGS: Previous craniotomy flap along the left lateral convexity. Moderate patchy white matter hypodensities in the bilateral cerebral hemispheres is unchanged. Old la cunar infarcts left basal ganglia. New 6 mm focus of hyperdensity within the right thalamus. Punctate dural calcification left parieto-occipital junction remains unchanged. No evidence for acute ischemic change, mass, mass effect, midline shift, or otherwise in the extra-ax ial fluid collection. No hydrocephalus. Rightward nasal septal deviation. Poxo-hu-ojeyyhuc mucosal thickening floor of the left maxillary sin us. Mastoid air cells well pneumatized. Orbits and globes are intact IMPRESSION: 1. New 6 mm hyperdense focus right thalamus suggests a small acute intracranial bleed. No mass effect or midline shift. Called to Dr. Merritt in the ER at 11:45 am. 2. Previous left lateral craniotomy flap and moderate burden of chronic small vessel ischemic disease . Old lacunar infarcts left basal ganglia. 3. Mild chronic left maxillary sinus disease.
[2024-02-29] MEDS ORDERED: Kcentra PER PHARMACY 1 EACH MISC MISCELLANE PRN (12:28)
[2024-02-29] MEDS: HUMAN PROTHROMBIN COMPLX IV ONE (13:12)
[2024-02-29] MEDS ORDERED: HUMAN PROTHROMBIN COMPLX 500 UNIT/16 ML VIAL IV ONE (13:12)
[2024-02-29] MEDS: niCARdipine 20 MG in SODIUM CHLORIDE 0.9% 192 ML IV SCH (13:18)
[2024-02-29 13:43] VITALS: BP 125/85; PULSE 55; RESP 18
--- NOTE | 2024-02-29 13:50 | XR ---
EXAMINATION TYPE: XR chest 2V DATE OF EXAM: 02/29/2024 COMPARISON: 12/26/2023 HISTORY: Shortness of breath TECHNIQUE: Frontal and lateral views of the chest are obtained. FINDINGS: Scattered senescent parenchymal changes noted. Hyperinflation compatible with COPD. No evidence for infiltrate. No evidence for atelectasis. Heart size is stable. Mediastinal structures are stable and grossly unremarkable. No evidence for hilar prominence. Degenerative changes dorsal spine. IMPRESSION: 1. No evidence for acute pulmonary disease.
== END 2024-02-29 13:43 | disposition other institution (70) ==
LOC: EC 10:20
DX: I61.9 Nontraumatic intracerebral hemorrhage, unspecified (principal); I12.9 Hypertensive chronic kidney disease with stage 1 through stage 4 chronic kidney disease, or unspecified chronic kidney disease; N18.9 Chronic kidney disease, unspecified; R00.1 Bradycardia, unspecified; F17.200 Nicotine dependence, unspecified, uncomplicated; Z95.2 Presence of prosthetic heart valve; Z99.2 Dependence on renal dialysis; Z86.73 Personal history of transient ischemic attack (TIA), and cerebral infarction without residual deficits; Z79.899 Other long term (current) drug therapy
CPT/HCPCS: 99291; 36415; 93005; 80053; 83605; 83735; 85025; 85610; 85730; 71046; 70450; 96365; 96375 ×2; J2765; J7168; 96361; 96374

== ENCOUNTER 2024-05-30 06:55 | Day surgery (SDC) | payer BC, OTHER ==
[2024-05-30] MEDS ORDERED: LACTATED RINGERS 1,000 ML IV SCH (07:12)
[2024-05-30] MEDS ORDERED: LIDOCAINE 1% (10MG/ML) FOR IV START INTRADERMA PRN (07:12)
[2024-05-30] MEDS: IV FLUID CONTINUATION 1,000 ML IV ONE (07:38)
[2024-05-30] MEDS: ONDANSETRON 4 MG/2 ML VIAL IVP ONE (07:40)
[2024-05-30] MEDS: SODIUM CHLORIDE 0.9% 500 ML 500 ML IV ONE (07:54)
[2024-05-30] MEDS: MIDAZOLAM 2 MG/2 ML VIAL IV ONE (07:54)
[2024-05-30 07:58] LABS: INR 1.4 (<1.2); Prothrombin Time 14.4 sec (10.0-12.5)
[2024-05-30 08:06] VITALS: RESP 16; TEMP 97.4
[2024-05-30] MEDS: HEPARIN SODIUM,PORCINE 5,000 UNIT/ML 1 ML VIAL SQ STA (08:35)
[2024-05-30] MEDS ORDERED: hydrALAZINE HCL 20 MG/ML 1 ML VIAL ONE (09:02)
[2024-05-30] MEDS ORDERED: fentaNYL (PF) 50 MCG/ML 2 ML AMP ONE (09:02)
[2024-05-30] MEDS ORDERED: NEOSTIGMINE 1 MG/ML 10 ML VIAL ONE (09:02)
[2024-05-30] MEDS ORDERED: LIDOCAINE 1% INJ 10MG/ML (20 ML MDV) ONE (09:02)
[2024-05-30] MEDS ORDERED: ROCURONIUM 10 MG/ML (5 ML VIAL) IV ONE (09:02)
[2024-05-30] MEDS ORDERED: SUCCINYLCHOLINE CHLORIDE 200 MG/10 ML VIAL IV ONE (09:02)
[2024-05-30] MEDS ORDERED: PROPOFOL 10 MG/ML 20 ML VIAL IV ONE (09:02)
[2024-05-30] MEDS ORDERED: GLYCOPYRROLATE 0.2 MG/ML 2 ML VIAL ONE (09:02)
[2024-05-30] MEDS: LIDOCAINE 1%-EPI 1:100,000 20 ML VIAL SQ ONE (09:12)
--- NOTE | 2024-05-30 09:48 | P.OP ---
Date of Procedure: 05/30/24 Preoperative Diagnosis: Cholelithiasis Postoperative Diagnosis: Cholelithiasis Procedure(s) Performed: Laparoscopic cholecystectomy Anesthesia: DELROY Surgeon: Michael Borden Estimated Blood Loss (ml): 5 Pathology: other (Gallbladder) Condition: stable Disposition: PACU Description of Procedure: The patient's placed on the operative table in the supine position. The patient received general endotracheal anesthesia. His abdomen was prepped with sterile fashion. An infraumbilical skin incision was made. The Veress needles positioned into the peritoneal cavity. Position of the Veress needle was confirmed with a positive drop test. The abdomen was then insufflated. After adequate insufflation a 5 mm trochars placed. Cavity. Next the laparoscope placed. Cavity. A 8 mm robotic trocar was placed in the left mid abdomen. A a 8 mm robotic trochars placed in the right lateral position and then the right mid abdomen position. The patient was then placed in reverse Trendelenburg. Patient with was docked to the robot. There were adhesions to the dome of the gallbladder. These were lysed using the hook cautery. The gallbladder fundus was then grasped with a pro-grasp grasper. And then the gallbladder was retracted cephalad. There were adhesions along the body of the gallbladder. These were lysed with sharp dissection. The fundus of the gallbladder was then grasped in the lateral traction was placed in the fundus. And then using blunt and sharp dissection the cystic duct was identified. Using firing applied the cystic duct was identified. A critical view of safety was achieved. The cystic duct was seen entering the common bile duct the common h epatic duct was seen. The cystic duct had been completely dissected and then the cystic duct was clipped and divided. The cystic artery was then identified and then clipped and divided. The gallbladder was then removed from liver bed using left cautery. The gallbladder was placed in a 5 mm Endo Catch bag. The liver bed was hemostasis. There is no bleeding seen. The abdomen was irrigated. No bleeding was seen. The patient was then undocked from the robot. The gallbladder was extracted through the umbilical port site. The umbilical port site was then closed with 0 Ethibond suture. The trochars withdrawn. Skin was closed interrupted 3-0 Monocryl suture. Dermabond dressing applied. Patient top she will was sent to recovery room in stable condition.
[2024-05-30] MEDS: HYDROmorphone 0.5 MG/0.5 ML SYRINGE IVP PRN (10:06)
[2024-05-30] MEDS: hydrALAZINE HCL 20 MG/ML 1 ML VIAL IVP STA (11:21)
[2024-05-30] MEDS: LABETALOL SYRINGE 5 MG/ML (4 ML SYR) IVP STA (13:05)
[2024-05-30 13:09] VITALS: BP 174/99; PULSE 81
== END 2024-05-30 13:39 | disposition home or self-care (01) ==
LOC: OR 06:55
PROVIDERS: ATTEND Surgery
DX: K80.10 Calculus of gallbladder with chronic cholecystitis without obstruction
CPT/HCPCS: 84132; 85610; 88304

== ENCOUNTER 2024-06-13 09:45 | Day surgery (SDC) | payer BC, OTHER ==
[~2024-06-13 09:45] MED LIST changes: -ALPRAZolam 0.25 MG TAB PO PRN; -ALPRAZolam 0.5 MG TAB PO PRN; -ASPIRIN 325 MG TAB PO ONE; -ATORVASTATIN 80 MG TAB PO ONE; -HEPARIN SODIUM,PORCINE (1 ML) 2,500 UNIT in SODIUM CHLORIDE 0.9% 250 ML IRRIGATION PRN; -HEPARIN SODIUM,PORCINE 10,000 UNIT in SODIUM CHLORIDE 0.9% 1,000 ML IRRIGATION PRN; +LACTATED RINGERS 1,000 ML IV SCH; -NITROGLYCERIN SL TABS 0.4 MG TAB SUBLINGUAL PRN; -SODIUM CHLORIDE 0.9% 1,000 ML in EMPTY BAG 1 BAG IV SCH
[2024-06-13] MEDS: IV FLUID CONTINUATION 1,000 ML IV ONE (11:16)
[2024-06-13 11:36] VITALS: TEMP 97
[2024-06-13 12:08] LABS: INR 1.5 (<1.2); Partial Thromboplastin Time 34.9 sec (22.0-30.0); Prothrombin Time 15.7 sec (10.0-12.5)
[2024-06-13] MEDS: SODIUM CHLORIDE 0.9% 1,000 ML IV SCH (12:17)
[2024-06-13] MEDS ORDERED: PROPOFOL 10 MG/ML 20 ML VIAL IV ONE (12:20)
[2024-06-13] MEDS ORDERED: LIDOCAINE 2% (PF) 20 MG/ML 5 ML VIAL ONE (12:20)
--- NOTE | 2024-06-13 12:28 | P.PCN ---
Date of Procedure: 06/13/24 Procedure(s) Performed: BRIEF HISTORY: Patient is a 63-year-old, pleasant, white male scheduled for an upper endoscopy as a part evaluation of nausea and heartburn for the last 2 months duration.. PROCEDURE PERFORMED: Esophagogastroduodenoscopy with biopsy. PREOPERATIVE DIAGNOSIS: Chronic heartburn/nausea/epigastric pain. IV sedation per anesthesia. PROCEDURE: After informed consent was obtained, the patient was brought into the endoscopy unit. IV sedation was administered by Anesthesia under continuous monitoring. Initially the Olympus GIF-140 video endoscope was inserted into the mouth. Esophagus intubated without any difficulty. It was gradually advanced into the stomach and duodenum and carefully examined. The bulb and the second part of the duodenum appeared normal. The scope at this time was withdrawn to the stomach, adequately insufflated with air, and upon careful examination, mu cosa of the antrum, scattered erosions consistent with erosive gastritis and biopsies were done from this area. Mucosa of the body, cardia and the fundus appeared normal. The scope was then withdrawn into the esophagus. The GE junction was located at 41 cm from the incisors. The esophagus appeared normal. There were no erosions or ulcerations seen and the patient tolerated the procedure well. IMPRESSION: 1. Antral erosive gastritis. 2. No evidence of esophagitis or peptic ulcer disease. RECOMMENDATIONS: The findings of this examination were discussed with the patient as well as his family. Follow-up with the biopsy results. He was advised to continue with Pepcid 20 mg twice daily and follow antireflux measures..
[2024-06-13 12:53] VITALS: BP 166/87; PULSE 65; RESP 16
== END 2024-06-13 13:12 | disposition home or self-care (01) ==
LOC: ORWHC2ENDO 09:45
PROVIDERS: ATTEND Internal Medicine Gastroenterology
DX: K21.9 Gastro-esophageal reflux disease without esophagitis
CPT/HCPCS: 43239; 85610; 85730; 88305

== ENCOUNTER → 2024-08-24 | Outpatient (CLI) | payer BC, OTHER ==
--- NOTE | 2024-08-24 11:48 | US ---
EXAMINATION TYPE: US kidneys/renal and bladder DATE OF EXAM: 08/24/2024 COMPARISON: Renal ultrasound 11/23/2023 CLINICAL INDICATION: Male, 63 years old with history of R10.9 UNSPECIFIED ABDOMINAL PAIN; renal failu re left kidney on dialysis TECHNIQUE: Grayscale imaging of the bilateral kidneys and urinary bladder: FINDINGS: EXAM MEASUREMENTS: Right Kidney: 9.8 x 3.5 x 3.0 cm Left Kidney: 9.3 x 3.2 x 3.6 cm Right Kidney: No hydronephrosis or masses seen Left Kidney: Anechoic area seen upper pole 1.7 x 1.4 x 1.6 cm. Bladder: wnl Bilateral Jets seen: No right only There is no evidence for hydronephrosis at this point in time. Corticomedullary differentiation is m aintained bilaterally. No nephrolithiasis is seen. Simple cyst identified within the superior pole o f the left kidney. No solid renal masses are identified. The urinary bladder is anechoic. Only the r ight ureteral jet identified. IMPRESSION: 1. No hydronephrosis or nephrolithiasis. 2. Simple left renal cyst redemonstrated. [facility], , 08/24/2024 11:46 AM
== END | disposition home or self-care (01) ==
LOC: RADUSWWP 11:15
PROVIDERS: ATTEND Internal Medicine Nephrology
DX: N28.1 Cyst of kidney, acquired (principal); N19 Unspecified kidney failure; Z99.2 Dependence on renal dialysis
CPT/HCPCS: 76770